=== PATIENT | female | born 1990 | race Caucasian/White ===

== ENCOUNTER 2018-09-12 18:16 | Emergency (ER) | payer OTHER, SELFPAY ==
[2018-09-12 18:17] VITALS: BP 128/77; PULSE 65; RESP 16; TEMP 36.2; O2SAT 100; BMI 30.4
[2018-09-12] MEDS: Smz/Tmp Ds Tablet 1 TABLET PO (18:37)
--- NOTE | 2018-09-12 18:40 | ED.DCSUM_ITS ---
- ER Visit Summary Date of Service: 09/12/18 Chief Complaint: Facial infection History of Present Illness: The patient is a 28 F presents to the emergency department facial infection. On Saturday, the patient was bit by dog on the face. She went to another emergency department. She had the small laceration under her left eye closed primarily. She was placed on Augmentin. She states today, the redness has increased and she did have some purulent drainage from it. She denies any fevers or chills. She has had some mild pain. She has no history of immunosuppression. Physical Examination: Afebrile, vitals unremarkable. Well-appearing female no acute distress. Patient has 3 stitches over the zygomatic area on the left face. There is some central fluctuance. She has a small area that is open without purulence near her left upper lip border. There is no significant cellu litis. There is no streaking. Test Results: [] Emergency Department Course and Treatment: I did remove the stitches. There is some scant purulence. This was cultured. My suspicion is that she likely just had retained bacteria from the bite and it was closed. The area was cleaned and a Steri-Strip was placed. I am going to add Bactrim to her regimen. She will continue the Augmentin. She was counseled on concerning symptoms. She will be discharged home. Treatment Plan: [] Disposition: Discharge Impression: 1. Facial infection status post dog bite This note was generated with Skigit dictation software. It may contain incorrect words, spelling, and punctuation that were not noted in review of the chart prior to signing ED Disposition - Plan for ED Patient: Chief Complaint: Wound Check Instructions: ED Wound Check Laceration FU Infec Prescriptions: Smz/Tmp Ds [Bactrim Ds] 1 tab PO BID #14 tab Referrals: NOT,DEFINED [Primary Care Provider] -
--- OUTSIDE RECORDS SUMMARY | 2018-11-17 08:21 | XMS RPT_ITS ---
:1990 Author Organization [facility] Care Team Providers Name Role Phone PROVIDER, UNKNOWN Attending Unavailable PROVIDER, UNKNOWN Referring Unavailable Chaparro Horn Primary Care Unavailable Derek Dave Attending Unavailable Primay Care Physicia, No Primary Care Unavailable PROBLEMS PROBLEMS DATE TYPE CONDITION / CODE ATTENDING STATUS SOURCE 09/17/2018 Unknown Cora99.9 - Derek Dave Active Lars Unspecified [facility] infectious Hospital disease / Repository B99.9(ICD-10) 09/08/2018 Admitting Open bite of left Unknown Active [employer] Diagnosis eyelid and System periocular area, Repository init encntr / S01.152A(ICD-10) 09/08/2018 Admitting Bitten by dog, Unknown Active [employer] Diagnosis initial encounter System / Repository W54.0XXA(ICD-10) PROCEDURES PROCEDURES No Procedure Records FoundRESULTS RESULTS EMERGENCY DEPARTMENT Observed: 09/12/2018 Status: F Source: [place] SUMMARY 8:22 PM [facility] [place] Medical Records Department [address] [place] [address] Emergency Department Summary 09/12/18 1838 MR#: [id number] Acct: [id number] Name: CHENTE DERAS Rep #: [id number] : 1990 28 From: Derek Dave MD PCP: Care Physician, No Primary Status: DEP ER - ER Visit Summary Date of Service: 09/12/18 Chief Complaint: Facial infection History of Present Illness: The patient is a 28 F presents to the emergency department facial infection. On Saturday, the patient was bit by dog on the face. She went to another emergency department. She had the small laceration under her left eye closed primarily. She was placed on Augmentin. She states today, the redness has increased and she did have some purulent drainage from it. She denies any fevers or chills. She has had some mild pain. She has no history of immunosuppression. Physical Examination: Afebrile, vitals unremarkable. Well- appearing female no acute distress. Patient has 3 stitches over the zygomatic area on the left face. There is some central fluctuance. She has a small area that is open without purulence near her left upper lip border. There is no significant cellulitis. There is no streaking. Test Results: [] Emergency Department Course and Treatment: I did remove the stitches. There is some scant purulence. This was cultured. My suspicion is that she likely just had retained bacteria from the bite and it was closed. The area was cleaned and a Steri- Strip was placed. I am going to add Bactrim to her regimen. She will continue the Augmentin. She was counseled on concerning symptoms. She will be discharged home. Treatment Plan: [] Disposition: Discharge Impression: 1. Facial infection status post dog bite This note was generated with [employer] dictation software. It may contain incorrect words, spelling, and punctuation that were not noted in review of the chart prior to signing ED Disposition - Plan for ED Patient: Chief Complaint: Wound Check Instructions: ED Wound Check Laceration FU Infec Prescriptions: Smz/Tmp Ds [Bactrim Ds] 1 tab PO BID #14 tab Referrals: NOT,DEFINED [Primary Care Provider] - What to do if you have Problems For any increased pain, shortness of breath, bleeding, nausea or vomiting, chest pain, or any unexpected problems, contact your Primary Care Provider. Call [facility] ([phone]) or report to the closest Emergency Room. Call 911 if necessary. 09/12/182021 <Electronically signed by Derek Dave MD> Date Derek Torresigneduardo Signature (If Indicated): Date CC: No Primary Care Physician Observed: 09/12/2018 Status: F Source: LARS CULTURE, WOUND 6:35 PM [facility] [place] Gram Stain Gram Stain 4+ Red Blood Cells 1+ White Blood Cells No organisms seen Wound Culture No growth aerobically. Performed By: #### [id number] #### [facility] [address] [place], [address] ALLERGIES ALLERGIES DATE TYPE / CODE NAME / CODE REACTION SEVERITY SOURCE 09/12/2018 Drug No Known Unknown [facility] Allergy/4160 Allergies/F00 [facility] [address]85(SNOMED [id number](RXNOR Repository CT) M) ENCOUNTERS ENCOUNTERS ADMIT/DISCHARGE ACCOUNT NUMBER ADMITTING ENCOUNTER LOCATION SOURCE CLASS 09/12/2018/09/12/19 [id number] Emergency [address] ding:ED Repository 09/08/2018 [id number] Emergency [address] [place] [address] EDRoom: System [id number]: Repository [id number] PAYERS PAYERS ENCOUNTER GUARANTOR PAYER SUBSCRIBER SOURCE 09/12/2018 CHENTE [facility] [id number] Insurance:OBWCPolicy PARATOREDOB: Community [facility] Number: [id number] [place], [place] [id number] Repository [address]Irz: (337) Date:0301-13-15IWXRUO [phone] ([facility] [id number] [place], [place] [address]KR: 09/12/2018 Secondary [facility] Effective Hospital Date:2018-09-12 Repository 09/08/2018 [facility] ParatoreDOB: Insurance:Workers ParatoreDOB: System [id number] CompensationPolicy [id number] [facility] Number: Effective Date: [place], [place] [address]Yna: ()
== END 2018-09-12 19:17 | disposition home or self-care (01) ==
LOC: ED 18:55
PROVIDERS: Emergency Provider Emergency Medicine
DX: S01.452D Open bite of left cheek and temporomandibular area, subsequent encounter (principal); L08.9 Local infection of the skin and subcutaneous tissue, unspecified; W54.0XXD Bitten by dog, subsequent encounter
CPT/HCPCS: 87070; 87205; 99283

== ENCOUNTER → 2018-12-04 09:27 | Outpatient (CLI) | payer OTHER, SELFPAY ==
[2018-12-04 09:25] VITALS: BMI 30.4
--- NOTE | 2018-12-04 09:28 | RAD_ITS ---
STUDY: X-RAY - LEFT KNEE REASON FOR EXAM: Chronic pain, prior surgery. TECHNIQUE: 4 view(s) of the knee. COMPARISON: None. FINDINGS: Normal visualized distal femur. There are postoperative changes of the proximal tibia from patellar realignment. Normal proximal tibiofibular articulation. Normal medial femorotibial compartment. Normal lateral femorotibial compartment. Normal patellofemoral articulation. The soft tissue structures are unremarkable. RAD/Knee 4 or More Views IMPRESSION: Postoperative changes from patellar realignment. Otherwise, unremarkable x-ray examination of the left knee. Electronically Signed: Wong Shi MD at 15:00 EDT Tel , Service support ,
--- NOTE | 2018-12-04 09:28 | RAD_ITS ---
STUDY: X-RAY - RIGHT KNEE REASON FOR EXAM: Chronic pain. TECHNIQUE: 4 view(s) of the knee. COMPARISON: None. FINDINGS: Normal visualized distal femur. Normal visualized proximal tibia and fibula. Normal proximal tibiofibular articulation. Normal medial femorotibial compartment. Normal lateral femorotibial compartment. Normal patellofemoral articulation. The soft tissue structures are unremarkable. RAD/Knee 4 or More Views IMPRESSION: Normal x-ray examination of the right knee. Electronically Signed: Wong Shi MD at 14:53 EDT Tel , Service support ,
== END ==
PROVIDERS: Referring Provider Orthopaedic Surgery; Visit Provider Orthopaedic Surgery
DX: R52 Pain, unspecified (principal); G89.29 Other chronic pain
CPT/HCPCS: 73564

== ENCOUNTER → 2020-09-23 10:37 | Outpatient (CLI) | payer BC, SELFPAY ==
[2018-12-04 09:25] VITALS: BMI 30.4
[2020-09-23 11:19] LABS: hCG Titer Quant., Serum 76 mIU/mL (1-3)
== END ==
PROVIDERS: Referring Provider Obstetrics & Gynecology; Visit Provider Obstetrics & Gynecology
DX: O20.0 Threatened abortion (principal); Z3A.00 Weeks of gestation of pregnancy not specified
CPT/HCPCS: 36415; 84702; 86850; 86900; 86901

== ENCOUNTER → 2020-09-25 19:15 | Outpatient (CLI) | payer BC, SELFPAY ==
[2020-09-23 15:50] VITALS: BMI 34.2
[2020-09-25 20:10] LABS: hCG Titer Quant., Serum 65 mIU/mL (1-3)
== END ==
PROVIDERS: Visit Provider Obstetrics & Gynecology
DX: O20.0 Threatened abortion (principal); Z3A.00 Weeks of gestation of pregnancy not specified
CPT/HCPCS: 36415; 84702

== ENCOUNTER → 2020-09-27 10:04 | Outpatient (CLI) | payer BC, SELFPAY ==
[2020-09-23 15:50] VITALS: BMI 34.2
[2020-09-27 10:45] LABS: hCG Titer Quant., Serum 43 mIU/mL (1-3)
== END ==
PROVIDERS: Referring Provider Obstetrics & Gynecology; Visit Provider Obstetrics & Gynecology
DX: O02.1 Missed abortion (principal); Z3A.00 Weeks of gestation of pregnancy not specified
CPT/HCPCS: 36415; 84702

== ENCOUNTER → 2020-10-04 10:27 | Outpatient (CLI) | payer BC, SELFPAY ==
[2020-09-23 15:50] VITALS: BMI 34.2
[2020-10-04 11:28] LABS: hCG Titer Quant., Serum 7 mIU/mL (1-3)
== END ==
PROVIDERS: Nurse Practitioner Women's Health; Referring Provider Obstetrics & Gynecology; Visit Provider Obstetrics & Gynecology
DX: O02.1 Missed abortion (principal); Z3A.00 Weeks of gestation of pregnancy not specified
CPT/HCPCS: 36415; 84702

== ENCOUNTER → 2021-06-20 09:35 | Outpatient (CLI) | payer OTHER, SELFPAY ==
[2021-06-20 12:19] LABS: Absolute Lymphocyte Count 1.49 X10^3/uL (0.83-4.51); Basophil# 0.03 X10^3/uL; Basophil% 0.5 % (0-1); Eosinophil# 0.12 X10^3/uL; Hematocrit 43.6 % (37-47); Hemoglobin 14.1 g/dL (12.0-15.0); Lymphocyte # 1.49 X10^3/ul (0.83-4.51); Lymphocyte % 24.3 % (19-41); Mean Corp Hgb Conc 32.3 g/dL (32-36); Mean Corpuscular Hgb 29.1 pg (27.0-32.0); Mean Corpuscular Volume 90.1 fL (81-99); Mean Platelet Vol. 9.7 fl (6.2-12.0); Monocyte# 0.47 X10^3/uL; Monocyte% 7.7 % (0-10); NRBC Flagged by Analyzer 0 % (0-5); Neutrophil % 65.2 % (47-70); Platelet Count 257 K/mm3 (150-450); RBC Distribution Width CV 12.1 % (11.6-14.6); RBC Distribution Width SD 39.8 fl (35.1-43.9); Red Blood Count 4.84 M/mm3 (4.2-5.4); White Blood Count 6.1 K/mm3 (4.4-11.0)
[2021-06-20 12:33] LABS: Vitamin B12 388 pg/mL (211-911); Vitamin D,25 Hydroxy 16.5 ng/mL
[2021-06-20 12:38] LABS: Hemoglobin A1c 5.1 % (3.8-5.6)
[2021-06-20 12:55] LABS: ALB/GLOB Ratio 1.1 RATIO (0.9-2.4); AST(SGOT) 17 U/L (15-37); Alanine Aminotransfer ALT/SGPT 28 U/L (13-56); Albumin, Serum 3.8 g/dL (3.2-5.0); Alkaline Phosphatase 58 U/L (45-117); Anion Gap 8 (5-15); BUN 9 mg/dL (7-18); Calcium,Total 8.7 mg/dL (8.5-10.1); Chloride 105 mmol/L (98-107); Cholesterol 165 mg/dL (200); Creatinine, Serum 0.69 mg/dL (0.55-1.02); EST Glomerular Filtration Rate 106 mL/min (>60); Est Glom Filt Rate - Afr Amer 128 mL/min (>60); Free T3 3.3 pg/mL (2.18-3.98); Globulin 3.6 g/dL (2.2-4.2); Glucose 89 mg/dL (74-106); High Density Lipoprotein 55 mg/dL; Iron 95 ug/dL (50-170); Iron Binding Capacity,Total 338 ug/dL (250-450); PERCENT IRON SATURATION 28.1 % (15.0-55.0); Potassium 3.8 mmol/L (3.5-5.1); Protein, Total 7.4 g/dL (6.4-8.2); Sodium Level 139 mmol/L (136-145); T4 Free Direct 0.97 ng/dL (0.76-1.46); Thyroid Stim Hormone (TSH) 2.18 uIU/mL (0.358-3.74); Triglycerides 74 mg/dL; Very Low Density Lipoprotein 15 mg/dL (5-40)
== END ==
PROVIDERS: PCP Internal Medicine; Referring Provider Internal Medicine; Visit Provider Internal Medicine
DX: R53.83 Other fatigue (principal); R63.5 Abnormal weight gain
CPT/HCPCS: 36415; 80053; 80061; 82306; 82607; 83036; 83540; 83550; 84439; 84443; 84481; 85025

== ENCOUNTER → 2022-01-17 | Outpatient (CLI) | payer OTHER, SELFPAY ==
[2022-01-17 19:34] LABS: hCG Titer Quant., Serum 375 mIU/mL (1-3)
== END | disposition home or self-care (01) ==
PROVIDERS: PCP Internal Medicine; Visit Provider Obstetrics & Gynecology
DX: N91.2 Amenorrhea, unspecified (principal)
CPT/HCPCS: 84702

== ENCOUNTER → 2022-01-27 | Outpatient (CLI) | payer OTHER, SELFPAY ==
[2022-01-27 12:37] LABS: hCG Titer Quant., Serum 5708 mIU/mL (1-3)
== END | disposition home or self-care (01) ==
LOC: LAB 10:41
PROVIDERS: PCP Internal Medicine; Visit Provider Obstetrics & Gynecology
DX: N91.2 Amenorrhea, unspecified (principal)
CPT/HCPCS: 36415; 84702

== ENCOUNTER → 2022-02-14 | Outpatient (CLI) | payer OTHER, SELFPAY ==
[2022-02-14 12:29] LABS: Amphetamine Urine VISTA NEGATIVE (<1000 ng/mL); Barbiturate Urine VISTA NEGATIVE (< 200 ng/mL); Benzodiazepine Urine VISTA NEGATIVE (< 200 ng/mL); Cocaine Urine VISTA NEGATIVE (< 300 ng/mL); Ecstacy Urine VISTA NEGATIVE (< 500 ng/mL); Methadone Urine VISTA NEGATIVE (< 300 ng/mL); PCP Urine VISTA NEGATIVE (< 25 ng/mL); THC Urine VISTA NEGATIVE (< 50 ng/mL); Vista UDS pH Range 5
[2022-02-16 08:10] LABS: Chlamydia By Nucleic Acid AMP Negative (Negative)
[2022-02-16 19:04] LABS: Gonococcus By Nucleic Acid AMP Negative (Negative)
[2022-02-16 19:33] LABS: HPV Reflexed? NOT INDICATED
== END | disposition home or self-care (01) ==
LOC: LABSPEC 10:33
PROVIDERS: PCP Internal Medicine; Visit Provider Obstetrics & Gynecology
DX: Z34.00 Encounter for supervision of normal first pregnancy, unspecified trimester (principal)
CPT/HCPCS: 80307; 87077; 87086; 87088; 87186; 87491; 87591; 88175; G0145

== ENCOUNTER → 2022-02-27 | Outpatient (CLI) | payer OTHER, SELFPAY ==
[2022-02-27 11:10] LABS: Absolute Lymphocyte Count 1.41 X10^3/uL (0.83-4.51); Absolute Neutrophil Count 6.8 X10^3/uL (2.0-7.7); Basophil# 0.03 X10^3/uL; Basophil% 0.3 % (0-1); Eosinophil# 0.09 X10^3/uL; Hematocrit 41.1 % (37-47); Hemoglobin 13.7 g/dL (12.0-15.0); Lymphocyte # 1.41 X10^3/ul (0.83-4.51); Mean Corp Hgb Conc 33.3 g/dL (32-36); Mean Corpuscular Hgb 29.3 pg (27.0-32.0); Mean Corpuscular Volume 87.8 fL (81-99); Mean Platelet Vol. 8.9 fl (6.2-12.0); Monocyte# 0.46 X10^3/uL; Monocyte% 5.2 % (0-10); NRBC Flagged by Analyzer 0 % (0-5); Neutrophil # 6.82 X10^3/uL (2.7-7.7); Neutrophil % 77.2 % (47-70); Platelet Count 226 K/mm3 (150-450); RBC Distribution Width CV 12.7 % (11.6-14.6); RBC Distribution Width SD 40.8 fl (35.1-43.9); Red Blood Count 4.68 M/mm3 (4.2-5.4); White Blood Count 8.8 K/mm3 (4.4-11.0)
[2022-02-27 11:45] LABS: Glucose Challenge Gest 1H 50g 95 mg/dL (70-140)
[2022-02-27 12:01] LABS: NATERA MAILED SPECIMEN
[2022-02-27 12:32] LABS: HIV - WCH Non-Reactive (Nonreactive); Hepatitis B Surface Antigen Non-Reactive (Nonreactive); Hepatitis C Antibody Non-Reactive (Nonreactive); Rubella IgG Reactive (Nonreactive); Syphilis Antibodies Non-reactive
== END | disposition home or self-care (01) ==
LOC: LAB 10:49
PROVIDERS: PCP Internal Medicine; Visit Provider Obstetrics & Gynecology
DX: Z34.00 Encounter for supervision of normal first pregnancy, unspecified trimester (principal)
CPT/HCPCS: 36415; 82950; 85025; 86703; 86762; 86780; 86803; 86850; 86900; 86901; 87340

== ENCOUNTER → 2022-04-11 | Outpatient (CLI) | payer OTHER, SELFPAY | END | disposition home or self-care (01) | LOC: LABSPEC 14:19 | PROVIDERS: PCP Internal Medicine; Visit Provider Nurse Practitioner Women's Health | DX: O23.40 Unspecified infection of urinary tract in pregnancy, unspecified trimester (principal) | CPT/HCPCS: 87086; 87088 ==

== ENCOUNTER → 2022-05-09 | Outpatient (CLI) | payer OTHER, SELFPAY | END | disposition home or self-care (01) | PROVIDERS: PCP Internal Medicine; Referring Provider Obstetrics & Gynecology; Visit Provider Obstetrics & Gynecology | DX: Z36.9 Encounter for antenatal screening, unspecified (principal) | CPT/HCPCS: 36415 ==

== ENCOUNTER → 2022-07-03 | Outpatient (CLI) | payer OTHER, SELFPAY ==
[2022-07-03 09:40] LABS: Absolute Lymphocyte Count 1.46 X10^3/uL (0.83-4.51); Absolute Neutrophil Count 9.4 X10^3/uL (2.0-7.7); Basophil# 0.03 X10^3/uL; Basophil% 0.3 % (0-1); Eosinophil# 0.08 X10^3/uL; Eosinophils% 0.7 % (0-5); Hematocrit 38.9 % (37-47); Hemoglobin 12.8 g/dL (12.0-15.0); Lymphocyte # 1.46 X10^3/ul (0.83-4.51); Lymphocyte % 12.6 % (19-41); Mean Corp Hgb Conc 32.9 g/dL (32-36); Mean Corpuscular Hgb 29.5 pg (27.0-32.0); Mean Corpuscular Volume 89.6 fL (81-99); Mean Platelet Vol. 9.4 fl (6.2-12.0); Monocyte# 0.52 X10^3/uL; Monocyte% 4.5 % (0-10); NRBC Flagged by Analyzer 0 % (0-5); Neutrophil # 9.42 X10^3/uL (2.7-7.7); Platelet Count 186 K/mm3 (150-450); RBC Distribution Width CV 12.4 % (11.6-14.6); RBC Distribution Width SD 40.7 fl (35.1-43.9); Red Blood Count 4.34 M/mm3 (4.2-5.4); White Blood Count 11.6 K/mm3 (4.4-11.0)
[2022-07-03 10:02] LABS: Glucose Challenge Gest 1H 50g 89 mg/dL (70-140)
[2022-07-03 10:27] LABS: Syphilis Antibodies Non-reactive
== END | disposition home or self-care (01) ==
LOC: LAB 09:13
PROVIDERS: Registered Nurse; PCP Internal Medicine; Visit Provider Obstetrics & Gynecology
DX: Z34.90 Encounter for supervision of normal pregnancy, unspecified, unspecified trimester (principal)
CPT/HCPCS: 36415; 82950; 85025; 86780

== ENCOUNTER → 2022-07-31 | Outpatient (CLI) | payer OTHER, SELFPAY ==
--- NOTE | 2022-07-31 10:02 | US_ITS ---
STUDY: SECOND AND THIRD TRIMESTER OBSTETRICAL ULTRASOUND - LIMITED REASON FOR EXAM: Female, 32 years old growth -- 32 Weeks LMP: 12/19/2021 PRIOR ULTRASOUND: None. TECHNIQUE: Transabdominal TECHNICAL QUALITY: Adequate. FINDINGS: There is a single intrauterine fetus. The fetus is in a cephalic presentation. There is demonstrated cardiac activity with a heart rate of 157 bpm. There is a normal amniotic fluid volume. The largest amniotic fluid pocket measures 5.8 cm. The amniotic fluid index (MARK) is 13.0 cm. The placenta is anterior in location and is not low lying. There are Grade 1 placental changes. The cervix measures 4.0 cm in length. BIOMETRY: BPD: 8.3 cm: 33 weeks, 1 days HC: 29.5 cm: 32 weeks, 5 days AC: 28.6 cm: 32 weeks, 5 days FL: 6.2 cm: 32 weeks, 0 days Age by LMP: 32 weeks, 0 days. ALECIA by LMP: 09/25/2022. age by prior US: weeks, days. ALECIA by prior US: . age by current US: 32 weeks, 3 days. ALECIA by current US: 09/22/2022. Estimated weight: 2021 grams, +/- 303 grams, 60 percentile. Gender: US/OB Limited With Biometrics IMPRESSION: Living intrauterine of 32 weeks 3 days as described above. Electronically Signed: Elkin Campos MD at 16:57 EST ,
== END | disposition home or self-care (01) ==
LOC: US 10:00
PROVIDERS: PCP Internal Medicine; Referring Provider Nurse Practitioner Women's Health; Visit Provider Nurse Practitioner Women's Health
DX: O99.210 Obesity complicating pregnancy, unspecified trimester (principal); Z3A.32 32 weeks gestation of pregnancy
CPT/HCPCS: 76816

== ENCOUNTER → 2022-08-30 | Outpatient (CLI) | payer OTHER, SELFPAY | END | disposition home or self-care (01) | LOC: LABSPEC 12:22 | PROVIDERS: PCP Internal Medicine; Referring Provider Obstetrics & Gynecology; Visit Provider Obstetrics & Gynecology | DX: Z34.02 Encounter for supervision of normal first pregnancy, second trimester (principal) | CPT/HCPCS: 87081 ==

== ENCOUNTER → 2022-09-03 | Outpatient (CLI) | payer OTHER, SELFPAY ==
--- NOTE | 2022-09-03 09:33 | US_ITS ---
STUDY: SECOND AND THIRD TRIMESTER OBSTETRICAL ULTRASOUND - LIMITED REASON FOR EXAM: Female, 32 years old growth -- 36 Weeks LMP: 12/19/2021. PRIOR ULTRASOUND: Comparison is made with prior study dated 07/31/2022. TECHNIQUE: Transabdominal TECHNICAL QUALITY: Adequate. FINDINGS: There is a single intrauterine fetus. The fetus is in a cephalic presentation. There is demonstrated cardiac activity with a heart rate of 143 bpm. There is a normal amniotic fluid volume. The largest amniotic fluid pocket measures 4.1 cm. The amniotic fluid index (MARK) is 11.2 cm. The placenta is anterior in location and is not low lying. There are Grade 1 placental changes. The cervix measures 3.9 cm in length. BIOMETRY: BPD: 9.03 cm: 36 weeks, 4 days HC: 32.76 on the: 37 weeks, 1 days AC: 33.37 cm: 37 weeks, 2 days FL: 6.95 cm: 35 weeks, 5 days Age by LMP: 36 weeks, 6 days. ALECIA by LMP: 09/25/2022. age by prior US: 37 weeks, 2 days. ALECIA by prior US: 09/22/2022 age by current US: 36 weeks, 4 days. ALECIA by current US: 09/27/2022. Estimated weight: 3055 grams, +/- 458 grams, 55.8 percentile. US/OB Limited With Biometrics IMPRESSION: Single live intrauterine gestation with a mean gestational age of 37 weeks and 2 days. The measurements obtained today fall within the normal expected range. Electronically Signed: Casey Reagan MD at 8:23 EST ,
== END | disposition home or self-care (01) ==
PROVIDERS: PCP Internal Medicine; Visit Provider Nurse Practitioner Women's Health
DX: O99.213 Obesity complicating pregnancy, third trimester (principal); Z3A.37 37 weeks gestation of pregnancy
CPT/HCPCS: 76816

== ENCOUNTER 2022-09-23 04:00 | Inpatient (IN) | payer OTHER, SELFPAY ==
[2022-09-23] VITALS (37 sets, daily range): BP systolic 103–161; BP diastolic 56–86; PULSE 78–146; TEMP 36.2–36.9; O2SAT 93–100; BMI 40.6
[2022-09-23 03:52] LABS: ROM Internal Control Test YES-OK TO RESULT pt. (Internal QC)
[2022-09-23 03:53] LABS: ROM Patient Test POSITIVE (Negative)
[2022-09-23 04:41] LABS: Absolute Lymphocyte Count 2.03 X10^3/uL (0.83-4.51); Absolute Neutrophil Count 10.6 X10^3/uL (2.0-7.7); Basophil# 0.03 X10^3/uL; Basophil% 0.2 % (0-1); Eosinophil# 0.09 X10^3/uL; Eosinophils% 0.7 % (0-5); Hematocrit 39.4 % (37-47); Hemoglobin 12.6 g/dL (12.0-15.0); Lymphocyte # 2.03 X10^3/ul (0.83-4.51); Mean Corpuscular Hgb 27.8 pg (27.0-32.0); Mean Platelet Vol. 10.7 fl (6.2-12.0); Monocyte# 0.78 X10^3/uL; Monocyte% 5.8 % (0-10); NRBC Flagged by Analyzer 0 % (0-5); Neutrophil # 10.55 X10^3/uL (2.7-7.7); Neutrophil % 77.7 % (47-70); Platelet Count 179 K/mm3 (150-450); RBC Distribution Width CV 12.7 % (11.6-14.6); RBC Distribution Width SD 39.8 fl (35.1-43.9); Red Blood Count 4.53 M/mm3 (4.2-5.4); White Blood Count 13.6 K/mm3 (4.4-11.0)
--- NOTE | 2022-09-23 08:32 | PCM.HP.BLA ---
History and Physical Date of Admission: 09/23/22 Chief complaint: Leakage of fluid History present illness: 32-year-old G2, P0 at 39 weeks and 5 days with ALECIA 09/25/2022 arrives with leakage of clear fluid. Denies headache, vision changes, chest pain, shortness of breath, nausea vomit, right upper quadrant pain. Patient states good movement. is complicated by Rh- Obstetric history: G1: SAB G2: Current Past medical history: None Medications: vitamin Allergies: No known drug allergies Past surgical history: Tongue clipping, arthroscopic knee surgery Family history: Denies history DVT or PE Social history: Denies smoking, alcohol, drug use Review of systems: Besides above pertinent positives a full review of systems was performed and found to be negative Physical exam: Vitals: Blood pressure 121/76 pulse 86 General: Normal-appearing no acute distress HEENT: Normocephalic/atraumatic Cardiac/respiratory: No use accessory muscles, nonlabored breathing Abdomen: Soft, nontender, gravid Extremities: No peripheral edema Psych: Normal affect normal demeanor nonpressured speech Labs: White blood cell count 13.6 hemoglobin 12.6 macro 13.9% platelets 179. Blood type B- antibody negative. ROM positive Assessment plan: 32-year-old G2, P0 at 39 weeks and 5 days with spontaneous rupture of membranes. Called by nursing with leakage of fluid and positive ROM test. Given admission orders. Instructed to recheck and if needed will augment with Pitocin. Patient seen and examined. We will continue current management. GBS negative Rh-: We will evaluate for RhoGAM
--- NOTE | 2022-09-23 10:04 | PN_ITS ---
Progress Note pt is sitting up at the side of the bed breathing. her last cervical check at 7 am she was 1-2 cm dilated and ruptured membranes at around 2 am. current tracing: FHT: Moderate variability reactive no decelerations category I tracing [place]: q3-5 min Contractions cx: 4/90/0 A/P: 39 weeks 5 days srom pt is progressing. pit and epidural prn.
[2022-09-23] MEDS: 0.9% Saline Lock 10 ML Syringe IV (13:10)
[2022-09-23] MEDS: Oxytocin 15 Units/NS 250ml 15 UNITS/250 ML IV.SOLN 2 UNITS IV (13:15)
[2022-09-23] MEDS: Lactated Ringers 1,000 ML 50 ML IV (13:15)
[2022-09-23] MEDS: LACTATED RINGERS 500 ML 999 ML IV (14:45)
[2022-09-23] MEDS: fentaNYL-bupivacaine (epidural) 100 ML BAG EPIDURAL (15:30)
--- NOTE | 2022-09-23 15:56 | PN_ITS ---
Progress Note patient is now comfortable with epidural. her last pelvic exam she was 4 cm. current tracing: FHT: Moderate variability reactive no decelerations category I tracing [place]: q2-4 min Contractions cx: anterior lip only present. +1 station. reviewed tracing abnormalities since last note: no change A/P: 39 weeks, srom with epidural jensen cath to be placed now and will recheck in 30 min to start pushing
--- NOTE | 2022-09-23 17:48 | DCINST_ITS ---
Discharge Instructions Diet Discharge Diet: No restrictions Activity Discharge Activity: Return to Normal Activity, May Not Drive (while taking narcotic pain medications.) and May Shower May resume sexual activity in: 4-6 weeks Dressing / Incision Call your doctor if your incision/area has: Continuous Slow Oozing, Sudden Increased Bleeding, Increased Pain/ Swelling, Increased Redness and Foul Smelling Discharge Follow Up Care Please Follow Up With: Munira Sandoval DO When: Call [phone] to make an appointment with your doctor in 6 weeks. If you had elevated blood pressure or 4th degree laceration, you will need to be seen in 2 weeks. Test Results: Test results from this visit will be discussed in further detail at your follow- up appointment, if applicable. Discharge Plan Admission Admit Date/Time: 09/23/22 04:00 Primary Reason for Your Visit: vaginal delivery Attending Provider: Munira Sandoval Primary Care Provider: Valeria Parker Discharge Orders/Prescriptions Prescriptions: New naproxen 500 mg tablet 500 mg PO BID PRN (Reason: pain) Qty: 30 0RF Continued prenat.vits,gomez,anm-fqja-rjpvs Tablet 1 tab PO DAILY Discontinued aspirin [Adult Low Dose Aspirin] 81 mg tablet,delayed release (DR/EC) 81 mg PO DAILY Referrals / Follow Up: Valeria Parker MD [Primary Care Provider] - Disposition Disposition (needs filled in before D/C Order can be placed): Home, Self Care
--- NOTE | 2022-09-23 17:52 | OP.PCM_ITS ---
Assessment & Plan (1) Vitamin D deficiency: (2) COVID-19 affecting in first trimester: COMMENT: asa 81mg daily, 32 & 36 week growth US (3) Abnormal genetic test during : COMMENT: Pt with 2 +genes and FOB 3 +genes none are same. [facility] records scanned. No further testing needed. AFP negative (4) : QUALIFIERS: Weeks of gestation: 39 weeks Qualified Code(s): Z3A.39 - 39 weeks gestation of COMMENT: GBS Negative, Carrier screen per RGI:scanned. NIPT low risk, 32wk nl growth EFW 2021 gms+/-303 gms 60%, 09/04 nl growth 3055g 55.8% (5) History of infertility: COMMENT: Normal HSG. Prior clomid use. This spontaneous. (6) Supervision of normal first : QUALIFIERS: Trimester: second trimester Qualified Code(s): Z34.02 - Encounter for supervision of normal first , second trimester COMMENT: PRR G2/0 ALECIA:09/25/22 Sp:Riky normal anatomy scan 05/08 (7) Obesity affecting : QUALIFIERS: Trimester: second trimester Qualified Code(s): O99.212 - Obesity complicating , second trimester (8) Rh negative state in antepartum period: COMMENT: rhogam 28 wk, pp and prn bleeding (given 07/03) (9) UTI in : COMMENT: rpt culture:negative Maternal Data Information ALECIA Calculator Estimated Delivery Date Method Current WG Current Estimate 09/25/22 LMP (Certain) 39w 5d Other Estimates 09/22/22 Ultrasound #1 40w 1d Final ALECIA: 09/25/22 Final ALECIA Source: LMP Gestational age: 39 weeks 5 days [place] Doctor Who Attended Delivery: Alycia Hanna Vaginal Delivery Maternal Presentation Maternal Presentation: Spontaneous Rupture of Membranes Type of Induction: Pitocin Operative Information Date of Procedure: 09/23/22 Pre-Operative Diagnosis: 39 weeks 5 days , SROM, maternal exhaustion Post-Operative Diagnosis: 39 weeks 5 days , SROM, maternal exhaustion Type of Anesthesia: Epidural Anesthesiologist: Dixon Sosa Drain: Whyte to straight drain Estimated Blood Loss: 150cc Findings Description of Procedure: This is a 32 year old woman who was admitted to labor and delivery for SROM at 39 weeks 5 days. The decision was made to perform a vacuum extraction due to maternal exhaustion and per the patient request after pushing for over an hour and achieving little decent past +3 station. The risk benefits and alternatives of the procedure were discussed with the patient and verbal consent was obtained. The infant was noted to be at a +3 station, the cervix was completely dilated. The infant's head was noted to be in the right occiput anterior presentation. The vacuum was placed in the correct placement in front of the posterior fontanelle. This was confirmed digitally. With the patient's next contraction, the vacuum was inflated and a gentle downward pressure was used to assist with bringing the baby's head to a +4 station. With 3 pull and 1 pop offs. The head was delivered atraumatically. No nuchal cord was noted. The ant erior shoulder followed by the posterior shoulder were delivered without difficulty. The infant was handed off to the patient's chest. The infant was found to be vigorous and crying and moving of all 4 extremities. The mouth and nares were bulb suctioned. After 120 second delay the cord was clamped and cut and the was handed off to the awaiting nurses for routine assessment. There was noted to be a small opening above the 's buttocks and the ginner was consulted for further assessment. The placenta was delivered with gentle traction and uterine massage. Inspection of the vagina cervix and perineum was performed. There were no lacerations to the vagina or to the cervix. The peritoneum was found to have a small 1st degree perineal laceration. The perineal laceration was closed using a 3-0 Vicryl in the usual sterile fashion. The patient tolerated the procedure well sponge lap and needle counts were correct x2 and she is now recovering in stable condition. baby girl Rachel Presentation: Vertex Amniotic Membrane Rupture Type: Spontaneous Amniotic Fluid Description: Clear Placental Delivery Description: Spontaneous Placenta Disposition: [facility] Cord Vessel Description: 3 Vessels Cord Entanglement: None Infant A Gender: Female (1 minute): 8 (5 minute): 9 Delayed Cord Clamping: Yes Post Vaginal Delivery Medications Given After Delivery: IV Pitocin Episiotomy Description: None Laceration: 1st degree Complication Complications: None Multi Select Codes Urinary/Genital Urinary/Genital CPT Codes: 26411 Vaginal Delivery global pkg (vacuum assisted ) and Other Procedure See Report
[2022-09-23] MEDS: Oxytocin 15 Units/NS 250ml 15 UNITS/250 ML IV.SOLN 83 UNITS IV (19:15)
[2022-09-24] VITALS (14 sets, daily range): BP systolic 113–122; BP diastolic 56–75; PULSE 80–111; RESP 14–18; TEMP 36.1–37; O2SAT 97–99
[2022-09-24] MEDS: Naproxen 500 MG Tablet PO (04:15)
--- NOTE | 2022-09-24 08:48 | PCM.PN.OB ---
Subjective Subjective Patient doing well without complaints. Tolerating PO. Ambulating and voiding without difficulty. Feeding well. Denies chest pain, shortness of breath, calf pain/swelling, fevers, chills, lightheadedness. Objective Data Objective Data Vital Signs: Vital Signs Temp Pulse Resp BP Pulse Ox O2 Del Method 97.4 F L 80 14 113/59 L 97 Room Air 09/24/22 07:54 09/24/22 08:11 09/24/22 07:54 09/24/22 08:11 09/24/22 08:10 09/24/22 07:54 Oxygen Delivery Method Room Air Weight: 251 lb 6.4 oz Body Mass Index (BMI) 40.6 Intake & Output: Intake and Output for Last 24 Hours 09/22/22 09/23/22 09/24/22 23:59 23:59 23:59 Intake Total 1075.00 / 1075.00 99.17 / 99.17 Output Total 550 / 550 900 / 900 Balance 525.00 / 525.00 -800.83 / -800.83 Lab / Micro Data Result Diagrams: 09/23/22 04:25 Physical Exam Const alert, oriented x3 and no apparent distress Eyes PERRL Chest Nipple/Areola: nipples/areola normal Resp normal respiratory effort and normal air movement Cardio regular rate and regular rhythm GI GI Narrative: fundus firm at U. no clots.lochia rubra. Assessment & Plan (1) (spontaneous vaginal delivery): COMMENT: at term IAL. Rachel. girl. JV with sacral dimple. [facility] following. emotional support provided PLAN: s/p PPD # 1 1. routine post delivery care 2. breast feeding- support given 3. rh positive 4. rubella immune 5. anticipate d/c home tomorrow evening
[2022-09-25 01:32] VITALS: BP 125/60; PULSE 80; RESP 18; TEMP 36.2; O2SAT 97
[2022-09-25 01:33] VITALS: BP 125/60; PULSE 83
[2022-09-25 09:05] VITALS: PULSE 89; O2SAT 99
[2022-09-25 09:06] VITALS: BP 120/85; PULSE 85
--- NOTE | 2022-09-25 09:08 | PCM.PN.OB ---
Subjective Subjective Patient doing well without complaints. Tolerating PO. Ambulating and voiding without difficulty. Feeding well. Denies chest pain, shortness of breath, calf pain/swelling, fevers, chills, lightheadedness. Baby with sacral dimple and neuro consult planned Objective Data Objective Data Vital Signs: Vital Signs Temp Pulse Resp BP Pulse Ox O2 Del Method 97.2 F L 85 18 120/85 H 99 Room Air 09/25/22 01:32 09/25/22 09:06 09/25/22 01:32 09/25/22 09:06 09/25/22 09:05 09/25/22 01:32 Oxygen Delivery Method Room Air Weight: 251 lb 6.4 oz Body Mass Index (BMI) 40.6 Intake & Output: Intake and Output for Last 24 Hours 09/23/22 09/24/22 09/25/22 23:59 23:59 23:59 Intake Total 1075.00 / 1075.00 99.17 / 99.17 Output Total 550 / 550 900 / 900 Balance 525.00 / 525.00 -800.83 / -800.83 Lab / Micro Data Result Diagrams: 09/23/22 04:25 Physical Exam Const alert and oriented x3 HEENT normocephalic Eyes PERRL Neck full ROM Resp normal respiratory effort GI soft to palpation GI Narrative: FF below U Assessment & Plan (1) (spontaneous vaginal delivery): COMMENT: at term IAL. Rachel. girl. JV infant with sacral dimple. [facility] following. emotional support provided (2) Rh negative state in antepartum period: COMMENT: rhogam 28 wk, pp and prn bleeding (given 07/03) PLAN: Plan s/p PPD # 2 1. routine post delivery care 2. breast feeding- support given 3. rh negative 4. rubella immune 5. home today
[2022-09-25 09:30] VITALS: BP 120/85; PULSE 90; RESP 14; TEMP 36.3; O2SAT 98
[2022-09-25] MEDS: Senna/Docusate Sodium 1 Tablet PO (11:43)
[2022-09-25] MEDS: Acetaminophen 500 MG Tablet 1000 MG PO (11:43)
== END 2022-09-25 12:40 | disposition home or self-care (01) | DRG 807 ==
LOC: WPOUT 04:06 → WP 04:06
PROVIDERS: Obstetrics & Gynecology; Admitting Provider Obstetrics & Gynecology; PCP Internal Medicine; Visit Provider Obstetrics & Gynecology
DX: O42.92 Full-term premature rupture of membranes, unspecified as to length of time between rupture and onset of labor (principal); Z37.0 Single live birth; O70.0 First degree perineal laceration during delivery; O75.81 Maternal exhaustion complicating labor and delivery; O99.214 Obesity complicating childbirth; Z3A.39 39 weeks gestation of pregnancy; O99.893 Other specified diseases and conditions complicating puerperium; Z67.90 Unspecified blood type, Rh positive; Z86.16 Personal history of COVID-19
CPT/HCPCS: 59025; 59050; 84112; 85025; 86850; 86900; 86901; 99221; J7120; A4216; G0378

== ENCOUNTER → 2022-12-15 | Outpatient (CLI) | payer OTHER, SELFPAY ==
[2022-12-15 10:55] LABS: Absolute Neutrophil Count 4.4 X10^3/uL (2.0-7.7); Basophil# 0.04 X10^3/uL; Basophil% 0.5 % (0-1); Eosinophil# 0.36 X10^3/uL; Eosinophils% 4.9 % (0-5); Hematocrit 41.8 % (37-47); Hemoglobin 13.7 g/dL (12.0-15.0); Mean Corp Hgb Conc 32.8 g/dL (32-36); Mean Corpuscular Hgb 27.8 pg (27.0-32.0); Mean Corpuscular Volume 84.8 fL (81-99); Mean Platelet Vol. 8.9 fl (6.2-12.0); Monocyte# 0.57 X10^3/uL; Monocyte% 7.7 % (0-10); NRBC Flagged by Analyzer 0 % (0-5); Neutrophil # 4.42 X10^3/uL (2.7-7.7); Neutrophil % 59.6 % (47-70); Platelet Count 236 K/mm3 (150-450); RBC Distribution Width CV 13.8 % (11.6-14.6); RBC Distribution Width SD 42.8 fl (35.1-43.9); Red Blood Count 4.93 M/mm3 (4.2-5.4); White Blood Count 7.4 K/mm3 (4.4-11.0)
[2022-12-15 11:35] LABS: ALB/GLOB Ratio 1.2 RATIO (0.9-2.4); AST(SGOT) 16 U/L (15-37); Alanine Aminotransfer ALT/SGPT 39 U/L (13-56); Albumin, Serum 3.7 g/dL (3.2-5.0); Alkaline Phosphatase 76 U/L (45-117); Anion Gap 3 (5-15); BUN 11 mg/dL (7-18); BUN/Creat Ratio 17.6 RATIO (10-20); Calcium,Total 8.6 mg/dL (8.5-10.1); Chloride 107 mmol/L (98-107); Cholesterol 162 mg/dL (200); Creatinine, Serum 0.62 mg/dL (0.55-1.02); EST Glomerular Filtration Rate 119 mL/min (>60); Est Glom Filt Rate - Afr Amer 144 mL/min (>60); Globulin 3.2 g/dL (2.2-4.2); Glucose 89 mg/dL (74-106); High Density Lipoprotein 68 mg/dL; Protein, Total 6.9 g/dL (6.4-8.2); Sodium Level 137 mmol/L (136-145); Thyroid Stim Hormone (TSH) 1.89 uIU/mL (0.358-3.74); Triglycerides 65 mg/dL; Very Low Density Lipoprotein 13 mg/dL (5-40)
[2022-12-17 08:24] LABS: Vitamin D,25 Hydroxy 30.4 ng/mL
== END | disposition home or self-care (01) ==
LOC: LAB 10:26
PROVIDERS: PCP Internal Medicine; Visit Provider Internal Medicine
DX: Z00.00 Encounter for general adult medical examination without abnormal findings (principal); E55.9 Vitamin D deficiency, unspecified
CPT/HCPCS: 36415; 80053; 80061; 82306; 84443; 85025

== ENCOUNTER → 2024-01-24 | Outpatient (CLI) | payer OTHER, SELFPAY ==
[2024-01-24 09:19] LABS: Absolute Lymphocyte Count 2.21 X10^3/uL (0.83-4.51); Absolute Neutrophil Count 3.3 X10^3/uL (2.0-7.7); Basophil# 0.02 X10^3/uL; Basophil% 0.3 % (0-1); Eosinophils% 3.3 % (0-5); Hemoglobin 14.2 g/dL (12.0-15.0); Lymphocyte # 2.21 X10^3/ul (0.83-4.51); Lymphocyte % 36.7 % (19-41); Mean Corpuscular Volume 87.9 fL (81-99); Mean Platelet Vol. 8.7 fl (6.2-12.0); NRBC Flagged by Analyzer 0 % (0-5); Neutrophil # 3.27 X10^3/uL (2.7-7.7); Neutrophil % 54.4 % (47-70); Platelet Count 204 K/mm3 (150-450); RBC Distribution Width CV 11.9 % (11.6-14.6); RBC Distribution Width SD 38.6 fl (35.1-43.9); Red Blood Count 4.89 M/mm3 (4.2-5.4)
[2024-01-24 09:55] LABS: Vitamin D,25 Hydroxy 17.2 ng/mL
[2024-01-24 10:02] LABS: ALB/GLOB Ratio 1.1 RATIO (0.9-2.4); AST(SGOT) 15 U/L (15-37); Alanine Aminotransfer ALT/SGPT 20 U/L (13-56); Albumin, Serum 3.8 g/dL (3.2-5.0); Alkaline Phosphatase 52 U/L (45-117); Anion Gap 6 (5-15); BUN 11 mg/dL (7-18); BUN/Creat Ratio 16.3 RATIO (10-20); Calcium,Total 8.9 mg/dL (8.5-10.1); Chloride 107 mmol/L (98-107); Cholesterol 166 mg/dL (200); Creatinine, Serum 0.67 mg/dL (0.55-1.02); EST Glomerular Filtration Rate 108 mL/min (>60); Est Glom Filt Rate - Afr Amer 131 mL/min (>60); Globulin 3.5 g/dL (2.2-4.2); Glucose 94 mg/dL (74-106); High Density Lipoprotein 49 mg/dL; Protein, Total 7.3 g/dL (6.4-8.2); Sodium Level 138 mmol/L (136-145); Thyroid Stim Hormone (TSH) 3.04 uIU/mL (0.358-3.74); Triglycerides 92 mg/dL; Very Low Density Lipoprotein 18 mg/dL (5-40)
== END | disposition home or self-care (01) ==
LOC: LAB 09:04
PROVIDERS: PCP Internal Medicine; Referring Provider Internal Medicine; Visit Provider Internal Medicine
DX: Z00.00 Encounter for general adult medical examination without abnormal findings (principal); Z13.220 Encounter for screening for lipoid disorders; E55.9 Vitamin D deficiency, unspecified
CPT/HCPCS: 36415; 80053; 80061; 82306; 84443; 85025

== ENCOUNTER → 2024-04-22 | Outpatient (CLI) | payer OTHER, SELFPAY ==
[2024-04-22 14:41] LABS: hCG Titer Quant., Serum 2218 mIU/mL (1-3)
== END | disposition home or self-care (01) ==
LOC: LAB 13:19
PROVIDERS: PCP Internal Medicine; Referring Provider Advanced Practice Midwife; Visit Provider Advanced Practice Midwife
DX: N91.2 Amenorrhea, unspecified (principal)
CPT/HCPCS: 36415; 84702

== ENCOUNTER → 2024-04-24 | Outpatient (CLI) | payer OTHER, SELFPAY ==
[2024-04-24 14:43] LABS: hCG Titer Quant., Serum 3731 mIU/mL (1-3)
== END | disposition home or self-care (01) ==
LOC: LAB 13:20
PROVIDERS: PCP Internal Medicine; Referring Provider Advanced Practice Midwife; Visit Provider Advanced Practice Midwife
DX: N91.2 Amenorrhea, unspecified (principal)
CPT/HCPCS: 36415; 84702

== ENCOUNTER → 2024-05-01 | Outpatient (CLI) | payer OTHER, SELFPAY ==
[2024-05-01 12:32] LABS: hCG Titer Quant., Serum 17468 mIU/mL (1-3)
== END | disposition home or self-care (01) ==
LOC: LAB 10:20
PROVIDERS: PCP Internal Medicine; Referring Provider Registered Nurse; Visit Provider Registered Nurse
DX: O26.859 Spotting complicating pregnancy, unspecified trimester (principal); O26.899 Other specified pregnancy related conditions, unspecified trimester; Z67.91 Unspecified blood type, Rh negative; Z3A.00 Weeks of gestation of pregnancy not specified
CPT/HCPCS: 36415; 84702; 86850; 86900; 86901

== ENCOUNTER → 2024-05-06 | Outpatient (CLI) | payer OTHER, SELFPAY ==
--- NOTE | 2024-05-06 13:35 | US_ITS ---
INDICATION: dating EXAMINATION: Ultrasound US OB Transvaginal TECHNIQUE: Transvaginal (for optimal evaluation of the adnexa) pelvic ultrasound was performed. Grayscale, spectral waveform, and color flow Doppler evaluation of the adnexa. COMPARISON: No relevant prior comparison study available LMP: [03/22/2024 Beta-hCG: Unknown FINDINGS: UTERUS: 9 x 7.2 x 4.4 cm. The cervix is closed. RIGHT OVARY: 3 x 2.2 x 2.4 cm. No adnexal mass. LEFT OVARY: 2.5 x 2.5 x 1.4 cm. No adnexal mass. FREE FLUID: None. INTRAUTERINE GESTATIONAL SAC(s) (size/shape): Single. 2.60 cm mean sac diameter. YOLK SAC: Identified POLE: Identified CRL 1.05 cm. ESTIMATED GESTATION AGE: 7 weeks 3 days. HEART MOTION: 142 bpm. PLACENTA: Not visualized due to age. SUBCHORIONIC HEMORRHAGE: None. AMNIOTIC FLUID: Qualitatively normal. US/Transvaginal w/Preg US IMPRESSION: Single live intrauterine . Estimated gestational age is 7 weeks 3 days. Estimated date of delivery of 12/20/2024. Electronically Signed: Ambrosio Shaver MD at 16:03 EDT ,
== END | disposition home or self-care (01) ==
PROVIDERS: PCP Internal Medicine; Referring Provider Advanced Practice Midwife; Visit Provider Advanced Practice Midwife
DX: Z34.90 Encounter for supervision of normal pregnancy, unspecified, unspecified trimester (principal)
CPT/HCPCS: 76817

== ENCOUNTER → 2024-05-22 | Outpatient (CLI) | payer OTHER, SELFPAY ==
[2024-05-25 21:07] LABS: Chlamydia By Nucleic Acid AMP Negative (Negative); Gonococcus By Nucleic Acid AMP Negative (Negative)
== END | disposition home or self-care (01) ==
LOC: LABSPEC 15:53
PROVIDERS: PCP Internal Medicine; Referring Provider Advanced Practice Midwife; Visit Provider Advanced Practice Midwife
DX: O99.210 Obesity complicating pregnancy, unspecified trimester (principal); Z3A.00 Weeks of gestation of pregnancy not specified
CPT/HCPCS: 87086; 87491; 87591

== ENCOUNTER → 2024-05-27 | Outpatient (CLI) | payer OTHER, SELFPAY ==
[2024-05-27 14:54] LABS: Absolute Lymphocyte Count 1.96 X10^3/uL (0.83-4.51); Absolute Neutrophil Count 7.6 X10^3/uL (2.0-7.7); Basophil# 0.04 X10^3/uL; Basophil% 0.4 % (0-1); Eosinophil# 0.14 X10^3/uL; Eosinophils% 1.4 % (0-5); Hematocrit 40.7 % (37-47); Lymphocyte # 1.96 X10^3/ul (0.83-4.51); Mean Corp Hgb Conc 31.9 g/dL (32-36); Mean Corpuscular Hgb 27.8 pg (27.0-32.0); Mean Platelet Vol. 9.6 fl (6.2-12.0); Monocyte# 0.54 X10^3/uL; Monocyte% 5.2 % (0-10); NRBC Flagged by Analyzer 0 % (0-5); Neutrophil # 7.57 X10^3/uL (2.7-7.7); Neutrophil % 73.6 % (47-70); Platelet Count 221 K/mm3 (150-450); RBC Distribution Width CV 12.4 % (11.6-14.6); RBC Distribution Width SD 39.1 fl (35.1-43.9); Red Blood Count 4.68 M/mm3 (4.2-5.4); White Blood Count 10.3 K/mm3 (4.4-11.0)
[2024-05-27 15:42] LABS: HIV - WCH Non-Reactive (Nonreactive); Hepatitis B Surface Antigen Non-Reactive (Nonreactive); Hepatitis C Antibody Non-Reactive (Nonreactive); Rubella IgG Reactive (Nonreactive); Syphilis Antibodies Non-reactive
[2024-05-27 16:37] LABS: Hemoglobin A1c 5.1 % (3.8-5.6)
== END | disposition home or self-care (01) ==
LOC: LAB 13:31
PROVIDERS: PCP Internal Medicine; Referring Provider Advanced Practice Midwife; Visit Provider Advanced Practice Midwife
DX: O99.210 Obesity complicating pregnancy, unspecified trimester (principal); Z3A.00 Weeks of gestation of pregnancy not specified
CPT/HCPCS: 36415; 83036; 85025; 86703; 86762; 86780; 86803; 86850; 86870; 86900; 86901; 87340

== ENCOUNTER → 2024-09-29 | Outpatient (CLI) | payer OTHER, SELFPAY ==
[2024-09-29 17:19] LABS: Absolute Lymphocyte Count 1.72 X10^3/uL (0.83-4.51); Absolute Neutrophil Count 8.2 X10^3/uL (2.0-7.7); Basophil# 0.04 X10^3/uL; Basophil% 0.4 % (0-1); Eosinophil# 0.12 X10^3/uL; Eosinophils% 1.1 % (0-5); Hemoglobin 13.1 g/dL (12.0-15.0); Lymphocyte # 1.72 X10^3/ul (0.83-4.51); Lymphocyte % 16.2 % (19-41); Mean Corpuscular Hgb 28.9 pg (27.0-32.0); Mean Corpuscular Volume 90.5 fL (81-99); Monocyte# 0.48 X10^3/uL; Monocyte% 4.5 % (0-10); NRBC Flagged by Analyzer 0 % (0-5); Neutrophil # 8.22 X10^3/uL (2.7-7.7); Neutrophil % 77.1 % (47-70); Platelet Count 199 K/mm3 (150-450); RBC Distribution Width CV 13.2 % (11.6-14.6); RBC Distribution Width SD 43.9 fl (35.1-43.9); Red Blood Count 4.53 M/mm3 (4.2-5.4); White Blood Count 10.7 K/mm3 (4.4-11.0)
[2024-09-29 18:12] LABS: Glucose Challenge Gest 1H 50g 99 mg/dL (70-140)
[2024-09-29 18:29] LABS: HIV - WCH Non-Reactive (Nonreactive); Syphilis Antibodies Non-reactive
== END | disposition home or self-care (01) ==
LOC: BWCLAB 13:02
PROVIDERS: Nurse Practitioner Women's Health; PCP Internal Medicine; Referring Provider Obstetrics & Gynecology; Visit Provider Obstetrics & Gynecology
DX: O09.90 Supervision of high risk pregnancy, unspecified, unspecified trimester (principal); Z3A.00 Weeks of gestation of pregnancy not specified
CPT/HCPCS: 36415; 82950; 85025; 86703; 86780; 86850; 86900; 86901

== ENCOUNTER → 2024-10-29 | Outpatient (CLI) | payer OTHER, SELFPAY ==
--- NOTE | 2024-10-29 15:35 | US_ITS ---
PROCEDURE: OB LIMITED WITH BIOMETRICS REASON FOR EXAM: 32 week gestation. COMPARISON: None. FINDINGS Number: 1 Position: Vertex Placental Position: Anterior. Placental Abnormalities: None. DIMENSIONS: Biparietal Diameter: 8 cm: 31 weeks and 5 days: 18 percentile/ Head Circumference: 30 cm: 32 weeks and 5 days: 17 percentile/ Abdominal Circumference: 29 cm: 32 weeks and 6 days: 57 percentile/ Femur Length: 6.2 cm: 32 weeks and 1 day: 25th percentile/ ESTIMATED WEIGHT: 1989 g plus/-298 g ESTIMATED WEIGHT PERCENTILE (24+ weeks): 38 ESTIMATED GESTATIONAL AGE: Baseline: 32 weeks and 4 days By Ultrasound: 32 weeks and 2 days ESTIMATED DATE OF DELIVERY: Baseline: December 20, 2024 By Ultrasound: December 22, 2024 BIOPHYSICAL ASSESSMENT: Amniotic Fluid Volume: Subjectively normal. Amniotic Fluid Index: 13.5 (8-24 cm normal range) Cardiac Motion: 130 beats per minute (average) Trunk and Limb Motion: Present. MATERNAL ANATOMY: Adnexa: Neither maternal ovary is successfully identified. Cervical Length (if measured): 4 cm US/OB Limited With Biometrics IMPRESSION: Single live intrauterine gestation with a mean gestational age of 32 weeks and 2 days. Reading Location: [facility]
== END | disposition home or self-care (01) ==
LOC: US 15:34
PROVIDERS: PCP Internal Medicine; Referring Provider Obstetrics & Gynecology; Visit Provider Obstetrics & Gynecology
DX: O99.212 Obesity complicating pregnancy, second trimester (principal); Z3A.00 Weeks of gestation of pregnancy not specified
CPT/HCPCS: 76816

== ENCOUNTER → 2024-11-24 | Outpatient (CLI) | payer OTHER, SELFPAY | END | disposition home or self-care (01) | LOC: LABSPEC 11:40 | PROVIDERS: PCP Internal Medicine; Referring Provider Obstetrics & Gynecology; Visit Provider Obstetrics & Gynecology | DX: O09.90 Supervision of high risk pregnancy, unspecified, unspecified trimester (principal); Z3A.00 Weeks of gestation of pregnancy not specified | CPT/HCPCS: 87081 ==

== ENCOUNTER → 2024-11-30 | Outpatient (CLI) | payer OTHER, SELFPAY ==
--- NOTE | 2024-11-30 15:31 | US_ITS ---
PROCEDURE: OB LIMITED WITH BIOMETRICS 11/30/2024 REASON FOR EXAM: GROWTH TECHNIQUE: High resolution obstetric ultrasound performed using a 2D transducer. Standard views obtained, including biometry, anatomy survey, and Doppler studies. COMPARISON: 10/29/2024 FINDINGS Number: 1 Position: Cephalic Placental Position: Posterior Placental Abnormalities: None DIMENSIONS: Biparietal Diameter: 8.5 cm/34 weeks 2 days Head Circumference: 32.2 cm/36 weeks 2 days Abdominal Circumference: 33.9 cm/37 weeks 5 days Femur Length: 6.7 cm/34 weeks 4 days ESTIMATED WEIGHT: 2938 ESTIMATED WEIGHT PERCENTILE (24+ weeks): 38 ESTIMATED GESTATIONAL AGE: Baseline: 37 weeks 1 day By Ultrasound: 35 weeks 6 days ESTIMATED DATE OF DELIVERY: Baseline: 12/20/2024 By Ultrasound: 12/29/2024 BIOPHYSICAL ASSESSMENT: Amniotic Fluid Volume: 3.9 cm Amniotic Fluid Index: 8.8 cm (8-24 cm normal range) Cardiac Motion: 147 beats per minute (average) Trunk and Limb Motion: Present. MATERNAL ANATOMY: Adnexa: Neither maternal ovary is successfully identified. Cervical Length (if measured): Not visualized US/OB Limited With Biometrics IMPRESSION: Living intrauterine of 35 weeks 6 days as described above. Reading Location: [id number]
== END | disposition home or self-care (01) ==
LOC: US 15:31
PROVIDERS: PCP Internal Medicine; Referring Provider Obstetrics & Gynecology; Visit Provider Obstetrics & Gynecology
DX: O99.212 Obesity complicating pregnancy, second trimester (principal); Z3A.00 Weeks of gestation of pregnancy not specified
CPT/HCPCS: 76816

== ENCOUNTER → 2024-12-09 | Outpatient (CLI) | payer OTHER, SELFPAY ==
--- NOTE | 2024-12-09 11:24 | US_ITS ---
EXAM: OB LIMITED (NO BIOMETRICS) (USOBL) 12/09/2024 CLINICAL HISTORY: MARK RECHECK. Reportedly 38 weeks and 3 days with ALECIA 12/20/2024 by previously established dates. COMPARISON: 11/30/2024 TECHNIQUE: A limited transabdominal obstetrical ultrasound was performed. FINDINGS: Gravid uterus with a single fetus. Amniotic Fluid Index: 9.7 (normal 5-25), deepest vertical pocket 3.5 (normal 2-8). presentation: Cephalic. heart rate: Present, 152 bpm. Placenta: Posterior. Calcifications noted. Maternal anatomy: Cervix: Unremarkable, cervical length 3.5 cm. Right ovary: Not well seen due to the gravid uterus. Left ovary: Not well seen due to the gravid uterus. US/OB Limited (No Biometrics) IMPRESSION: 1. Amniotic fluid index and deepest vertical pocket within normal limits. 2. Additional description as above. Reading Location: [facility]
== END | disposition home or self-care (01) ==
LOC: US 11:24
PROVIDERS: PCP Internal Medicine; Referring Provider Obstetrics & Gynecology; Visit Provider Obstetrics & Gynecology
DX: Z34.93 Encounter for supervision of normal pregnancy, unspecified, third trimester (principal)
CPT/HCPCS: 76815

== ENCOUNTER 2024-12-15 11:43 | Outpatient (CLI) | payer OTHER, SELFPAY ==
[2024-12-15 12:11] VITALS: BP 126/71; PULSE 91; RESP 16; TEMP 36.9; O2SAT 98
[2024-12-15 12:18] VITALS: BMI 42.9
[2024-12-15 12:25] LABS: ROM Internal Control Test YES-OK TO RESULT pt. (Internal QC); ROM Patient Test Negative (Negative); Record Kit Lot#, ROM+ K3358
--- NOTE | 2024-12-17 08:03 | OB.TRI.PN_ITS ---
Progress Notes Date of Service: 12/15/24 Progress Note: Patient presents for triage evaluation secondary to possible ROM 3 cm dilated FHT: 140 Moderate variability reactive no decelerations category I tracing [place]: no reuglar Contractions Assessment and plan: 39 weeks amniotic membrane sintact false labor 3 cm dilated Reactive NST, reassuring maternal and status patient discharged to home to follow-up as scheudled. See problem list details for additional plan information. Laboratory Studies: Laboratory Tests 12/15/24 Range/Units Unknown Vag Amniotic Fld Detect Negative (Negative) Charges/Coding Procedures Urinary/Genital 52xxx-59xxx: 15018-15 non-stress test Interp
== END 2024-12-15 12:35 | disposition home or self-care (01) ==
LOC: BWCLAB 11:43 → LABSPEC 11:44 → WPOUT 11:56 → WP 11:56
PROVIDERS: PCP Internal Medicine; Referring Provider Obstetrics & Gynecology; Visit Provider Obstetrics & Gynecology
DX: O47.1 False labor at or after 37 completed weeks of gestation (principal); Z3A.39 39 weeks gestation of pregnancy
CPT/HCPCS: 59025; 59050; 84112; 99221; G0378

== ENCOUNTER 2024-12-17 16:10 | Inpatient (IN) | payer OTHER, SELFPAY ==
[2024-12-17] VITALS (60 sets, daily range): BP systolic 102–184; BP diastolic 53–132; PULSE 75–123; RESP 16; TEMP 36–36.8; O2SAT 95–100; BMI 43.0
[2024-12-17 16:01] LABS: ROM Internal Control Test YES-OK TO RESULT pt. (Internal QC)
[2024-12-17 16:05] LABS: ROM Patient Test POSITIVE (Negative)
[2024-12-17 16:06] LABS: Record Kit Lot#, ROM+ K3358
--- NOTE | 2024-12-17 16:09 | HP.PCM.OB_ITS ---
HPI - General HPI Narrative CHENTE GREY, is a 34 F who presentswith srom irregular ctx Maternal Data Information ALECIA Calculator Estimated Delivery Date Method Current WG Current Estimate 12/20/24 Ultrasound #1 39w 4d Other Estimates 12/27/24 LMP (Certain) 38w 4d 12/21/24 Ultrasound #2 39w 3d PFSH PFSH Medical History Seasonal allergies Amenorrhea (spontaneous vaginal delivery) Family history of hearing loss at age younger than 7 years Infertility Rh negative state in antepartum period History of infertility Abnormal genetic test during Missed Home Medications ?Medication ?Instructions ?Recorded ?Last Taken ?Type PNV 153-FA 400 mcg-om3 35 mg-dha 1 tab PO DAILY Unknown History 25 mg-epa 5 mg-fish oil chew tablet Allergy/AdvReac Type Severity Reaction Status Date / Time No Known Allergies Allergy Verified 12/17/24 15:48 Family History Father Diabetes Grandmother Breast cancer, Onset Age: 60 Paternal Macular degeneration Paternal Sister Stillborn, normal Surgical History [place] teeth extracted s/p tongue clipped S/P arthroscopy of knee Social History adopted: No household members: spouse and children number of children: 1 current occupational status: employed 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 pets and animals: Yes (two) pets and animals: dog(s) history of recent travel: Yes (December) out of state: Yes out of country: No sexually active: Yes Smoking Status: Never smoker alcohol intake: current details: occasionally/not while substance use type: does not use well-balanced diet: daily or most days caffeine: Yes Type: coffee Number of servings: 1 eating out: rarely or never during the past year weight has: increased > 10 lbs what type of physical activity do you participate in: none kelly/mu-ism: None seatbelt use: always do you feel safe at home: Yes additional social history: -Riky History 3 Elective abortions Hx Para 1 Spontaneous abortions 1 Hx # Term Pregnancies Ectopic pregnancies Hx # Pregnancies Multiple births # of living children 1 Past Pregnancies Del. Date Name GA/Weeks Outcome Route Bth Weight Infant Gen Labor Lgth Anesthesia Del Locatn Provider FOB Unknown Sep 2020:SAB. no intervention. 09/23/22 Rachel 39 live - full term 7lbs 7oz Female ep idural [facility] Dr. Thao Delivery Date: 09/23/22 Last Updated by: Marjorie Ferrara Pt with 2 +genes and FOB 3 +genes none are same. [facility]GI records scanned. No further testing needed. Infertility, however, this was spontaneous . COVID. Visit Details Expected Delivery Route/Plan Labor Preferences- CB/BF classes: no labor support person: Riky labor intervention preferences: [] pain management options preferred: epidural cut cord/dad catch: yes : yes PP control planned: discussed discussed possible routes of delivery and associated risks: [] special requests: [] Plans Covid status: [] Flu vaccine: [] Tdap vaccine: given Rhogam: NA LARC form signed: yes movement and labor precautions reviewed.SM- Problem list reviewed and updated with the most current plan of care details and appropriate orders placed. Relevant counseling for the gestational age provided. Continue routine care and follow up unless otherwise noted in visit notes/problem list details OB Flowsheet Initial Weight: 226 lb Date -?-?-?-?-?-?-?-?-?-?-?-?- EGA Weight BP Urine Prot -?-?-?-?-?-?-?-?-?-?-?-?- Glucose FHR FuHt Pres Dilation -?-?-?-?-?-?-?-?-?-?-?-?- Effaced St Visit Note 05/22/24 -?-?-?-?-?-?-?-?-?-?-?-?- 9w 5d 226 lb (+0 oz) 123/77 -?-?-?-?-?-?-?-?-?-?-?-?- 195 -?-?-?-?-?-?-?-?-?-?-?-?- KW- CRL cons wit h dates. accepts NIPT 06/18/24 -?-?-?-?-?-?-?-?-?-?-?-?- 13w 4d 229 lb 4 oz (+3 lb 4 oz) 128/81 Negative -?-?-?-?-?-?-?-?-?-?-?-?- Negative 157 -?-?-?-?-?-?-?-?-?-?-?-?- -NO VB. Nause a improving. Reviewed PN labs, LF NIPT Girl 07/14/24 -?-?-?-?-?-?-?-?-?-?-?-?- 17w 2d 236 lb 6 oz (+10 lb 6 oz) 123/66 Negative -?-?-?-?-?-?-?-?-?-?-?-?- Negative 155 -?-?-?-?-?-?-?-?-?-?-?-?- JV_ no complaint s today other than round ligament pain. anatomy scan ordered. 08/12/24 -?-?-?-?-?-?-?-?-?-?-?-?- 21w 3d 242 lb (+16 lb) 137/81 Trace -?-?-?-?-?-?-?-?-?-?-?-?- Negative 150 -?-?-?-?-?-?-?-?-?-?-?-?- - NO VB LOF GO OD FM NRO EGULAR CTX 09/08/24 -?-?-?-?-?-?-?-?-?-?-?-?- 25w 2d 247 lb 6 oz (+21 lb 6 oz) 114/70 Negative -?-?-?-?-?-?-?-?-?-?-?-?- Negative 154 -?-?-?-?-?-?-?-?-?-?-?-?- -No VB, LOF. g ood FM. >1 wk ago daughter jumped on her stomach. No VB, No CTX. Reassured. 09/29/24 -?-?-?-?-?-?-?-?-?-?-?-?- 28w 2d 247 lb 4 oz (+21 lb 4 oz) 122/82 Negative -?-?-?-?-?-?-?-?-?-?-?-?- Negative 140 28 -?-?-?-?-?-?-?-?-?-?-?-?- MH-No VB, LOF. G ood FM. Tdap, 28 wk labs. MFM US today to check placenta 10/15/24 -?-?-?-?-?-?-?-?-?-?-?-?- 30w 4d 253 lb 8 oz (+27 lb 8 oz) 117/77 -?-?-?--?-?-?-?-?-?-?-?-?- 140 31 -?-?-?-?-?-?-?-?-?-?-?-?- SM- no vb lof go od fm nor euglar ctx 10/27/24 -?-?-?-?-?-?-?-?-?-?-?-?- 32w 2d 256 lb 4 oz (+30 lb 4 oz) 122/77 Trace -?-?-?-?-?-?-?-?-?-?-?-?- Negative 163 32 -?-?-?-?-?-?-?-?-?-?-?-?- JV- no lof, vagi nal bleeding, or dec fm. suspect dehydration based on heart rate and trace protein. pt plans to drink more water today. 11/09/24 -?-?-?-?-?-?-?-?-?-?-?-?- 34w 1d 255 lb 6 oz (+29 lb 6 oz) 122/76 Negative -?-?-?-?-?-?-?-?-?-?-?-?- Negative 140 35 -?-?-?-?-?-?-?-?-?-?-?-?- KW- no vb/lof/ct x. good fm. no concerns today. Has growth US scheduled and planing NSTS next visit. 11/24/24 -?-?-?-?-?-?-?-?-?-?-?-?- 36w 2d 261 lb 6 oz (+35 lb 6 oz) 114/76 Negative -?-?-?-?-?-?-?-?-?-?-?-?- Negative 130 36 Cephalic 0 -?-?-?-?-?-?-?-?-?-?-?-?- -4 JV- NST reactive. no complaints. GBS collected. 12/01/24 -?-?-?-?-?-?-?-?-?-?-?-?- 37w 2d 261 lb 8 oz (+35 lb 8 oz) 120/87 Negative -?-?-?-?-?-?-?-?-?-?-?-?- Negative 135 37 Cephalic -?-?-?-?-?-?-?-?-?-?-?-?- Sm- no vb lof go od fm no reuglar ctx Sm- no vb lof good fm no reu glar ctx repeat randi at [facility] next week 12/09/24 -?-?-?-?-?-?-?-?-?-?-?-?- 38w 3d 264 lb 2 oz (+38 lb 2 oz) 108/71 Negative -?-?-?-?-?-?-?-?-?-?-?-?- Negative 135 38 Cephalic -?-?-?-?-?-?-?-?-?-?-?-?- SM- no vb lof go od fm no reugla ctx 12/15/24 -?-?-?-?-?-?-?-?-?-?-?-?- 39w 2d 266 lb 8 oz (+40 lb 8 oz) 137/91 Negative -?-?-?-?-?-?-?--?-?-?-?-?- Negative -?-?-?-?-?-?-?-?-?-?-?-?- SM- to l and d f or possible ROM NST FHR Rate Baby A Baseline: 140 Variability:: Moderate Accelerations:: 15 x 15 Decelerations:: None NST Reactive:: Yes FHR Category:: Category I Uterine Activity:: q3-5 ROS Constitutional Constitutional: Reports systems reviewed and no addt'l complaints, except as documented ENT HEENT: Reports systems reviewed and no addt'l complaints, except as documented Cardiovascular Cardiovascular: Reports systems reviewed and no addt'l complaints, except as documented Respiratory/Chest Respiratory/Chest: Reports systems reviewed and no addt'l complaints, except as documented Gastrointestinal Gastrointestinal: Reports systems reviewed and no addt'l complaints, except as documented and nausea; Denies abdominal pain Genitourinary Genitourinary: Reports systems reviewed and no addt'l complaints, except as documented, contractions Details: present and frequency (regular ) and movement Details: present Musculoskeletal Musculoskeletal: Reports systems reviewed and no addt'l complaints, except as documented Integumentary Integumentary: Reports as per HPI Neurologic Neurologic: Reports systems reviewed and no addt'l complaints, except as documented Endocrine Endocrinology: Reports systems reviewed and no addt'l complaints, except as documented Vital Signs Vital Signs Vital Signs: 12/17/24 15:24 12/17/24 15:24 12/17/24 15:24 Temperature Temperature Source Pulse Rate 92 Respiratory Rate Blood Pressure 134/90 H BP Systolic 134 BP Diastolic 90 Pulse Ox 95 12/17/24 15:25 12/17/24 15:25 12/17/24 15:25 Temperature 97.0 F L Temperature Source Temporal Pulse Rate Respiratory Rate 16 Blood Pressure BP Systolic BP Diastolic Pulse Ox Weight Weight: 266 lb 9.6 oz Body Mass Index (BMI) 43.0 Physical Exam Const alert, oriented x3 and healthy appearing Constitutional Narrative: uncomfortable with contractions HEENT normocephalic and moist oral mucous membranes Head and Scalp: atraumatic Neck full ROM, no lymphadenopathy, supple and thyroid normal General: trachea midline Thyroid: thyroid normal Lymph Lymphatic: no lymphadenopathy noted Chest inspection of chest normal Resp normal respiratory effort Cardio regular rate GI soft to palpation and non-tender GI Narrative: gravid Inspection: gravid external exam normal Bimanual Exam - Vag & Uterus: uterus non-tender Manual OB Exam: estimated gestational size appropriate, presentation cephalic, dilated, effaced and station Extremity normal to inspection General Extremity: Negative for edema Skin no rashes or lesions noted Neuro deep tendon reflexes 2+ bilaterally Motor Exam: strength 5/5 throughout and clonus absent Psych mental status grossly normal Labs Labs Labs: Blood Type B NEGATIVE Antibody Screen NEGATIVE Hct 41.0 % (37-47) Hgb 13.1 g/dL (12.0-15.0) Obstetrics Ultrasound Syphilis Total Ab Non-reactive Rubella IgG Antibody Reactive (Nonreactive) Hep Bs Antigen Non-Reactive (Nonreactive) Hepatitis C Antibody Non-Reactive (Nonreactive) Chlamydia DNA (WILLIAM) Negative (Negative) N.gonorrhoeae DNA (WILLIAM) Negative (Negative) HIV 1&2 Antibody Non-Reactive (Nonreactive) Glucose 1 Hr 50 gm 99 mg/dL (70-140) Rhogam given: No Miscellaneous Test Assessment & Plan (1) SROM (spontaneous rupture of membranes): (2) Obesity affecting : QUALIFIERS: Trimester: second trimester Obesity type affecting : unspecified obesity Qualified Code(s): O99.212 - Obesity complicating , second trimester COMMENT: [id number], growth US at 32 and 36, weekly nst 36 on (3) Anxiety: COMMENT: mild; stable (4) Supervision of high risk , antepartum: COMMENT: PRR, , ALECIA 12/20/24, girl Darline Ramos, Riky (5) : QUALIFIERS: Weeks of gestation: 39 weeks Qualified Code(s): Z3A.39 - 39 weeks gestation of COMMENT: GBS neg, NIPT low risk, carrier and ntd screening declined. nl anatomy. (6) Rh negative state in antepartum period: COMMENT: Rhogam @ 28 wks and PRN bleeding; Baby is Rh negative-No rhogam PLAN: Plan admit ial
[2024-12-17] MEDS: Lactated Ringers 1,000 ML 999 ML IV (16:45)
[2024-12-17 17:08] LABS: Absolute Lymphocyte Count 1.57 X10^3/uL (0.83-4.51); Absolute Neutrophil Count 10.5 X10^3/uL (2.0-7.7); Basophil# 0.03 X10^3/uL; Basophil% 0.2 % (0-1); Eosinophil# 0.08 X10^3/uL; Eosinophils% 0.6 % (0-5); Hematocrit 39.8 % (37-47); Hemoglobin 13.4 g/dL (12.0-15.0); Lymphocyte # 1.57 X10^3/ul (0.83-4.51); Lymphocyte % 12.2 % (19-41); Mean Corp Hgb Conc 33.7 g/dL (32-36); Mean Corpuscular Hgb 30.2 pg (27.0-32.0); Mean Corpuscular Volume 89.8 fL (81-99); Mean Platelet Vol. 9.7 fl (6.2-12.0); Monocyte# 0.59 X10^3/uL; Monocyte% 4.6 % (0-10); NRBC Flagged by Analyzer 0 % (0-5); Neutrophil # 10.52 X10^3/uL (2.7-7.7); Neutrophil % 81.8 % (47-70); Platelet Count 135 K/mm3 (150-450); RBC Distribution Width CV 12.9 % (11.6-14.6); RBC Distribution Width SD 42.3 fl (35.1-43.9); Red Blood Count 4.43 M/mm3 (4.2-5.4); White Blood Count 12.9 K/mm3 (4.4-11.0)
[2024-12-17] MEDS: Lactated Ringers 1,000 ML 50 ML IV (17:46)
[2024-12-17 17:54] LABS: Syphilis Antibodies Nonreactive (Nonreactive)
[2024-12-17] MEDS: fentaNYL-bupivacaine (epidural) 100 ML BAG EPIDURAL (17:54)
[2024-12-17] MEDS: Oxytocin 15 Units/NS 250ml 15 UNITS/250 ML IV.SOLN 83 UNITS IV (20:25)
[2024-12-17] MEDS: Oxytocin 10 UNITS/ML Vial IM (20:26)
[2024-12-17] MEDS: Methylergonovine 0.2 MG/ML Ampul IM (20:32)
--- NOTE | 2024-12-17 20:42 | EX.PCM.OBVAG ---
Assessment & Plan (1) Rh negative state in antepartum period: COMMENT: Rhogam @ 28 wks and PRN bleeding; Baby is Rh negative-No rhogam (2) : QUALIFIERS: Weeks of gestation: 39 weeks Qualified Code(s): Z3A.39 - 39 weeks gestation of COMMENT: GBS neg, NIPT low risk, carrier and ntd screening declined. nl anatomy. (3) Supervision of high risk , antepartum: COMMENT: PRR, , ALECIA 12/20/24, girl Darline Ramos, Riky (4) Anxiety: COMMENT: mild; stable (5) Obesity affecting : QUALIFIERS: Trimester: second trimester Obesity type affecting : unspecified obesity Qualified Code(s): O99.212 - Obesity complicating , second trimester COMMENT: [id number], growth US at 32 and 36, weekly nst 36 on (6) MARK (amniotic fluid index) borderline low: COMMENT: repeat mark in 1 week- WNL (7) SROM (spontaneous rupture of membranes): (8) Vaginal delivery: COMMENT: SM IAL SROM 39 girl Darline Maternal Data Information ALECIA Calculator Estimated Delivery Date Method Current WG Current Estimate 12/20/24 Ultrasound #1 39w 4d Other Estimates 12/27/24 LMP (Certain) 38w 4d 12/21/24 Ultrasound #2 39w 3d Vaginal Delivery Maternal Presentation Maternal Presentation: see assessment and plan Vaginal Delivery Information Procedure Performed: Spontaneous Vaginal Delivery Surgeon/Practitioner: Tamie Mojica Pre-Procedure Diagnosis: see assessment and plan Post-Procedure Diagnosis: same Type of anesthesia: Epidural Estimated Blood Loss: 100 Findings Description of procedure: Patient began pushing and delivered the head in the MAUREEN presentation. The head was delivered atraumatically . The anterior and posterior shoulders delivered without complication followed by the rest of the and the infant was placed on the maternal abdomen. Delayed cord clamping was employed for approximately 60 seconds. Cord was clamped and cut and gentle traction was applied to the cord and the placenta delivered spontaneously immediately following it was noted to be intact with three-vessel cord. The perineum and vagina were inspected and noted to have no laceration. EBL was 100 cc. Patient and tolerated delivery well. 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
--- NOTE | 2024-12-17 20:45 | DCINST_ITS ---
Discharge Instructions Diet Discharge Diet: No restrictions DC O2, CPAP, BIPAP needs Home O2 Discharge instructions: No Dressing / Incision Discharge Activity: Return to Normal Activity, May Not Drive (while taking narcotic pain medications.) and May Shower May resume sexual activity in: 4-6 weeks Dressing / Incision Call your doctor if your incision/area has: Continuous Slow Oozing, Sudden Increased Bleeding, Increased Pain/ Swelling, Increased Redness and Foul Smelling Discharge Follow Up Care Please Follow Up With: Tamie Mojica MD When: Call [phone] to make an appointment with your doctor in 6 weeks. If you had elevated blood pressure or 4th degree laceration, you will need to be seen in 2 weeks. Test Results: Test results from this visit will be discussed in further detail at your follow- up appointment, if applicable. Discharge Plan Admission Admit Date/Time: 12/17/24 16:10 Attending Provider: Tamie Mojica Primary Care Provider: Valeria Parker Discharge Orders/Prescriptions Prescriptions: No Action PNV no.[id number] 400 mcg-35 mg- 25 mg-5 mg tablet,chewable 1 tab PO DAILY Referrals / Follow Up: Valeria Parker MD [Primary Care Provider] - Disposition Disposition (needs filled in before D/C Order can be placed): Home, Self Care
[2024-12-18 00:30] VITALS: BP 124/65; PULSE 103; RESP 16; TEMP 36.7; O2SAT 96
[2024-12-18 03:14] VITALS: BP 117/69; PULSE 101; RESP 19; TEMP 36.6; O2SAT 100
[2024-12-18] MEDS: Naproxen 500 MG Tablet PO (06:10)
--- NOTE | 2024-12-18 08:11 | PN.OBGYN_ITS ---
Subjective Subjective Patient doing well without complaints. Tolerating PO. Ambulating and voiding without difficulty. Feeding well. Denies chest pain, shortness of breath, calf pain/swelling, fevers, chills, lightheadedness. Objective Data Objective Data Vital Signs: Vital Signs Temp Pulse Resp BP Pulse Ox O2 Del Method 98 F 101 H 19 H 117/69 100 Room Air 12/18/24 03:14 12/18/24 03:14 12/18/24 03:14 12/18/24 03:14 12/18/24 03:14 12/18/24 03:14 Oxygen Delivery Method Room Air Weight: 266 lb 9.6 oz Body Mass Index (BMI) 43.0 Intake & Output: Intake and Output for Last 24 Hours 12/16/24 12/17/24 12/18/24 23:59 23:59 23:59 Intake Total 1770.00 / 1770.00 Output Total 100 / 100 Balance 1670.00 / 1670.00 Lab / Micro Data 12/17/24 16:45 Labs: Laboratory Results - last 24 hr 12/17/24 15:35: Vag Amniotic Fld Detect POSITIVE H 12/17/24 16:45: WBC 12.9 H, RBC 4.43, Hgb 13.4, Hct 39.8, MCV 89.8, MCH 30.2, MCHC 33.7, RDW Std Deviation 42.3, RDW Coeff of Jayson 12.9, Plt Count 135 L, MPV 9.7, Immature Gran % (Auto) 0.600, Neut % (Auto) 81.8 H, Lymph % (Auto) 12.2 L, [place] % (Auto) 4.6, Eos % (Auto) 0.6, Baso % (Auto) 0.2, Absolute Neuts (auto) 10.5 H, Absolute Lymphs (auto) 1.57, Nucleated RBC % 0, Syphilis Total Ab Nonreactive, Blood Type B NEGATIVE, Antibody Screen NEGATIVE Physical Exam Chest inspection of chest normal and inspection of breasts normal GI normal to inspection, nondistended, normoactive bowel sounds Uterus Palpation: uterus fundus firm (below u) Back/Spine no CVA tenderness Extremity normal to inspection, full ROM and no calf tenderness Skin no rashes or lesions noted Psych mental status grossly normal Assessment & Plan (1) Vaginal delivery: COMMENT: SM IAL SROM 39 girl Darline PLAN: s/p PPD # 1 1. routine post delivery care 2. breast feeding- support given 3. rh positive 4. rubella immune 5. plan d/c tomorrow
[2024-12-18 08:30] VITALS: BP 108/66; PULSE 83; RESP 16; TEMP 36.7; O2SAT 99
[2024-12-18 12:40] VITALS: BP 116/70; PULSE 87; RESP 16; TEMP 36.7; O2SAT 96
[2024-12-18 15:51] VITALS: BP 127/72; PULSE 84; RESP 16; TEMP 36.1; O2SAT 97
[2024-12-18 19:23] VITALS: BP 126/75; PULSE 88; RESP 16; TEMP 36.8; O2SAT 98
[2024-12-19] MEDS: Naproxen 500 MG Tablet PO (02:16)
[2024-12-19 02:18] VITALS: BP 123/79; PULSE 78; RESP 16; TEMP 36.7; O2SAT 98
[2024-12-19 08:20] VITALS: BP 118/79; PULSE 86; RESP 18; TEMP 36.3; O2SAT 96
--- NOTE | 2024-12-19 09:39 | PCM.PN.CNM ---
Subjective Subjective Patient doing well without complaints. Tolerating PO. Ambulating and voiding without difficulty. Feeding well. Denies chest pain, shortness of breath, calf pain/swelling, fevers, chills, lightheadedness. Objective Data Objective Data Vital Signs: Vital Signs Temp Pulse Resp BP Pulse Ox O2 Del Method 97.3 F L 86 18 118/79 96 Room Air 12/19/24 08:20 12/19/24 08:20 12/19/24 08:20 12/19/24 08:20 12/19/24 08:20 12/19/24 08:20 Oxygen Delivery Method Room Air Weight: 266 lb 9.6 oz Body Mass Index (BMI) 43.0 Intake & Output: Intake and Output for Last 24 Hours 12/17/24 12/18/24 12/19/24 23:59 23:59 23:59 Intake Total 1770.00 / 1770.00 Output Total 100 / 100 800 / 800 Balance 1670.00 / 1670.00 -800 / -800 Lab / Micro Data 12/17/24 16:45 Physical Exam Chest inspection of chest normal and inspection of breasts normal GI normal to inspection, nondistended, normoactive bowel sounds Uterus Palpation: uterus fundus firm (below u) Back/Spine no CVA tenderness Extremity normal to inspection, full ROM and no calf tenderness Skin no rashes or lesions noted Psych mental status grossly normal Assessment & Plan (1) Vaginal delivery: COMMENT: QUINCY MALONE IAL SROM 39 girl Darline PLAN: s/p PPD # 2 1. routine post delivery care 2. breast feeding- support given 3. rh positive 4. rubella immune 5. d/c home today
--- NOTE | 2024-12-19 09:40 | PCM.DC.SUM ---
Providers Date of Admission: 12/17/24 Primary Care Physician: Dr. Vaelria Parker MD Reason For Visit: VAGINAL DELIVERY PER JOSE IN Diagnosis Discharge Diagnosis (1) Vaginal delivery: Status: Acute Code(s): O80 - Encounter for full-term uncomplicated delivery Plan: s/p PPD # 2 1. routine post delivery care 2. breast feeding- support given 3. rh positive 4. rubella immune 5. d/c home today Medications at Discharge Home Medications PNV 153-FA 400 mcg-om3 35 mg-dha 25 mg-epa 5 mg-fish oil chew tablet 1 tab PO DAILY 05/12/24 Hospital Course Operations None Procedures None Summary of Care Provided Minutes Spent on Discharge: 15 Hospital Course: presented with SROM that resulted in at term. uncomplicated pp course. Physical Exam Chest inspection of chest normal and inspection of breasts normal GI normal to inspection, nondistended, normoactive bowel sounds Uterus Palpation: uterus fundus firm (below u) Back/Spine no CVA tenderness Extremity normal to inspection, full ROM and no calf tenderness Skin no rashes or lesions noted Psych mental status grossly normal Weight / BMI Weight Weight: 266 lb 9.6 oz Body Mass Index (BMI) 43.0 ABG / Lab / Microbiology Data 12/17/24 16:45 D/C Instructions Discharge Diet: No restrictions May resume sexual activity in: 4-6 weeks Call your doctor if your incision/area has: Continuous Slow Oozing, Sudden Increased Bleeding, Increased Pain/ Swelling, Increased Redness and Foul Smelling Discharge DC O2, CPAP, BIPAP Needs Home O2 Discharge instructions: No Please Follow Up With: Tamie Mojica MD When: Call [phone] to make an appointment with your doctor in 6 weeks. If you had elevated blood pressure or 4th degree laceration, you will need to be seen in 2 weeks. Meaningful Use Info Meaningful Use Meaningful Use Diagnoses (Choose all that apply): None applicable Ischemic Stroke Statin Dosing Therapy Reference: STATIN DOSE THERAPY REFERENCE: * Patients > 75 years receive moderate or high dose statin therapy. * Patients 75 years or YOUNGER should receive HIGH intensity statin dose unless contraindicated. You will be required to document reason for non-treatment if statin daily dose does not meet guidelines. HIGH DOSE STATIN THERAPY DAILY Atorvastatin > than or = to 40 mg Rosuvastatin > than or = to 20 mg Amlodipine + Atorvastatin > than or = to 2.5/40 mg Ezetimibe + Simvastatin 10/80 mg Simvastatin 80mg Discharge Plan Admission Admit Date/Time: 12/17/24 16:10 Attending Provider: Tamie Mojica Primary Care Provider: Valeria Parker Discharge Orders/Prescriptions Prescriptions: No Action PNV no.[id number] 400 mcg-35 mg- 25 mg-5 mg tablet,chewable 1 tab PO DAILY Referrals / Follow Up: Valeria Parker MD [Primary Care Provider] - Disposition Disposition (needs filled in before D/C Order can be placed): Home, Self Care
== END 2024-12-19 11:24 | disposition home or self-care (01) | DRG 807 ==
LOC: WPOUT 16:11 → WP 16:14
PROVIDERS: Admitting Provider Obstetrics & Gynecology; PCP Internal Medicine; Referring Provider Obstetrics & Gynecology; Visit Provider Obstetrics & Gynecology
DX: O99.214 Obesity complicating childbirth (principal); Z37.0 Single live birth; O99.344 Other mental disorders complicating childbirth; F41.9 Anxiety disorder, unspecified; Z3A.39 39 weeks gestation of pregnancy; Z67.91 Unspecified blood type, Rh negative; N96 Recurrent pregnancy loss; O99.893 Other specified diseases and conditions complicating puerperium
CPT/HCPCS: 59025; 59050; 84112; 85025; 86780; 86850; 86900; 86901; 99221; G0378

== ENCOUNTER → 2025-01-26 | Outpatient (CLI) | payer OTHER, SELFPAY ==
[2025-01-26 10:10] LABS: Absolute Neutrophil Count 3.8 X10^3/uL (2.0-7.7); Basophil# 0.03 X10^3/uL; Basophil% 0.4 % (0-1); Eosinophil# 0.15 X10^3/uL; Eosinophils% 2.2 % (0-5); Hematocrit 44.1 % (37-47); Hemoglobin 14.5 g/dL (12.0-15.0); Mean Corp Hgb Conc 32.9 g/dL (32-36); Mean Corpuscular Hgb 29.5 pg (27.0-32.0); Mean Corpuscular Volume 89.8 fL (81-99); Mean Platelet Vol. 9.4 fl (6.2-12.0); Monocyte# 0.47 X10^3/uL; Monocyte% 6.9 % (0-10); NRBC Flagged by Analyzer 0 % (0-5); Neutrophil # 3.79 X10^3/uL (2.7-7.7); Neutrophil % 55.4 % (47-70); Platelet Count 197 K/mm3 (150-450); RBC Distribution Width CV 11.7 % (11.6-14.6); RBC Distribution Width SD 38.1 fl (35.1-43.9); Red Blood Count 4.91 M/mm3 (4.2-5.4); White Blood Count 6.9 K/mm3 (4.4-11.0)
--- OUTSIDE RECORDS SUMMARY | 2025-01-26 10:43 | XMS RPT_ITS | CCD ---
Author Organization [facility] Care Team Providers Care Line Up Worker Name Role Phone PROVIDER, UNKNOWN Attending Unavailable PROVIDER, UNKNOWN Referring Unavailable Valentin Horn Primary Care Unavailable Dr. Ramesh Parker Primary Care Provider Dr. Ramesh Parker Attending Provider [phone] Dr. Ramesh Parker Referring Provider [phone]) Petey BUSINESS PROCESS EXPERT, BUSINESS PROCESS EXPERT-C Uli Attending Provider [phone] Dr. Munira Sandoval Attending Provider 1( 30) Dr. Ramesh Parker Primary Care Provider Dr. Ramesh Parker Attending Provider 1(330) Dr. Ramesh Parker Referring Provider 1(330) Dr. Ramesh Parker Primary Care Provider Dr. Ramesh Parker Referring Provider 1(330) Dr. Ramesh Parker Primary Care Provider Dr. Ramesh Parker Referring Provider 1(330) Dr. Munira Sandoval Attending Provider 1(3 [phone]) Petey BUSINESS PROCESS EXPERT, SEFERINO-C Uli Attending Provider [phone] ) YELENA Shaw Attending Provider [phone] Dr. Ramesh Parker Primary Care Provider Dr. Ramesh Parker Referring Provider 1(330) Dr. Munira Sandoval Attending Provider 1(3 [phone]) Dr. Ramesh Parker Primary Care Provider Dr. Ramesh Parker Referring Provider 1([phone]) Petey BUSINESS PROCESS EXPERT, BUSINESS PROCESS EXPERT-C Uli Attending Provider [phone] Dr. Munira Sandoval Attending Provider [phone] Dr. Tamie Mojica Attending Provider [phone] Dr. Ramesh Parker Primary Care Provider Dr. Ramesh Parker Referring Provider [phone] YELENA Shaw Attending Provider Dr. Munira Sandoval Admit Provider Dr. Munira Sandoval Other Provider Dr. Ramesh Parker Primary Care Provider Dr. Ramesh Parker Referring Provider [phone] Dr. Tamie Mojica Attending Provider [phone] Dr. Munira Sandoval Attending Provider [phone] YLEENA Shaw Attending Provider Petey BUSINESS PROCESS EXPERT, BUSINESS PROCESS EXPERT-C Uli Attending Provider [phone] Dr. Munira Sandoval Admit Provider Dr. Munira Sandoval Other Provider [place] BUSINESS PROCESS EXPERT, BUSINESS PROCESS EXPERT-C Yamileth Attending Provider [phone] Dr. Ramesh Parker Attending Provider [phone] Unavailable Primary Care Provider UnavailRamesh Ann MD Primary Care Provider [phone] RAMESH PARKER Primary Care Unavailable VIKRAM HANSON Referring Unavailable RAMESH PARKER Primary Care Unavailable LEONARDO CHÁVEZ Attending Unavailable ULI ANGELO Referring Unavailable RAMESH PARKER Primary Care Unavailable ULI ANGELO Attending Unavailable ULI ANGELO Referring Unavailable Dr. Ramesh Parker MD Primary Care Provider Dr. Ramesh Parker MD Referring Provider Dr. Munira Sandoval DO Attending Provider Galina LEWIS, Dr. Willett Attending Provider [phone] Petey BUSINESS PROCESS EXPERT-CUli Attending Provider [phone] Bety Vazquez DO, Dr. Lombardo Referring Provider Galina LEWIS, Dr. Willett Referring Provider [phone] Eliza Negro CNM Attending Provider [phone] Keith LEWIS, Dr. Shaw Primary Care Provider Keith LEWIS, Dr. Shaw Referring Provider Bety Vazquez DO, Dr. Lombardo Attending Provider Keith LEWIS, Dr. Shaw Primary Care Provider Keith LEWIS, Dr. Shaw Referring Provider Galina LEWIS, Dr. Willett Attending Provider Keith LEWIS, Dr. Shaw Primary Care Provider Keith LEWIS, Dr. Shaw Referring Provider Petey GENTILE-CUli Attending Provider [phone] Galina LEWIS, Dr. Willett Other Provider [phone] Galina LEWIS, Dr. Willett Admit Provider [phone] Radha Shaw CNM Attending Provider [phone] Keith LEWIS, Dr. Shaw Attending Provider Radha Shaw Referring Unavailable Radha Shaw Attending Unavailable Keith, Ramesh Primary Care Unavailable Eliza Negro Attending Unavailable Marky Eliza Referring Unavailable Keith, Ramesh Primary Care Unavailable Eliza Negro Referring Unavailable Eliza Negro Attending Unavailable Keith, Ramesh Primary Care Unavailable Keith, Ramesh Referring Unavailable Keith, Ramesh Primary Care Unavailable Tamie Mojica Attending Unavailable Eliza Negro Attending Unavailable Marky, Eliza Referring Unavailable Keith, Ramehs Primary Care Unavailable Keith, Ramesh Primary Care Unavailable Tamie Mojica Attending Unavailable Tamie Mojica Referring Unavailable Eliza Negro Attending Unavailable Eliza Negro Referring Unavailable Keith, Ramesh Primary Care Unavailable Keith, Ramesh Primary Care Unavailable YounganthonyTamie Referring Unavailable MarcanthonyTamie Attending Unavailable YounganthonyTamie Admitting Unavailable Eliza Negro Attending Unavailable Eliza Negro Referring Unavailable Keith, Ramesh Primary Care Unavailable Keith, Ramesh Attending Unavailable Keith, Ramesh Primary Care Unavailable Vande Munira Vazquez Attending Unavailabl e Keith, Ramesh Referring Unavailable Keith, Ramesh Primary Care Unavailable Keith, Ramesh Referring Unavailable Petey BUSINESS PROCESS EXPERT, Uli Attending Unavailable Keith, Ramesh Primary Care Unavailable Vande Taylor, Munira Attending Unavailabl e Keith, Ramesh Primary Care Unavailable Keith, Ramesh Referring Unavailable Keith, Ramesh Referring Unavailable Petey BUSINESS PROCESS EXPERT, Uli Attending Unavailable Keith, Ramesh Primary Care Unavailable Keith, Ramesh Referring Unavailable Marcanthony, Tamie Attending Unavailable Keith, Ramesh Primary Care Unavailable Munira Sandoval Attending Unavailabl e Vande Velde, Munira Referring Unavailabl e Keith, Ramesh Primary Care Unavailable Tamie Mojica Attending Unavailable Marcanthony, Tamie Referring Unavailable Keith, Ramesh Primary Care Unavailable Rydere VelSarah coronadofer Referring Unavailabl e Vande Velde, Munira Attending Unavailabl e Keith, Ramesh Primary Care Unavailable Eliza Negro Attending Unavailable Keith, Ramesh Referring Unavailable Keith, Ramesh Primary Care Unavailable Keith, Ramesh Referring Unavailable MarcanthonyTamie Attending Unavailable Keith, Ramesh Primary Care Unavailable Keith, Ramesh Referring Unavailable Keith, Ramesh Primary Care Unavailable MarcanthonyTamie Attending Unavailable Keith, Ramesh Primary Care Unavailable Marcanthony, Tamie Referring Unavailable Marcanthony, Tamie Attending Unavailable Vande VelMunira coronado Attending Unavailabl e Keith, Ramesh Referring Unavailable Keith, Ramesh Primary Care Unavailable Kieth, Ramesh Primary Care Unavailable Marcanthony, Tamie Referring Unavailable Marcanthony, Tamie Attending Unavailable Keith, Ramesh Referring Unavailable Garland BUSINESS PROCESS EXPERT, Uli Attending Unavailable Keith, Ramesh Primary Care Unavailable Keith, Ramesh Referring Unavailable Eliza Negro Attending Unavailable Keith, Ramesh Primary Care Unavailable Radha Shaw Attending Unavailable Ramesh Parker Primary Care Unavailable KeithRamesh Referring Unavailable KeithRamesh Referring Unavailable Keith, Ramesh Primary Care Unavailable Tamie Mojica Attending Unavailable Radha Shaw Attending Unavailable Keith, Ramesh Primary Care Unavailable Balaony, Tamie Referring Unavailable Marcanthony, Tamie Consulting Unavailable Marckamarony Tamie Admitting Unavailable Keith, Ramesh Primary Care Unavailable BalaonyTamie Referring Unavailable BalaonyTamie Attending Unavailable Balaony, Tamie Consulting Unavailable Munira Sandoval Attending Unavailjoey e Keith, Ramesh Referring Unavailable Keith, Ramesh Primary Care Unavailable Uli Angelo NP Attending Unavailable Keith, Ramesh Primary Care Unavailable Ramesh Parker Referring Unavailable Medications Current Medications Medication Drug Class(es) Dates Sig (Normalized) Sig (Original) [id number] 200 actuat albuterol 0.09 mg/actuat metered dose inhaler (2 sources) beta2-Adrenergic Agonist Start: 08-17-2024 take 2 puff(s) by inhalation every six hours as needed for wheezing albuterol HFA (PROVENTIL HFA, VENTOLIN HFA) 90 mcg/actuation inhaler Inhale 2 Puffs as instructed every 6 hours as needed for wheezing/shortnes s of breath. 1 Each 08/17/2024 Active amoxicillin 875 mg oral tablet (16 sources) Penicillin-class Antibacterial Start: 08-17-2024 End: 08-24-2024 take 1 tablet by mouth twice daily amoxicillin (AMOXIL) 875 mg tablet Indications: Acute otitis media, left Take 1 tablet by mouth two times a day for 7 days. 14 tablet 08/17/2024 08/24/2024 Active Start: 02-16-2022 End: 03-14-2022 take 1 tablet by mouth twice daily Amoxicillin 875 mg tablet Discontinued 875 mg PO TWICE A DAY February 16, 2022 12:00am March 14, 2022 10:51am Inhalational Spacing Device (1 source) Start: 08-17-2024 End: 08-17-2024 Inhalational Spacing Device 1 Device one time only for 1 dose. 1 Each 08/17/2024 08/17/2024 Active Pnv No.473-Eb-[id number]-Dha-Epa-Fi sh 400 mcg-35 mg- 25 mg-5 mg tablet,chewable (6 sources) Start: 05-12-2024 Pnv No.689-Dk-On0-Dha-Epa-F rudolph 400 mcg-35 mg- 25 mg-5 mg tablet,chewable Active 1 {tbl} PO DAILY May 12, 2024 12:00am Prenat.Vits,Gomez,Min-Iron -Folic (9 sources) Start: 02-12-2022 take 1 tablet by mouth once daily Prenat.Vits,Gomez,Min-Iro n-Folic Active 1 TABLET PO DAILY February 11, 2022 11:00pm Start: 02-12-2022 take 1 tablet by cami th once daily Prenat.Vits,Gomez,Owa-Qfto-Ufdsy Active 1 TABLET PO DAILY February 12, 2022 12:00am vit no.124/iron/fol ic ( VITAMIN ORAL) (3 sources) vit no. 124/iron/folic ( VITAMIN ORAL) Take by mouth. Active Completed/Discontinued Medications Medication Drug Class(es) Dates Sig (Normalized) Sig (Original) aspirin 81 mg delayed release oral tablet (15 sources) Platelet Aggregation Inhibitor, Nonsteroidal Anti-inflammatory Drug Start: 02-12-2022 End: 09-23-2022 Aspirin (Adult Low Dose Aspirin) 81 mg tablet,delayed release (DR/EC) Discontinued 81 mg PO DAILY February 12, 2022 12:00am September 23, 2022 6:49pm naproxen 500 mg oral tablet (8 sources) Nonsteroidal Anti-inflammatory Drug Start: 09-23-2022 End: 11-06-2022 take 1 tablet by mouth twice daily as needed for pain Naproxen 500 mg tablet Discontinued 500 mg PO TWICE A DAY as needed for pain September 23, 2022 1:00am November 06, 2022 1:02pm norethindrone acetate 5 mg oral tablet (6 sources) Start: 09-05-2023 End: 01-23-2024 Norethindrone Acetate 5 mg tablet Discontinued 5 mg PO .COMPLEX September 05, 2023 1:00am January 23, 2024 10:27am 5 mg PO tid until bleeding stops X 24 hr then bid to finish Rx Prenat.Vits,Gomez,Min-Ir on-Folic tablet (6 sources) Start: 02-12-2022 End: 01-23-2024 Prenat.Vits,Gomez,Mi p-Malh-Gwqip tablet Discontinued 1 {tbl} PO DAILY February 12, 2022 12:00am January 23, 2024 10:32am sulfamethoxazole 800 mg / trimethoprim 160 mg oral tablet (15 sources) Dihydrofolate Reductase Inhibitor Antibacterial, Sulfonamide Antimicrobial Start: 09-12-2018 End: 10-20-2020 Sulfamethoxazole-T rimethoprim 1 TABLET tablet Discontinued 1 {tbl} PO TWICE A DAY September 12, 2018 1:00am October 20, 2020 11:11am Start: 09-12-2018 End: 10-20-2020 take 1 tablet by mouth twice daily Sulfamethoxazole-Trimethoprim Discontinu ed 1 TABLET PO TWICE A DAY September 12, 2018 1:00am October 20, 2020 11:11am Problems Active Problems Problem Classification Problem Date Documented Date Episodic/Chronic Anxiety disorders (20 sources) Anxiety; Translations: [Anxiety disorder, unspecified] Onset: 12-09-2024 09-08-2024 Chronic Comment on above: mild; stable Early or threatened labor (1 source) False labor at or after 37 completed weeks of gestation; Translations: [False labor at or after 37 completed weeks of gestation] Onset: 01-05-2025 Episodic External cause codes: Natural/environment (2 sources) Bitten by dog, initial encounter; Translations: [Bitten by dog, initial encounter] Onset: 09-08-2018 Malaise and fatigue (2 sources) Fatigue; Translations: [Other fatigue] Episodic Menstrual disorders (9 sources) Amenorrhea; Translations: [Amenorrhea, unspecified] Onset: 05-04-2024 05-12-2024 Chronic Nutritional deficiencies (20 sources) Vitamin D deficiency; Translations: [Vitamin D deficiency, unspecified] Onset: 08-12-2024 Chronic Open wounds of head; neck; and trunk (2 sources) Open bite of left eyelid and periocular area, initial encounter; Translations: [Open bite of left eyelid and periocular area, init encntr] Onset: 09-08-2018 Episodic Other complications of ; puerperium affecting management of mother (2 sources) Other disorders of breast associated with and the puerperium; Translations: [Other and unspecified disorder of breast associated with childbirth, condition or complication] 11-04-2022 Episodic Other complications of ; puerperium affecting management of mother (1 source) Other disorders of ; Translations: [Other disorders of , unspecified as to episode of care or not applicable] 12-11-2022 Episodic Other complications of (20 sources) Maternal obesity complicating , childbirth and the puerperium, antepartum; Translations: [Obesity complicating , unspecified trimester] 05-23-2022 Chronic Comment on above: [id number], growt h US at 32 and 36, weekly nst 36 on Other complications of (20 sources) Obesity complicating , unspecified trimester; Translations: [Obesity complicating , childbirth, or the puerperium, unspecified as to episode of care or not applicable] Onset: 06-17-2024 Chronic Other complications of (2 sources) Obesity complicating , second trimester; Translations: [Obesity complicating , second trimester] Onset: 12-15-2024 Chronic Other complications of (17 sources) Missed miscarriage; Translations: [Missed ] 02-12-2022 Episodic Comment on above: 09/2020 no interventi on Other complications of (8 sources) Disease caused by 2019-nCoV; Translations: [Other viral diseases complicating , first trimester] 01-29-2022 Episodic Other complications of (15 sources) Abnormal findings on screening of mother; Translations: [Abnormal chromosomal and genetic finding on screening of mother] 05-23-2022 Episodic Comment on above: Pt with 2 +genes and FOB 3 +genes none are same. [facility] records scanned. No further testing needed. AFP negative Other complications of (20 sources) Abnormal chromosomal and genetic finding on screening of mother; Translations: [Abnormal finding on screening] Episodic Other complications of (20 sources) Other viral diseases complicating , first trimester; Translations: [Other viral diseases in the mother, antepartum condition or complication] Episodic Other complications of (20 sources) RhD negative; Translations: [Other specified related conditions, unspecified trimester] 07-03-2022 Episodic Comment on above: Rhogam @ 28 wks and PRN bleeding; Baby is Rh negative-No rhogam rhogam 28 wk, pp and prn bleeding (given 07/03) Other complications of (13 sources) Urinary tract infection in ; Translations: [Unspecified infection of urinary tract in , unspecified trimester] 05-23-2022 Episodic Comment on above: rpt culture:negative Other complications of (20 sources) Other specified related conditions, unspecified trimester; Translations: [Other specified complications of , antepartum condition or complication] Onset: 12-09-2024 Episodic Other complications of (20 sources) Unspecified infection of urinary tract in , unspecified trimester; Translations: [Infections of genitourinary tract in , unspecified as to episode of care or not applicable] Episodic Other complications of (2 sources) Decreased movements, unspecified trimester, not applicable or unspecified; Translations: [Decreased movements, affecting management of mother, unspecified as to episode of care] 09-20-2022 Episodic Other complications of (20 sources) H/O: miscarriage; Translations: [Supervision of with other poor reproductive or obstetric history, unspecified trimester] 10-15-2024 Episodic Comment on above: 1st Other complications of (20 sources) High risk ; Translations: [Supervision of high risk , unspecified, unspecified trimester] 10-15-2024 Episodic Comment on above: PRR, , ALECIA , girl Darline Ramos, Riky Other complications of (10 sources) Spotting per vagina in ; Translations: [Spotting complicating , unspecified trimester] 10-15-2024 Episodic Comment on above: HCGx2, Type & Screen , Rhogam Other complications of (14 sources) Abnormal amniotic fluid; Translations: [Other abnormal findings on screening of mother] 12-03-2024 Episodic Comment on above: repeat randi in 1 week repeat randi in 1 week - WNL Other complications of (1 source) Supervision of with history of infertility, third trimester; Translations: [Supervision of with history of infertility, third trimester] Onset: 01-05-2025 Episodic Other complications of (2 sources) Supervision of high risk , unspecified, unspecified trimester; Translations: [Supervision of high risk , unspecified, unspecified trimester] Onset: 12-09-2024 Episodic Other complications of (2 sources) Other abnormal findings on screening of mother; Translations: [Other abnormal findings on screening of mother] Onset: 12-09-2024 Episodic Other complications of (1 source) Other specified related conditions, third trimester; Translations: [Other specified related conditions, third trimester] Onset: 01-05-2025 Episodic Other ear and sense organ disorders (1 source) Otalgia, left ear; Translations: [Otalgia, unspecified] 08-28-2024 Episodic Other female genital disorders (15 sources) H/O: Disorder; Translations: [Personal history of other diseases of the female genital tract] 02-12-2022 Episodic Comment on above: Normal HSG. Prior cl mayo use. This spontaneous. Other female genital disorders (20 sources) Personal history of other diseases of the female genital tract; Translations: [Personal history of other genital system and obstetric disorders] Episodic Other female genital disorders (1 source) Other specified noninflammatory disorders of vagina; Translations: [Other specified noninflammatory disorders of vagina] Onset: 01-05-2025 Episodic Other lower respiratory disease (2 sources) Cough; Translations: [Acute cough] 08-17-2024 Episodic Other nutritional; endocrine; and metabolic disorders (2 sources) Weight gain; Translations: [Abnormal weight gain] Episodic Other and delivery including normal (20 sources) Normal ; Translations: [Encounter for supervision of normal first , unspecified trimester] Onset: 05-26-2024 Episodic Comment on above: PRR G2/0 ALECIA:09/25/22 Sp:Kylenormal anatomy scan 05/08 at term IAL. Yvonne y. girl. JVinfant with sacral dimple. [facility]. emotional support provided NIPT low risk, ozzy er and ntd screening declined. nl anatomy. GBS neg, NIPT low ri sk, carrier and ntd screening declined. nl anatomy. SM IAL SROM 39 g irl Darline Otitis media and related conditions (1 source) Acute left otitis media; Translations: [Otitis media, unspecified, left ear] 08-17-2024 Episodic Polyhydramnios and other problems of amniotic cavity (2 sources) Spontaneous rupture of membranes 12-17-2024 Episodic Prolapse of female genital organs (1 source) Rectocele; Translations: [Rectocele] 11-27-2022 Chronic Residual codes; unclassified (15 sources) Family history of breast cancer; Translations: [Family history of malignant neoplasm of breast] 10-15-2024 Episodic Comment on above: paternal grandmother & great grandmother Residual codes; unclassified (1 source) 39 weeks gestation of ; Translations: [39 weeks gestation of ] Onset: 01-05-2025 Episodic Residual codes; unclassified (2 sources) Unspecified blood type, Rh negative; Translations: [Unspecified blood type, Rh negative] Onset: 12-09-2024 Episodic Residual codes; unclassified (1 source) 38 weeks gestation of ; Translations: [38 weeks gestation of ] Onset: 12-09-2024 Episodic Residual codes; unclassified (1 source) 34 weeks gestation of ; Translations: [34 weeks gestation of ] Onset: 11-09-2024 Episodic Residual codes; unclassified (1 source) 32 weeks gestation of ; Translations: [32 weeks gestation of ] Onset: 10-27-2024 Episodic Unclassified (1 source) Acute cough; Translations: [Acute cough] Onset: 08-17-2024 Past or Other Problems Problem Classification Problem Date Documented Da te Episodic/Chronic Hemorrhage during ; abruptio placenta; placenta previa (20 sources) Low lying placenta; Translations: [Low lying placenta NOS or without hemorrhage, unspecified trimester] Onset: 09-29-2024 09-30-2024 Episodic Comment on above: Rpt US 28 wk. Pelvic rest. MF US 09/29/24 Immunizations and screening for infectious disease (1 source) Encounter for immunization; Translations: [Encounter for immunization] Onset: 09-29-2024 Episodic Other complications of (1 source) Supervision of with other poor reproductive or obstetric history, unspecified trimester; Translations: [Supervision of with other poor reproductive or obstetric history, unspecified trimester] Onset: 09-29-2024 Episodic Other complications of (1 source) Spotting complicating , unspecified trimester; Translations: [Spotting complicating , unspecified trimester] Onset: 12-18-2024 Episodic Residual codes; unclassified (1 source) 30 weeks gestation of ; Translations: [30 weeks gestation of ] Onset: 10-15-2024 Episodic Residual codes; unclassified (1 source) 25 weeks gestation of ; Translations: [25 weeks gestation of ] Onset: 09-29-2024 Episodic Residual codes; unclassified (1 source) Family history of malignant neoplasm of breast; Translations: [Family history of malignant neoplasm of breast] Onset: 09-08-2024 Episodic Residual codes; unclassified (1 source) 21 weeks gestation of ; Translations: [21 weeks gestation of ] Onset: 08-12-2024 Episodic Residual codes; unclassified (1 source) 17 weeks gestation of ; Translations: [17 weeks gestation of ] Onset: 07-14-2024 Episodic Results Test Name Value Interpretation Reference Range Facility /Christoph 01-25-2025 MR/[facility] [address] [place] [address] OFFICE VISIT Date of Service: 01/25/25 MR#: [id number] Acct: [id number] Name: MARIANELA GREY Rep #: [id number] : 1990 Provider: Dr. 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 Ramesh Parker MD) Low vitamin D level Encounter for wellness examination in adult Seasonal allergies Amenorrhea (spontaneous vaginal delivery) Family history of hearing loss at age younger than 7 years Infertility Rh negative state in antepartum period History of infertility Abnormal genetic test during Missed Surgical History [place] teeth extracted s/p tongue clipped S/P arthroscopy of knee Family History Father Diabetes Grandmother Breast cancer, Onset Age: 60 Paternal Macular degeneration Paternal Sister Stillborn, normal Social History adopted: No household members: spouse and children number of children: 1 current occupational status: employed 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 pets and animals: Yes (two) pets and animals: dog(s) history of recent travel: Yes (December) out of state: Yes out of country: No sexually active: Yes Smoking Status: Never smoker alcohol intake: current details: occasionally/not while substance use type: does not use well-balanced diet: daily or most days caffeine: Yes Type: coffee Number of servings: 1 eating out: rarely or never during the past year weight has: increased > 10 lbs what type of physical activity do you participate in: none kelly/anabaptism: None seatbelt use: always do you feel safe at home: Yes additional social history: -Riky Female Reproductive History Menstrual Ab spontaneous: 1 HPI HPI Chief Complaint: Annual/Physical Details: MARIANELA GREY, is a 34 F who presents to the office today for annual wellness exam/visit. Pleasant 34-year-old female who has no longstanding medical problems and takes no routine long-term medications. Since she was last seen she has had her second child. Darline was born in November of this year, approximately a month old now. Overall is doing well she states. Overall everyone at home seems to be getting along well, getting adequate rest. Her continues to work at the local [employer]. He is hoping to become a detective youth bureau in the future. He has been with the department around 10 years perhaps. She does not have any new specific complaints at all. She feels well, good energy level. She did gain a fair amount of weight she states with her second . Overall the went very well however. She did not have any indication of abnormal glucose levels despite weight gain. Generally speaking tries to eat a good quality diet, and is looking forward to summertime when she enjoys eating a lot more vegetables and fruits. Review of systems per chart. She denies chest pain, shortness of breath, wheeze, cough, congestion, fever, chills, nausea or vomiting. Appetite has been good. Bowel movements have been regular, no changes. No urinary concerns. Mood has been stable she feels. Physical exam. Vital signs on chart. PERRLA. Sclera are clear. TMs are unremarkable with normal light reflexes. Canals are unremarkable. Posterior pharynx is unremarkable. Good dentition. No cervical or supraclavicular lymph nodes enlarged or tender. No clear thyromegaly. No thyroid nodules readily palpable. Lungs are without wheeze, rhonchi, rales. No E/A changes are heard. Heart is regular. Not tachycardic. No clear murmur, rub, or gallop is identified. The abdomen is soft. Bowel sounds are present. No significant leg edema. Cranial nerve examination 2 through 12 are grossly unremarkable nonlateralizing. No obvious rashes. No obvious significant skin lesions are identified (more content not included)... Normal [facility] (ROM) Rupture Of Membraneson 12-17-2024 ROM Positive Abnormal Negative [facility] Comment on above: Result Comment: Amni otic fluid present indicates rupture of Membranes. RESULTS CALLED TO BETTIE KUO 12/17/24 1601 Alison Simmons. REPORT READ BACK BY SAME. Performed By: #### L 205.1000 #### [facility] [address] [place], [address] Absolute lymphocyte countOrd ered By: Tamie Mojica on 12-17-2024 Lymphocytes Auto (Unsp spec) [#/Vol] 1.57 10*3/uL 0.83-4.51 [facility] Absolute neutrophil countOrd ered By: Tamie Mojica on 12-17-2024 Neutrophils (Bld) [#/Vol] 10.5 10*3/uL High 2.0-7.7 [facility] Automated lymphocyte count a s percentage of total leukocytesOrdered By: Tamie Mojica on 12-17-2024 Lymphocytes/100 WBC Auto (Unsp spec) 12.2 % Low 19-41 [facility] Basophil percentageOrdered B y: Tamie Mojica on 12-17-2024 Basophils/100 WBC (Bld) 0.2 % 0-[address] [facility] CBC W/Diff, Automatedon 11-25 Absolute Lymph 1.57 X10 3/uL Normal 0.83-4.51 [facility] Comment on above: Performed By: #### Cora JACOB, L100.0100 #### [facility] [address] [place], [address] Absolute Neut 10.5 X10 3/uL High 2.0-7.7 [facility] Comment on above: Performed By: #### Cora JACOB, L100.0100 #### [facility] [address] [place], [address] Basophils/100 WBC (Bld) 0.2 % Normal 0-[address] [facility] Comment on above: Performed By: #### Cora JACOB, L100.0100 #### [facility] [address] [place], [address] Eosinophils/100 WBC (Bld) 0.6 % Normal 0-5 [facility] Comment on above: Performed By: #### Cora JACOB, L100.0100 #### [facility] [address] [place], [address] Erythrocyte distribution width (RBC) [Ratio] 12.9 % Normal 11.6-14.6 [facility] Comment on above: Performed By: #### Cora JACOB, L100.0100 #### [facility] [address] [place], [address] Hematocrit (Bld) [Volume fraction] 39.8 % Normal 37-47 [facility] Comment on above: Performed By: #### Cora JACOB, L100.0100 #### [facility] [address] [place], [address] Hemoglobin (Bld) [Mass/Vol] 13.4 g/dL Normal 12.0-15.0 [facility] Comment on above: Performed By: #### Cora JACOB, L100.0100 #### [facility] [address] [place], [address] IG% 0.600 Normal 0.0-0.9 [facility] Comment on above: Result Comment: IG% - Immature Granulocytes (promyelocytes, myelocytes and metamyelocytes) > 1% indicates that a LEFT SHIFT is Present. Performed By: #### Cora JACOB, L100.0100 #### [facility] [address] [place], [address] Lymphocytes/100 WBC (Bld) 12.2 % Low 19-41 [facility] Comment on above: Performed By: #### Cora JACOB, L100.0100 #### [facility] [address] [place], [address] MCH (RBC) [Entitic mass] 30.2 pg Normal 27.0-32.0 [facility] Comment on above: Performed By: #### Cora JACOB, L100.0100 #### [facility] [address] [place], [address] MCHC (RBC) [Mass/Vol] 33.7 g/dL Normal 32-36 [facility] Comment on above: Performed By: #### Cora JACOB, L100.0100 #### [facility] [address] [place], [address] MCV (RBC) [Entitic vol] 89.8 fL Normal 81-[address] [facility] Comment on above: Performed By: #### Cora JACOB, L100.0100 #### [facility] [address] [place], [address] Monocytes/100 WBC (Bld) 4.6 % Normal 0-[address] [facility] Comment on above: Performed By: #### Cora JACOB, L100.0100 #### [facility] [address] [place], [address] Neutrophils/100 WBC (Bld) 81.8 % High 47-70 [facility] Comment on above: Performed By: #### Cora JACOB, L100.0100 #### [facility] [address] [place], [address] Nucleated RBC (Bld) [#/Vol] 0 10*3/uL Normal 0-5 [facility] Comment on above: Performed By: #### Cora JACOB, L100.0100 #### [facility] [address] [place], [address] Platelet mean volume (Bld) [Entitic vol] 9.7 fL Normal 6.2-12.0 [facility] Comment on above: Performed By: #### Cora JACOB, L100.0100 #### [facility] [address] [place], [address] Platelets (Bld) [#/Vol] 135 10*3/uL Low 150-450 [facility] Comment on above: Performed By: #### Cora JACOB, L100.0100 #### [facility] [address] [place], [address] RBC (Bld) [#/Vol] 4.43 10*6/uL Normal 4.2-5.4 [facility] Comment on above: Performed By: #### Cora JACOB, L100.0100 #### [facility] [address] [place], [address] RDW SD 42.3 fl Normal 35.1-43.9 [facility] Comment on above: Performed By: #### Cora JACOB, L100.0100 #### [facility] [address] [place], [address] WBC (Bld) [#/Vol] 12.9 10*3/uL High 4.4-11.0 [facility] Comment on above: Performed By: #### B TS, L100.0100 #### [facility] [address] [place], [address] Discharge Instructionon 11-25 Discharge Instruction [facility] Medical Records Department [address] [place] [address] Instructions for Home/Discharge Instructions 12/17/242044 MR#: [id number] Acct: [id number] Name: MARIANELA GREY Rep #: [id number] : 1990 34 From: Tamie Mojica MD PCP: Dr. Ramesh Parker MD Status:ADM IN Discharge Instructions Diet Discharge Diet: No restrictions DC O2, CPAP, BIPAP needs Home O2 Discharge instructions: No Dressing / Incision Discharge Activity: Return to Normal Activity, May Not Drive (while taking narcotic pain medications.) and May Shower May resume sexual activity in: 4-6 weeks Dressing / Incision Call your doctor if your incision/area has: Continuous Slow Oozing, Sudden Increased Bleeding, Increased Pain/ Swelling, Increased Redness and Foul Smelling Discharge Follow Up Care Please Follow Up With: Tamie Mojica MD When: Call [phone] to make an appointment with your doctor in 6 weeks. If you had elevated blood pressure or 4th degree laceration, you will need to be seen in 2 weeks. Test Results: Test results from this visit will be discussed in further detail at your follow-up appointment, if applicable. Discharge Plan Admission Admit Date/Time: 12/17/24 16:10 Attending Provider: Tamie Mojica Primary Care Provider: Ramesh Parker Discharge Orders/Prescriptions Prescriptions: No Action PNV no.339-YV-mg1-dha-epa-f rudolph 400 mcg-35 mg- 25 mg-5 mg tablet,chewable 1 tab PO DAILY Referrals / Follow Up: Ramesh Parker MD [Primary Care Provider] - Disposition Disposition (needs filled in before D/C Order can be placed): Home, Self Care 12/17/242045 Tamie Mojica MD CC: Dr. Ramesh Parker MD Signed Normal [facility] Eosinophil percentageOrdered By: Tamie Mojica on 12-17-2024 Eosinophils/100 WBC (Bld) 0.6 % 0-5 [facility] Erythrocyte distribution wid th ratioOrdered By: Tamie Mojica on 12-17-2024 Erythrocyte distribution width (RBC) [Ratio] 12.9 % 11.6-14.6 [facility] Erythrocyte distribution wid th standard deviationOrdered By: Tamie Mojica on 12-17-2024 Erythrocyte distribution width (RBC) [Ratio] 42.3 fl 35.1-43.9 [facility] H AND P Exam - OB/GYNon 11-25 H&P Exam - IT ADMINISTRATOR [facility] Medical Records Department [address] [place] [address] H P Exam - IT ADMINISTRATOR 12/17/24 1609 MR#: [id number] Acct: [id number] Name: MARIANELA GREY Rep #: [id number] : 1990 34 From: Tamie Mojica MD PCP: Dr. Ramesh Parker MD Status:REG CLI Location: [place] [address] HPI - General HPI Narrative MARIANELA GREY, is a 34 F who presentswith srom irregular ctx Maternal Data Information ALECIA Calculator Estimated Delivery Date Method Current WG Current Estimate 12/20/24 Ultrasound #1 39w 4d Other Estimates 12/27/24 LMP (Certain) 38w 4d 12/21/24 Ultrasound #2 39w 3d PFSH PFSH Medical History Seasonal allergies Amenorrhea (spontaneous vaginal delivery) Family history of hearing loss at age younger than 7 years Infertility Rh negative state in antepartum period History of infertility Abnormal genetic test during Missed Home Medications ???Medication ???Instructions ???Recorded ???Last Taken ???Type PNV 153-FA 400 mcg-om3 35 mg-dha 1 tab PO DAILY 05/12/24 Unknown Hi story 25 mg-epa 5 mg-fish oil chew tablet Allergy/AdvReac Type Severity Reaction Status Date / Time No Known Allergies Allergy Verified 12/17/24 15:48 Family History Father Diabetes Grandmother Breast cancer, Onset Age: 60 Paternal Macular degeneration Paternal Sister Stillborn, normal Surgical History [place] teeth extracted s/p tongue clipped S/P arthroscopy of knee Social History adopted: No household members: spouse and children number of children: 1 current occupational status: employed 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 pets and animals: Yes (two) pets and animals: dog(s) history of recent travel: Yes (December) out of state: Yes out of country: No sexually active: Yes Smoking Status: Never smoker alcohol intake: current details: occasionally/not while substance use type: does not use well-balanced diet: daily or most days caffeine: Yes Type: coffee Number of servings: 1 eating out: rarely or never during the past year weight has: increased > 10 lbs what type of physical activity do you participate in: none kelly/anabaptism: None seatbelt use: always do you feel safe at home: Yes additional social history: -Riky History 3 Elective abortions Hx Para 1 Spontaneous abortions 1 Hx # Term Pregnancies Ectopic pregnancies Hx # Pregnancies Multiple births # of living children 1 Past Pregnancies Del. Date Name GA/Weeks Outcome Route Bth Weight Infant Gen Labor Lgth Anesthesia Del Locatn Provider FOB Unknown Sep 2020:SAB. no intervention. 09/23/22 Rachel 39 live - full term 7lbs 7oz Female epidural [facility] Echo [place] Riky Delivery Date: 09/23/22 Last Updated by: Marjorie Ferrara Pt with 2 +genes and FOB 3 +genes none are same. [facility] records scanned. No further testing needed. Infertility, however, this was spontaneous . COVID. Visit Details Expected Delivery Route/Plan Labor Preferences- CB/BF classes: no labor support person: Riky labor intervention preferences: [] pain management options preferred: epidural cut cord/dad catch: yes : yes PP control planned: discussed discussed possible routes of delivery and associated risks: [] special requests: [] Plans Covid status: [] Flu vaccine: [] Tdap vaccine: given Rhogam: NA LARC form signed: yes movement and labor precautions reviewed.SM- Problem list reviewed and updated with the most current plan of care details and appropriate orders placed. Relevant counseling for the gestational age provided. Continue routine care and follow up unless otherwise noted in visit notes/problem list details OB Flowsheet Initial Weight: 226 lb Date -???-???-???-???-???-?? ?-???-???-???-???-???-? ??- EGA Weight BP Urine Prot -???-???-???-???-???-?? ?-???-???-???-???-???-? ??- Glucose FHR FuHt Pres Dilation -???-???-???-???-???-?? ?-???-???-???-???-???-? ??- Effaced St Visit Note 05/22/24 -???-???-???-???-???-?? ?-???-???-???-???-???-? ??- 9w 5d 226 lb (+0 oz) 123/77 -???-???-???-???-???-?? ?-???-???-???-???-???-? ??- 195 -???-???-???-???-???-?? ?-???-???-???-???-???-? ??- KW- CRL cons with dates. accepts NIPT 06/18/24 -???-???-???-???-???-?? ?-???-???-???-???-???-? ??- 13w 4d 229 lb 4 oz (+3 lb 4 oz) 128/81 Negative -???-???-???-???-???-?? ?-???-???-???-???-???-? ??- Negative 157 -???-???-???-???-???-?? ?-???-???-???-???-???-? ??- MH-NO VB. N ausea improving. (more content not included)... Normal [facility] Hematocrit Auto (Bld) [Volum e fraction]Ordered By: Tamie Mojica on 12-17-2024 Hematocrit (Bld) [Volume fraction] 39.8 % 37-47 [facility] Hemoglobin measurementOrdere d By: Tamie Mojica on 12-17-2024 Hemoglobin (Bld) [Mass/Vol] 13.4 g/dL 12.0-15.0 [facility] Immature granulocytes/100 WB C Auto (Bld)Ordered By: Tamie Mojica on 12-17-2024 Immature granulocytes/100 WBC (Bld) 0.600 % 0.0-0.9 [facility] Comment on above: IG% - Immature Granu locytes (promyelocytes, myelocytes and metamyelocytes) > 1% indicates that a LEFT SHIFT is Present. MCV (mean corpuscular volume ) determinationOrdered By: Tamie Mojica on 12-17-2024 MCV (RBC) [Entitic vol] 89.8 fL 81-[address] [facility] MR/OB.VAGDELIon 12-17-2024 MR/OB.[facility] Medical Records Department [address] [place] [address] OB Vaginal Delivery 12/17/242041 MR#: [id number] Acct: [id number] Name: MARIANELA GREY Rep #: [id number] : 1990 34 From: Tamie Mojica MD PCP: Dr. Ramesh Parker MD Status:ADM IN Location: [id number] Assessment Plan (1) Rh negative state in antepartum period: COMMENT: Rhogam @ 28 wks and PRN bleeding; Baby is Rh negative-No rhogam (2) : QUALIFIERS: Weeks of gestation: 39 weeks Qualified Code(s): Z3A.39 - 39 weeks gestation of COMMENT: GBS neg, NIPT low risk, carrier and ntd screening declined. nl anatomy. (3) Supervision of high risk , antepartum: COMMENT: PRR, , ALECIA 12/20/24, girl Darline Ramos, Riky (4) Anxiety: COMMENT: mild; stable (5) Obesity affecting : QUALIFIERS: Trimester: second trimester Obesity type affecting : unspecified obesity Qualified Code(s): O99.212 - Obesity complicating , second trimester COMMENT: [id number], growth US at 32 and 36, weekly nst 36 on (6) RANDI (amniotic fluid index) borderline low: COMMENT: repeat randi in 1 week- WNL (7) SROM (spontaneous rupture of membranes): (8) Vaginal delivery: COMMENT: SM IAL SROM 39 girl Darline Maternal Data Information ALECIA Calculator Estimated Delivery Date Method Current WG Current Estimate 12/20/24 Ultrasound #1 39w 4d Other Estimates 12/27/24 LMP (Certain) 38w 4d 12/21/24 Ultrasound #2 39w 3d Vaginal Delivery Maternal Presentation Maternal Presentation: see assessment and plan Vaginal Delivery Information Procedure Performed: Spontaneous Vaginal Delivery Surgeon/Practitioner: Tamie Mojica Pre-Procedure Diagnosis: see assessment and plan Post-Procedure Diagnosis: same Type of anesthesia: Epidural Estimated Blood Loss: 100 Findings Description of procedure: Patient began pushing and delivered the head in the MAUREEN presentation. The head was delivered atraumatically . The anterior and posterior shoulders delivered without complication followed by the rest of the infant and the was placed on the maternal abdomen. Delayed cord clamping was employed for approximately 60 seconds. Cord was clamped and cut and gentle traction was applied to the cord and the placenta delivered spontaneously immediately following it was noted to be intact with three-vessel cord. The perineum and vagina were inspected and noted to have no laceration. EBL was 100 cc. Patient and infant tolerated delivery well. Presentation: Vertex Placental Delivery Description: Spontaneous Specimen collected: Yes Description of specimen(s) removed: placenta Blending Operator it senior analyst: No Post Vaginal Deli Medications given after delivery: Other (pitocin) Complication Complications: No Multi Select Codes Urinary/Genital Urinary/Genital CPT Codes: 15781 Vaginal Delivery [facility] 12/17/242043 Cosigner Signature (if applicable): CC: Dr. Ramesh Parker MD; Dr. Tamie Mojica MD Signed Normal [facility] Mean corpuscular hemoglobin (MCH) determinationOrdered By: Tamie Mojica on 12-17-2024 MCH (RBC) [Entitic mass] 30.2 pg 27.0-32.0 [facility] Mean corpuscular hemoglobin concentration (MCHC) determinationOrdered By: Tamie Mojica on 12-17-2024 MCHC (RBC) [Mass/Vol] 33.7 g/dL 32-36 [facility] Mean platelet volume determi nationOrdered By: Tamie Mojica on 12-17-2024 Platelet mean volume (Bld) [Entitic vol] 9.7 fL 6.2-12.0 [facility] Monocyte percentageOrdered B y: Tamie Mojica on 12-17-2024 Monocytes/100 WBC (Bld) 4.6 % 0-[address] [facility] Neutrophil percentageOrdered By: Tamie Mojica on 12-17-2024 Neutrophils/100 WBC (Bld) 81.8 % High 47-70 [facility] Nucleated red blood cell per centageOrdered By: Tamie Mojica on 12-17-2024 Nucleated RBC/100 WBC (Bld) [Ratio] 0 % 0-5 [facility] OB Triage Progress Noteon OB Triage Progress Note [facility] Medical Records Department [address] [place] [address] OB Triage Progress Note 12/17/24802 MR#: [id number] Acct: [id number] Name: MARIANELA GREY Rep #: [id number] : 1990 34 From: Tamie Mojica MD PCP: Dr. Ramesh Parker MD Status:DEP CLI Y DOS: Location: WPOUT Progress Notes Date of Service: 12/15/24 Progress Note: Patient presents for triage evaluation secondary to possible ROM 3 cm dilated FHT: 140 Moderate variability reactive no decelerations category I tracing Port Protection: no reuglar Contractions Assessment and plan: 39 weeks amniotic membrane sintact false labor 3 cm dilated Reactive NST, reassuring maternal and status patient discharged to home to follow-up as scheudled. See problem list details for additional plan information. Laboratory Studies: Laboratory Tests 12/15/24 Range/Units Unknown Vag Amniotic Fld Detect Negative (Negative) Charges/Coding Procedures Urinary/Genital 52xxx-59xxx: 01142-74 non-stress test Interp 12/17/24 0804 Date Tamie Mojiac MD Cosigner Signature (if applicable): Date CC: Dr. Ramesh Parker MD; Dr. Tamie Mojica MD Signed Normal [facility] Platelet countOrdered By: Renzo Mojica on 12-17-2024 Platelets (Bld) [#/Vol] 135 10*3/uL Low 150-450 [facility] RBC Auto (Bld) [#/Vol]Ordere d By: Tamie Mojica on 12-17-2024 RBC (Bld) [#/Vol] 4.43 10*6/uL 4.2-5.4 [facility] Syphilis Antibodieson 2024 Syphilis Abs Non-Reactive Normal Nonreactive [facility] Comment on above: Performed By: #### M 652.7253 #### [facility] [address] [place], [address] Type AND Screenon 12-17-2024 ABO and Rh group Nom (Bld) Blood group B Rh(D) negative Normal [facility] Comment on above: Order Comment: Labor Performed By: #### B TS, L100.0100 #### [facility] [address] [place], [place], [address] White blood cell (WBC) count Ordered By: Tamie Mojica on 12-17-2024 WBC (Bld) [#/Vol] 12.9 10*3/uL High 4.4-11.0 [facility] (ROM) Rupture Of Membraneson 12-15-2024 ROM Negative Normal Negative [facility] Comment on above: Result Comment: Amni otic fluid not present indicates No Rupture of Membranes at time of specimen collection. Performed By: #### L 205.1000 #### [facility] [address] 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 Tamie montero MD Age/Sex: 34/F Location: [facility] Status: Signed Intake Vital Signs 08/12/24 10:26 12/01/24 09:50 12/09/24 12:52 12/15/24 11:22 12/15/24 11:25 Height 5 ft 6 in 5 ft 6 in 5 ft 6 in 5 ft 6 in 5 ft 6 in Weight: 266 lb 8 oz BMI 43.0 BP 137/91 H Intake Visit Reasons: 39 wk ob/NST Nail Machine Operator Required: No Is patient in pain?: No Feel stressed/tense/nervous/ anxious/difficulty sleeping: not at all Allergies No Known Allergies Allergy (Verified 12/15/24 12:18) Medications ???Medication ???Instructions ???Recorded ???Confirmed ???Type PNV 153-FA 400 mcg-om3 35 mg-dha 1 tab PO DAILY 05/12/24 12/15/24 H istory 25 mg-epa 5 mg-fish oil chew tablet Last Menstrual Period: 03/22/24 Zika: Zika virus screening: Negative : No PFSH PFSH Medical History Seasonal allergies Amenorrhea (spontaneous vaginal delivery) Family history of hearing loss at age younger than 7 years Infertility Rh negative state in antepartum period History of infertility Abnormal genetic test during Missed Surgical History [place] teeth extracted s/p tongue clipped S/P arthroscopy of knee Family History Father Diabetes Grandmother Breast cancer, Onset Age: 60 Paternal Macular degeneration Paternal Sister Stillborn, normal Social History adopted: No household members: spouse and children number of children: 1 current occupational status: employed 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 pets and animals: Yes (two) pets and animals: dog(s) history of recent travel: Yes (December) out of state: Yes out of country: No sexually active: Yes Smoking Status: Never smoker alcohol intake: current details: occasionally/not while substance use type: does not use well-balanced diet: daily or most days caffeine: Yes Type: coffee Number of servings: 1 eating out: rarely or never during the past year weight has: increased > 10 lbs what type of physical activity do you participate in: none kelly/anabaptism: None seatbelt use: always do you feel safe at home: Yes additional social history: -Riky History 3 Elective abortions Hx Para 1 Spontaneous abortions 1 Hx # Term Pregnancies Ectopic pregnancies Hx # Pregnancies Multiple births # of living children 1 Past Pregnancies Del. Date Name GA/Weeks Outcome Route Bth Weight Infant Gen Labor Lgth Anesthesia Del Locatn Provider FOB Unknown Sep 2020:SAB. no intervention. 09/23/22 Rachel 39 live - full term 7lbs 7oz Female epidural [facility] Echo patel Bety Lan Delivery Date: 09/23/22 Last Updated by: Marjorie Ferrara Pt with 2 +genes and FOB 3 +genes none are same. [facility] records scanned. No further testing needed. Infertility, however, this was spontaneous . COVID. HPI 39 wk ob/NST Details: MARIANELA GREY is a 34 year old who presents for routine OB visit. OB Visit ALECIA Calculator Estimated Delivery Date Method Current WG Current Estimate 12/20/24 Ultrasound #1 39w 3d Other Estimates 12/27/24 LMP (Certain) 38w 3d 12/21/24 Ultrasound #2 39w 2d Expected Delivery Route/Plan Labor Preferences- CB/BF classes: no labor support person: Riky labor intervention preferences: [] pain management options preferred: epidural cut cord/dad catch: yes : yes PP control planned: discussed discussed possible routes of delivery and associated risks: [] special requests: [] Specific Issue/Plans Covid status: [] Flu vaccine: [] Tdap vaccine: given Rhogam: NA LARC form signed: yes movement and labor precautions reviewed.SM- Problem list reviewed and updated with the most current plan of care details and appropriate orders placed. Relevant counseling for the gestational age provided. Continue routine care and follow up unless otherwise noted in visit notes/problem list details Initial Weight: 226 lb Date -???-???-???-???-???-?? ?-???-???-???-???-???-? ??- EGA Weight BP Urine Prot -???-???-???-???-???-?? ?-???-???-???-???-???-? ??- Glucose FHR FuHt Pres Dilation -???-???-???-???-???-?? ?-???-???-???-???-???-? ??- Effaced St Visit Note 05/22/24 -???-???-???-???-???-?? ?-???-???-???-???-???-? ??- 9w 5d 226 lb (+0 oz) 123/77 -? (more content not included)... [facility] Testing for ruptured membran esOrdered By: Tamie Mojica on 12-15-2024 Vaginal Amniotic Fluid Detection Negative Negative [facility] Comment on above: Amniotic fluid not p resent indicates No Rupture of FetalMembranes at time of specimen collection. Laboratory - Chemistry and C hemistry - challengeOrdered By: Tamie Mojica on 12-09-2024 Glucose Ql (U) Negative [facility] - UrinalysisOrder ed By: Tamie Mojica on 12-09-2024 Protein Ql (U) Negative [facility] OB Limited (No Biometrics)on 12-09-2024 OB Limited (No Biometrics) [facility] Services [address] [place], [place] [id number] OB Limited (No Biometrics) MR#: [id number] Acct: [id number] Name: MARIANELA GREY Rep #: [id number] : 1990 F 34 From: Ulises Gotti MD PCP: Dr. Ramesh Parker MD Status: REG CLI Study: OB Limited (No Biometrics) Date of Exam: 12/09 Exam# [id number] Ordering Dr: Tamie Mojica EXAM: OB LIMITED (NO BIOMETRICS) (USOBL) 12/09/2024 CLINICAL HISTORY: RANDI RECHECK. Reportedly 38 weeks and 3 days with ALECIA 12/20/2024 by previously established dates. COMPARISON: 11/30/2024 TECHNIQUE: A limited transabdominal obstetrical ultrasound was performed. FINDINGS: Gravid uterus with a single fetus. Amniotic Fluid Index: 9.7 (normal 5-25), deepest vertical pocket 3.5 (normal 2-8). presentation: Cephalic. heart rate: Present, 152 bpm. Placenta: Posterior. Calcifications noted. Maternal anatomy: Cervix: Unremarkable, cervical length 3.5 cm. Right ovary: Not well seen due to the gravid uterus. Left ovary: Not well seen due to the gravid uterus. US/OB Limited (No Biometrics) IMPRESSION: 1. Amniotic fluid index and deepest vertical pocket within normal limits. 2. Additional description as above. Reading Location: [id number] CC: Dr. Ramesh Parker MD; Dr. Tamie oMjica MD Right Of Way Worker: Signed 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 Office Visit Reporton 12-09-2024 Fruit Har[employer] Machine Operator Office Visit Report [facility]'s [address], [address] [place] [address] OFFICE VISIT Date of Service: 12/09/24 MR#: [id number] Acct: [id number] Name: MARIANELA GREY Rep #: [id number] : 1990 Provider: Dr. Tamie montero MD Age/Sex: 34/F Location: [facility] Status: Signed Intake Vital Signs 08/12/24 10:26 12/01/24 09:50 12/09/24 12:52 Height 5 ft 6 in 5 ft 6 in 5 ft 6 in Weight: 264 lb 2 oz BMI 42.6 BP 108/71 Intake Visit Reasons: 38 wk ob/NST Nail Machine Operator Required: No Is patient in pain?: No Allergies No Known Allergies Allergy (Verified 12/09/24 12:51) Medications ???Medication ???Instructions ???Recorded ???Confirmed ???Type PNV 153-FA 400 mcg-om3 35 mg-dha 1 tab PO DAILY 05/12/24 12/09/24 H istory 25 mg-epa 5 mg-fish oil chew tablet Last Menstrual Period: 03/22/24 Zika: Zika virus screening: Negative : No PFSH PFSH Medical History Seasonal allergies Amenorrhea (spontaneous vaginal delivery) Family history of hearing loss at age younger than 7 years Infertility Rh negative state in antepartum period History of infertility Abnormal genetic test during Missed Surgical History [place] teeth extracted s/p tongue clipped S/P arthroscopy of knee Family History Father Diabetes Grandmother Breast cancer, Onset Age: 60 Paternal Macular degeneration Paternal Sister Stillborn, normal Social History adopted: No household members: spouse and children number of children: 1 current occupational status: employed 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 pets and animals: Yes (two) pets and animals: dog(s) history of recent travel: Yes (December) out of state: Yes out of country: No sexually active: Yes Smoking Status: Never smoker alcohol intake: current details: occasionally/not while substance use type: does not use well-balanced diet: daily or most days caffeine: Yes Type: coffee Number of servings: 1 eating out: rarely or never during the past year weight has: increased > 10 lbs what type of physical activity do you participate in: none kelly/anabaptism: None seatbelt use: always do you feel safe at home: Yes additional social history: -Riky History 3 Elective abortions Hx Para 1 Spontaneous abortions 1 Hx # Term Pregnancies Ectopic pregnancies Hx # Pregnancies Multiple births # of living children 1 Past Pregnancies Del. Date Name GA/Weeks Outcome Route Bth Weight Gen Labor Lgth Anesthesia Del Locatn Provider FOB Unknown Sep 2020:SAB. no intervention. 09/23/22 Rachel 39 live - full term 7lbs 7oz Female epidural [facility] Echo Albert Taylor Lan Delivery Date: 09/23/22 Last Updated by: Marjorie Ferrara Pt with 2 +genes and FOB 3 +genes none are same. [facility] records scanned. No further testing needed. Infertility, however, this was spontaneous . COVID. HPI 38 wk ob/NST Details: MARIANELA GREY is a 34 year old who presents for routine OB visit. OB Visit ALECIA Calculator Estimated Delivery Date Method Current WG Current Estimate 12/20/24 Ultrasound #1 38w 3d Other Estimates 12/27/24 LMP (Certain) 37w 3d 12/21/24 Ultrasound #2 38w 2d Expected Delivery Route/Plan Labor Preferences- CB/BF classes: no labor support person: Riky labor intervention preferences: [] pain management options preferred: epidural cut cord/dad catch: yes : yes PP control planned: discussed discussed possible routes of delivery and associated risks: [] special requests: [] Specific Issue/Plans Covid status: [] Flu vaccine: [] Tdap vaccine: given Rhogam: NA LARC form signed: yes movement and labor precautions reviewed.SM- Problem list reviewed and updated with the most current plan of care details and appropriate orders placed. Relevant counseling for the gestational age provided. Continue routine care and follow up unless otherwise noted in visit notes/problem list details Initial Weight: 226 lb Date -???-???-???-???-???-?? ?-???-???-???-???-???-? ??- EGA Weight BP Urine Prot -???-???-???-???-???-?? ?-???-???-???-???-???-? ??- Glucose FHR FuHt Pres Dilation -???-???-???-???-???-?? ?-???-???-???-???-???-? ??- Effaced St Visit Note 05/22/24 -???-???-???-???-???-?? ?-???-???-???-???-???-? ??- 9w 5d 226 lb (+0 oz) 123/77 -???-???-???-???-???-?? ?-???-???-???-???-???-? ??- 195 -???-???-???-???-???-?? ?-???-???-???-???-???-? ??- KW- CRL cons wit (more content not included)... 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 Tamie montero MD Age/Sex: 34/F Location: [facility] Status: Signed Intake Vital Signs 08/12/24 10:52 11/24/24 10:06 12/01/24 09:47 12/01/24 09:50 Height 5 ft 6 in 5 ft 6 in 5 ft 6 in 5 ft 6 in Weight: 261 lb 8 oz BMI 42.2 BP 120/87 H Intake Visit Reasons: 37 wk ob Nail Machine Operator Required: No Is patient in pain?: No Allergies No Known Allergies Allergy (Verified 12/01/24 09:47) Medications ???Medication ???Instructions ???Recorded ???Confirmed ???Type PNV 153-FA 400 mcg-om3 35 mg-dha 1 tab PO DAILY 05/12/24 12/01/24 H istory 25 mg-epa 5 mg-fish oil chew tablet Last Menstrual Period: 03/22/24 Zika: Zika virus screening: Negative : No PFSH PFSH Medical History Seasonal allergies Amenorrhea (spontaneous vaginal delivery) Family history of hearing loss at age younger than 7 years Infertility Rh negative state in antepartum period History of infertility Abnormal genetic test during Missed Surgical History [place] teeth extracted s/p tongue clipped S/P arthroscopy of knee Family History Father Diabetes Grandmother Breast cancer, Onset Age: 60 Paternal Macular degeneration Paternal Sister Stillborn, normal Social History adopted: No household members: spouse and children number of children: 1 current occupational status: employed 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 pets and animals: Yes (two) pets and animals: dog(s) history of recent travel: Yes (December) out of state: Yes out of country: No sexually active: Yes Smoking Status: Never smoker alcohol intake: current details: occasionally/not while substance use type: does not use well-balanced diet: daily or most days caffeine: Yes Type: coffee Number of servings: 1 eating out: rarely or never during the past year weight has: increased > 10 lbs what type of physical activity do you participate in: none kelly/anabaptism: None seatbelt use: always do you feel safe at home: Yes additional social history: -Riky History 3 Elective abortions Hx Para 1 Spontaneous abortions 1 Hx # Term Pregnancies Ectopic pregnancies Hx # Pregnancies Multiple births # of living children 1 Past Pregnancies Del. Date Name GA/Weeks Outcome Route Bth Weight Gen Labor Lgth Anesthesia Del Locatn Provider FOB Unknown Sep 2020:SAB. no intervention. 09/23/22 Rachel 39 live - full term 7lbs 7oz Female epidural [facility] Echo Sandoval Riky Delivery Date: 09/23/22 Last Updated by: Marjorie Ferrara Pt with 2 +genes and FOB 3 +genes none are same. [facility] records scanned. No further testing needed. Infertility, however, this was spontaneous . COVID. HPI 37 wk ob Details: MARIANELA GREY is a 34 year old who presents for routine OB visit. OB Visit ALECIA Calculator Estimated Delivery Date Method Current WG Current Estimate 12/20/24 Ultrasound #1 37w 4d Other Estimates 12/27/24 LMP (Certain) 36w 4d 12/21/24 Ultrasound #2 37w 3d Expected Delivery Route/Plan Labor Preferences- CB/BF classes: no labor support person: Riky labor intervention preferences: [] pain management options preferred: epidural cut cord/dad catch: yes : yes PP control planned: discussed discussed possible routes of delivery and associated risks: [] special requests: [] Specific Issue/Plans Covid status: [] Flu vaccine: [] Tdap vaccine: given Rhogam: NA LARC form signed: yes movement and labor precautions reviewed.SM- Problem list reviewed and updated with the most current plan of care details and appropriate orders placed. Relevant counseling for the gestational age provided. Continue routine care and follow up unless otherwise noted in visit notes/problem list details Initial Weight: 226 lb Date -???-???-???-???-???-?? ?-???-???-???-???-???-? ??- EGA Weight BP Urine Prot -???-???-???-???-???-?? ?-???-???-???-???-???-? ??- Glucose FHR FuHt Pres Dilation -???-???-???-???-???-?? ?-???-???-???-???-???-? ??- Effaced St Visit Note 05/22/24 -???-???-???-???-???-?? ?-???-???-???-???-???-? ??- 9w 5d 226 lb (+0 oz) 123/77 -???-???-???-???-???-?? ?-???-???-???-???-???-? ??- 195 -???-???-???-???-???-?? ?-???-???-???-???-???-? ??- (more content not included)... [facility] OB Limited With Biometricson 11-30-2024 OB Limited With Biometrics [facility] Imaging Services [address] [place] [id number] OB Limited With Biometrics MR#: [id number] Acct: [id number] Name: MARIANELA GREY Rep #: [id number] : 1990 F 34 From: Elkin Campos MD PCP: Dr. Ramesh Parker MD Status: REG CLI Study: OB Limited With Biometrics Date of Exam: 11/30 Exam# [id number] Ordering Dr: Tamie Mojica PROCEDURE: OB LIMITED WITH BIOMETRICS 11/30/2024 REASON FOR EXAM: GROWTH TECHNIQUE: High resolution obstetric ultrasound performed using a 2D transducer. Standard views obtained, including biometry, anatomy survey, and Doppler studies. COMPARISON: 10/29/2024 FINDINGS Number: 1 Position: Cephalic Placental Position: Posterior Placental Abnormalities: None DIMENSIONS: Biparietal Diameter: 8.5 cm/34 weeks 2 days Head Circumference: 32.2 cm/36 weeks 2 days Abdominal Circumference: 33.9 cm/37 weeks 5 days Femur Length: 6.7 cm/34 weeks 4 days ESTIMATED WEIGHT: 2938 ESTIMATED WEIGHT PERCENTILE (24+ weeks): 38 ESTIMATED GESTATIONAL AGE: Baseline: 37 weeks 1 day By Ultrasound: 35 weeks 6 days ESTIMATED DATE OF DELIVERY: Baseline: 12/20/2024 By Ultrasound: 12/29/2024 BIOPHYSICAL ASSESSMENT: Amniotic Fluid Volume: 3.9 cm Amniotic Fluid Index: 8.8 cm (8-24 cm normal range) Cardiac Motion: 147 beats per minute (average) Trunk and Limb Motion: Present. MATERNAL ANATOMY: Adnexa: Neither maternal ovary is successfully identified. Cervical Length (if measured): Not visualized US/OB Limited With Biometrics IMPRESSION: Living intrauterine of 35 weeks 6 days as described above. Reading Location: [id number] CC: Dr. Ramesh Parker MD; Dr. Tamie Mojica MD Right Of Way Worker: Signed [facility] Rule out Beta Strep (Grp. B) on 11-26-2024 JAIMEE Group B Beta Streptococcus is not isolated. [facility] Comment on above: Performed By: #### M [id number] #### [facility] 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 Munira Carlos DO Age/Sex: 34/F Location: [facility] Status: Signed Intake Vital Signs 08/12/24 10:26 11/09/24 09:45 11/24/24 10:05 11/24/24 10:06 Height 5 ft 6 in 5 ft 6 in 5 ft 6 in 5 ft 6 in Weight: 261 lb 6 oz BMI 42.2 BP 114/76 Intake Visit Reasons: 36 wk ob/nst Nail Machine Operator Required: No Is patient in pain?: No Allergies No Known Allergies Allergy (Verified 11/24/24 10:05) Medications ???Medication ???Instructions ???Recorded ???Confirmed ???Type PNV 153-FA 400 mcg-om3 35 mg-dha 1 tab PO DAILY 05/12/24 11/24/24 H istory 25 mg-epa 5 mg-fish oil chew tablet Last Menstrual Period: 03/22/24 Zika: Zika virus screening: Negative : No PFSH PFSH Medical History Seasonal allergies Amenorrhea (spontaneous vaginal delivery) Family history of hearing loss at age younger than 7 years Infertility Rh negative state in antepartum period History of infertility Abnormal genetic test during Missed Surgical History [place] teeth extracted s/p tongue clipped S/P arthroscopy of knee Family History Father Diabetes Grandmother Breast cancer, Onset Age: 60 Paternal Macular degeneration Paternal Sister Stillborn, normal Social History adopted: No household members: spouse and children number of children: 1 current occupational status: employed 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 pets and animals: Yes (two) pets and animals: dog(s) history of recent travel: Yes (December) out of state: Yes out of country: No sexually active: Yes Smoking Status: Never smoker alcohol intake: current details: occasionally/not while substance use type: does not use well-balanced diet: daily or most days caffeine: Yes Type: coffee Number of servings: 1 eating out: rarely or never during the past year weight has: increased > 10 lbs what type of physical activity do you participate in: none kelly/anabaptism: None seatbelt use: always do you feel safe at home: Yes additional social history: -Riky History 3 Elective abortions Hx Para 1 Spontaneous abortions 1 Hx # Term Pregnancies Ectopic pregnancies Hx # Pregnancies Multiple births # of living children 1 Past Pregnancies Del. Date Name GA/Weeks Outcome Route Bth Weight Infant Gen Labor Lgth Anesthesia Del Locatn Provider FOB Unknown Sep 2020:SAB. no intervention. 09/23/22 Rachel 39 live - full term 7lbs 7oz Female epidural [facility] Echo Sandoval Riky Delivery Date: 09/23/22 Last Updated by: Marjorie Ferrara Pt with 2 +genes and FOB 3 +genes none are same. [facility] records scanned. No further testing needed. Infertility, however, this was spontaneous . COVID. HPI 36 wk ob/nst Details: MARIANELA GREY is a 34 year old who presents for routine OB visit. OB Visit ALECIA Calculator Estimated Delivery Date Method Current WG Current Estimate 12/20/24 Ultrasound #1 36w 2d Other Estimates 12/27/24 LMP (Certain) 35w 2d 12/21/24 Ultrasound #2 36w 1d Expected Delivery Route/Plan Labor Preferences- CB/BF classes: no labor support person: Riky labor intervention preferences: [] pain management options preferred: epidural cut cord/dad catch: yes : yes PP control planned: discussed discussed possible routes of delivery and associated risks: [] special requests: [] Specific Issue/Plans Covid status: [] Flu vaccine: [] Tdap vaccine: given Rhogam: NA LARC form signed: yes Problem list reviewed and updated with the most current plan of care details and appropriate orders placed. Relevant counseling for the gestational age provided. Continue routine care and follow up unless otherwise noted in visit notes/problem list details Initial Weight: 226 lb Date -???-???-???-???-???-?? ?-???-???-???-???-???-? ??- EGA Weight BP Urine Prot -???-???-???-???-???-?? ?-???-???-???-???-???-? ??- Glucose FHR FuHt Pres Dilation -???-???-???-???-???-?? ?-???-???-???-???-???-? ??- Effaced St Visit Note 05/22/24 -???-???-???-???-???-?? ?-???-???-???-???-???-? ??- 9w 5d 226 lb (+0 oz) 123/77 -???-???-???-???-???-?? ?-???-???-???-???-???-? ??- 195 -???-???-???-???-???-?? ?-???-???-???-???-???-? ??- KW- CRL cons with dates. accepts NIPT (more content not included)... [facility] Screening beta-hemolytic Str eptococcus cultureOrdered By: Munira Vazquez on 11-24-2024 Beta-hemolytic Streptococcus culture Group B Beta Streptococcus is not isolated. [facility] Group B Streptococcus Culture Group B Beta Streptococcus is not isolated. 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 Office Visit Report [facility]'s [address], [address] [place] [address] OFFICE VISIT Date of Service: 11/09/24 MR#: [id number] Acct: [id number] Name: MARIANELA GREY Rep #: [id number] : 1990 Provider: YELENA Fuentes ams Age/Sex: 34/F Location: [facility] Status: Signed Intake Vital Signs 08/12/24 10:26 10/27/24 10:06 11/09/24 09:45 Height 5 ft 6 in 5 ft 6 in 5 ft 6 in Weight: 255 lb 6 oz BMI 41.2 BP 122/76 H Intake Visit Reasons: 34 wk ob Chief Complaint: 34wk OB Is patient in pain?: No Allergies No Known Allergies Allergy (Verified 11/09/24 09:43) Medications ???Medication ???Instructions ???Recorded ???Confirmed ???Type PNV 153-FA 400 mcg-om3 35 mg-dha 1 tab PO DAILY 05/12/24 11/09/24 H istory 25 mg-epa 5 mg-fish oil chew tablet Last Menstrual Period: 03/22/24 : No PFSH PFSH Medical History Seasonal allergies Amenorrhea (spontaneous vaginal delivery) Family history of hearing loss at age younger than 7 years Infertility Rh negative state in antepartum period History of infertility Abnormal genetic test during Missed Surgical History [place] teeth extracted s/p tongue clipped S/P arthroscopy of knee Family History Father Diabetes Grandmother Breast cancer, Onset Age: 60 Paternal Macular degeneration Paternal Sister Stillborn, normal Social History adopted: No household members: spouse and children number of children: 1 current occupational status: employed 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 pets and animals: Yes (two) pets and animals: dog(s) history of recent travel: Yes (December) out of state: Yes out of country: No sexually active: Yes Smoking Status: Never smoker alcohol intake: current details: occasionally/not while substance use type: does not use well-balanced diet: daily or most days caffeine: Yes Type: coffee Number of servings: 1 eating out: rarely or never during the past year weight has: increased > 10 lbs what type of physical activity do you participate in: none kelly/anabaptism: None seatbelt use: always do you feel safe at home: Yes additional social history: -Riky History 3 Elective abortions Hx Para 1 Spontaneous abortions 1 Hx # Term Pregnancies Ectopic pregnancies Hx # Pregnancies Multiple births # of living children 1 Past Pregnancies Del. Date Name GA/Weeks Outcome Route Bth Weight Gen Labor Lgth Anesthesia Del Locatn Provider FOB Unknown Sep 2020:SAB. no intervention. 09/23/22 Rachel 39 live - full term 7lbs 7oz Female epidural [facility] Echo Sandoval Riky Delivery Date: 09/23/22 Last Updated by: Marjorie Ferrara Pt with 2 +genes and FOB 3 +genes none are same. [facility] records scanned. No further testing needed. Infertility, however, this was spontaneous . COVID. HPI 34 wk ob Details: MARIANELA GREY is a 34 year old who presents for routine OB visit. OB Visit ALECIA Calculator Estimated Delivery Date Method Current WG Current Estimate 12/20/24 Ultrasound #1 34w 1d Other Estimates 12/27/24 LMP (Certain) 33w 1d 12/21/24 Ultrasound #2 34w 0d Expected Delivery Route/Plan Labor Preferences- CB/BF classes: no labor support person: Riky labor intervention preferences: [] pain management options preferred: epidural cut cord/dad catch: yes : yes PP control planned: discussed discussed possible routes of delivery and associated risks: [] special requests: [] Specific Issue/Plans Covid status: [] Flu vaccine: [] Tdap vaccine: given Rhogam: NA LARC form signed: yes Problem list reviewed and updated with the most current plan of care details and appropriate orders placed. Relevant counseling for the gestational age provided. Continue routine care and follow up unless otherwise noted in visit notes/problem list details Initial Weight: 226 lb Date -???-???-???-???-???-?? ?-???-???-???-???-???-? ??- EGA Weight BP Urine Prot -???-???-???-???-???-?? ?-???-???-???-???-???-? ??- Glucose FHR FuHt Pres Dilation -???-???-???-???-???-?? ?-???-???-???-???-???-? ??- Effaced St Visit Note 05/22/24 -???-???-???-???-???-?? ?-???-???-???-???-???-? ??- 9w 5d 226 lb (+0 oz) 123/77 -???-???-???-???-???-?? ?-???-???-???-???-???-? ??- 195 -???-???-???-???-???-?? ?-???-???-???-???-???-? ??- KW- CRL cons with dates. accepts NIPT 06/18/24 -???-???-???-???-???-?? ?-???-???-???-???-???-? ??- 13w 4d 229 lb 4 oz (+3 lb 4 oz) (more content not included)... [facility] OB Limited With Biometricson 10-29-2024 OB Limited With Biometrics [facility] Services [address] [place] [place], [place] [address] OB Limited With Biometrics MR#: [id number] Acct: [id number] Name: MARIANELA GREY Rep #: [id number] : 1990 F 34 From: Casey wahl MD PCP: Dr. Ramesh Parker MD Status: REG CLI Study: OB Limited With Biometrics Date of Exam: 10/29 Exam# [id number] Ordering Dr: Tamie Mojica PROCEDURE: OB LIMITED WITH BIOMETRICS REASON FOR EXAM: 32 week gestation. COMPARISON: None. FINDINGS Number: 1 Position: Vertex Placental Position: Anterior. Placental Abnormalities: None. DIMENSIONS: Biparietal Diameter: 8 cm: 31 weeks and 5 days: 18 percentile/ Head Circumference: 30 cm: 32 weeks and 5 days: 17 percentile/ Abdominal Circumference: 29 cm: 32 weeks and 6 days: 57 percentile/ Femur Length: 6.2 cm: 32 weeks and 1 day: 25th percentile/ ESTIMATED WEIGHT: 1989 g plus/-298 g ESTIMATED WEIGHT PERCENTILE (24+ weeks): 38 ESTIMATED GESTATIONAL AGE: Baseline: 32 weeks and 4 days By Ultrasound: 32 weeks and 2 days ESTIMATED DATE OF DELIVERY: Baseline: December 20, 2024 By Ultrasound: December 22, 2024 BIOPHYSICAL ASSESSMENT: Amniotic Fluid Volume: Subjectively normal. Amniotic Fluid Index: 13.5 (8-24 cm normal range) Cardiac Motion: 130 beats per minute (average) Trunk and Limb Motion: Present. MATERNAL ANATOMY: Adnexa: Neither maternal ovary is successfully identified. Cervical Length (if measured): 4 cm US/OB Limited With Biometrics IMPRESSION: Single live intrauterine gestation with a mean gestational age of 32 weeks and 2 days. Reading Location: [id number] CC: Dr. Ramesh Parker MD; Dr. Tamie Mojica MD Right Of Way Worker: Signed Normal [facility] - Chemistry and C hemistry - challengeOrdered By: Munira Vazquez on 10-27-2024 Glucose Ql (U) Negative [facility] - UrinalysisOrder ed By: Munira Vazquez on 10-27-2024 Protein Ql (U) Trace [facility] [employer] Machine Operator Office Visit Reporton 10-27-2024 [employer] Harvester Machine Operator Office Visit Report [facility]'s [address], [address] [place] [address] OFFICE VISIT Date of Service: 10/27/24 MR#: [id number] Acct: [id number] Name: MARIANELA GREY Rep #: [id number] : 1990 Provider: Dr. Munira Carlos DO Age/Sex: 34/F Location: [facility] Status: Signed Intake Vital Signs 08/12/24 10:26 10/15/24 14:55 10/27/24 10:06 10/27/24 10:06 Height 5 ft 6 in 5 ft 6 in 5 ft 6 in 5 ft 6 in Weight: 256 lb 4 oz BMI 41.3 BP 122/77 H Intake Visit Reasons: 32 wk ob Nail Machine Operator Required: No Is patient in pain?: No Allergies No Known Allergies Allergy (Verified 10/27/24 10:06) Medications ???Medication ???Instructions ???Recorded ???Confirmed ???Type PNV 153-FA 400 mcg-om3 35 mg-dha 1 tab PO DAILY 05/12/24 10/27/24 H istory 25 mg-epa 5 mg-fish oil chew tablet Last Menstrual Period: 03/22/24 Zika: Zika virus screening: Negative : No PFSH PFSH Medical History Seasonal allergies Amenorrhea (spontaneous vaginal delivery) Family history of hearing loss at age younger than 7 years Infertility Rh negative state in antepartum period History of infertility Abnormal genetic test during Missed Surgical History [place] teeth extracted s/p tongue clipped S/P arthroscopy of knee Family History Father Diabetes Grandmother Breast cancer, Onset Age: 60 Paternal Macular degeneration Paternal Sister Stillborn, normal Social History adopted: No household members: spouse and children number of children: 1 current occupational status: employed 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 pets and animals: Yes (two) pets and animals: dog(s) history of recent travel: Yes (December) out of state: Yes out of country: No sexually active: Yes Smoking Status: Never smoker alcohol intake: current details: occasionally/not while substance use type: does not use well-balanced diet: daily or most days caffeine: Yes Type: coffee Number of servings: 1 eating out: rarely or never during the past year weight has: increased > 10 lbs what type of physical activity do you participate in: none kelly/anabaptism: None seatbelt use: always do you feel safe at home: Yes additional social history: -Riky History 3 Elective abortions Hx Para 1 Spontaneous abortions 1 Hx # Term Pregnancies Ectopic pregnancies Hx # Pregnancies Multiple births # of living children 1 Past Pregnancies Del. Date Name GA/Weeks Outcome Route Bth Weight Infant Gen Labor Lgth Anesthesia Del Locatn Provider FOB Unknown Sep 2020:SAB. no intervention. 09/23/22 Rachel 39 live - full term 7lbs 7oz Female epidural [facility] Echo [place] Riky Delivery Date: 09/23/22 Last Updated by: Marjorie Ferrara Pt with 2 +genes and FOB 3 +genes none are same. [facility] records scanned. No further testing needed. Infertility, however, this was spontaneous . COVID. HPI 32 wk ob Details: MARIANELA GREY is a 34 year old who presents for routine OB visit. OB Visit ALECIA Calculator Estimated Delivery Date Method Current WG Current Estimate 12/20/24 Ultrasound #1 32w 2d Other Estimates 12/27/24 LMP (Certain) 31w 2d 12/21/24 Ultrasound #2 32w 1d Expected Delivery Route/Plan Labor Preferences- CB/BF classes: no labor support person: Riky labor intervention preferences: [] pain management options preferred: epidural cut cord/dad catch: yes : yes PP control planned: discussed discussed possible routes of delivery and associated risks: [] special requests: [] Specific Issue/Plans Covid status: [] Flu vaccine: [] Tdap vaccine: given Rhogam: NA LARC form signed: yes Problem list reviewed and updated with the most current plan of care details and appropriate orders placed. Relevant counseling for the gestational age provided. Continue routine care and follow up unless otherwise noted in visit notes/problem list details Initial Weight: 226 lb Date -???-???-???-???-???-?? ?-???-???-???-???-???-? ??- EGA Weight BP Urine Prot -???-???-???-???-???-?? ?-???-???-???-???-???-? ??- Glucose FHR FuHt Pres Dilation -???-???-???-???-???-?? ?-???-???-???-???-???-? ??- Effaced St Visit Note 05/22/24 -???-???-???-???-???-?? ?-???-???-???-???-???-? ??- 9w 5d 226 lb (+0 oz) 123/77 -???-???-???-???-???-?? ?-???-???-???-???-???-? ??- 195 -???-???-???-???-???-?? ?-???-???-???-???-???-? ??- KW- CRL cons with dates. accepts NIPT 1 (more content not included)... 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 Tamie montero MD Age/Sex: 34/F Location: [facility] Status: Signed Intake Vital Signs 08/12/24 10:26 09/29/24 13:15 10/15/24 14:55 Height 5 ft 6 in 5 ft 6 in 5 ft 6 in Weight: 253 lb 8 oz BMI 40.8 BP 117/77 Intake Visit Reasons: 30 wk ob Nail Machine Operator Required: No Is patient in pain?: No Feel stressed/tense/nervous/ anxious/difficulty sleeping: not at all Allergies No Known Allergies Allergy (Verified 10/15/24 14:56) Medications ???Medication ???Instructions ???Recorded ???Confirmed ???Type PNV 153-FA 400 mcg-om3 35 mg-dha 1 tab PO DAILY 05/12/24 10/15/24 H istory 25 mg-epa 5 mg-fish oil chew tablet Last Menstrual Period: 03/22/24 Zika: Zika virus screening: Negative : No Have you fallen in the past year?: No PFSH PFSH Medical History Seasonal allergies Amenorrhea (spontaneous vaginal delivery) Family history of hearing loss at age younger than 7 years Infertility Rh negative state in antepartum period History of infertility Abnormal genetic test during Missed Surgical History [place] teeth extracted s/p tongue clipped S/P arthroscopy of knee Family History Father Diabetes Grandmother Breast cancer, Onset Age: 60 Paternal Macular degeneration Paternal Sister Stillborn, normal Social History adopted: No household members: spouse and children number of children: 1 current occupational status: employed 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 pets and animals: Yes (two) pets and animals: dog(s) history of recent travel: Yes (December) out of state: Yes out of country: No sexually active: Yes Smoking Status: Never smoker alcohol intake: current details: occasionally/not while substance use type: does not use well-balanced diet: daily or most days caffeine: Yes Type: coffee Number of servings: 1 eating out: rarely or never during the past year weight has: increased > 10 lbs what type of physical activity do you participate in: none kelly/anabaptism: None seatbelt use: always do you feel safe at home: Yes additional social history: -Riky History 3 Elective abortions Hx Para 1 Spontaneous abortions 1 Hx # Term Pregnancies Ectopic pregnancies Hx # Pregnancies Multiple births # of living children 1 Past Pregnancies Del. Date Name GA/Weeks Outcome Route Bth Weight Infant Gen Labor Lgth Anesthesia Del Locatn Provider FOB Unknown Sep 2020:SAB. no intervention. 09/23/22 Rachel 39 live - full term 7lbs 7oz Female epidural [facility] Echo patel Rydermichael [place] Riky Delivery Date: 09/23/22 Last Updated by: Marjorie Ferrara Pt with 2 +genes and FOB 3 +genes none are same. [facility] records scanned. No further testing needed. Infertility, however, this was spontaneous . COVID. HPI 30 wk ob Details: MARIANELA GREY is a 34 year old who presents for routine OB visit. OB Visit ALECIA Calculator Estimated Delivery Date Method Current WG Current Estimate 12/20/24 Ultrasound #1 30w 4d Other Estimates 12/27/24 LMP (Certain) 29w 4d 12/21/24 Ultrasound #2 30w 3d Expected Delivery Route/Plan Labor Preferences- CB/BF classes: no labor support person: Riky labor intervention preferences: [] pain management options preferred: epidural cut cord/dad catch: yes : yes PP control planned: discussed discussed possible routes of delivery and associated risks: [] special requests: [] Specific Issue/Plans Covid status: [] Flu vaccine: [] Tdap vaccine: given Rhogam: NA LARC form signed: yes Problem list reviewed and updated with the most current plan of care details and appropriate orders placed. Relevant counseling for the gestational age provided. Continue routine care and follow up unless otherwise noted in visit notes/problem list details Initial Weight: 226 lb Date -???-???-???-???-???-?? ?-???-???-???-???-???-? ??- EGA Weight BP Urine Prot -???-???-???-???-???-?? ?-???-???-???-???-???-? ??- Glucose FHR FuHt Pres Dilation -???-???-???-???-???-?? ?-???-???-???-???-???-? ??- Effaced St Visit Note 05/22/24 -???-???-???-???-???-?? ?-???-???-???-???-???-? ??- 9w 5d 226 lb (+0 oz) 123/77 -???-???-???-???-???-?? ?-???-???-???-???-???-? ??- 195 -???-???-???-???-???-?? ?-? (more content not included)... Normal [facility] Absolute lymphocyte countOrd ered By: Uli Angelo on 09-29-2024 Lymphocytes Auto (Unsp spec) [#/Vol] 1.72 10*3/uL 0.83-4.51 [facility] Absolute neutrophil countOrd ered By: Uli Angelo on 09-29-2024 Neutrophils (Bld) [#/Vol] 8.2 10*3/uL High 2.0-7.7 [facility] Automated lymphocyte count a s percentage of total leukocytesOrdered By: Uli Angelo on 09-29-2024 Lymphocytes/100 WBC Auto (Unsp spec) 16.2 % Low 19-41 [facility] Basophil percentageOrdered B y: Uli Angelo on 09-29-2024 Basophils/100 WBC (Bld) 0.4 % 0-[address] [facility] CBC W/Diff, Automatedon Absolute Lymph 1.72 X10 3/uL Normal 0.83-4.51 [facility] Comment on above: Performed By: #### M 100.3400 #### [facility] [address] [place], [address] Absolute Neut 8.2 X10 3/uL High 2.0-7.7 [facility] Comment on above: Performed By: #### M 100.3400 #### [facility] [address] [place], [address] Basophils/100 WBC (Bld) 0.4 % Normal 0-[address] [facility] Comment on above: Performed By: #### M 100.3400 #### [facility] [address] [place], [address] Eosinophils/100 WBC (Bld) 1.1 % Normal 0-5 [facility] Comment on above: Performed By: #### M 100.3400 #### [facility] [address] [place], [address] Erythrocyte distribution width (RBC) [Ratio] 13.2 % Normal 11.6-14.6 [facility] Comment on above: Performed By: #### M 100.3400 #### [facility] [address] [place], [address] Hematocrit (Bld) [Volume fraction] 41.0 % Normal 37-47 [facility] Comment on above: Performed By: #### M 100.3400 #### [facility] [address] [place], [address] Hemoglobin (Bld) [Mass/Vol] 13.1 g/dL Normal 12.0-15.0 [facility] Comment on above: Performed By: #### M 100.3400 #### [facility] [address] [place], [address] IG% 0.700 Normal 0.0-0.9 [facility] Comment on above: Result Comment: IG% - Immature Granulocytes (promyelocytes, myelocytes and metamyelocytes) > 1% indicates that a LEFT SHIFT is Present. Performed By: #### M 100.3400 #### [facility] [address] [place], [address] Lymphocytes/100 WBC (Bld) 16.2 % Low 19-41 [facility] Comment on above: Performed By: #### M 100.3400 #### [facility] [address] [place], [address] MCH (RBC) [Entitic mass] 28.9 pg Normal 27.0-32.0 [facility] Comment on above: Performed By: #### M 100.3400 #### [facility] [address] [place], [address] MCHC (RBC) [Mass/Vol] 32.0 g/dL Normal 32-36 [facility] Comment on above: Performed By: #### M 100.3400 #### [facility] [address] [place], [address] MCV (RBC) [Entitic vol] 90.5 fL Normal 81-99 [facility] Comment on above: Performed By: #### M 100.3400 #### [facility] [address] [place], [address] Monocytes/100 WBC (Bld) 4.5 % Normal 0-10 [facility] Comment on above: Performed By: #### M 100.3400 #### [facility] [address] [place], [address] Neutrophils/100 WBC (Bld) 77.1 % High 47-70 [facility] Comment on above: Performed By: #### M 100.3400 #### [facility] [address] [place], [address] Nucleated RBC (Bld) [#/Vol] 0 10*3/uL Normal 0-5 [facility] Comment on above: Performed By: #### M 100.3400 #### [facility] [address] [place], [address] Platelet mean volume (Bld) [Entitic vol] 10.0 fL Normal 6.2-12.0 [facility] Comment on above: Performed By: #### M 100.3400 #### [facility] [address] [place], [address] Platelets (Bld) [#/Vol] 199 10*3/uL Normal 150-450 [facility] Comment on above: Performed By: #### M 100.3400 #### [facility] [address] [place], [address] RBC (Bld) [#/Vol] 4.53 10*6/uL Normal 4.2-5.4 [facility] Comment on above: Performed By: #### M 100.3400 #### [facility] [address] [place], [address] RDW SD 43.9 fl Normal 35.1-43.9 [facility] Comment on above: Performed By: #### M 100.3400 #### [facility] [address] [place], [address] WBC (Bld) [#/Vol] 10.7 10*3/uL Normal 4.4-11.0 [facility] Comment on above: Performed By: #### M 100.3400 #### [facility] [address] [place], [address] Eosinophil percentageOrdered By: Uli Angelo on 09-29-2024 Eosinophils/100 WBC (Bld) 1.1 % 0-5 [facility] Erythrocyte distribution wid th ratioOrdered By: Uli Angelo on 09-29-2024 Erythrocyte distribution width (RBC) [Ratio] 13.2 % 11.6-14.6 [facility] Erythrocyte distribution wid th standard deviationOrdered By: Uli Angelo on 09-29-2024 Erythrocyte distribution width (RBC) [Entitic vol] 43.9 fL 35.1-43.9 [facility] Erythrocyte distribution width (RBC) [Ratio] 43.9 fl 35.1-43.9 [facility] Gestational diabetes screen 1-hour screen with 50g oral glucose loadOrdered By: Uli Angelo on 09-29-2024 Glucose 1 Hr post 50 g glucose PO [Mass/Vol] 99 mg/dL 70-140 [facility] Glucose 1 Hr post 50 g gluco se PO [Mass/Vol]Ordered By: Uli Angelo on 09-29-2024 Glucose [Mass/Vol] 99 mg/dL 70-140 [facility] Glucose Challenge Gest 1H 50 griselda 09-29-2024 GLU GEST 50g 1H 99 mg/dL Normal 70-140 [facility] Comment on above: Performed By: #### L 205.1000 #### [facility] [address] [place], [place], [id number] HIV - WCHon 09-29-2024 HIV Non-Reactive Normal Nonreactive [facility] Comment on above: Performed By: #### L 205.1000 #### [facility] [address] [place], [place], [id number] HIV 1 and HIV-2 antibody ass ay with HIV-1 p24 antigen detectionOrdered By: Uli Angelo on 09-29-2024 HIV 1+2 Ab+HIV1 p24 Ag IA Ql Non-Reactive Nonreactive [facility] HIV 1+2 Ab+HIV1 p24 Ag IA Ql Ordered By: Uli Angelo on 09-29-2024 HIV (1&2) Antibody Non-Reactive Nonreactive [facility] Hematocrit Auto (Bld) [Volum e fraction]Ordered By: Uli Angelo on 09-29-2024 Hematocrit (Bld) [Volume fraction] 41.0 % 37-47 [facility] Hemoglobin measurementOrdere d By: Uli Angelo on 09-29-2024 Hemoglobin (Bld) [Mass/Vol] 13.1 g/dL 12.0-15.0 [facility] Immature granulocytes/100 WB C Auto (Bld)Ordered By: Uli Angelo on 09-29-2024 Immature granulocytes/100 WBC (Bld) 0.700 % 0.0-0.9 [facility] Comment on above: IG% - Immature Granu locytes (promyelocytes, myelocytes and metamyelocytes) > 1% indicates that a LEFT SHIFT is Present. L509.8000on 09-29-2024 Syphilis Abs Non-Reactive Normal [facility] Comment on above: Performed By: #### L 205.1000 #### [facility] [address] [place], [address] Laboratory - Chemistry and C hemistry - challengeOrdered By: Uli Angelo on 09-29-2024 Glucose Ql (U) Negative [facility] - UrinalysisOrder ed By: Uli Angelo on 09-29-2024 Protein Ql (U) Negative [facility] Lymphocytes Auto (Unsp spec) [#/Vol]Ordered By: Uli Angelo on 09-29-2024 Lymphocytes (Bld) [#/Vol] 1.72 10*3/uL 0.83-4.51 [facility] Lymphocytes/100 WBC Auto (Un sp spec)Ordered By: Uli Angelo on 09-29-2024 Lymphocytes/100 WBC (Bld) 16.2 % Low 19-41 [facility] MCV (mean corpuscular volume ) determinationOrdered By: Uli Angelo on 09-29-2024 MCV (RBC) [Entitic vol] 90.5 fL 81-[address] [facility] Mean corpuscular hemoglobin (MCH) determinationOrdered By: Uli Angelo on 09-29-2024 MCH (RBC) [Entitic mass] 28.9 pg 27.0-32.0 [facility] Mean corpuscular hemoglobin concentration (MCHC) determinationOrdered By: Uli Angelo on 09-29-2024 MCHC (RBC) [Mass/Vol] 32.0 g/dL 32-36 [facility] Mean platelet volume determi nationOrdered By: Uli Angelo on 09-29-2024 Platelet mean volume (Bld) [Entitic vol] 10.0 fL 6.2-12.0 [facility] Monocyte percentageOrdered B y: Uli Angelo on 09-29-2024 Monocytes/100 WBC (Bld) 4.5 % 0-[address] 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 Office Visit Report [address], [facility] [address] [place] [address] OFFICE VISIT Date of Service: 09/29/24 MR#: [id number] Acct: [id number] Name: MARIANELA GREY Rep #: [id number] : 1990 Provider: NICOLAS osuna Age/Sex: 34/F Location: [facility] Status: Signed with Addenda ADDENDUM by Helga Castro on 09/29/24 at 1347 Office Procedure Documentation entered by Helga Castro 09/29/24 13:47: Immunizations Adacel(Tdap Adolesn/Adult)(PF) 2 Lf-(2.5-5-3-5)-5 Lf/0.5 mL IM syringe Performing Provider: NICOLAS Magaña NP Performing Location: [facility] Administered by: Helga Castro on 09/29/24 13:46 Dose Route Admin Location Dispensed Lot Number Expiration Date NDC Man ufacturer 0.5 mL IM Left Deltoid 0.5 mL [id number] 08/25/26 48244-129-95 [employer] VIS Given Date VIS Provided VIS Publication Date 09/29/24 Single Vaccine 21 Eligibility Eligibility Date Funding Source Not Applicable Date cc: * Signed Intake Vital Signs 08/12/24 10:26 09/08/24 13:37 09/29/24 13:15 Height 5 ft 6 in 5 ft 6 in 5 ft 6 in Weight: 247 lb 4 oz BMI 39.9 BP 122/82 H Intake Visit Reasons: 28 wk ob/glucose Chief Complaint: 28 Week OB/Glucose Nail Machine Operator Required: No Is patient in pain?: No Allergies No Known Allergies Allergy (Verified 09/29/24 13:16) Medications ???Medication ???Instructions ???Recorded ???Confirmed ???Type PNV 153-FA 400 mcg-om3 35 mg-dha 1 tab PO DAILY 05/12/24 09/29/24 H istory 25 mg-epa 5 mg-fish oil chew tablet Last Menstrual Period: 03/22/24 Zika: Zika virus screening: Negative : Yes PFSH PFSH Medical History Seasonal allergies Amenorrhea (spontaneous vaginal delivery) Family history of hearing loss at age younger than 7 years Infertility Rh negative state in antepartum period History of infertility Abnormal genetic test during Missed Surgical History [place] teeth extracted s/p tongue clipped S/P arthroscopy of knee Family History Father Diabetes Grandmother Breast cancer, Onset Age: 60 Paternal Macular degeneration Paternal Sister Stillborn, normal Social History adopted: No household members: spouse and children number of children: 1 current occupational status: employed 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 pets and animals: Yes (two) pets and animals: dog(s) history of recent travel: Yes (December) out of state: Yes out of country: No sexually active: Yes Smoking Status: Never smoker alcohol intake: current details: occasionally/not while substance use type: does not use well-balanced diet: daily or most days caffeine: Yes Type: coffee Number of servings: 1 eating out: rarely or never during the past year weight has: increased > 10 lbs what type of physical activity do you participate in: none kelly/anabaptism: None seatbelt use: always do you feel safe at home: Yes additional social history: -Riky History 3 Elective abortions Hx Para 1 Spontaneous abortions 1 Hx # Term Pregnancies Ectopic pregnancies Hx # Pregnancies Multiple births # of living children 1 Past Pregnancies Del. Date Name GA/Weeks Outcome Route Bth Weight Gen Labor Lgth Anesthesia Del Locatn Provider FOB Unknown Sep 2020:SAB. no intervention. 09/23/22 Rachel 39 live - full term 7lbs 7oz Female epidural [facility] Echo patel [place] Delivery Date: 09/23/22 Last Updated by: Marjorie Ferrara Pt with 2 +genes and FOB 3 +genes none are same. [facility] records scanned. No further testing needed. Infertility, however, this was spontaneous . COVID. HPI 28 wk ob/glucose Details: MARIANELA GREY is a 34 year old who presents for routine OB visit. OB Visit ALECIA Calculator Estimated Delivery Date Method Current WG Current Estimate 12/20/24 Ultrasound #1 28w 2d Other Estimates 12/27/24 LMP (Certain) 27w 2d 12/21/24 Ultrasound #2 28w 1d Expected Delivery Route/Plan Labor Preferences- CB/BF classes: no labor support person: Riky labor intervention preferences: [] pain management options preferred: epidural cut cord/dad catch: yes : yes PP control planned: discussed discussed possible routes of delivery and associated risks: [] special requests: [] Specific Issue/Plans Covid status: [] Flu vaccine: [] Tdap vaccine: given Rhogam: NA LARC fo (more content not included)... [facility] Platelet countOrdered By: Kris Angelo on 09-29-2024 Platelets (Bld) [#/Vol] 199 10*3/uL 150-450 [facility] RBC Auto (Bld) [#/Vol]Ordere d By: Uli Angelo on 09-29-2024 RBC (Bld) [#/Vol] 4.53 10*6/uL 4.2-5.4 [facility] Serum Treponema species anti body detectionOrdered By: Uli Angelo on 09-29-2024 Treponema sp Ab Ql (S) Non-Reactive [facility] Treponema sp Ab Ql (S)Ordere d By: Uli Angelo on 09-29-2024 Syphilis Total Antibody Non-Reactive [facility] Type AND Screenon 09-29-2024 Ab SCREEN GEL Negative Normal [facility] Comment on above: Order Comment: PN Performed By: #### M 100.3400 #### [facility] [address] [place], [place], [id number] ABO and Rh group Nom (Bld) Blood group B Rh(D) negative Normal [facility] Comment on above: Order Comment: PN Performed By: #### M 100.3400 #### [facility] [address] [place], [place], [id number] White blood cell (WBC) count Ordered By: Uli Angelo on 09-29-2024 WBC (Bld) [#/Vol] 10.7 10*3/uL 4.4-11.0 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 Office Visit Report [facility]'[address], [address] [place] [address] OFFICE VISIT Date of Service: 09/08/24 MR#: [id number] Acct: [id number] Name: QUEMARIANELA LIGHT Rep #: [id number] : 1990 Provider: NICOLAS osuna Age/Sex: 34/F Location: [facility] Status: Signed Intake Vital Signs 08/12/24 10:26 08/12/24 10:52 09/08/24 13:37 Height 5 ft 6 in 5 ft 6 in 5 ft 6 in Weight: 247 lb 6 oz BMI 39.9 BP 114/70 Intake Visit Reasons: 25 wk ob Chief Complaint: 25 Week OB Nail Machine Operator Required: No Is patient in pain?: No Allergies No Known Allergies Allergy (Verified 09/08/24 13:43) Medications ???Medication ???Instructions ???Recorded ???Confirmed ???Type PNV 153-FA 400 mcg-om3 35 mg-dha 1 tab PO DAILY 05/12/24 09/08/24 History 25 mg-epa 5 mg-fish oil chew tablet Last Menstrual Period: 03/22/24 Zika: Zika virus screening: Negative : Yes PFSH PFSH Medical History Seasonal allergies Amenorrhea (spontaneous vaginal delivery) Family history of hearing loss at age younger than 7 years Infertility Rh negative state in antepartum period History of infertility Abnormal genetic test during Missed Surgical History [place] teeth extracted s/p tongue clipped S/P arthroscopy of knee Family History Father Diabetes Grandmother Breast cancer, Onset Age: 60 Paternal Macular degeneration Paternal Sister Stillborn, normal Social History adopted: No household members: spouse and children number of children: 1 current occupational status: employed 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 pets and animals: Yes (two) pets and animals: dog(s) history of recent travel: Yes (December) out of state: Yes out of country: No sexually active: Yes Smoking Status: Never smoker alcohol intake: current details: occasionally/not while substance use type: does not use well-balanced diet: daily or most days caffeine: Yes Type: coffee Number of servings: 1 eating out: rarely or never during the past year weight has: increased > 10 lbs what type of physical activity do you participate in: none kelly/anabaptism: None seatbelt use: always do you feel safe at home: Yes additional social history: -Riky History 3 Elective abortions Hx Para 1 Spontaneous abortions 1 Hx # Term Pregnancies Ectopic pregnancies Hx # Pregnancies Multiple births # of living children 1 Past Pregnancies Del. Date Name GA/Weeks Outcome Route Bth Weight Gen Labor Lgth Anesthesia Del Locatn Provider FOB Unknown Sep 2020:SAB. no intervention. 09/23/22 Rachel 39 live - full term 7lbs 7oz Female epidural [facility] Echo vipinCatherine Bety Lan Delivery Date: 09/23/22 Last Updated by: Marjorie Ferrara Pt with 2 +genes and FOB 3 +genes none are same. [facility]GI records scanned. No further testing needed. Infertility, however, this was spontaneous . COVID. HPI 25 wk ob Details: MARIANELA GREY is a 34 year old who presents for routine OB visit. OB Visit ALECIA Calculator Estimated Delivery Date Method Current WG Current Estimate 12/20/24 Ultrasound #1 25w 2d Other Estimates 12/27/24 LMP (Certain) 24w 2d 12/21/24 Ultrasound #2 25w 1d Expected Delivery Route/Plan Labor Preferences- CB/BF classes: no labor support person: Riky labor intervention preferences: [] pain management options preferred: epidural cut cord/dad catch: yes : yes PP control planned: discussed discussed possible routes of delivery and associated risks: [] special requests: [] Specific Issue/Plans Covid status: [] Flu vaccine: [] Tdap vaccine: [] Rhogam: LARC form signed: yes Problem list reviewed and updated with the most current plan of care details and appropriate orders placed. Relevant counseling for the gestational age provided. Continue routine care and follow up unless otherwise noted in visit notes/problem list details Initial Weight: 226 lb Date -???-???-???-???-???-?? ?-???-???-???-???-???-? ??- EGA Weight BP Urine Prot -???-???-???-???-???-?? ?-???-???-???-???-???-? ??- Glucose FHR FuHt Pres Dilation -???-???-???-???-???-?? ?-???-???-???-???-???-? ??- Effaced St Visit Note 05/22/24 -???-???-???-???-???-?? ?-???-???-???-???-???-? ??- 9w 5d 226 lb (+0 oz) 123/77 -???-???-???-???-???-?? ?-???-???-???-???-???-? ??- 195 -???-???-???-???-???-?? ?-???-???-???-???-???-? ??- KW- CRL cons with dates. accepts NIPT 06/18/24 -? (more content not included)... Normal [facility] CNOVon 08-28-2024 CNOV Office Visit (UCWSTR ) MARIANELA GREY ([id number]) 1990 F Date Time Provider Department 08/28/24 10:30 AM [address]ACOBO PHAN [facility] During your visit today, we recorded the following information about you: Temperature Pulse Respiration Blood pressure 98.1 degrees 103/minute 16/minute 109/71 Weight 110.7 kg Jacobo Phan MD 08/28/2024 10:45 AM Signed Patient presents with: Ear Pain: LEFT ear x1 week HPI: Feeling left ear pain for 1 1/2 weeks. Treated for left otitis media with amoxicillin here 08/17/24. The pain has decreased but she continues to feel pressure in the ear. Positive symptoms: Earache, decreased hearing, improving Cough, Nasal Congestion, Negative symptoms: Fever, otorrhea, OTC: Robitussin. Currently 22 weeks . MEDICATIONS: Current Outpatient Medications Medication Sig vit no.124/iron/folic ( VITAMIN ORAL) Take by mouth. albuterol HFA (PROVENTIL HFA, VENTOLIN HFA) 90 mcg/actuation inhaler Inhale 2 Puffs as instructed every 6 hours as needed for wheezing/shortness of breath. No current facility-administered medications for this visit. ALLERGIES: ALLERGIES No Known Allergies VITALS: BP 109/71 Pulse 103 Temp 36.7 ?C (98.1 ?F) (Right Tympanic) Resp 16 Wt 110.7 kg (244 lb 0.8 oz) LMP 03/11/2017 SpO2 98% PHYSICAL EXAM: GEN: Pleasant, in no acute distress. HEENT: PERRL, EOMI, conjunctiva clear Ears: canals clear. TMs without erythema, bulge, or effusion. TMJs non-tender. Sinuses: non-tender frontal sinus, non-tender maxillary sinuses Throat: moist mucous membranes, no erythema, no exudate Neck: supple, no thyromegaly, no lymphadenopathy HEART: regular rate, regular rhythm, no murmurs LUNGS: clear to auscultation, no wheezes or crackles, no increased WOB ASSESSMENT/PLAN: 1. Otalgia, left - ICD9: 388.70, ICD10: H92.02 Reassured by normal ear exam. Suspect eustachian tube dysfunction associated with recent illness. Continue supportive care with safe medications. She may add nasal steroid spray. Jacobo Phan MD Allergies As of Date: 08/28/2024 (No Known Allergies) Date Reviewed: 08/28/2024 Reviewed by: Helga Rivera MA - Fully Assessed Reason for Visit: Ear Pain [817] Cmt: LEFT ear x1 week Primary Visit Diagnosis:Otalgia, left [H92.02] Prescriptions as of 08/28/2024 - vit no.124/iron/folic ( VITAMIN ORAL) Take by mouth. - albuterol HFA (PROVENTIL HFA, VENTOLIN HFA) 90 mcg/actuation inhaler Inhale 2 Puffs as instructed every 6 hours as needed for wheezing/shortness of breath. Problem List As Of Date: 08/28/2024 (None) Level of Service: OFFICE/OUTPATIENT ESTABLISHED LOW MDM 20 MIN [49283] Encounter Status:Closed by JACOBO PHAN on 08/28/24 [facility] CNOVon 08-17-2024 CNOV Office Visit (UCWSTR ) MARIANELA GREY ([id number]) 1990 F Date Time Provider Department 08/17/24 10:15 AM VIKRAM HANSON [facility] During your visit today, we recorded the following information about you: Temperature Pulse Respiration Blood pressure 97.2 degrees 111/minute 18/minute 110/78 Weight 109.5 kg Vikram Hanson, [facility] 08/17/2024 10:32 AM Signed CC: Patient presents with: Cough: Cough x 5 days and left ear pain x 1 day HPI: Marianela Grey is a 34 year old female who presents to the office with complaint of head congestion and cough, nonproductive for 5 days. Symptoms are staying the same. Associated symptoms includes shortness of breath ear pain. Denies nausea, vomiting , and diarrhea. Treatments tried include nothing so far. with no relief of symptoms. Sick contacts: unknown. History of asthma, frequent episodes of bronchitis, chronic bronchitis, bronchiectasis or COPD: No Smoker: No Seasonal/environmental allergies: No The ROS is otherwise negative. The patient's pmh, medications, allergies, and past visits are reviewed. PHYSICAL EXAM: BP 110/78 Pulse 111 Temp 36.2 ?C (97.2 ?F) (Tympanic) Resp 18 Wt 109.5 kg (241 lb 6.5 oz) LMP 03/11/2017 SpO2 96% General appearance: alert, cooperative, pleasant, in no acute distress Head: Normocephalic Eyes: EOM's intact, conjunctiva pink and moist, no icterus, sclera white, non-injected Ears: Right ear: External ear/canal- Normal, TM - clear with good landmarks. Left ear: External ear/canal- Normal, TM - erythematous, bulging Oropharynx:moist without lesions, No erythema, exudates or tonsillar hypertrophy. Heart: Negative. RRR without obvious murmur, gallop, or rubs. No ectopy. Lungs: clear to auscultation, without rales or wheeze, good air exchange History reviewed. No pertinent past medical history. No past surgical history on file. ALLERGIES Patient has no known allergies. MEDICATIONS vit no.124/iron/folic ( VITAMIN ORAL) Take by mouth. No family history on file. Social History Tobacco Use Smoking status: Never ASSESSMENT/PLAN: 1. Acute cough - ICD9: 786.2, ICD10: R05.1 (primary diagnosis) - XR CHEST 2V FRONTAL/LAT * * * * Physician Interpretation * * * * EXAMINATION: CHEST RADIOGRAPH (2 VIEW FRONTAL AND LATERAL) CLINICAL HISTORY: Acute cough MQ: XC2_6 EXAM DATE/TIME: 08/17/2024 9:59 AM COMPARISON: No relevant prior studies available. RESULT: Lines, tubes, and devices: None. Lungs and pleura: No consolidation. No lung mass. No pleural effusion. No pneumothorax. Cardiomediastinal silhouette: Normal cardiomediastinal silhouette. Bones and soft tissues: Unremarkable. IMPRESSION IMPRESSION: No acute radiographic abnormality. Right Of Way Worker: GEOVANNY Transcribe Date/Time: Aug 17 2024 10:26A Dictated by : VALENTIN CARRERO MD 2. Acute otitis media, left - ICD9: 382.9, ICD10: H66.92 - AMOXICILLIN 875 MG TABLET Albuterol prn Prescription instructions reviewed with patient as applicable. Potential red flag symptoms discussed with the patient. Reviewed appropriate action plan to take if red flag symptoms occur. Patient agreeable to treatment plan. Vikram Hanson APRN.[employer] METER INSTALLER Allergies As of Date: 08/17/2024 (No Known Allergies) Date Reviewed: 08/17/2024 Reviewed by: Raisa Godwin LPN - Fully Assessed Reason for Visit: Cough [28] Cmt: Cough x 5 days and left ear pain x 1 day Primary Visit Diagnosis:Acute cough [R05.1] Other Visit Diagnosis:Acute otitis media, left [H66.92] Order(s):XR CHEST 2V FRONTAL/LAT [[id number]] Order #: [id number] FUTURE amoxicillin (AMOXIL) 875 mg tabletTake 1 tablet by mouth two times a day for 7 days.Disp: 14 tabletRfl: 0 albuterol HFA (PROVENTIL HFA, VENTOLIN HFA) 90 mcg/actuation inhalerInhale 2 Puffs as instructed every 6 hours as needed for wheezing/shortness of breath.Disp: 1 EachRfl: 0 Inhalational Spacing Device1 Device one time only for 1 dose.Disp: 1 EachRfl: 0 Prescriptions as of 08/17/2024 - vit no.124/iron/folic ( VITAMIN ORAL) Take by mouth. - amoxicillin (AMOXIL) 875 mg tablet Take 1 tablet by mouth two times a day for 7 days. - albuterol HFA (PROVENTIL HFA, VENTOLIN HFA) 90 mcg/actuation inhaler Inhale 2 Puffs as instructed every 6 hours as needed for wheezing/shortness of breath. - Inhalational Spacing Device 1 Device one time only for 1 dose. Problem List As Of Date: 08/17/2024 (None) Prescriptions ordered this encounter Disp Refills Start End AMOXICILLIN 875 MG TABLET 14 t* 0 08/17/2024 08/24/2024 Route: ORAL Sig: Take 1 tablet by mouth two times a day for 7 days. ALBUTEROL SULFATE HFA 90 MCG/ACTUATI* 1 Ea* 0 08/17/2024 Cmt: Generic or brand: dispense inhaler preferred by patient/insurance unless RAYMUNDO flag is selected. Route: INHALATION Sig: Inhale 2 Puffs as instruct (more content not included)... Normal [facility] XR CHEST 2V FRONTAL/LATon XR CHEST 2V FRONTAL/LAT * * *Final Repor t* * * DATE OF EXAM: Aug 17 2024 9:59AM WOX [id number] - XR CHEST 2V FRONTAL/LAT / PROCEDURE REASON: Acute cough * * * * Physician Interpretation * * * * EXAMINATION: CHEST RADIOGRAPH (2 VIEW FRONTAL and LATERAL) CLINICAL HISTORY: Acute cough MQ: XC2_6 EXAM DATE/TIME: 08/17/2024 9:59 AM COMPARISON: No relevant prior studies available. RESULT: Lines, tubes, and devices: None. Lungs and pleura: No consolidation. No lung mass. No pleural effusion. No pneumothorax. Cardiomediastinal silhouette: Normal cardiomediastinal silhouette. Bones and soft tissues: Unremarkable. IMPRESSION: No acute radiographic abnormality. Right Of Way Worker: GEOVANNY Transcribe Date/Time: Aug 17 2024 10:26A Dictated by : VALENTIN CARRERO MD This examination was interpreted and the report reviewed and electronically signed by: VALENTIN CARRERO MD on Aug 17 2024 10:26AM EST [id number] Normal [facility] XR Chest PA and Lateralon IMPRESSION: No acute radiographic abnormality. Right Of Way Worker: GEOVANNY Transcribe Date/Time: Aug 17 2024 10:26A Dictated by : VALENTIN CARRERO MD This examination was interpreted and the report reviewed and electronically signed by: VALENTIN CARRERO MD on Aug 17 2024 10:26AM EST DIVISION OF RADIOLOGY * * *Final Report* * * DATE OF EXAM: Aug 17 2024 9:59AM WOX [id number] - XR CHEST 2V FRONTAL/LAT / PROCEDURE REASON: Acute cough * * * * Physician Interpretation * * * * EXAMINATION: CHEST RADIOGRAPH (2 VIEW FRONTAL & LATERAL) CLINICAL HISTORY: Acute cough MQ: XC2_6 EXAM DATE/TIME: 08/17/2024 9:59 AM COMPARISON: No relevant prior studies available. RESULT: Lines, tubes, and devices: None. Lungs and pleura: No consolidation. No lung mass. No pleural effusion. No pneumothorax. Cardiomediastinal silhouette: Normal cardiomediastinal silhouette. Bones and soft tissues: Unremarkable. DIVISION OF RADIOLOGY Provider, [facility] - 08/17/2024 * * *Final Report* * * DATE OF EXAM: Aug 17 2024 9:59AM WOX [id number] - XR CHEST 2V FRONTAL/LAT / PROCEDURE REASON: Acute cough * * * * Physician Interpretation * * * * EXAMINATION: CHEST RADIOGRAPH (2 VIEW FRONTAL & LATERAL) CLINICAL HISTORY: Acute cough MQ: XC2_6 EXAM DATE/TIME: 08/17/2024 9:59 AM COMPARISON: No relevant prior studies available. RESULT: Lines, tubes, and devices: None. Lungs and pleura: No consolidation. No lung mass. No pleural effusion. No pneumothorax. Cardiomediastinal silhouette: Normal cardiomediastinal silhouette. Bones and soft tissues: Unremarkable. IMPRESSION IMPRESSION: No acute radiographic abnormality. Right Of Way Worker: GEOVANNY Transcribe Date/Time: Aug 17 2024 10:26A Dictated by : VALENTIN CARRERO MD This examination was interpreted and the report reviewed and electronically signed by: VALENTIN CARRERO MD on Aug 17 2024 10:26AM EST [facility] Radiology Study observation (narrative) Meena isidro [facility] XR Chest PA and LateralOrder ed By: [facility] Provider on 08-17-2024 [facility] - Chemistry and C hemistry - challengeon 08-12-2024 Glucose Ql (U) Negative [facility] - Urinalysison Protein Ql (U) Trace [facility] Fruit Harvester Machine Operator 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 Taime montero MD Age/Sex: 34/F Location: [facility] Status: Signed Intake Vital Signs 06/18/24 14:19 07/14/24 14:45 08/12/24 10:26 Height 5 ft 6 in 5 ft 6 in 5 ft 6 in Weight: 242 lb BMI 39.0 BP 137/81 H Blood Pressure Location Lt brachial Position Sitting Intake Visit Reasons: 21 WK OB Chief Complaint: 21 wk ob Allergies No Known Allergies Allergy (Verified 08/12/24 10:32) Medications ???Medication ???Instructions ???Recorded ???Confirmed ???Type PNV 153-FA 400 mcg-om3 35 mg-dha 1 tab PO DAILY 05/12/24 08/12/24 History 25 mg-epa 5 mg-fish oil chew tablet Last Menstrual Period: 03/22/24 : No Nurse's Note: 21 wk ob PFSH PFSH Medical History Seasonal allergies Amenorrhea (spontaneous vaginal delivery) Family history of hearing loss at age younger than 7 years Infertility Rh negative state in antepartum period History of infertility Abnormal genetic test during Missed Surgical History [place] teeth extracted s/p tongue clipped S/P arthroscopy of knee Family History Father Diabetes Grandmother Breast cancer, Onset Age: 60 Paternal Macular degeneration Paternal Sister Stillborn, normal Social History adopted: No household members: spouse and children number of children: 1 current occupational status: employed 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 pets and animals: Yes (two) pets and animals: dog(s) history of recent travel: Yes (December) out of state: Yes out of country: No sexually active: Yes Smoking Status: Never smoker alcohol intake: current details: occasionally/not while substance use type: does not use well-balanced diet: daily or most days caffeine: Yes Type: coffee Number of servings: 1 eating out: rarely or never during the past year weight has: increased > 10 lbs what type of physical activity do you participate in: none kelly/anabaptism: None seatbelt use: always do you feel safe at home: Yes additional social history: -Riky History 3 Elective abortions Hx Para 1 Spontaneous abortions 1 Hx # Term Pregnancies Ectopic pregnancies Hx # Pregnancies Multiple births # of living children 1 Past Pregnancies Del. Date Name GA/Weeks Outcome Route Bth Weight Gen Labor Lgth Anesthesia Del Locatn Provider FOB Unknown Sep 2020:SAB. no intervention. 09/23/22 Rachel 39 live - full term 7lbs 7oz Female epidural [facility] Echo patel Bety Lan Delivery Date: 09/23/22 Last Updated by: Marjorie Ferrara Pt with 2 +genes and FOB 3 +genes none are same. [facility] records scanned. No further testing needed. Infertility, however, this was spontaneous . COVID. HPI 21 WK OB Details: MARIANELA GREY is a 34 year old who presents for routine OB visit. OB Visit ALECIA Calculator Estimated Delivery Date Method Current WG Current Estimate 12/20/24 Ultrasound #1 21w 3d Other Estimates 12/27/24 LMP (Certain) 20w 3d 12/21/24 Ultrasound #2 21w 2d Expected Delivery Route/Plan Labor Preferences- CB/BF classes: [] labor support person: [] labor intervention preferences: [] pain management options preferred: [] cut cord/dad catch: [] : [] PP control planned: [] discussed possible routes of delivery and associated risks: [] special requests: [] Specific Issue/Plans Covid status: [] Flu vaccine: [] Tdap vaccine: [] Rhogam: [] LARC form signed: [] Problem list reviewed and updated with the most current plan of care details and appropriate orders placed. Relevant counseling for the gestational age provided. Continue routine care and follow up unless otherwise noted in visit notes/problem list details Initial Weight: 226 lb Date -???-???-???-???-???-?? ?-???-???-???-???-???-? ??- EGA Weight BP Urine Prot -???-???-???-???-???-?? ?-???-???-???-???-???-? ??- Glucose FHR FuHt Pres Dilation -???-???-???-???-???-?? ?-???-???-???-???-???-? ??- Effaced St Visit Note 05/22/24 -???-???-???-???-???-?? ?-???-???-???-???-???-? ??- 9w 5d 226 lb (+0 oz) 123/77 -???-???-???-???-???-?? ?-???-???-???-???-???-? ??- 195 -???-???-???-???-???-?? ?-???-???-???-???-???-? ??- KW- CRL cons with dates. accepts NIPT 06/18/24 -???-???-???-???-???-?? ?-???-???-???-??? (more content not included)... 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 Munira Carlos DO Age/Sex: 34/F Location: [facility] Status: Signed Intake Vital Signs 06/18/24 14:19 07/14/24 14:44 07/14/24 14:45 Height 5 ft 6 in 5 ft 6 in 5 ft 6 in Weight: 236 lb 6 oz BMI 38.1 BP 123/66 H Intake Visit Reasons: 17 WK OB Nail Machine Operator Required: No Is patient in pain?: No Allergies No Known Allergies Allergy (Verified 07/14/24 14:44) Medications ???Medication ???Instructions ???Recorded ???Confirmed ???Type PNV 153-FA 400 mcg-om3 35 mg-dha 1 tab PO DAILY 05/12/24 07/14/24 History 25 mg-epa 5 mg-fish oil chew tablet Last Menstrual Period: 03/22/24 Zika: Zika virus screening: Negative : No PFSH PFSH Medical History Seasonal allergies Amenorrhea (spontaneous vaginal delivery) Family history of hearing loss at age younger than 7 years Infertility Rh negative state in antepartum period History of infertility Abnormal genetic test during Missed Surgical History [place] teeth extracted s/p tongue clipped S/P arthroscopy of knee Family History Father Diabetes Grandmother Breast cancer, Onset Age: 60 Paternal Macular degeneration Paternal Sister Stillborn, normal Social History adopted: No household members: spouse and children number of children: 1 current occupational status: employed 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 pets and animals: Yes (two) pets and animals: dog(s) history of recent travel: Yes (December) out of state: Yes out of country: No sexually active: Yes Smoking Status: Never smoker alcohol intake: current details: occasionally/not while substance use type: does not use well-balanced diet: daily or most days caffeine: Yes Type: coffee Number of servings: 1 eating out: rarely or never during the past year weight has: increased > 10 lbs what type of physical activity do you participate in: none kelly/anabaptism: None seatbelt use: always do you feel safe at home: Yes additional social history: -Riky History 3 Elective abortions Hx Para 1 Spontaneous abortions 1 Hx # Term Pregnancies Ectopic pregnancies Hx # Pregnancies Multiple births # of living children 1 Past Pregnancies Del. Date Name GA/Weeks Outcome Route Bth Weight Gen Labor Lgth Anesthesia Del Locatn Provider FOB Unknown Sep 2020:SAB. no intervention. 09/23/22 [facility] 39 live - full term 7lbs 7oz Female epidural [facility] Echo patel Bety Lan Delivery Date: 09/23/22 Last Updated by: Marjorie Ferrara Pt with 2 +genes and FOB 3 +genes none are same. [facility] records scanned. No further testing needed. Infertility, however, this was spontaneous . COVID. HPI 17 WK OB Details: MARIANELA GREY is a 34 year old who presents for routine OB visit. OB Visit ALECIA Calculator Estimated Delivery Date Method Current WG Current Estimate 12/20/24 Ultrasound #1 17w 2d Other Estimates 12/27/24 LMP (Certain) 16w 2d 12/21/24 Ultrasound #2 17w 1d Expected Delivery Route/Plan Labor Preferences- CB/BF classes: [] labor support person: [] labor intervention preferences: [] pain management options preferred: [] cut cord/dad catch: [] : [] PP control planned: [] discussed possible routes of delivery and associated risks: [] special requests: [] Specific Issue/Plans Covid status: [] Flu vaccine: [] Tdap vaccine: [] Rhogam: [] LARC form signed: [] Problem list reviewed and updated with the most current plan of care details and appropriate orders placed. Relevant counseling for the gestational age provided. Continue routine care and follow up unless otherwise noted in visit notes/problem list details Initial Weight: Not Recorded Date -???-???-???-???-???-?? ?-???-???-???-???-???-? ??- EGA Weight BP Urine Prot -???-???-???-???-???-?? ?-???-???-???-???-???-? ??- Glucose FHR FuHt Pres Dilation -???-???-???-???-???-?? ?-???-???-???-???-???-? ??- Effaced St Visit Note 05/22/24 -???-???-???-???-???-?? ?-???-???-???-???-???-? ??- 9w 5d 226 lb 123/77 -???-???-???-???-???-?? ?-???-???-???-???-???-? ??- 195 -???-???-???-???-???-?? ?-???-???-???-???-???-? ??- KW- CRL cons with dates. accepts NIPT 06/18/24 -???-???-???-???-???-?? ?-???-???-???-???-???- (more content not included)... 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 Office Visit Report [facility] [address] [place] [address], [address] [place] [address] OFFICE VISIT Date of Service: 06/18/24 MR#: [id number] Acct: [id number] Name: MARIANELA GREY Rep #: [id number] : 1990 Provider: NICOLAS osuna Age/Sex: 34/F Location: [facility] Status: Signed Intake Vital Signs 05/01/24 10:52 05/22/24 13:11 06/18/24 14:19 Height 5 ft 6 in 5 ft 6 in 5 ft 6 in Weight: 229 lb 4 oz BMI 37.0 BP 128/81 H Intake Visit Reasons: 12wk OB Nail Machine Operator Required: No Is patient in pain?: No Allergies No Known Allergies Allergy (Verified 06/18/24 14:17) Medications ???Medication ???Instructions ???Recorded ???Confirmed ???Type PNV 153-FA 400 mcg-om3 35 mg-dha 1 tab PO DAILY 05/12/24 06/18/24 History 25 mg-epa 5 mg-fish oil chew tablet Last Menstrual Period: 03/22/24 Zika: Zika virus screening: Negative : No PFSH PFSH Medical History Seasonal allergies Amenorrhea (spontaneous vaginal delivery) Family history of hearing loss at age younger than 7 years Infertility Rh negative state in antepartum period History of infertility Abnormal genetic test during Missed Surgical History [place] teeth extracted s/p tongue clipped S/P arthroscopy of knee Family History Father Diabetes Grandmother Breast cancer, Onset Age: 60 Paternal Macular degeneration Paternal Sister Stillborn, normal Social History adopted: No household members: spouse and children number of children: 1 current occupational status: employed 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 [employer] pets and animals: Yes (two) pets and animals: dog(s) history of recent travel: Yes (December) out of state: Yes out of country: No sexually active: Yes Smoking Status: Never smoker alcohol intake: current details: occasionally/not while substance use type: does not use well-balanced diet: daily or most days caffeine: Yes Type: coffee Number of servings: 1 eating out: rarely or never during the past year weight has: increased > 10 lbs what type of physical activity do you participate in: none kelly/anabaptism: None seatbelt use: always do you feel safe at home: Yes additional social history: -Riky History 3 Elective abortions Hx Para 1 Spontaneous abortions 1 Hx # Term Pregnancies Ectopic pregnancies Hx # Pregnancies Multiple births # of living children 1 Past Pregnancies Del. Date Name GA/Weeks Outcome Route Bth Weight Gen Labor Lgth Anesthesia Del Locatn Provider FOB Unknown Sep 2020:SAB. no intervention. 09/23/22 Rachel 39 live - full term 7lbs 7oz Female epidural [facility] D jorge Bety Lan Delivery Date: 09/23/22 Last Updated by: Marjorie Ferrara Pt with 2 +genes and FOB 3 +genes none are same. [facility] records scanned. No further testing needed. Infertility, however, this was spontaneous . COVID. HPI 12wk OB Details: MARIANELA GREY is a 34 year old who presents for routine OB visit. OB Visit ALECIA Calculator Estimated Delivery Date Method Current WG Current Estimate 12/20/24 Ultrasound #1 13w 4d Other Estimates 12/27/24 LMP (Certain) 12w 4d 12/21/24 Ultrasound #2 13w 3d Expected Delivery Route/Plan Labor Preferences- CB/BF classes: [] labor support person: [] labor intervention preferences: [] pain management options preferred: [] cut cord/dad catch: [] : [] PP control planned: [] discussed possible routes of delivery and associated risks: [] special requests: [] Specific Issue/Plans Covid status: [] Flu vaccine: [] Tdap vaccine: [] Rhogam: [] LARC form signed: [] Problem list reviewed and updated with the most current plan of care details and appropriate orders placed. Relevant counseling for the gestational age provided. Continue routine care and follow up unless otherwise noted in visit notes/problem list details Initial Weight: Not Recorded Date -???-???-???-???-???-?? ?-???-???-???-???-???-? ??- EGA Weight BP Urine Prot -???-???-???-???-???-?? ?-???-???-???-???-???-? ??- Glucose FHR FuHt Pres Dilation -???-???-???-???-???-?? ?-???-???-???-???-???-? ??- Effaced St Visit Note 05/22/24 -???-???-???-???-???-?? ?-???-???-???-???-???-? ??- 9w 5d 226 lb 123/77 -???-???-???-???-???-?? ?-???-???-???-???-???-? ??- 195 -???-???-???-???-???-?? ?-???-???-???-???-???-? ??- KW- CRL cons with dates. accepts NIPT 06/18/24 -???-???-???-???-???-?? ?-???-???-???-???-???-? ??- 13w (more content not included)... Normal [facility] [id number] 05-27-2024 ANTIBODY ID D Normal [facility] Comment on above: Order Comment: PN Performed By: #### M [id number] #### [facility] [address] [place], [address] CBC W/Diff, Automatedon 10-0 Absolute Lymph 1.96 X10 3/uL Normal 0.83-4.51 [facility] Comment on above: Performed By: #### L 509.4005, L100.0100, L900.0098, L501.9985, L509.8000, L3890.6005, L3890.6100, [id number], BTS, L3890.6300 #### [facility] [address] [place], [address] Absolute Neut 7.6 X10 3/uL Normal 2.0-7.7 [facility] Comment on above: Performed By: #### L 509.4005, L100.0100, L900.0098, L501.9985, L509.8000, L3890.6005, L3890.6100, [id number], BTS, L3890.6300 #### [facility] [address] [facility] [place], [address] Basophils/100 WBC (Bld) 0.4 % Normal 0-[address] [facility] Comment on above: Performed By: #### L 509.4005, L100.0100, L900.0098, L501.9985, L509.8000, L3890.6005, L3890.6100, [id number], BTS, L3890.6300 #### [facility] [address] [place], [address] Eosinophils/100 WBC (Bld) 1.4 % Normal 0-5 [facility] Comment on above: Performed By: #### L 509.4005, L100.0100, L900.0098, L501.9985, L509.8000, L3890.6005, L3890.6100, [id number], BTS, L3890.6300 #### [facility] [address] [place], [address] Erythrocyte distribution width (RBC) [Ratio] 12.4 % Normal 11.6-14.6 [facility] Comment on above: Performed By: #### L 509.4005, L100.0100, L900.0098, L501.9985, L509.8000, L3890.6005, L3890.6100, [id number], BTS, L3890.6300 #### [facility] [address] [place], [address] Hematocrit (Bld) [Volume fraction] 40.7 % Normal 37-47 [facility] Comment on above: Performed By: #### L 509.4005, L100.0100, L900.0098, L501.9985, L509.8000, L3890.6005, L3890.6100, [id number], BTS, L3890.6300 #### [facility] [address] [facility] [place], [address] Hemoglobin (Bld) [Mass/Vol] 13.0 g/dL Normal 12.0-15.0 [facility] Comment on above: Performed By: #### L 509.4005, L100.0100, L900.0098, L501.9985, L509.8000, L3890.6005, L3890.6100, [id number], BTS, L3890.6300 #### [facility] [address] [facility] [place], [address] IG% 0.400 Normal 0.0-0.9 [facility] Comment on above: Result Comment: IG% - Immature Granulocytes (promyelocytes, myelocytes and metamyelocytes) > 1% indicates that a LEFT SHIFT is Present. Performed By: #### L 509.4005, L100.0100, L900.0098, L501.9985, L509.8000, L3890.6005, L3890.6100, [id number], BTS, L3890.6300 #### [facility] [address] [place], [address] Lymphocytes/100 WBC (Bld) 19.0 % Normal 19-41 [facility] Comment on above: Performed By: #### L 509.4005, L100.0100, L900.0098, L501.9985, L509.8000, L3890.6005, L3890.6100, [id number], BTS, L3890.6300 #### [facility] [address] [place], [address] MCH (RBC) [Entitic mass] 27.8 pg Normal 27.0-32.0 [facility] Comment on above: Performed By: #### L 509.4005, L100.0100, L900.0098, L501.9985, L509.8000, L3890.6005, L3890.6100, [id number], BTS, L3890.6300 #### [facility] [address] [facility] [place], [address] MCHC (RBC) [Mass/Vol] 31.9 g/dL Low 32-36 [facility] Comment on above: Performed By: #### L 509.4005, L100.0100, L900.0098, L501.9985, L509.8000, L3890.6005, L3890.6100, [id number], BTS, L3890.6300 #### [facility] [address] [facility] [place], [address] MCV (RBC) [Entitic vol] 87.0 fL Normal 81-[address] [facility] Comment on above: Performed By: #### L 509.4005, L100.0100, L900.0098, L501.9985, L509.8000, L3890.6005, L3890.6100, [id number], BTS, L3890.6300 #### [facility] [address] [facility] [place], [address] Monocytes/100 WBC (Bld) 5.2 % Normal 0-[address] [facility] Comment on above: Performed By: #### L 509.4005, L100.0100, L900.0098, L501.9985, L509.8000, L3890.6005, L3890.6100, [id number], BTS, L3890.6300 #### [facility] [address] [facility] [place], [address] Neutrophils/100 WBC (Bld) 73.6 % High 47-70 [facility] Comment on above: Performed By: #### L 509.4005, L100.0100, L900.0098, L501.9985, L509.8000, L3890.6005, L3890.6100, [id number], BTS, L3890.6300 #### [facility] [address] [facility] [place], [address] Nucleated RBC (Bld) [#/Vol] 0 10*3/uL Normal 0-5 [facility] Comment on above: Performed By: #### L 509.4005, L100.0100, L900.0098, L501.9985, L509.8000, L3890.6005, L3890.6100, [id number], BTS, L3890.6300 #### [facility] [address] [place], [address] Platelet mean volume (Bld) [Entitic vol] 9.6 fL Normal 6.2-12.0 [facility] Comment on above: Performed By: #### L 509.4005, L100.0100, L900.0098, L501.9985, L509.8000, L3890.6005, L3890.6100, [id number], BTS, L3890.6300 #### [facility] [address] [facility] [place], [address] Platelets (Bld) [#/Vol] 221 10*3/uL Normal 150-450 [facility] Comment on above: Performed By: #### L 509.4005, L100.0100, L900.0098, L501.9985, L509.8000, L3890.6005, L3890.6100, [id number], BTS, L3890.6300 #### [facility] [address] [place], [address] RBC (Bld) [#/Vol] 4.68 10*6/uL Normal 4.2-5.4 [facility] Comment on above: Performed By: #### L 509.4005, L100.0100, L900.0098, L501.9985, L509.8000, L3890.6005, L3890.6100, [id number], BTS, L3890.6300 #### [facility] [address] [facility] [place], [address] RDW SD 39.1 fl Normal 35.1-43.9 [facility] Comment on above: Performed By: #### L 509.4005, L100.0100, L900.0098, L501.9985, L509.8000, L3890.6005, L3890.6100, [id number], BTS, L3890.6300 #### [facility] [address] [facility] [place], [address] WBC (Bld) [#/Vol] 10.3 10*3/uL Normal 4.4-11.0 [facility] Comment on above: Performed By: #### L 509.4005, L100.0100, L900.0098, L501.9985, L509.8000, L3890.6005, L3890.6100, [id number], BTS, L3890.6300 #### [facility] [address] [facility] [place], [address] HIV - WCHon 05-27-2024 HIV Non-Reactive Normal Nonreactive [facility] Comment on above: Order Comment: Reaso n for Exam: Performed By: #### M 100.3400 #### [facility] [address] [place], [address] Hemoglobin A1con 05-27-2024 HbA1c (Bld) [Mass fraction] 5.1 % Normal 3.8-5.6 [facility] Comment on above: Result Comment: Norm al < 5.7 % Prediabetic 5.7 - 6.4 % Diabetic >or= 6.5 % Please note range changes. Performed By: #### M 100.3400 #### [facility] [address] [place], [address] Hepatitis B Surface Antigeno n 05-27-2024 HEP B Surf Ag Non-Reactive Normal Nonreactive [facility] Comment on above: Order Comment: Reaso n for Exam: Performed By: #### M 100.3400 #### [facility] [address] [place], [address] Hepatitis C Antibodyon 05-27 Hepatitis C AB Non-Reactive Normal Nonreactive [facility] Comment on above: Order Comment: Reaso n for Exam: Result Comment: Non Reactive: < 0.8 Equivocal: >/= 0.8 to < 1.0 Reactive: >/= 1.0 The CDC requires that a reactive/equivocal HCV antibody result be sent out for confirmation. HCV Quant by PCR testing. Performed By: #### M 100.3400 #### [facility] [address] [place], [address] L509.8000on 05-27-2024 Syphilis Abs Non-Reactive Normal [facility] Comment on above: Order Comment: Reaso n for Exam: Performed By: #### L 509.4005, L100.0100, L900.0098, L501.9985, L509.8000, L3890.6005, L3890.6100, [id number], BTS, L3890.6300 #### [facility] [address] [place], [address] NATERAon 05-27-2024 NATURA SEE SCANNED REPORT Normal [facility] Comment on above: Performed By: #### L 509.4005, L100.0100, L900.0098, L501.9985, L509.8000, L3890.6005, L3890.6100, [id number], BTS, L3890.6300 #### [facility] [address] [place], [address] Rubella IgGon 05-27-2024 Rubella IgG Reactive Normal Nonreactive [facility] Comment on above: Order Comment: Reaso n for Exam: Result Comment: Anti body Results Interpretation of Immune Status Non Reactive Presumed Non-Immune Equivocal Equivocal Reactive Presumed Immune Performed By: #### L 509.4005, L100.0100, L900.0098, L501.9985, L509.8000, L3890.6005, L3890.6100, [id number], BTS, L3890.6300 #### [facility] [address] [place], [address] Type AND Screenon 05-27-2024 Ab SCREEN GEL Positive Abnormal [facility] Comment on above: Order Comment: PN Performed By: #### M 100.3400 #### [facility] [address] [place], [address] Chlamydia/GC WILLIAM aptimaon CHLAMY,NUC ACID Negative Normal Negative [facility] Comment on above: Performed By: #### L .1000 #### [facility] [address] [place], [address] GC BY NUC ACID Negative Normal Negative [facility] Comment on above: Result Comment: Perf ormed at: =G - [facility] [address] [place] [id number] Clean Out Driller: Joana Herrera MD, Phone: [phone] Performed By: #### L .1000 #### [facility] [address] [place], [place], [address] Urine Cultureon 05-23-2024 URC Culture exhibits no growth. Normal [facility] Comment on above: Performed By: #### L 205.1000 #### [facility] [address] [place], [address] Fruit Harvester Machine Operator Office Visit Reporton 05-22-2024 Fruit Harvester Machine Operator Office Visit Report [facility] [address], [address] [place] [address] OFFICE VISIT Date of Service: 05/22/24 MR#: [id number] Acct: [id number] Name: MARIANELA GREY Rep #: [id number] : 1990 Provider: YELENA Fuentes ams Age/Sex: 34/F Location: [facility] Status: Signed Intake Vital Signs 01/23/24 10:33 05/01/24 10:52 05/22/24 13:05 05/22/24 13:11 Height 5 ft 6 in 5 ft 6 in 5 ft 6 in 5 ft 6 in Weight: 226 lb BMI 36.4 BP 123/77 H Intake Visit Reasons: NOB LMP 03/22 Nail Machine Operator Required: No Is patient in pain?: No Allergies No Known Allergies Allergy (Verified 05/22/24 13:09) Medications ???Medication ???Instructions ???Recorded ???Confirmed ???Type PNV 153-FA 400 mcg-om3 35 mg-dha 1 tab PO DAILY 05/12/24 05/22/24 History 25 mg-epa 5 mg-fish oil chew tablet Last Menstrual Period: 03/22/24 Zika: Zika virus screening: Negative : No Have you fallen in the past year?: No PFSH PFSH Medical History Seasonal allergies Amenorrhea (spontaneous vaginal delivery) Family history of hearing loss at age younger than 7 years Infertility Rh negative state in antepartum period History of infertility Abnormal genetic test during Missed Surgical History [place] teeth extracted s/p tongue clipped S/P arthroscopy of knee Family History Father Diabetes Grandmother Breast cancer, Onset Age: 60 Paternal Macular degeneration Paternal Sister Stillborn, normal Social History adopted: No household members: spouse and children number of children: 1 current occupational status: employed 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 pets and animals: Yes (two) pets and animals: dog(s) history of recent travel: Yes (December) out of state: Yes out of country: No sexually active: Yes Smoking Status: Never smoker alcohol intake: current details: occasionally/not while substance use type: does not use well-balanced diet: daily or most days caffeine: Yes Type: coffee Number of servings: 1 eating out: rarely or never during the past year weight has: increased > 10 lbs what type of physical activity do you participate in: none kelly/anabaptism: None seatbelt use: always do you feel safe at home: Yes additional social history: -Riky History 3 Elective abortions Hx Para 1 Spontaneous abortions 1 Hx # Term Pregnancies Ectopic pregnancies Hx # Pregnancies Multiple births # of living children 1 Past Pregnancies Del. Date Name GA/Weeks Outcome Route Bth Weight Infant Gen Labor Lgth Anesthesia Del Locatn Provider FOB Unknown Sep 2020:SAB. no intervention. 09/23/22 Rachel 39 live - full term 7lbs 7oz Female epidural [facility] Echo patel Bety Lan Delivery Date: 09/23/22 Last Updated by: Marjorie Ferrara Pt with 2 +genes and FOB 3 +genes none are same. [facility] records scanned. No further testing needed. Infertility, however, this was spontaneous . COVID. HPI NOB LMP 03/22 Details: MARIANELA GREY is a 34 year old who presents for New OB visit. Doing well and no concerns OB Visit ALECIA Calculator Estimated Delivery Date Method Current WG Current Estimate 12/20/24 Ultrasound #1 9w 5d Other Estimates 12/27/24 LMP (Certain) 8w 5d 12/21/24 Ultrasound #2 9w 4d Comments: HIV: Urine Culture: Sequential Screen: NIPT Screen: Estimated Due Date: 12/20/24 Expected Delivery Route/Plan Labor Preferences- CB/BF classes: [] labor support person: [] labor intervention preferences: [] pain management options preferred: [] cut cord/dad catch: [] : [] PP control planned: [] discussed possible routes of delivery and associated risks: [] special requests: [] Specific Issue/Plans Covid status: [] Flu vaccine: [] Tdap vaccine: [] Rhogam: [] LARC form signed: [] Problem list reviewed and updated with the most current plan of care details and appropriate orders placed. Relevant counseling for the gestational age provided. Continue routine care and follow up unless otherwise noted in visit notes/problem list details Initial Weight: Not Recorded Date -???-???-???-???-???-?? ?-???-???-???-???-???-? ??- EGA Weight BP Urine Prot -???-???-???-???-???-?? ?-???-???-???-???-???-? ??- Glucose FHR FuHt Pres Dilation -???-???-???-???-???-?? ?-???-???-???-???-???-? ??- Effaced St Visit Note 05/22/24 -???-???-???-???-???-?? ?-???-???-???-???-???-? ??- 9w 5d 226 lb 123/77 -???-???-???-???-???-?? ?-???-?? (more content not included)... Normal [facility] Transvaginal w/Preg USon Transvaginal w/Preg [facility] [address] [place] [place], [place] [id number] Transvaginal w/Preg MR#: [id number] Acct: [id number] Name: MARIANELA GREY Rep #: [id number] : 1990 F 34 From: Ambrosio martinez MD PCP: Dr. Ramesh Parker MD Status: REG CLI Study: Transvaginal w/Preg US Date of Exam: 05/06/24 Exam# [id number] Ordering Dr: Eliza Negro CNM [id number] INDICATION: dating EXAMINATION: Ultrasound US OB Transvaginal TECHNIQUE: Transvaginal (for optimal evaluation of the adnexa) pelvic ultrasound was performed. Grayscale, spectral waveform, and color flow Doppler evaluation of the adnexa. COMPARISON: No relevant prior comparison study available LMP: [03/22/2024 Beta-hCG: Unknown FINDINGS: UTERUS: 9 x 7.2 x 4.4 cm. The cervix is closed. RIGHT OVARY: 3 x 2.2 x 2.4 cm. No adnexal mass. LEFT OVARY: 2.5 x 2.5 x 1.4 cm. No adnexal mass. FREE FLUID: None. INTRAUTERINE GESTATIONAL SAC(s) (size/shape): Single. 2.60 cm mean sac diameter. YOLK SAC: Identified POLE: Identified CRL 1.05 cm. ESTIMATED GESTATION AGE: 7 weeks 3 days. HEART MOTION: 142 bpm. PLACENTA: Not visualized due to age. SUBCHORIONIC HEMORRHAGE: None. AMNIOTIC FLUID: Qualitatively normal. US/Transvaginal w/Preg US IMPRESSION: Single live intrauterine . Estimated gestational age is 7 weeks 3 days. Estimated date of delivery of 12/20/2024. Electronically Signed: Ambrosio Shaver MD at 16:03 EDT , CC: YELENA Negro; Dr. Ramesh Parker MD Right Of Way Worker: Signed 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 Office Visit Reporton 05-01-2024 Fruit Harvester Machine Operator Office Visit Report [facility] [address], [address] [place] [address] OFFICE VISIT Date of Service: 05/01/24 MR#: [id number] Acct: [id number] Name: MARIANELA GREY Rep #: [id number] : 1990 Provider: YELENA klein Age/Sex: 34/F Location: [facility] Status: Signed Intake Vital Signs 01/23/24 10:33 05/01/24 10:50 05/01/24 10:52 Height 5 ft 6 in 5 ft 6 in 5 ft 6 in Weight: 227 lb BMI 36.6 BP 109/75 Intake Visit Reasons: Rhogam inj Nail Machine Operator Required: No Is patient in pain?: No Allergies No Known Allergies Allergy (Verified 05/01/24 10:51) PFSH Medical History (spontaneous vaginal delivery) Family history of hearing loss at age younger than 7 years Infertility Rh negative state in antepartum period History of infertility Abnormal genetic test during Missed Surgical History s/p tongue clipped S/P arthroscopy of knee Family History Father Diabetes Social History adopted: No household members: spouse current occupational status: employed 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 History 2 Elective abortions Hx Para 1 Spontaneous abortions 1 Hx # Term Pregnancies Ectopic pregnancies Hx # Pregnancies Multiple births # of living children 1 Past Pregnancies Del. Date Name GA/Weeks Outcome Route Bth Weight Infant Gen Labor Lgth Anesthesia Del Locatn Provider FOB Unknown Sep 2020:SAB. no intervention. 09/23/22 Rachel 39 live - full term 7lbs 7oz Female [facility] Dr. Thao Delivery Date: 09/23/22 Last Updated by: Marjorie Ferrara Pt with 2 +genes and FOB 3 +genes none are same. [facility] records scanned. No further testing needed. Infertility, however, this was spontaneous . COVID. Office Procedures Injections Is this a patient provided medication?: No Office Meds RhoGAM Ultra-Filtered PLUS 1,500 unit (300 mcg) intramuscular syringe Performing Provider: Radha Shaw CNM Performing Location: [facility] Administered by: Danii Cool on 05/01/24 10:52 Dose Route Admin Location Dispensed Lot Number Expiration Date NDC Man ufacturer 1,500 unit IM Right Glut 1 ea [id number] 12/04/26 94441-820-14 [facility] Coding Level of Care Code Attention Tipple Mechanic Diagnoses Spotting affecting O26.859 Comment nurse visit for rhogam injection. Assessment and Plan Assessment and Plan (1) Spotting affecting : Status: Acute Comment: HCGx2, Type Screen, Rhogam Orders: Orders Rhogam Injection Today O26.899 - Other specified related conditions, unspecified trimester, Z67.91 - Unspecified blood type, Rh negative 05/01/24 1649 Date Radha Shaw CNM Cosigner Signature: Date (if applicable) CC: [place] Type AND Screenon 05-01-2024 ABO and Rh group Nom (Bld) Blood group B Rh(D) negative [place] Comment on above: Order Comment: PN Performed By: #### L 205.1000 #### [facility] [address] [place], [place], [address] hCG Titer Quant., Serumon HCG QUANT. 64167 mIU/mL [address] Comment on above: Result Comment: hCG levels with Gestational Age Gestational Age hCG mIU/mL (IU/L) 0.2 - 1 week 5 - 50 1-2 weeks 50 - 500 2-3 weeks 100 - 5000 3-4 weeks 500 - 26214 4-5 weeks 1000 - 12446 5-6 weeks 31030 - 100,000 6-8 weeks 94796 - 200,000 2-3 months 93146 - 100,000 Performed By: #### L 205.1000 #### [facility] [address] [place], [place], [address] hCG Titer Quant., Serumon HCG QUANT. 3731 mIU/mL [address] Comment on above: Result Comment: hCG levels with Gestational Age Gestational Age hCG mIU/mL (IU/L) 0.2 - 1 week 5 - 50 1-2 weeks 50 - 500 2-3 weeks 100 - 5000 3-4 weeks 500 - 65340 4-5 weeks 1000 - 89188 5-6 weeks 39234 - 100,000 6-8 weeks 68952 - 200,000 2-3 months 41038 - 100,000 Performed By: #### L 205.1000 #### [facility] [address] [place], [place], [address] hCG Titer Quant., Serumon HCG QUANT. 2218 mIU/mL [address] Comment on above: Result Comment: hCG levels with Gestational Age Gestational Age hCG mIU/mL (IU/L) 0.2 - 1 week 5 - 50 1-2 weeks 50 - 500 2-3 weeks 100 - 5000 3-4 weeks 500 - 98834 4-5 weeks 1000 - 03606 5-6 weeks 62106 - 100,000 6-8 weeks 33472 - 200,000 2-3 months 81668 - 100,000 Performed By: #### M 100.3400 #### [facility] [address] [place], [address] Absolute lymphocyte countOrd ered By: Dr. Parker on 12-15-2022 Lymphocytes Auto (Unsp spec) [#/Vol] 2.00 10*3/uL 0.83-4.51 [facility] Basophil percentageOrdered B y: Dr. Parker on 12-15-2022 Basophils/100 WBC (Bld) 0.5 % 0-[address] [facility] Bilirubin [Mass/Vol] 0.40 mg/dL 0.20-1.00 [facility] Comment on above: For patients on eltr ombopag therapy, use of Dimension [place] TBIL is not recommended. Chloride [Moles/Vol] 107 mmol/L 98-107 [facility] Cholesterol [Mass/Vol] 162 mg/dL <200 [facility] Comment on above: <200 mg/dL Desirable 200-240 mg/dL Borderline >240 mg/dL High Risk Eosinophils/100 WBC (Bld) 4.9 % 0-5 [facility] Glucose [Mass/Vol] 89 mg/dL 74-106 [facility] Neutrophils (Bld) [#/Vol] 4.4 10*3/uL 2.0-7.7 [facility] Neutrophils/100 WBC (Bld) 59.6 % 47-70 [facility] Potassium [Moles/Vol] 4.0 mmol/L 3.5-5.1 [facility] Protein [Mass/Vol] 6.9 g/dL 6.4-8.2 [facility] Sodium [Moles/Vol] 137 mmol/L 136-145 [facility] Triglyceride [Mass/Vol] 65 mg/dL <[address] [facility] Comment on above: The drugs N-Acetylcy steine and Metamizole may falsely depress this assay.Serum Triglycerides Reference Interval Normal <150 mg/dL Borderline high 150 - 199 mg/dL High 200 - 499 mg/dL Very High > or = 500 mg/dL WBC (Bld) [#/Vol] 7.4 10*3/uL 4.4-11.0 [facility] Blood erythrocytes count (nu mber/volume)Ordered By: Dr. Parker on 12-15-2022 RBC (Bld) [#/Vol] 4.93 10*6/uL 4.2-5.4 [facility] Blood hemoglobin measurement (mass/volume)Ordered By: Dr. Parker on 12-15-2022 Hemoglobin (Bld) [Mass/Vol] 13.7 g/dL 12.0-15.0 [facility] Blood lymphocytes/100 leukoc ytesOrdered By: Dr. Parker on 12-15-2022 Lymphocytes/100 WBC (Bld) 27.0 % 19-41 [facility] Blood monocytes/100 leukocyt esOrdered By: Dr. Parker on 12-15-2022 Monocytes/100 WBC (Bld) 7.7 % 0-[address] [facility] Blood platelet mean volumeOr dered By: Dr. Parker on 12-15-2022 Platelet mean volume (Bld) [Entitic vol] 8.9 fL 6.2-12.0 [facility] Determination of erythrocyte mean corpuscular volume (MCV)Ordered By: Dr. Parker on 12-15-2022 MCV (RBC) [Entitic vol] 84.8 fL 81-[address] [facility] Hematocrit Auto (Bld) [Volum e fraction]Ordered By: Dr. Parker on 12-15-2022 Hematocrit (Bld) [Volume fraction] 41.8 % 37-47 [facility] - Chemistry and C hemistry - challengeOrdered By: Dr. Parker on 12-15-2022 ALP [Catalytic activity/Vol] 76 U/L 45-117 [facility] ALT [Catalytic activity/Vol] 39 U/L 13-56 [facility] CO2 [Moles/Vol] 27.0 mmol/L 21.0-32.0 [facility] Globulin (S) [Mass/Vol] 3.2 g/dL 2.2-4.[address] [facility] Urea nitrogen/Creatinine [Mass ratio] 17.6 mg/mg 10-20 [facility] - Hematology and Cell countsOrdered By: Dr. Parker on 12-15-2022 Erythrocyte distribution width (RBC) [Entitic vol] 42.8 fL 35.1-43.9 [facility] Erythrocyte distribution width (RBC) [Ratio] 13.8 % 11.6-14.6 [facility] Immature granulocytes/100 WBC (Bld) 0.300 % 0.0-0.9 [facility] Comment on above: IG% - Immature Granu locytes (promyelocytes, myelocytes and metamyelocytes) > 1% indicates that a LEFT SHIFT is Present. MCH (RBC) [Entitic mass] 27.8 pg 27.0-32.0 [facility] Nucleated RBC/100 WBC (Bld) [Ratio] 0 % 0-5 [facility] MCHC Auto (RBC) [Mass/Vol]Or dered By: Dr. Parker on 12-15-2022 MCHC (RBC) [Mass/Vol] 32.8 g/dL 32-36 [facility] No Panel InformationOrdered By: Dr. Parker on 12-15-2022 Estimated GFR (MDRD) Amer 144 mL/min >60 [facility] Comment on above: GFR Calc Estimated GFR (MDRD) Non-Af Amer 119 mL/min >60 [facility] Comment on above: Non- GFR Calc Thyroid Stimulating Hormone (TSH) 1.89 uIU/mL 0.358-3.74 [facility] Vitamin D 25-Hydroxy 30.4 ng/mL [facility] Comment on above: Vitamin D 25(OH) Sta tus Range Deficiency <20 ng/mL (50nmol/L) Insufficiency 20 - 30 ng/mL (50 - 75 nmol/L) Sufficiency 30 - 100 ng/mL (75 - 250 nmol/L) Toxicity >100 ng/mL (>250 nmol/L) Platelets bldOrdered By: Dr. Parker on 12-15-2022 Platelets (Bld) [#/Vol] 236 10*3/uL 150-450 [facility] Serum or plasma albumin lakisha urement (mass/volume)Ordered By: Dr. Parker on 12-15-2022 Albumin [Mass/Vol] 3.7 g/dL 3.2-5.0 [facility] Serum or plasma albumin/glob ulin mass ratioOrdered By: Dr. Parker on 12-15-2022 Albumin/Globulin [Mass ratio] 1.2 {ratio} 0.9-2.4 [facility] Serum or plasma calcium lakisha urement (mass/volume)Ordered By: Dr. Parker on 12-15-2022 Calcium [Mass/Vol] 8.6 mg/dL 8.5-10.1 [facility] Serum or plasma cholesterol in HDL measurement (mass/volume)Ordered By: Dr. Parker on 12-15-2022 Cholesterol in HDL [Mass/Vol] 68 mg/dL >40 [facility] Comment on above: The drugs N-Acetylcy steine and Metamizole may falsely depress this assay. Reference Range HDL <40 mg/dL Low HDL Cholesterol HDL >or= 60 mg/dL High HDL Cholesterol Serum or plasma cholesterol in VLDL measurement (mass/volume)Ordered By: Dr. Parker on 12-15-2022 Cholesterol in VLDL [Mass/Vol] 13 mg/dL 5-40 [facility] Serum or plasma creatinine m easurement (mass/volume)Ordered By: Dr. Parker on 12-15-2022 Creatinine [Mass/Vol] 0.62 mg/dL 0.55-1.02 [facility] Comment on above: The validity of the calculated GFR & GFRAA in patients over 70 years has not been determined. Clinical correlation is essential. Serum or plasma low density lipoprotein (LDL) cholesterol measurement (mass/volume)Ordered By: Dr. Parker on 12-15-2022 Cholesterol in LDL [Mass/Vol] 81 mg/dL 0-130 [facility] Serum or plasma urea nitroge n measurement (mass/volume)Ordered By: Dr. Parker on 12-15-2022 Urea nitrogen [Mass/Vol] 11 mg/dL 7-18 [facility] Thin prep Papanicolaou smear with manual screeningOrdered By: Dr. Parker on 12-15-2022 Thin prep Papanicolaou smear with manual screening 16 U/L 15-37 [facility] Thin prep Papanicolaou smear with manual screening 3 5-15 [facility] Absolute lymphocyte countOrd ered By: Dr. Castro on 09-23-2022 Lymphocytes Auto (Unsp spec) [#/Vol] 2.03 10*3/uL 0.83-4.51 [facility] Basophil percentageOrdered B y: Dr. Castro on 09-23-2022 Basophils/100 WBC (Bld) 0.2 % 0-[address] [facility] Eosinophils/100 WBC (Bld) 0.7 % 0-5 [facility] Neutrophils (Bld) [#/Vol] 10.6 10*3/uL 2.0-7.7 [facility] Neutrophils/100 WBC (Bld) 77.7 % 47-70 [facility] WBC (Bld) [#/Vol] 13.6 10*3/uL 4.4-11.0 [facility] Blood erythrocytes count (nu mber/volume)Ordered By: Dr. Castro on 09-23-2022 RBC (Bld) [#/Vol] 4.53 10*6/uL 4.2-5.4 [facility] Blood hemoglobin measurement (mass/volume)Ordered By: Dr. Castro on 09-23-2022 Hemoglobin (Bld) [Mass/Vol] 12.6 g/dL 12.0-15.0 [facility] Blood lymphocytes/100 leukoc ytesOrdered By: Dr. Castro on 09-23-2022 Lymphocytes/100 WBC (Bld) 15.0 % 19-41 [facility] Blood monocytes/100 leukocyt esOrdered By: Dr. Castro on 09-23-2022 Monocytes/100 WBC (Bld) 5.8 % 0-10 [facility] Blood platelet mean volumeOr dered By: Dr. Castro on 09-23-2022 Platelet mean volume (Bld) [Entitic vol] 10.7 fL 6.2-12.0 [facility] Determination of erythrocyte mean corpuscular volume (MCV)Ordered By: Dr. Castro on 09-23-2022 MCV (RBC) [Entitic vol] 87.0 fL 81-99 [facility] Hematocrit Auto (Bld) [Volum e fraction]Ordered By: Dr. Castro on 09-23-2022 Hematocrit (Bld) [Volume fraction] 39.4 % 37-47 [facility] - Hematology and Cell countsOrdered By: Dr. Castro on 09-23-2022 Erythrocyte distribution width (RBC) [Entitic vol] 39.8 fL 35.1-43.9 [facility] Erythrocyte distribution width (RBC) [Ratio] 12.7 % 11.6-14.6 [facility] Immature granulocytes/100 WBC (Bld) 0.600 % 0.0-0.9 [facility] Comment on above: IG% - Immature Granu locytes (promyelocytes, myelocytes and metamyelocytes) > 1% indicates that a LEFT SHIFT is Present. MCH (RBC) [Entitic mass] 27.8 pg 27.0-32.0 [facility] Nucleated RBC/100 WBC (Bld) [Ratio] 0 % 0-5 [facility] MCHC Auto (RBC) [Mass/Vol]Or dered By: Dr. Castro on 09-23-2022 MCHC (RBC) [Mass/Vol] 32.0 g/dL 32-36 [facility] No Panel InformationOrdered By: Dr. Castro on 09-23-2022 Vaginal Amniotic Fluid Detection Positive Negative [facility] Comment on above: Amniotic fluid prese nt indicates rupture of Membranes. RESULTS CALLED TO Cora KUO RN WP 09/23/22 0352 [place]ingo White.REPORT READ BACK BY SAME. Platelets bldOrdered By: Dr. Castro on 09-23-2022 Platelets (Bld) [#/Vol] 179 10*3/uL 150-450 [facility] - Chemistry and C hemistry - challengeon 09-20-2022 Glucose Ql (U) Negative [facility] - Urinalysison Protein Ql (U) Negative [facility] - Chemistry and C hemistry - challengeon 09-19-2022 Glucose Ql (U) Negative [facility] - Urinalysison Protein Ql (U) Negative [facility] - Chemistry and C hemistry - challengeon 09-14-2022 Glucose Ql (U) Negative [facility] - Urinalysison Protein Ql (U) Negative [facility] - Chemistry and C hemistry - challengeon 09-07-2022 Glucose Ql (U) Negative [facility] - Urinalysison Protein Ql (U) Negative [facility] No Panel InformationOrdered By: Dr. Mojica on 09-01-2022 Group B Streptococcus Culture Group B Beta Streptococcus is not isolated. [facility] - Chemistry and C hemistry - challengeon 08-30-2022 Glucose Ql (U) Negative [facility] - Urinalysison Protein Ql (U) Negative [facility] - Chemistry and C hemistry - challengeon 08-15-2022 Glucose Ql (U) Negative [facility] - Urinalysison Protein Ql (U) Negative [facility] - Chemistry and C hemistry - challengeon 08-03-2022 Glucose Ql (U) Negative [facility] - Urinalysison Protein Ql (U) Negative [facility] - Chemistry and C hemistry - challengeon 07-18-2022 Glucose Ql (U) Negative [facility] - Urinalysison Protein Ql (U) Negative [facility] Absolute lymphocyte countOrd ered By: Radha Shaw on 07-03-2022 Lymphocytes Auto (Unsp spec) [#/Vol] 1.46 10*3/uL 0.83-4.51 [facility] Basophil percentageOrdered B y: Radha Shaw on 07-03-2022 Basophils/100 WBC (Bld) 0.3 % 0-[address] [facility] Eosinophils/100 WBC (Bld) 0.7 % 0-5 [facility] Neutrophils (Bld) [#/Vol] 9.4 10*3/uL 2.0-7.7 [facility] Neutrophils/100 WBC (Bld) 81.0 % 47-70 [facility] WBC (Bld) [#/Vol] 11.6 10*3/uL 4.4-11.0 [facility] Blood erythrocytes count (nu mber/volume)Ordered By: Radha Shaw on 07-03-2022 RBC (Bld) [#/Vol] 4.34 10*6/uL 4.2-5.4 [facility] Blood hemoglobin measurement (mass/volume)Ordered By: Radha Shaw on 07-03-2022 Hemoglobin (Bld) [Mass/Vol] 12.8 g/dL 12.0-15.0 [facility] Blood lymphocytes/100 leukoc ytesOrdered By: Radha Shaw on 07-03-2022 Lymphocytes/100 WBC (Bld) 12.6 % 19-41 [facility] Blood monocytes/100 leukocyt esOrdered By: Radha Shaw on 07-03-2022 Monocytes/100 WBC (Bld) 4.5 % 0-[address] [facility] Blood platelet mean volumeOr dered By: Radha Shaw on 07-03-2022 Platelet mean volume (Bld) [Entitic vol] 9.4 fL 6.2-12.0 [facility] Determination of erythrocyte mean corpuscular volume (MCV)Ordered By: Radha Shaw on 07-03-2022 MCV (RBC) [Entitic vol] 89.6 fL 81-[address] [facility] Gestational diabetes screen 1-hour screen with 50g oral glucose loadOrdered By: Radha Shaw on 07-03-2022 Glucose 1 Hr post 50 g glucose PO [Mass/Vol] 89 mg/dL 70-140 [facility] Hematocrit Auto (Bld) [Volum e fraction]Ordered By: Radha Shaw on 07-03-2022 Hematocrit (Bld) [Volume fraction] 38.9 % 37-47 [facility] - Chemistry and C hemistry - challengeon 07-03-2022 Glucose Ql (U) Negative [facility] - Hematology and Cell countsOrdered By: Radha Shaw on 07-03-2022 Erythrocyte distribution width (RBC) [Entitic vol] 40.7 fL 35.1-43.9 [facility] Erythrocyte distribution width (RBC) [Ratio] 12.4 % 11.6-14.6 [facility] Immature granulocytes/100 WBC (Bld) 0.900 % 0.0-0.9 [facility] Comment on above: IG% - Immature Granu locytes (promyelocytes, myelocytes and metamyelocytes) > 1% indicates that a LEFT SHIFT is Present. MCH (RBC) [Entitic mass] 29.5 pg 27.0-32.0 [facility] Nucleated RBC/100 WBC (Bld) [Ratio] 0 % 0-5 [facility] - Urinalysison Protein Ql (U) Negative [facility] MCHC Auto (RBC) [Mass/Vol]Or dered By: Radha Shaw on 07-03-2022 MCHC (RBC) [Mass/Vol] 32.9 g/dL 32-36 [facility] Platelets bldOrdered By: Blanca Shaw on 07-03-2022 Platelets (Bld) [#/Vol] 186 10*3/uL 150-450 [facility] Serum Treponema species anti body detectionOrdered By: Radha Shaw on 07-03-2022 Treponema sp Ab Ql (S) Non-Reactive [facility] - Chemistry and C hemistry - challengeon 06-05-2022 Glucose Ql (U) Negative [facility] - Urinalysison Protein Ql (U) Negative [facility] - Chemistry and C hemistry - challengeon 05-23-2022 Glucose Ql (U) Negative [facility] - Urinalysison Protein Ql (U) Negative [facility] - Chemistry and C hemistry - challengeon 05-09-2022 Glucose Ql (U) Negative [facility] Work Phone: Laboratory - Urinalysison Protein Ql (U) Negative [facility] Work Phone: No Panel Informationon 05-09 Miscellaneous Test See comment [facility] Work Phone: Comment on above: TEST RESULT LIMITSAF P, Serum, Open Spina BifidaResults ReportTest Results: *Screen Negative*Gest. Age on Collection Date 20.1 weeksGestat. Age Based On LMPRecalculations are not recommended when gestational dating by LMP and ultrasound are within 10 days.Maternal Age [age]CIA 32.4 yrRace CaucasianWeight 227 lbsInsulin Dep Diabetes NoMultiple Gestation NoAFP Value 56.2 ng/mLAFP MoM 1.20OSBR Risk 1 [place] 6499InterpretationInterpretation: Screen NegativeThis result is screen negative for OSB. The AFP MoM calculated is based on the gestational age provided. MS-AFP can identify up to 80% of open neural tube defects. Closed neural tube defects and some open defects may not be detected by this test. This test does not screen for Down Syndrome or Trisomy 18. If screening for Down Syndrome or Trisomy 18 is desired, contact [employer] to discuss available options. The [employer] recommends amniocentesis be offered to women age 35 and older.Comment: Maxine Pollock, Ph.D., DABCCDirectorReferences: Available Upon Request.Multiples Of Median Cutoffs For AFP ElevationsSingleton 2.5 Black 2.8IDD 2.0 Twins 4.5 Abbreviation DefinitionsIDD - Insulin Dep DiabetesOSBR - Open Spina Bifida RiskFor further inquiries contact [employer] at [phone].This test was developed and its performance characteristicsdetermined by [employer]. It has not been cleared or approvedby the Food and Drug Administration. TESTING PERFORMED AT [facility]. ORIGINAL REPORT ON FILE IN LAB CONTAINS ADDITIONAL TEST SITE INFORMATION. Laboratory - Chemistry and C hemistry - challengeon 04-11-2022 Glucose Ql (U) Negative [facility] Work Phone: [phone] Laboratory - Urinalysison Protein Ql (U) Negative [facility] Work Phone: Absolute lymphocyte counton 02-27-2022 Lymphocytes Auto (Unsp spec) [#/Vol] 1.41 10*3/uL 0.83-4.51 [facility] Work Phone: Basophil percentageon 2021 Basophils/100 WBC (Bld) 0.3 % 0-1 [facility] Work Phone: Eosinophils/100 WBC (Bld) 1.0 % 0-5 [facility] Work Phone: Neutrophils (Bld) [#/Vol] 6.8 10*3/uL 2.0-7.7 [facility] Work Phone: Neutrophils/100 WBC (Bld) 77.2 % 47-70 [facility] Work Phone: WBC (Bld) [#/Vol] 8.8 10*3/uL 4.4-11.0 [facility] Work Phone: Blood erythrocytes count (nu mber/volume)on 02-27-2022 RBC (Bld) [#/Vol] 4.68 10*6/uL 4.2-5.4 [facility] Work Phone: Blood hemoglobin measurement (mass/volume)on 02-27-2022 Hemoglobin (Bld) [Mass/Vol] 13.7 g/dL 12.0-15.0 [facility] Work Phone: Blood lymphocytes/100 leukoc yteson 02-27-2022 Lymphocytes/100 WBC (Bld) 16.0 % 19-41 [facility] Work Phone: Blood monocytes/100 leukocyt eson 02-27-2022 Monocytes/100 WBC (Bld) 5.2 % 0-[address] [facility] Work Phone: Blood platelet mean volumeon 02-27-2022 Platelet mean volume (Bld) [Entitic vol] 8.9 fL 6.2-12.0 [facility] Work Phone: Determination of erythrocyte mean corpuscular volume (MCV)on 02-27-2022 MCV (RBC) [Entitic vol] 87.8 fL 81-[address] [facility] Work Phone: Gestational diabetes screen 1-hour screen with 50g oral glucose loadon 02-27-2022 Glucose 1 Hr post 50 g glucose PO [Mass/Vol] 95 mg/dL 70-140 [facility] Work Phone: HIV 1 and HIV-2 antibody ass ay with HIV-1 p24 antigen detectionon 02-27-2022 HIV 1+2 Ab+HIV1 p24 Ag IA Ql Non-Reactive Nonreactive [facility] Work Phone: Hematocrit Auto (Bld) [Volum e fraction]on 02-27-2022 Hematocrit (Bld) [Volume fraction] 41.1 % 37-47 [facility] Work Phone: Laboratory - Hematology and Cell countson 02-27-2022 Erythrocyte distribution width (RBC) [Entitic vol] 40.8 fL 35.1-43.9 [facility] Work Phone: Erythrocyte distribution width (RBC) [Ratio] 12.7 % 11.6-14.6 [facility] Work Phone: Immature granulocytes/100 WBC (Bld) 0.300 % 0.0-0.9 [facility] Work Phone: Comment on above: IG% - Immature Granu locytes (promyelocytes, myelocytes and metamyelocytes) > 1% indicates that a LEFT SHIFT is Present. MCH (RBC) [Entitic mass] 29.3 pg 27.0-32.0 [facility] Work Phone: Nucleated RBC/100 WBC (Bld) [Ratio] 0 % 0-5 [facility] Work Phone: MCHC Auto (RBC) [Mass/Vol]on 02-27-2022 MCHC (RBC) [Mass/Vol] 33.3 g/dL 32-36 [facility] Work Phone: No Panel Informationon 02-27 Miscellaneous Test Comment MAILED SPECIMEN [facility] Work Phone: Hepatitis B Surface Antigen Non-Reactive Nonreactive [facility] Work Phone: Hepatitis C Antibody Non-Reactive Nonreactive [facility] Work Phone: Comment on above: Non Reactive: < 0.8 Equivocal: >/= 0.8 to < 1.0 Reactive: >/= 1.0The CDC recommends that a reactive/equivocal HCV antibody result be followed up by the HCV Nucleic Acid Amplificationtest (238549) Rubella IgG Antibody Reactive Nonreactive [facility] Work Phone: Comment on above: Antibody Results Int erpretation of Immune Status Non Reactive Presumed Non-Immune Equivocal Equivocal Reactive Presumed Immune Platelets bldon 02-27-2022 Platelets (Bld) [#/Vol] 226 10*3/uL 150-450 [facility] Work Phone: Serum Treponema species anti body detectionon 02-27-2022 Treponema sp Ab Ql (S) Non-Reactive [facility] Work Phone: Cervical or vagninal specime n microscopic examination by cytology stain (reported ason 02-14-2022 Cytology report Cyto stain Doc (Cvx/Vag) Comment . [facility] Work Phone: Comment on above: The Pap smear is a s creening test designed to aid in thedetection of premalignant and malignant conditions of theuterine cervix. It is not a diagnostic procedure andshould not be used as the sole means of detecting cervicalcancer. Both false-positive and false-negative reports dooccur. Chlamydia trachomatis rRNA d etection by probe and target amplification methodon 02-14-2022 C. trachomatis rRNA WILLIAM+probe Ql (Unsp spec) Negative Negative [facility] Work Phone: Laboratory - Cytologyon 01-25 [employer] Cyto stain Nom (Cvx/Vag) [ID] Comment . [facility] Work Phone: Comment on above: Stephanie Boogie, Cytot echnologist (ASC) Laboratory - Drug toxicology on 02-14-2022 Amphetamines Ql (U) Negative <1000 ng/mL [facility] Work Phone: Benzodiazepines Ql (U) Negative < 200 ng/mL [facility] Work Phone: Cannabinoids Screen Ql (U) Negative < 50 ng/mL [facility] Work Phone: Cocaine Ql (U) Negative < 300 ng/mL [facility] Work Phone: Opiates Ql (U) Negative < 300 ng/mL [facility] Work Phone: Laboratory - Microbiology an d Antimicrobial susceptibilityon 02-14-2022 N. gonorrhoeae DNA WILLIAM+probe Ql (Unsp spec) Negative Negative [facility] Work Phone: Comment on above: Performed at: =G - [facility] [address] [id number] Director: Joana Herrera MD, Phone: [phone] Laboratory - Miscellaneous t estson 02-14-2022 Service comment (Unsp spec) [Interp] Comment . [facility] Work Phone: Comment on above: This liquid based Th inPrep(R) pap test was screened withthe use of an image guided system. Service comment (Unsp spec) [Interp] . . [facility] Work Phone: No Panel Informationon 02-14 Human Papillomavirus Screen Comment . [facility] Work Phone: Comment on above: The HPV DNA reflex c riteria were not met with this specimenresult therefore, no HPV testing was performed.Performed at: [facility] - [facility] [address] [id number] Director: Joana Herrera MD, Phone: [phone] MDMA (Ecstasy) Screen Negative < 500 ng/mL [facility] Work Phone: Pathology report final diagnosis Narrative Comment . [facility] Work Phone: Comment on above: NEGATIVE FOR INTRAEP ITHELIAL LESION OR MALIGNANCY. Urine Barbiturates Screen Negative < 200 ng/mL [facility] Work Phone: Urine Drug Screen Comment [facility] Work Phone: Comment on above: CONFIRMATORY TESTING FOR ALL POSITIVE URINE DRUG SCREENRESULTS WILL ONLY BE SENT OUT UPON PHYSICIAN ORDER. VISTA Urine Drug Screen methods provide only preliminaryanalytical test results. A more specific alternate chemicalmethod must be used in order to obtain a confirmedanalytical result. Gas chromatography/mass spectrometery(GC/MS) is the preferred confirmatory method. Clinicalconsideration and professional judgement should be appliedto any drug of abuse test result, particularly whenpreliminary positive results are used. URINE TCA TESTING MUST BE ORDERED SEPARATELY. USE TESTMNEMONIC: [facility] Urine Methadone Screen Negative < 300 ng/mL [facility] Work Phone: Urine phencyclidine (PCP) de tectionon 02-14-2022 Phencyclidine Ql (U) Negative < 25 ng/mL [facility] Work Phone: Serum or plasma choriogonado tropin detectionon 01-27-2022 HCG ( test) Ql 5708 mIU/mL <4 [facility] Work Phone: Comment on above: hCG levels with Gest ational AgeGestational Age hCG mIU/mL (IU/L)0.2 - 1 week 5 - 501-2 weeks 50 - 5002-3 weeks 100 - 81291-8 weeks 500 - 188367-4 weeks 1000 - 751306-3 weeks 61376 - 100,0006-8 weeks 54531 - 200,0002-3 months 13923 - 100,000 Serum or plasma choriogonado tropin detectionon 01-17-2022 HCG ( test) Ql 375 mIU/mL <4 [facility] Work Phone: Comment on above: hCG levels with Gest ational AgeGestational Age hCG mIU/mL (IU/L)0.2 - 1 week 5 - 501-2 weeks 50 - 5002-3 weeks 100 - 19035-4 weeks 500 - 524738-3 weeks 1000 - 803970-2 weeks 06687 - 100,0006-8 weeks 56524 - 200,0002-3 months 13826 - 100,000 [facility] Hysterosalpingography S/I on 09-27-2021 RF Hysterosalpingography S/I Patient Name: MARIANELA GREY Fluoroscopy ACCESSION EXAM DATE/TIME PROCEDURE ORDERING PROVIDER [id number] 09/27/2021 12:44 EST RF Hysterosalpingography SEMAJ STAFFORD S/I CPT code 52092 Reason For Exam (RF Hysterosalpingography S/I) dysmenorrhea Report HYSTEROSALPINGOGRAM CLINICAL INDICATION: Infertility. COMPARISON: None. FLUOROSCOPY TIME:0.5 minutes FLUOROSCOPIC SPOT IMAGES:3 TECHNIQUE: The procedure was performed by Dr. Stafford. Fluoroscopic assistance was provided. Spot images were obtained during fluoroscopy. FINDINGS: The fallopian tubes are normal in appearance. There is bilateral peritoneal spilling of contrast. There is limited visualization of the uterine cavity due to inflated catheter balloon. The visualized uterine cavity appears unremarkable. IMPRESSION: Bilateral tubal patency. Limited visualization of the uterine cavity which appears unremarkable. Report Dictated on Final Dictated: 09/27/2021 2:38 pm Dictating Physician: MD CATES JONATHAN R Signed Date and Time: 09/27/2021 3:28 pm Signed by: MD CATES JONATHAN R Transcribed Date and Time: 09/27/2021 2:41 Normal [facility] Culture, urine Bacteria identified Cx Nom (U) Enterococcus faecalis [facility] Work Phone: Bacteria identified Cx Nom (U) Positive [facility] Work Phone: Vital Signs Date Time Vital Sign Value Performing Clinician Faci lity 01-25-2025 13:32-0400 Body height 167.[address] Ramesh Parker MD Work Phone: [facility] 01-25-2025 13:32-0400 Body mass index (BMI) [Ratio] 40 kg/m2 Dr. Ramesh Parker MD Work Phone: [facility] 01-25-2025 13:32-0400 Body temperature 97.8 [degF] Dr. Ramesh Parker MD Work Phone: [facility] 01-25-2025 13:32-0400 Body weight 112.[address] Ramesh Parker MD Work Phone: [facility] 01-25-2025 13:32-0400 Diastolic blood pressure 69 mm[Hg] Dr. Ramesh Parker MD Work Phone: [facility] 01-25-2025 13:32-0400 Heart rate 81 /min Dr. Ramesh Parker MD Work Phone: [facility] 01-25-2025 13:32-0400 Respiratory rate 16 /min Dr. Ramesh Parker MD Work Phone: [facility] 01-25-2025 13:32-0400 SaO2% (BldA) [Mass fraction] 95 % Dr. Ramesh Parker MD Work Phone: [facility] 01-25-2025 13:32-0400 Systolic blood pressure 100 mm[Hg] Dr. Ramesh Parker MD Work Phone: [facility] 12-19-2024 08:20-0400 Body temperature 97.3 [degF] Dr. Ramesh Parker MD Work Phone: [facility] 12-19-2024 08:20-0400 Diastolic blood pressure 79 mm[Hg] Dr. Ramesh Parker MD Work Phone: [facility] 12-19-2024 08:20-0400 Heart rate 86 /min Dr. Ramesh Parker MD Work Phone: [facility] 12-19-2024 08:20-0400 Respiratory rate 18 /min Dr. Ramesh Parker MD Work Phone: [facility] 12-19-2024 08:20-0400 SaO2% (BldA) [Mass fraction] 96 % Dr. Ramesh Parker MD Work Phone: [facility] 12-19-2024 08:20-0400 Systolic blood pressure 118 mm[Hg] Dr. Ramesh Parker MD Work Phone: [facility] 12-17-2024 15:46-0400 Body mass index (BMI) [Ratio] 43 kg/m2 Dr. Ramesh Parker MD Work Phone: [facility] 12-17-2024 15:46-0400 Body weight 120.[address] Ramesh Parker MD Work Phone: [facility] 12-15-2024 12:18-0400 Body height 167.[address] Ramesh Parker MD Work Phone: [facility] 12-15-2024 12:18-0400 Body mass index (BMI) [Ratio] 42.9 kg/m2 Dr. Ramesh Parker MD Work Phone: [facility] 12-15-2024 12:18-0400 Body weight 120.[address] Ramesh Parker MD Work Phone: [facility] 12-15-2024 12:11-0400 Body temperature 98.4 [degF] Dr. Ramesh Parker MD Work Phone: [facility] 12-15-2024 12:11-0400 Diastolic blood pressure 71 mm[Hg] Dr. Ramesh Parker MD Work Phone: [facility] 12-15-2024 12:11-0400 Heart rate 91 /min Dr. Ramesh Parker MD Work Phone: [facility] 12-15-2024 12:11-0400 Respiratory rate 16 /min Dr. Ramesh Parker MD Work Phone: [facility] 12-15-2024 12:11-0400 SaO2% (BldA) [Mass fraction] 98 % Dr. Ramesh Parker MD Work Phone: [facility] 12-15-2024 12:11-0400 Systolic blood pressure 126 mm[Hg] Dr. Ramesh Parker MD Work Phone: [facility] 12-15-2024 11:22-0400 Body mass index (BMI) [Ratio] 43 kg/m2 Dr. Ramesh Parker MD Work Phone: [facility] 12-15-2024 11:22-0400 Body weight 120.[address] Ramesh Parker MD Work Phone: [facility] 12-15-2024 11:22-0400 Diastolic blood pressure 91 mm[Hg] Dr. Ramesh Parker MD Work Phone: [facility] 12-15-2024 11:22-0400 Systolic blood pressure 137 mm[Hg] Dr. Ramesh Parker MD Work Phone: [facility] 12-09-2024 12:52-0400 Body height 167.[address] Ramesh Parker MD Work Phone: [facility] 12-09-2024 12:52-0400 Body mass index (BMI) [Ratio] 42.6 kg/m2 Dr. Ramesh Parker MD Work Phone: [facility] 12-09-2024 12:52-0400 Body weight 119.[address] Ramesh Parker MD Work Phone: [facility] 12-09-2024 12:52-0400 Diastolic blood pressure 71 mm[Hg] Dr. Ramehs Parker MD Work Phone: [facility] 12-09-2024 12:52-0400 Systolic blood pressure 108 mm[Hg] Dr. Ramesh Parker MD Work Phone: [facility] 12-01-2024 09:50-0400 Body height 167.[address] Ramesh Parker MD Work Phone: [facility] 12-01-2024 09:47-0400 Body mass index (BMI) [Ratio] 42.2 kg/m2 Dr. Ramesh Parker MD Work Phone: [facility] 12-01-2024 09:47-0400 Body weight 118.[address] Ramesh Parker MD Work Phone: [facility] 12-01-2024 09:47-0400 Diastolic blood pressure 87 mm[Hg] Dr. Ramesh Parker MD Work Phone: [facility] 12-01-2024 09:47-0400 Systolic blood pressure 120 mm[Hg] Dr. Ramesh Parker MD Work Phone: [facility] 11-24-2024 10:06-0400 Body height 167.[address] Ramesh Parker MD Work Phone: [facility] 11-24-2024 10:05-0400 Body mass index (BMI) [Ratio] 42.2 kg/m2 Dr. Ramesh Parker MD Work Phone: [facility] 11-24-2024 10:05-0400 Body weight 118.[address] Ramesh Parker MD Work Phone: [facility] 11-24-2024 10:05-0400 Diastolic blood pressure 76 mm[Hg] Dr. Ramesh Parker MD Work Phone: [facility] 11-24-2024 10:05-0400 Systolic blood pressure 114 mm[Hg] Dr. Ramesh Parker MD Work Phone: [facility] 11-09-2024 09:45-0400 Body height 167.[address] Ramesh Parker MD Work Phone: [facility] 11-09-2024 09:45-0400 Body mass index (BMI) [Ratio] 41.2 kg/m2 Dr. Ramesh Parker MD Work Phone: [facility] 11-09-2024 09:45-0400 Body weight 115.[address] Ramesh Parker MD Work Phone: [facility] 11-09-2024 09:45-0400 Diastolic blood pressure 76 mm[Hg] Dr. Ramesh Parker MD Work Phone: [facility] 11-09-2024 09:45-0400 Systolic blood pressure 122 mm[Hg] Dr. Ramesh Parker MD Work Phone: [facility] 10-27-2024 10:06-0500 Body mass index (BMI) [Ratio] 41.3 kg/m2 Dr. Ramesh Parker MD Work Phone: [facility] 10-27-2024 10:06-0500 Body weight 116.[address] Ramesh Parker MD Work Phone: [facility] 10-27-2024 10:06-0500 Diastolic blood pressure 77 mm[Hg] Dr. Ramesh Parker MD Work Phone: [facility] 10-27-2024 10:06-0500 Systolic blood pressure 122 mm[Hg] Dr. Ramesh Parker MD Work Phone: [facility] 10-15-2024 14:55-0500 Body mass index (BMI) [Ratio] 40.8 kg/m2 Dr. Ramesh Parker MD Work Phone: [facility] 10-15-2024 14:55-0500 Body weight 114.[address] Ramesh Parker MD Work Phone: [facility] 10-15-2024 14:55-0500 Diastolic blood pressure 77 mm[Hg] Dr. Ramesh Parker MD Work Phone: [facility] 10-15-2024 14:55-0500 Systolic blood pressure 117 mm[Hg] Dr. Ramesh Parker MD Work Phone: [facility] 09-29-2024 13:15-0500 Body mass index (BMI) [Ratio] 39.9 kg/m2 Dr. Ramesh Parker MD Work Phone: [facility] 09-29-2024 13:15-0500 Body weight 112.[address] Ramesh Parker MD Work Phone: [facility] 09-29-2024 13:15-0500 Diastolic blood pressure 82 mm[Hg] Dr. Ramesh Parker MD Work Phone: [facility] 09-29-2024 13:15-0500 Systolic blood pressure 122 mm[Hg] Dr. Ramesh Parker MD Work Phone: [facility] 09-08-2024 13:37-0500 Body mass index (BMI) [Ratio] 39.9 kg/m2 Dr. Ramesh Parker MD Work Phone: [facility] 09-08-2024 13:37-0500 Body weight 112.[address] Ramesh Parker MD Work Phone: [facility] 09-08-2024 13:37-0500 Diastolic blood pressure 70 mm[Hg] Dr. Ramesh Parker MD Work Phone: [facility] 09-08-2024 13:37-0500 Systolic blood pressure 114 mm[Hg] Dr. Ramesh Parker MD Work Phone: [facility] 08-28-2024 10:34-0500 Body temperature 98.1 [degF] Jacobo Phan MD Work Phone: [facility] 08-28-2024 10:34-0500 Body weight 110.7 kg Jacobo Phan MD Work Phone: [facility] 08-28-2024 10:34-0500 Diastolic blood pressure 71 mm[Hg] Jacobo Phan MD Work Phone: [facility] 08-28-2024 10:34-0500 Heart rate 103 /min Jacobo Phan MD Work Phone: [facility] 08-28-2024 10:34-0500 Respiratory rate 16 /min Jacobo Phan MD Work Phone: [facility] 08-28-2024 10:34-0500 SaO2% (BldA) [Mass fraction] 98 % Jacobo Phan MD Work Phone: [facility] 08-28-2024 10:34-0500 Systolic blood pressure 109 mm[Hg] Jacobo Phan MD Work Phone: [facility] 08-17-2024 09:39-0500 Body temperature 97.2 [degF] Vikram Hanson APRN.[employer] Work Phone: [facility] 08-17-2024 09:39-0500 Body weight 109.5 kg Vikram Hanson APRN.[employer] Work Phone: [facility] 08-17-2024 09:39-0500 Diastolic blood pressure 78 mm[Hg] Vikram Hanson APRN.[employer] Work Phone: [facility] 08-17-2024 09:39-0500 Heart rate 111 /min Vikram Hanson APRN.[employer] Work Phone: [facility] 08-17-2024 09:39-0500 Respiratory rate 18 /min Vikram Hanson APRN.[employer] Work Phone: [facility] 08-17-2024 09:39-0500 SaO2% (BldA) [Mass fraction] 96 % Vikram Hanson APRN.[employer] Work Phone: [facility] 08-17-2024 09:39-0500 Systolic blood pressure 110 mm[Hg] Vikram Hanson APRN.[employer] Work Phone: [facility] 08-12-2024 10:26-0500 Body mass index (BMI) [Ratio] 39 kg/m2 Dr. Ramesh Parker MD Work Phone: [facility] 08-12-2024 10:26-0500 Body weight 109.[address] Ramesh Parker MD Work Phone: [facility] 08-12-2024 10:26-0500 Diastolic blood pressure 81 mm[Hg] Dr. Ramesh Parker MD Work Phone: [facility] 08-12-2024 10:26-0500 Systolic blood pressure 137 mm[Hg] Dr. Ramesh Parker MD Work Phone: [facility] 07-14-2024 14:44-0500 Body mass index (BMI) [Ratio] 38.1 kg/m2 Dr. Ramesh Parker MD Work Phone: [facility] 07-14-2024 14:44-0500 Body weight 107.[address] Ramesh Parker MD Work Phone: [facility] 07-14-2024 14:44-0500 Diastolic blood pressure 66 mm[Hg] Dr. Ramesh Parker MD Work Phone: [facility] 07-14-2024 14:44-0500 Systolic blood pressure 123 mm[Hg] Dr. Ramesh Parker MD Work Phone: [facility] 12-13-2022 13:09-0400 Body temperature 97.8 [degF] Dr. Ramesh Parker Work Phone: [facility] 12-13-2022 13:09-0400 Body weight 106.[address] Ramesh Parker Work Phone: [facility] 12-13-2022 13:09-0400 Diastolic blood pressure 77 mm[Hg] Dr. Ramesh Parker Work Phone: [facility] 12-13-2022 13:09-0400 Heart rate 79 /min Dr. Ramesh Parker Work Phone: [facility] 12-13-2022 13:09-0400 Respiratory rate 16 /min Dr. Ramesh Parker Work Phone: [facility] 12-13-2022 13:09-0400 SaO2% (BldA) [Mass fraction] 95 % Dr. Ramesh Parker Work Phone: [facility] 12-13-2022 13:09-0400 Systolic blood pressure 106 mm[Hg] Dr. Ramesh Parker Work Phone: [facility] 12-11-2022 10:32-0400 Body height 167.[address] Ramesh Parker Work Phone: [facility] 11-27-2022 14:04-0400 Body mass index (BMI) [Ratio] 38 kg/m2 Dr. Ramesh Parker Work Phone: [facility] 11-27-2022 14:04-0400 Body weight 107.[address] Ramesh Parker Work Phone: [facility] 11-27-2022 14:04-0400 Diastolic blood pressure 68 mm[Hg] Dr. Ramesh Parker Work Phone: [facility] 11-27-2022 14:04-0400 Systolic blood pressure 112 mm[Hg] Dr. Ramesh Parker Work Phone: [facility] 11-06-2022 13:03-0400 Body mass index (BMI) [Ratio] 37.9 kg/m2 Dr. Ramesh Parker Work Phone: [facility] 11-06-2022 13:03-0400 Diastolic blood pressure 80 mm[Hg] Dr. Ramesh Parker Work Phone: [facility] 11-06-2022 13:03-0400 Systolic blood pressure 131 mm[Hg] Dr. Ramesh Parker Work Phone: [facility] 11-05-2022 09:47-0400 Body weight 106.[address] Ramesh Parker Work Phone: [facility] 09-25-2022 09:30-0500 Body temperature 97.3 [degF] Dr. Ramesh Parker Work Phone: [facility] 09-25-2022 09:30-0500 Diastolic blood pressure 85 mm[Hg] Dr. Ramesh Parker Work Phone: [facility] 09-25-2022 09:30-0500 Heart rate 90 /min Dr. Ramesh Parker Work Phone: [facility] 09-25-2022 09:30-0500 Respiratory rate 14 /min Dr. Ramesh Parker Work Phone: [facility] 09-25-2022 09:30-0500 SaO2% (BldA) [Mass fraction] 98 % Dr. Ramesh Parker Work Phone: [facility] 09-25-2022 09:30-0500 Systolic blood pressure 120 mm[Hg] Dr. Ramesh Parker Work Phone: [facility] 09-23-2022 03:48-0500 Body height 167.[address] Ramesh Parker Work Phone: [facility] 09-23-2022 03:48-0500 Body mass index (BMI) [Ratio] 40.6 kg/m2 Dr. Ramesh Parker Work Phone: [facility] 09-23-2022 03:48-0500 Body weight 114.[address] Ramesh Parker Work Phone: [facility] 09-20-2022 11:40-0500 Body mass index (BMI) [Ratio] 40.6 kg/m2 Dr. Ramesh Parker Work Phone: [facility] 09-20-2022 11:40-0500 Body weight 114.[address] Ramesh Parker Work Phone: [facility] 09-20-2022 11:40-0500 Diastolic blood pressure 80 mm[Hg] Dr. Ramesh Parker Work Phone: [facility] 09-20-2022 11:40-0500 Systolic blood pressure 127 mm[Hg] Dr. Ramesh Parker Work Phone: [facility] 09-19-2022 08:33-0500 Body mass index (BMI) [Ratio] 41.2 kg/m2 Dr. Ramesh Parker Work Phone: [facility] 09-19-2022 08:33-0500 Body weight 115.[address] Ramesh Parker Work Phone: [facility] 09-19-2022 08:33-0500 Diastolic blood pressure 87 mm[Hg] Dr. Ramesh Parker Work Phone: [facility] 09-19-2022 08:33-0500 Systolic blood pressure 119 mm[Hg] Dr. Ramesh Parker Work Phone: [facility] 09-14-2022 08:31-0500 Body height 167.[address] Ramesh Parker Work Phone: [facility] 09-14-2022 08:29-0500 Body mass index (BMI) [Ratio] 40.7 kg/m2 Dr. Ramesh Parker Work Phone: [facility] 09-14-2022 08:29-0500 Body weight 114.[address] Ramesh Parker Work Phone: [facility] 09-14-2022 08:29-0500 Diastolic blood pressure 79 mm[Hg] Dr. Ramesh Parker Work Phone: [facility] 09-14-2022 08:29-0500 Systolic blood pressure 127 mm[Hg] Dr. Ramesh Parker Work Phone: [facility] 09-07-2022 11:31-0500 Body mass index (BMI) [Ratio] 40.6 kg/m2 Dr. Ramesh Parker Work Phone: [facility] 09-07-2022 11:31-0500 Body weight 114.[address] Ramesh Parker Work Phone: [facility] 09-07-2022 11:31-0500 Diastolic blood pressure 80 mm[Hg] Dr. Ramesh Parker Work Phone: [facility] 09-07-2022 11:31-0500 Systolic blood pressure 126 mm[Hg] Dr. Ramesh Parker Work Phone: [facility] 08-30-2022 10:05-0500 Body mass index (BMI) [Ratio] 40.5 kg/m2 Dr. Ramesh Parker Work Phone: [facility] 08-30-2022 10:05-0500 Body weight 113.[address] Ramesh Parker Work Phone: [facility] 08-30-2022 10:05-0500 Diastolic blood pressure 80 mm[Hg] Dr. Ramesh Parker Work Phone: [facility] 08-30-2022 10:05-0500 Systolic blood pressure 120 mm[Hg] Dr. Ramesh Parker Work Phone: [facility] 08-15-2022 08:44-0500 Body mass index (BMI) [Ratio] 40 kg/m2 Dr. Ramesh Parker Work Phone: [facility] 08-15-2022 08:44-0500 Body weight 112.[address] Ramesh Parker Work Phone: [facility] 08-15-2022 08:44-0500 Diastolic blood pressure 75 mm[Hg] Dr. Ramesh Parker Work Phone: [facility] 08-15-2022 08:44-0500 Systolic blood pressure 106 mm[Hg] Dr. Ramesh Parker Work Phone: [facility] 08-03-2022 08:40-0500 Body height 167.[address] Ramesh Parker Work Phone: [facility] Work Phone: 08-03-2022 08:39-0500 Body mass index (BMI) [Ratio] 39.9 kg/m2 Dr. Ramesh Parker Work Phone: [facility] 08-03-2022 08:39-0500 Body weight 112.[address] Ramesh Parker Work Phone: [facility] 08-03-2022 08:39-0500 Diastolic blood pressure 80 mm[Hg] Dr. Ramesh Parker Work Phone: [facility] 08-03-2022 08:39-0500 Systolic blood pressure 118 mm[Hg] Dr. Ramesh Parker Work Phone: [facility] 07-18-2022 08:14-0500 Body mass index (BMI) [Ratio] 38.8 kg/m2 Dr. Ramesh Parker Work Phone: [facility] 07-18-2022 08:14-0500 Body weight 109.[address] Ramesh Parker Work Phone: [facility] 07-18-2022 08:14-0500 Diastolic blood pressure 82 mm[Hg] Dr. Ramesh Parker Work Phone: [facility] 07-18-2022 08:14-0500 Systolic blood pressure 135 mm[Hg] Dr. Ramesh Parker Work Phone: [facility] 07-03-2022 09:36-0500 Body height 167.[address] Ramesh Parker Work Phone: [facility] Work Phone: 07-03-2022 09:36-0500 Body mass index (BMI) [Ratio] 38.1 kg/m2 Dr. Ramesh Parker Work Phone: [facility] 07-03-2022 09:36-0500 Body weight 107.[address] Ramesh Parker Work Phone: [facility] 07-03-2022 09:36-0500 Diastolic blood pressure 74 mm[Hg] Dr. Ramesh Parker Work Phone: [facility] 07-03-2022 09:36-0500 Systolic blood pressure 118 mm[Hg] Dr. Ramesh Parker Work Phone: [facility] 06-05-2022 08:26-0400 Body mass index (BMI) [Ratio] 37.3 kg/m2 Dr. Ramesh Parker Work Phone: [facility] 06-05-2022 08:26-0400 Body weight 104.[address] Ramesh Parker Work Phone: [facility] 06-05-2022 08:26-0400 Diastolic blood pressure 62 mm[Hg] Dr. Ramesh Parker Work Phone: [facility] 06-05-2022 08:26-0400 Systolic blood pressure 116 mm[Hg] Dr. Ramesh Parker Work Phone: [facility] 05-23-2022 08:49-0400 Body mass index (BMI) [Ratio] 37.3 kg/m2 Dr. Ramesh Parker Work Phone: [facility] 05-23-2022 08:49-0400 Body weight 104.[address] Ramesh Parker Work Phone: [facility] 05-23-2022 08:49-0400 Diastolic blood pressure 67 mm[Hg] Dr. Ramesh Parker Work Phone: [facility] 05-23-2022 08:49-0400 Systolic blood pressure 118 mm[Hg] Dr. Ramesh Parker Work Phone: [facility] 05-09-2022 08:04-0400 Body height 167.[address] Ramesh Parker Work Phone: [facility] Work Phone: 05-09-2022 08:04-0400 Body mass index (BMI) [Ratio] 36.6 kg/m2 Dr. Ramesh Parker Work Phone: [facility] Work Phone: 05-09-2022 08:04-0400 Body weight 102.[address] Ramesh Parker Work Phone: [facility] Work Phone: 05-09-2022 08:04-0400 Diastolic blood pressure 83 mm[Hg] Dr. Ramesh Parker Work Phone: [facility] Work Phone: 05-09-2022 08:04-0400 Systolic blood pressure 125 mm[Hg] Dr. Ramesh Parker Work Phone: [facility] Work Phone: 04-11-2022 11:11-0400 Body height 167.[address] Ramesh Parker Work Phone: [facility] Work Phone: 04-11-2022 11:11-0400 Body mass index (BMI) [Ratio] 36.1 kg/m2 Dr. Ramesh Parker Work Phone: [facility] Work Phone: 04-11-2022 11:11-0400 Body weight 101.[address] Ramesh Parker Work Phone: [facility] Work Phone: 04-11-2022 11:11-0400 Diastolic blood pressure 66 mm[Hg] Dr. Ramesh Parker Work Phone: [facility] Work Phone: 04-11-2022 11:11-0400 Systolic blood pressure 118 mm[Hg] Dr. Ramesh Parker Work Phone: [facility] Work Phone: 03-14-2022 10:50-0400 Body mass index (BMI) [Ratio] 35.6 kg/m2 Dr. Ramesh Parker Work Phone: [facility] Work Phone: 03-14-2022 10:50-0400 Body weight 100.[address] Ramesh Parker Work Phone: [facility] Work Phone: 03-14-2022 10:50-0400 Diastolic blood pressure 64 mm[Hg] Dr. Ramesh Parker Work Phone: [facility] Work Phone: 03-14-2022 10:50-0400 Systolic blood pressure 100 mm[Hg] Dr. Ramesh Parker Work Phone: [facility] Work Phone: 02-14-2022 09:18-0400 Body height 167.[address] Ramesh Parker Work Phone: [facility] Work Phone: 02-14-2022 09:18-0400 Body mass index (BMI) [Ratio] 36.1 kg/m2 Dr. Ramesh Parker Work Phone: [facility] Work Phone: 02-14-2022 09:18-0400 Body weight 101.[address] Ramesh Parker Work Phone: [facility] Work Phone: 02-14-2022 09:18-0400 Diastolic blood pressure 82 mm[Hg] Dr. Ramesh Parker Work Phone: [facility] Work Phone: 02-14-2022 09:18-0400 Systolic blood pressure 142 mm[Hg] Dr. Ramesh Parker Work Phone: [facility] Work Phone: 11-27-2021 08:14-0400 Body mass index (BMI) [Ratio] 35.8 kg/m2 Dr. Ramesh Parker Work Phone: [facility] Work Phone: 11-27-2021 08:14-0400 Body temperature 97.2 [degF] Dr. Ramesh Parker Work Phone: [facility] Work Phone: 11-27-2021 08:14-0400 Body weight 100.[address] Ramesh Parekr Work Phone: [facility] Work Phone: 11-27-2021 08:14-0400 Diastolic blood pressure 60 mm[Hg] Dr. Ramesh Parker Work Phone: [facility] Work Phone: 11-27-2021 08:14-0400 Heart rate 98 /min Dr. Ramesh Parker Work Phone: [facility] Work Phone: 11-27-2021 08:14-0400 Respiratory rate 16 /min Dr. Ramesh Parker Work Phone: [facility] Work Phone: 11-27-2021 08:14-0400 SaO2% (BldA) [Mass fraction] 97 % Dr. Ramesh Parker Work Phone: [facility] Work Phone: 11-27-2021 08:14-0400 Systolic blood pressure 98 mm[Hg] Dr. Ramesh Parker Work Phone: [facility] Work Phone: 11-27-2021 08:14-0400 Body height 167.[address] Ramesh Parkre Work Phone: [facility] Work Phone: 11-27-2021 08:14-0400 Body mass index (BMI) [Ratio] 35.8 kg/m2 Dr. Ramesh Parker Work Phone: [facility] Work Phone: 11-27-2021 08:14-0400 Body temperature 97.2 [degF] Dr. Ramesh Parker Work Phone: [facility] Work Phone: 11-27-2021 08:14-0400 Body weight 100.[address] Ramesh Parker Work Phone: [facility] Work Phone: 11-27-2021 08:14-0400 Diastolic blood pressure 60 mm[Hg] Dr. Ramesh Parker Work Phone: [facility] Work Phone: 11-27-2021 08:14-0400 Heart rate 98 /min Dr. Ramesh Parker Work Phone: [facility] Work Phone: 11-27-2021 08:14-0400 Respiratory rate 16 /min Dr. Ramesh Parker Work Phone: [facility] Work Phone: 11-27-2021 08:14-0400 SaO2% (BldA) [Mass fraction] 97 % Dr. Ramesh Parker Work Phone: [facility] Work Phone: 11-27-2021 08:14-0400 Systolic blood pressure 98 mm[Hg] Dr. Ramesh Parker Work Phone: [facility] Work Phone: Encounters Encounter Date Encounter Type Care Provider Facility Start: 01-26-2025 ambulatory Uli Gameztingjohnnie [facility] Fac[facility] ity:[facility] Start: 01-25-2025 Encounter for genera l adult medical examination without abnormal findings Ramesh Parker [facility] Start: 01-25-[address] Ramesh Parker MD Work Phone: [facility] Start: 01-25-2025 End: 01-25-[address] Ramesh Parker MD -[facility] Work Phone: Start: 01-25-2025 End: 01-25-[address] Ramesh Parker MD Work Phone: [facility] Work Phone: Start: 12-21-2024 ambulatory Munira Suarez cility:[facility] Start: 12-19-2024 Non-patient / Non-visit Radha Colin [facility] Start: 12-18-2024 Non-patient / Non-visit Radha Shaw [facility] Start: 12-17-2024 ambulatory Radha Shaw Facilit y:[facility] Start: 12-17-2024 End: 12-19-2024 Evaluation and management of inpatient Dr. Tamie Mojica MD -[facility] Work Phone: Start: 12-17-2024 ambulatory Ramesh Parker Facility :[facility] Start: 12-17-2024 Non-patient / Non-visit Dr. Tamie Mojica MD -[facility] Start: 12-15-2024 End: 12-15-[address] Tamie Mojica MD -[facility] Work Phone: Start: 12-15-2024 End: 12-15-[address] Ramesh Parker MD Work Phone: [facility] Work Phone: Start: 12-09-2024 End: 12-09-[address] Tamie Mojica MD -[facility] Work Phone: Start: 12-09-2024 End: 12-09-2024 ambulatory [facility] Facility:[facility] Start: 12-09-2024 End: 12-09-[address] Ramesh Parker MD Work Phone: [facility] Work Phone: Start: 12-09-2024 End: 12-09-[address] Tamie Mojica MD -Ultrasound, [facility] Work Phone: Start: 12-09-2024 End: 12-09-[address] [facility] Start: 12-01-2024 End: 12-01-[address] Tamie Mojica MD -[facility] Work Phone: Start: 12-01-2024 End: 12-01-2024 ambulatory Rameshofelia Parker Facility:[facility] Start: 11-30-2024 End: 11-30-[address] Ramesh Parker MD Work Phone: [facility] Work Phone: Start: 11-30-2024 End: 11-30-[address] Tamie Mojica MD -Ultrasound, [facility] Work Phone: Start: 11-30-2024 End: 11-30-2024 ambulatory [facility] Facility:[facility] Start: 11-24-2024 End: 11-24-[address] Ramesh Parker MD Work Phone: [facility] Work Phone: Start: 11-24-2024 End: 11-24-[address] Munira Sandoval DO -Laboratory, Specimen Work Phone: Start: 11-24-2024 End: 11-24-[address] Munira Sandoval DO -[facility] Work Phone: Start: 11-24-2024 End: 11-24-2024 ambulatory Munira Sandoval Facility:[facility] Start: 11-24-2024 End: 11-24-2024 ambulatory Munira Sandoval Facility:[facility] Start: 11-09-2024 End: 11-09-2024 Patient encounter procedure Eliza JHA -[facility] Work Phone: Start: 11-09-2024 End: 11-09-2024 ambulatory Eliza Negro Facility:[facility] Start: 10-29-2024 End: 10-29-[address] Ramesh Parker MD Work Phone: [facility] Work Phone: Start: 10-29-2024 End: 10-29-[address] Tamie Mojica MD -Ultrasound, [facility] Work Phone: Start: 10-29-2024 End: 10-29-2024 ambulatory Tamie Mojica Facility:[facility] Start: 10-27-2024 End: 10-27-[address] Munira Sandoval DO -[facility] Work Phone: Start: 10-27-2024 End: 10-27-2024 ambulatory Munira Sandoval Facility:[facility] Start: 10-15-2024 End: 10-15-[address] Tamie Mojica MD -[facility] Work Phone: Start: 10-15-2024 End: 10-15-2024 ambulatory Ramesh Parker Facility:[facility] Start: 09-29-2024 End: 09-29-2024 Patient encounter procedure Uli VALENZUELA -[facility] Work Phone: Start: 09-29-2024 End: 09-29-2024 ambulatory RAMESH PARKER [facility] Start: 09-29-2024 End: 09-29-2024 ambulatory Munira Sandoval Facility:[facility] Start: 09-08-2024 End: 09-08-2024 Patient encounter procedure Uli VALENZUELA -[facility] Work Phone: Start: 09-08-2024 End: 09-08-2024 ambulatory Ramesh Parker Facility:[facility] Start: 08-28-2024 End: 08-28-2024 ambulatory RAMESH PARKER Facility:[facility] Start: 08-28-2024 End: 08-28-2024 Office outpatient visit 15 minutes Jacobo Phan MD Work Phone: [facility] Comment on above: Otalgia, left (Prima ry Dx) Start: 08-17-2024 End: 08-17-2024 Patient encounter procedure Vikram Hanson APRN.CNP Work Phone: [facility] Comment on above: Acute cough (Primary Dx); Acute otitis media, left Start: 08-17-2024 End: 08-17-2024 ambulatory VIKRAM HANSON Facility:[facility] Start: 08-17-2024 End: 08-17-2024 Subsequent hospital visit by physician Xr [facility] Work Phone: Radiology Comment on above: Acute cough [R05.1] Start: 08-12-2024 End: 08-12-[address] Tamie Mojica MD -[facility] Work Phone: Start: 08-12-2024 End: 08-12-2024 ambulatory Ramesh Parker Facility:[facility] Start: 07-28-2024 End: 07-28-2024 ambulatory RAMESH PARKER [facility] Start: 07-14-2024 End: 07-14-[address] Munira Sandoval DO -[facility] Work Phone: Start: 07-14-2024 End: 07-14-2024 ambulatory Munira Sandoval Facility:[facility] Start: 06-18-2024 End: 06-18-2024 ambulatory Ramesh Parker Facility:[facility] Start: 05-27-2024 End: 05-27-2024 ambulatory Eliza Negro Facility:[facility] Start: 05-22-2024 End: 05-22-2024 ambulatory Ramesh Parker Facility:[facility] Start: 05-22-2024 End: 05-22-2024 ambulatory Eliza Negro Facility:[facility] Start: 05-06-2024 End: 05-06-2024 ambulatory Eliza Marky Facility:[facility] Start: 05-01-2024 End: 05-01-2024 ambulatory Radha Shaw Facility:[facility] Start: 05-01-2024 End: 05-01-2024 ambulatory Radhaganesh Shaw Facility:[facility] Start: 2024 End: 2024 ambulatory Eliza Marky Facility:[facility] Start: 04-22-2024 End: 04-22-2024 ambulatory Eliza Marky Facility:[facility] Start: 12-15-2022 End: 12-15-[address] Ramesh Parker Work Phone: [facility] Work Phone: Start: 12-15-2022 End: 12-15-[address] Ramesh Parker Work Phone: [facility] Start: 12-13-[address] Ramesh Parker Work Phone: [facility] Start: 12-13-2022 End: 12-13-2022 Encounter for general adult medical examination without abnormal findings Dr. Ramesh Parker Work Phone: [facility] Start: 12-13-2022 End: 12-13-[address] Ramesh Parker Work Phone: [facility] Start: 12-11-2022 End: 12-11-[address] Ramesh Parker Work Phone: [facility] Start: 11-27-2022 End: 11-27-[address] Ramesh Parker Work Phone: [facility] Start: 11-06-2022 End: 11-06-[address] Ramesh Parker Work Phone: [facility] Start: 11-04-2022 End: 11-04-[address] Ramesh Parker Work Phone: [facility] Start: 09-26-2022 End: 09-26-[address] Ramesh Parker Work Phone: [facility] Start: 09-25-2022 Non-patient / Non-visit Dr. Ramesh Parker Work Phone: [facility] Start: 09-24-2022 Non-patient / Non-visit Dr. Ramesh Parker Work Phone: [facility] Start: 09-23-2022 Non-patient / Non-visit Dr. Ramesh Parker Work Phone: [facility] Start: 09-23-2022 End: 09-25-2022 Evaluation and management of inpatient Dr. Ramesh Parker Work Phone: [facility] Start: 09-20-2022 End: 09-20-[address] Ramesh Parker Work Phone: [facility] Start: 09-19-2022 End: 09-19-[address] Ramesh Parker Work Phone: [facility] Start: 09-14-2022 End: 09-14-[address] Ramesh Parker Work Phone: [facility] Start: 09-07-2022 End: 09-07-[address] Ramesh Parker Work Phone: [facility] Start: 09-03-2022 End: 09-03-[address] Ramesh Parker Work Phone: [facility] Work Phone: Start: 09-03-2022 End: 09-03-[address] Ramesh Parker Work Phone: [facility], [facility] Start: 08-30-2022 End: 08-30-[address] Ramesh Parker Work Phone: [facility], Specimen Start: 08-30-2022 End: 08-30-[address] Ramesh Parker Work Phone: [facility] Start: 08-15-2022 End: 08-15-[address] Ramesh Parker Work Phone: [facility] Start: 08-03-2022 End: 08-03-[address] Ramesh Parker Work Phone: [facility] Start: 07-31-2022 End: 07-31-[address] Ramesh Parker Work Phone: [facility] Work Phone: Start: 07-31-2022 End: 07-31-[address] [facility] Start: 07-18-2022 End: 07-18-[address] Ramesh Parker Work Phone: [facility] Start: 07-03-2022 End: 07-03-[address] Ramesh Parker Work Phone: [facility] Work Phone: Start: 07-03-2022 End: 07-03-[address] Ramesh Parker Work Phone: [facility] Start: 06-05-2022 End: 06-05-[address] Ramesh Parker Work Phone: [facility] Start: 05-23-2022 End: 05-23-[address] Ramesh Parker Work Phone: [facility] Start: 05-09-2022 End: 05-09-[address] Ramesh Parker Work Phone: [facility] Work Phone: Start: 05-09-2022 End: 05-09-[address] Ramesh Parker Work Phone: [facility] Start: 04-11-2022 End: 04-11-[address] Ramesh Parker [facility] Start: 04-11-2022 End: 04-11-[address] Ramesh Parker Work Phone: [facility] Start: 03-14-2022 End: 03-14-[address] Ramesh Parker Work Phone: [facility] Start: 02-27-2022 End: 02-27-[address] [facility]amesh Parker [facility] Start: 02-14-2022 End: 02-14-[address] Ramesh Parker [facility] Start: 02-14-2022 End: 02-14-[address] Ramesh Parker Work Phone: [facility] Start: 02-12-2022 Non-patient / Non-visit Dr. Ramesh Parker Work Phone: [facility] Start: 01-27-2022 End: 01-27-[address] Ramesh Parker Work Phone: [facility] Start: 01-17-2022 End: 01-17-[address] Ramesh Parker [facility] Start: 11-27-2021 End: 11-27-[address] Ramesh Parker Work Phone: [facility] Start: 09-08-2018 Emergency department patient visit UNKNOWN PROVIDER [facility] Procedures Date Procedure Procedure Detail Performing Clinician Start: 12-17-2024 Serologic test for syphilis Dr. Ramesh Parker MD Work Phone: Start: 12-17-2024 Measurement of pH in vaginal fluid specimen using nitrazine yellow for detection of rupture of amniotic membrane Dr. Ramesh Parker MD Work Phone: Comment on above: Amniotic fluid prese nt indicates rupture of Membranes. RESULTS CALLED TO BETTIE KUO 12/17/24 1601 Alison Simmons.REPORT READ BACK BY SAME. Start: 12-15-2024 Measurement of pH in vaginal fluid specimen using nitrazine yellow for detection of rupture of amniotic membrane Dr. Ramesh Parker MD Work Phone: Comment on above: Amniotic fluid not p resent indicates No Rupture of FetalMembranes at time of specimen collection. Start: 12-09-2024 Ultrasonography for antepartum monitoring of fetus Dr. Ramesh Parker MD Work Phone: Start: 11-30-2024 Ultrasound scan for growth Dr. Ramesh Parker MD Work Phone: Start: 11-24-2024 Beta-hemolytic Strep tococcus culture Dr. Ramesh Parker MD Work Phone: Start: 10-29-2024 Ultrasound scan for growth Dr. Ramesh Parker MD Work Phone: Start: 08-17-2024 Radiologic exam ches t 2 views Vikram Valentin [employer] Work Phone: Start: 09-03-2022 Ultrasound scan for growth Dr. Ramesh Parker Work Phone: Start: 07-31-2022 Ultrasound scan for growth Dr. Ramesh Parker Work Phone: Group B Streptococcu s Culture Dr. Ramesh Parkre Work Phone: Urine culture Dr. Ramesh Chester hner Work Phone: Plan of Treatment Date Care Activity Detail Author Start: 07-18-2032 Urine microalbumin profile DTaP,Tdap,Td Vaccine (2 - Td or Tdap) [facility] Start: 12-19-2024 Patient discharge [facility] Start: 12-17-2024 Administration of medication [facility] Start: 12-17-2024 Application of ice collar, cap or bag [facility] Start: 12-17-[address] [facility] Start: 12-17-2024 Introduction of urinary catheter [facility] Start: 12-17-2024 Measuring intake and output [facility] Start: 12-17-2024 Notification of physician [facility] Start: 12-17-2024 Procedure discontinued [facility] Start: 12-17-2024 Provision of activity privileges [facility] Start: 12-17-2024 Vital signs measurements [facility] Start: 12-17-2024 End: 12-17-2024 [facility] Start: 12-17-[address] [facility] Start: 12-17-2024 Admission procedure [facility] Start: 12-15-2024 Nonstress test [facility] Start: 12-15-2024 Obstetric monitoring [facility] Start: 12-15-2024 Vital signs measurements [facility] Start: 12-15-2024 [facility] Start: 12-15-2024 Patient discharge [facility] Start: 04-26-2024 Covid-19 Vaccine ( season) Covid-19 Vaccine ( season) [facility] Start: 04-26-2024 Influenza vaccination Influenza Vaccine (#1) [facility] Start: 09-25-2022 Patient discharge [facility] Start: 09-23-2022 Administration of medication [facility] Start: 09-23-2022 Application of ice collar, cap or bag [facility] Start: 09-23-[address] [facility] Start: 09-23-2022 Introduction of urinary catheter [facility] Start: 09-23-2022 Measuring intake and output [facility] Start: 09-23-2022 Notification of physician [facility] Start: 09-23-2022 Procedure discontinued [facility] Start: 09-23-2022 Provision of activity privileges [facility] Start: 09-23-2022 Vital signs measurements [facility] Start: 09-23-2022 [facility] Start: 09-23-2022 Admission procedure [facility] Start: 09-23-2022 Verification routine [facility] Start: 2013 Screening for malignant neoplasm of cervix Cervical Cancer Screening [facility] Start: 2011 Hepatitis B Vaccine (1 of 3 - 19+ 3-dose series) Hepatitis B Vaccine (1 of 3 - 19+ 3-dose series) [facility] Start: 2010 Anxiety Screening Anxiety Screening [facility] Start: 2010 Depression Screening Depression Screening [facility] Start: 2010 Hepatitis C screening Hepatitis C Screening [facility] Start: 2010 HIV screening HIV Screening [facility] ABO and Rh group [Ty pe] in Blood [facility] Work Phone: ABO and Rh group [Ty pe] in Blood [facility] CBC W Auto Different ial panel - Blood [facility] Work Phone: CBC W Auto Different ial panel - [facility] Comprehensive metabo lic 2000 panel - Serum or Plasma [facility] Glucose [Mass/volume ] in Serum or Plasma --1 hour post 50 g glucose PO [facility] Work Phone: Hepatitis B surface antigen measurement [facility] Work Phone: Hepatitis C antibody measurement [facility] Work Phone: HIV 1+2 Ab+HIV1 p24 Ag [Presence] in Serum or Plasma by Immunoassay [facility] Work Phone: Lipid 1996 panel - S macarena or Plasma [facility] Patient Education [facility] Work Phone: Patient referral [facility] Work Phone: Rubella IgG measurement [facility] Work Phone: Treponema sp Ab [Pre sence] in Serum [facility] Work Phone: Ultrasonography for antepartum monitoring of fetus [facility] Ultrasound scan for growth [facility] Work Phone: Ultrasound scan for growth [facility] Vitamin D, 25-hydrox y measurement [facility] Work Phone: Vitamin D, 25-hydrox y measurement [facility] Immunizations Immunization Date Immunization Notes Care Provider Jadyn fuller 09-29-2024 tetanus toxoid, redu augusto diphtheria toxoid, and acellular pertussis vaccine, adsorbed Dr. Ramesh Parker MD Work Phone: [facility] 07-18-2022 tetanus toxoid, redu augusto diphtheria toxoid, and acellular pertussis vaccine, adsorbed Dr. Ramesh Parker Work Phone: [facility] 05-10-2019 influenza virus vaccine, unspecified formulation Vikram Hanson APRN.CNP Work Phone: [facility] Payers Date Payer Category Payer Unknown MMO MMO [employer] PPO [id number] 2024-Present [phone] [address] [place] [address] PPO [id number] 2024 Unknown [id number] 2024 Self-pay [id number] 2024 Private Health Insurance [id number] 2022 Private Health Insurance AETNA A ETNA POS [id number] 2022-Present [phone] [address] [place] [address] POS [id number] 2021 Private Health Insurance [id number] 1990 Unknown [id number] .0.1.910384.3.579.2. 668 1992 Unknown [id number] .0.1.586119.3.579.2. 479 1992 Unknown [id number] 2.840.1.157301.3.579.2. 479 Private Health Insurance [id number] Private Health Insurance [id number] Unknown [id number] Unknown [id number] Unknown [id number] Unknown [id number] 840.1.752135.3.579.2. 462 Unknown [id number] 10.11.830.1.900628.3.579.2. 462 Unknown [id number] 2.16.840.1.516580.3.579.2. 462 Unknown [id number] 2.16.840.1.478759.3.579.2. 462 Unknown [id number] 2.16.840.1.608780.3.579.2. 462 Unknown [id number] 2.16.840.1.462685.3.579.2. 462 Unknown [id number] 2.16.840.1.740164.3.579.2. 462 Unknown [id number] 2.16.840.1.057133.3.579.2. 462 Unknown [id number] 2.840.1.102773.3.579.2. 462 Unknown [id number] 2.16840.1.510343.3.579.2. 462 Unknown [id number] 2.840.1.242105.3.579.2. 462 Unknown [id number] 2.16840.1.106821.3.579.2. 462 Unknown [id number] 2.16.840.1.490124.3.579.2. 462 Unknown [id number] 2.16.840.1.300156.3.579.2. 462 Unknown [id number] 2.16840.1.833642.3.579.2. 462 Unknown [id number] 2.840.1.906301.3.579.2. 462 Unknown [id number] 2.16.840.1.157643.3.579.2. 462 Unknown [id number] 2.16.840.1.317383.3.579.2. 462 Unknown [id number] 2.16.840.1.377928.3.579.2. 462 Unknown [id number] 2.16.840.1.536835.3.579.2. 462 Unknown [id number] 2.16840.1.573794.3.579.2. 462 Unknown [id number] 2.16.840.1.871600.3.579.2. 462 Unknown [id number] 2.16.840.1.357264.3.579.2. 462 Unknown [id number] 2.16.840.1.719973.3.579.2. 462 Unknown [id number] 2.16.840.1.509849.3.579.2. 462 Unknown [id number] 2.16.840.1.445606.3.579.2. 462 Unknown [id number] 2.16.840.1.497818.3.579.2. 462 Unknown [id number] 2.16.840.1.310479.3.579.2. 462 Unknown [id number] 2.16.840.1.084808.3.579.2. 462 Unknown [id number] 2.16840.1.116793.3.579.2. 462 Unknown [id number] 2.16840.1.229401.3.579.2. 462 Unknown [id number] 2.16840.1.699320.3.579.2. 462 Unknown [id number] 2.16840.1.310701.3.579.2. 462 Worker's Compensation Social History Date Type Detail Facility Start: 11-27-2021 End: 12-13-2022 Tobacco smoking status WYIS Unknown if ever smoked [facility] Start: 1990 Sex Assigned At Female W [facility] Start: 08-17-2024 End: 12-17-2024 Tobacco smoking status NHIS Never smoked tobacco [facility] Start: 08-17-2024 End: 08-28-2024 History of Social function [facility] Start: 08-17-2024 End: 08-28-2024 Tobacco use panel [facility] Start: 1990 Sex assigned at Not on file [facility] Start: 11-11-2024 End: 12-15-2024 Sex Female (finding) [facility] Goals Date Patient Goal Desired Activity /State Functional Status Date Assessment Result Facility 12-17-2024 Functional status Activity Ability Rommel cuello [facility] Work Phone: Clinical Notes 02-14-2022 to 12-19-2024 Note Date & Type Note Facility 12-19-2024 Note [facility] Medical Records Department [address] [place] [address] Discharge Summary 12/19/24 0940 MR#: [id number] Acct: [id number] Name: MARIANELA GREY Rep #: [id number] : 1990 34 From: Radha Shaw CNM PCP: Dr. Ramesh Parker MD Status:ADM IN Location: [id number] Providers Date of Admission: 12/17/24 Primary Care Physician: Dr. Ramesh Parker MD Reason For Visit: VAGINAL DELIVERY PER JOSE IN Diagnosis Discharge Diagnosis (1) Vaginal delivery: Status: Acute Code(s): O80 - Encounter for full-term uncomplicated delivery Plan: s/p PPD # 2 1. routine post delivery care 2. breast feeding- support given 3. rh positive 4. rubella immune 5. d/c home today Medications at Discharge Home Medications PNV 153-FA 400 mcg-om3 35 mg-dha 25 mg-epa 5 mg-fish oil chew tablet 1 tab PO DAILY 05/12/24 Hospital Course Operations None Procedures None Summary of Care Provided Minutes Spent on Discharge: 15 Hospital Course: presented with SROM that resulted in at term. uncomplicated pp course. Physical Exam Chest inspection of chest normal and inspection of breasts normal GI normal to inspection, nondistended, normoactive bowel sounds Uterus Palpation: uterus fundus firm (below u) Back/Spine no CVA tenderness Extremity normal to inspection, full ROM and no calf tenderness Skin no rashes or lesions noted Psych mental status grossly normal Weight / BMI Weight Weight: 266 lb 9.6 oz Body Mass Index (BMI) 43.0 ABG / Lab / Microbiology Data 12/17/24 16:45 D/C Instructions Discharge Diet: No restrictions May resume sexual activity in: 4-6 weeks Call your doctor if your incision/area has: Continuous Slow Oozing, Sudden Increased Bleeding, Increased Pain/ Swelling, Increased Redness and Foul Smelling Discharge DC O2, CPAP, BIPAP Needs Home O2 Discharge instructions: No Please Follow Up With: Tamie Mojica MD When: Call [phone] to make an appointment with your doctor in 6 weeks. If you had elevated blood pressure or 4th degree laceration, you will need to be seen in 2 weeks. Meaningful Use Info Meaningful Use Meaningful Use Diagnoses (Choose all that apply): None applicable Ischemic Stroke Statin Dosing Therapy Reference: STATIN DOSE THERAPY REFERENCE: * Patients > 75 years receive moderate or high dose statin therapy. * Patients 75 years or YOUNGER should receive HIGH intensity statin dose unless contraindicated. You will be required to document reason for non-treatment if statin daily dose does not meet guidelines. HIGH DOSE STATIN THERAPY DAILY Atorvastatin > than or = to 40 mg Rosuvastatin > than or = to 20 mg Amlodipine + Atorvastatin > than or = to 2.5/40 mg Ezetimibe + Simvastatin 10/80 mg Simvastatin 80mg Discharge Plan Admission Admit Date/Time: 12/17/24 16:10 Attending Provider: Tamie Mojica Primary Care Provider: Ramesh Parker Discharge Orders/Prescriptions Prescriptions: No Action PNV no.233-OE-ga1-lfp-wac-obsu 400 mcg-35 mg- 25 mg-5 mg tablet,chewable 1 tab PO DAILY Referrals / Follow Up: Ramesh Parker MD [Primary Care Provider] - Disposition Disposition (needs filled in before D/C Order can be placed): Home, Self Care 12/19/24 0947 Cosigner Signature (if applicable): CC: YELENA Shaw; Dr. Ramesh Parker MD Signed [facility] 12-09-2024 Radiology Diagnostic study note [facility] Imaging Services [address] [place] [address] OB Limited (No Biometrics) MR#: [id number] Acct: [id number] Name: MARIANELA GREY Rep #: [id number] : 1990 F 34 From: Jaz Gotti MD PCP: Dr. Ramesh Parker MD Status: REG CLI Study:OB Limited (No Biometrics) Date of Exam : 12/09/24 Exam# [id number] Ordering Dr: Tamie Albarran MD EXAM: OB LIMITED (NO BIOMETRICS) (USOBL) 12/09/2024 CLINICAL HISTORY: RANDI RECHECK. Reportedly 38 weeks and 3 days with ALECIA 12/20/2024 by previously established dates. COMPARISON: 11/30/2024 TECHNIQUE: A limited transabdominal obstetrical ultrasound was performed. FINDINGS: Gravid uterus with a single fetus. Amniotic Fluid Index: 9.7 (normal 5-25), deepest vertical pocket 3.5 (normal 2-8). presentation: Cephalic. heart rate: Present, 152 bpm. Placenta: Posterior. Calcifications noted. Maternal anatomy: Cervix: Unremarkable, cervical length 3.5 cm. Right ovary: Not well seen due to the gravid uterus. Left ovary: Not well seen due to the gravid uterus. US/OB Limited (No Biometrics) IMPRESSION: 1. Amniotic fluid index and deepest vertical pocket within normal limits. 2. Additional description as above. Reading Location: [id number] CC: Dr. Ramesh Parker MD; Dr. Tamie Mojica MD ~ Right Of [address] Worker: Signed [facility] 11-30-2024 Radiology Diagnostic study note [facility] Imaging Services [address] [place], [place] [id number] OB Limited With Biometrics MR#: [id number] Acct: [id number] Name: MARIANELA GREY Rep #: [id number] : 1990 F 34 From: Modesto Campos MD PCP: Dr. Ramesh Parker MD Status: REG CLI Study:OB Limited With Biometrics Date of Exam : 11/30/24 Exam# [id number] Ordering Dr: Tamie Albarran MD PROCEDURE: OB LIMITED WITH BIOMETRICS 11/30/2024 REASON FOR EXAM: GROWTH TECHNIQUE: High resolution obstetric ultrasound performed using a 2D transducer. Standard views obtained, including biometry, anatomy survey, and Doppler studies. COMPARISON: 10/29/2024 FINDINGS Number: 1 Position: Cephalic Placental Position: Posterior Placental Abnormalities: None DIMENSIONS: Biparietal Diameter: 8.5 cm/34 weeks 2 days Head Circumference: 32.2 cm/36 weeks 2 days Abdominal Circumference: 33.9 cm/37 weeks 5 days Femur Length: 6.7 cm/34 weeks 4 days ESTIMATED WEIGHT: 2938 ESTIMATED WEIGHT PERCENTILE (24+ weeks): 38 ESTIMATED GESTATIONAL AGE: Baseline: 37 weeks 1 day By Ultrasound: 35 weeks 6 days ESTIMATED DATE OF DELIVERY: Baseline: 12/20/2024 By Ultrasound: 12/29/2024 BIOPHYSICAL ASSESSMENT: Amniotic Fluid Volume: 3.9 cm Amniotic Fluid Index: 8.8 cm (8-24 cm normal range) Cardiac Motion: 147 beats per minute (average) Trunk and Limb Motion: Present. MATERNAL ANATOMY: Adnexa: Neither maternal ovary is successfully identified. Cervical Length (if measured): Not visualized US/OB Limited With Biometrics IMPRESSION: Living intrauterine of 35 weeks 6 days as described above. Reading Location: [id number] CC: Dr. Ramesh Parker MD; Dr. Tamie Mojica MD ~ Right Of Way Worker: Signed [facility] 10-30-2024 Radiology Diagnostic study note [facility] Imaging Services [address] [place] [address] [id number] OB Limited With Biometrics MR#: [id number] Acct: [id number] Name: MARIAENLA GREY Rep #: [id number] : 1990 F 34 From: Alan Reagan MD PCP: Dr. Ramesh Parker MD Status: REG CL Study:OB Limited With Biometrics Date of Exam : 10/29/24 Exam# [id number] Ordering Dr: Tamie Albarran MD PROCEDURE: OB LIMITED WITH BIOMETRICS REASON FOR EXAM: 32 week gestation. COMPARISON: None. FINDINGS Number: 1 Position: Vertex Placental Position: Anterior. Placental Abnormalities: None. DIMENSIONS: Biparietal Diameter: 8 cm: 31 weeks and 5 days: 18 percentile/ Head Circumference: 30 cm: 32 weeks and 5 days: 17 percentile/ Abdominal Circumference: 29 cm: 32 weeks and 6 days: 57 percentile/ Femur Length: 6.2 cm: 32 weeks and 1 day: 25th percentile/ ESTIMATED WEIGHT: 1989 g plus/-298 g ESTIMATED WEIGHT PERCENTILE (24+ weeks): 38 ESTIMATED GESTATIONAL AGE: Baseline: 32 weeks and 4 days By Ultrasound: 32 weeks and 2 days ESTIMATED DATE OF DELIVERY: Baseline: December 20, 2024 By Ultrasound: December 22, 2024 BIOPHYSICAL ASSESSMENT: Amniotic Fluid Volume: Subjectively normal. Amniotic Fluid Index: 13.5 (8-24 cm normal range) Cardiac Motion: 130 beats per minute (average) Trunk and Limb Motion: Present. MATERNAL ANATOMY: Adnexa: Neither maternal ovary is successfully identified. Cervical Length (if measured): 4 cm US/OB Limited With Biometrics IMPRESSION: Single live intrauterine gestation with a mean gestational age of 32 weeks and 2days. Reading Location: [id number] CC: Dr. Ramesh Parker MD; Dr. Tamie Mojica MD ~ Right Of Way Worker: Signed [facility] 09-29-2024 Evaluation note Diagnosis Onset Date Resolution Anxiety acute September 29, 2024 12:48pm Obesity affecting acute September 29 12:48pm acute September 29, 2024 12:48pm Rh negative state in antepartum period acute September 29, 2024 12:48pm Supervision of high risk , antepartum acute September 29 12:48pm History of miscarriage, currently resolved September 29, 2024 12:48pm Low-lying placenta resolved 2024 12:48pm Anxiety acute October 15, 2024 2:45pm Obesity affecting acute October 15, 2 025 2:45pm acute October 15, 2024 2:45pm Rh negative state in antepartum period acute October 15, 2024 2:45pm Supervision of high risk , antepartum acute October 15, 2 025 2:45pm Anxiety acute October 27 9:58am Obesity affecting acute October 27, 2024 9:58am acute October 27 9:58am Rh negative state in antepartum period acute October 27 9:58am Supervision of high risk , antepartum acute October 27, 2024 9:58am Anxiety acute November 09 9:42am Obesity affecting acute November 09, 2024 9:42am acute November 09 9:42am Rh negative state in antepartum period acute November 09 9:42am Supervision of high risk , antepartum acute November 09, 2024 9:42am Anxiety acute November 24 9:59am Obesity affecting acute November 24, 2024 9:59am acute November 24 9:59am Rh negative state in antepartum period acute November 24 9:59am Supervision of high risk , antepartum acute November 24, 2024 9:59am RANDI (amniotic fluid index) borderline low acute December 01, 2024 9:44am Anxiety acute December 01 9:44am Obesity affecting acute December 01, 2024 9:44am acute December 01 9:44am Rh negative state in antepartum period acute December 01 9:44am Supervision of high risk , antepartum acute December 01, 2024 9:44am RANDI (amniotic fluid index) borderline low acute November 12:32pm Anxiety acute December 09 12:32pm Obesity affecting acute December 09, 2024 12:32pm acute December 09 12:32pm Rh negative state in antepartum period acute December 09 12:32pm Supervision of high risk , antepartum acute December 09, 2024 12:32pm RANDI (amniotic fluid index) borderline low acute November 11:17am Anxiety acute December 15 11:17am Obesity affecting acute December 15, 2024 11:17am acute December 15 11:17am Rh negative state in antepartum period acute December 15 11:17am Supervision of high risk , antepartum acute December 15, 2024 11:17am RANDI (amniotic fluid index) borderline low acute November 4:10pm Anxiety acute December 17 4:10pm Obesity affecting acute December 17, 2024 4:10pm acute December 17 4:10pm Rh negative state in antepartum period acute December 17 4:10pm SROM (spontaneous rupture of membranes) acute November 4:10pm Supervision of high risk , antepartum acute December 17, 2024 4:10pm Vaginal delivery acute December 172024 4:10pm [facility] Work Phone: 1(475) 885-271001-14-2025 Evaluation note* Diagnosis Onset Date Resolution Status Admit Date Anxiety acute September 08, 2024 1:33pm Obesity affecting acute September 08, 2024 1:33pm acute September 08, 2024 1:33pm Rh negative state in antepartum period acute September 08, 2024 1:33pm Supervision of high risk , antepartum acute September 082024 1:33pm FH: breast cancer resolved September 08, 2024 1:33pm History of miscarriage, currently resolved September 08, 2024 1:33pm Low-lying placenta resolved 2024 1:33pm Anxiety acute September 29, 2024 12:48pm Obesity affecting acute September 29, 2024 12:48pm acute September 29, 2024 12:48pm Rh negative state in antepartum period acute September 29, 2024 12:48pm Supervision of high risk , antepartum acute September 292024 12:48pm History of miscarriage, currently resolved September 29, 2024 12:48pm Low-lying placenta resolved 2024 12:48pm Anxiety acute October 15, 2024 2:45pm Obesity affecting acute October 15, 2024 2:45pm acute October 15, 2024 2:45pm Rh negative state in antepartum period acute October 15, 2024 2:45pm Supervision of high risk , antepartum acute September 272024 2:45pm Anxiety acute October 27 9:58am Obesity affecting acute October 27, 2024 9:58am acute October 27 9:58am Rh negative state in antepartum period acute October 27 9:58am Supervision of high risk , antepartum acute October 27, 2024 9:58am Anxiety acute November 09 9:42am Obesity affecting acute November 09, 2024 9:42am acute November 09 9:42am Rh negative state in antepartum period acute November 09 9:42am Supervision of high risk , antepartum acute October 9:42am Anxiety acute November 24 9:59am Obesity affecting acute November 24, 2024 9:59am acute November 24 9:59am Rh negative state in antepartum period acute November 24 9:59am Supervision of high risk , antepartum acute November 24, 2024 9:59am RANDI (amniotic fluid index) borderline low acute December 01, 2024 9:44am Anxiety acute December 01 9:44am Obesity affecting acute December 01, 2024 9:44am acute December 01 9:44am Rh negative state in antepartum period acute December 01 9:44am Supervision of high risk , antepartum acute December 01, 2024 9:44am RANDI (amniotic fluid index) borderline low acute December 09, 2024 12:32pm Anxiety acute December 09 12:32pm Obesity affecting acute December 09, 2024 12:32pm acute December 09 12:32pm Rh negative state in antepartum period acute December 09 12:32pm Supervision of high risk , antepartum acute November 12:32pm [facility] Work Phone: 1(845) 758-443101-14-2025 Evaluation note* Diagnosis Onset Date Resolution Status Admit Date Anxiety acute September 08, 2024 1:33pm Obesity affecting acute September 08, 2024 1:33pm acute September 08, 2024 1:33pm Rh negative state in antepartum period acute September 08, 2024 1:33pm Supervision of high risk , antepartum acute September 082024 1:33pm FH: breast cancer resolved September 08, 2024 1:33pm History of miscarriage, currently resolved September 08, 2024 1:33pm Low-lying placenta resolved 2024 1:33pm Anxiety acute September 29, 2024 12:48pm Obesity affecting acute September 29, 2024 12:48pm acute September 29, 2024 12:48pm Rh negative state in antepartum period acute September 29, 2024 12:48pm Supervision of high risk , antepartum acute September 292024 12:48pm History of miscarriage, currently resolved September 29, 2024 12:48pm Low-lying placenta resolved 2024 12:48pm Anxiety acute October 15, 2024 2:45pm Obesity affecting acute October 15, 2024 2:45pm acute October 15, 2024 2:45pm Rh negative state in antepartum period acute October 15, 2024 2:45pm Supervision of high risk , antepartum acute September 272024 2:45pm Anxiety acute October 27 9:58am Obesity affecting acute October 27, 2024 9:58am acute October 27 9:58am Rh negative state in antepartum period acute October 27 9:58am Supervision of high risk , antepartum acute October 27, 2024 9:58am Anxiety acute November 09 9:42am Obesity affecting acute November 09, 2024 9:42am acute November 09 9:42am Rh negative state in antepartum period acute November 09 9:42am Supervision of high risk , antepartum acute October 9:42am Anxiety acute November 24 9:59am Obesity affecting acute November 24, 2024 9:59am acute November 24 9:59am Rh negative state in antepartum period acute November 24 9:59am Supervision of high risk , antepartum acute November 24, 2024 9:59am RANDI (amniotic fluid index) borderline low acute December 01, 2024 9:44am Anxiety acute December 01 9:44am Obesity affecting acute December 01, 2024 9:44am acute December 01 9:44am Rh negative state in antepartum period acute December 01 9:44am Supervision of high risk , antepartum acute December 01, 2024 9:44am RANDI (amniotic fluid index) borderline low acute December 09, 2024 12:32pm Anxiety acute December 09 12:32pm Obesity affecting acute December 09, 2024 12:32pm acute December 09 12:32pm Rh negative state in antepartum period acute December 09 12:32pm Supervision of high risk , antepartum acute November 12:32pm RANDI (amniotic fluid index) borderline low acute December 15, 2024 11:17am Anxiety acute December 15 11:17am Obesity affecting acute December 15, 2024 11:17am acute December 15 11:17am Rh negative state in antepartum period acute December 15 11:17am Supervision of high risk , antepartum acute November 11:17am [facility] Work Phone: 1(974) 847-817401-03-2025 NoteHNO ID: [id number] Author: JACOBO PHAN MD Service: ? Author Type: Physician Type: Progress Notes Filed: 08/28/2024 10:45 Note Text: Patient presents with: Ear Pain: LEFT ear x1 week HPI: Feeling left ear pain for 1 1/2 weeks. Treated for left otitis media with amoxicillin here 08/17/24. The pain has decreased but she continues to feel pressure in the ear. Positive symptoms: Earache, decreased hearing, improving Cough, Nasal Congestion, Negative symptoms: Fever, otorrhea, OTC: Robitussin. Currently 22 weeks . MEDICATIONS: Current Outpatient Medications Medication Sig vit no.124/iron/folic ( VITAMIN ORAL) Take by mouth. albuterol HFA (PROVENTIL HFA, VENTOLIN HFA) 90 mcg/actuation inhaler Inhale 2 Puffs as instructed every 6 hours as needed for wheezing/shortness of breath. No current facility-administered medications for this visit. ALLERGIES: ALLERGIES No Known Allergies VITALS: BP 109/71 Pulse 103 Temp 36.7 ?C (98.1 ?F) (Right Tympanic) Resp 16 Wt 110.7 kg (244 lb 0.8 oz) LMP 03/11/2017 SpO2 98% PHYSICAL EXAM: GEN: Pleasant, in no acute distress. HEENT: PERRL, EOMI, conjunctiva clear Ears: canals clear. TMs without erythema, bulge, or effusion. TMJs non-tender. Sinuses: non-tender frontal sinus, non-tender maxillary sinuses Throat: moist mucous membranes, no erythema, no exudate Neck: supple, no thyromegaly, no lymphadenopathy HEART: regular rate, regular rhythm, no murmurs LUNGS: clear to auscultation, no wheezes or crackles, no increased WOB ASSESSMENT/PLAN: 1. Otalgia, left - ICD9: 388.70, ICD10: H92.02 Reassured by normal ear exam. Suspect eustachian tube dysfunction associated with recent illness. Continue supportive care with safe medications. She may add nasal steroid spray. Jacobo Phan, [facility]01-03-2025 History of Present illness Narrative* Jacobo Phan MD - 08/28/2024 10:36 AM EST Patient presents with: Ear Pain: LEFT ear x1 week HPI: Feeling left ear pain for 1 1/2 weeks. Treated for left otitis media with amoxicillin here 08/17/24. The pain has decreased but she continues to feel pressure in the ear. Positive symptoms: Earache, decreased hearing, improving Cough, Nasal Congestion, Negative symptoms: Fever, otorrhea, OTC: Robitussin. Currently 22 weeks . MEDICATIONS: Current Outpatient Medications Medication Sig vit no.124/iron/folic ( VITAMIN ORAL) Take by mouth. albuterol HFA (PROVENTIL HFA, VENTOLIN HFA) 90 mcg/actuation inhaler Inhale 2 Puffs as instructed every 6 hours as needed for wheezing/shortness of breath. No current facility-administered medications for this visit. ALLERGIES: ALLERGIES No Known Allergies VITALS: BP 109/71 Pulse 103 Temp 36.7 C (98.1 F) (Right Tympanic) Resp 16 Wt 110.7 kg (244 lb 0.8 oz) LMP 03/11/2017 SpO2 98% PHYSICAL EXAM: GEN: Pleasant, in no acute distress. HEENT: PERRL, EOMI, conjunctiva clear Ears: canals clear. TMs without erythema, bulge, or effusion. TMJs non-tender. Sinuses: non-tender frontal sinus, non-tender maxillary sinuses Throat: moist mucous membranes, no erythema, no exudate Neck: supple, no thyromegaly, no lymphadenopathy HEART: regular rate, regular rhythm, no murmurs LUNGS: clear to auscultation, no wheezes or crackles, no increased WOB ASSESSMENT/PLAN: 1. Otalgia, left - ICD9: 388.70, ICD10: H92.02 Reassured by normal ear exam. Suspect eustachian tube dysfunction associated with recent illness. Continue supportive care with safe medications. She may add nasal steroid spray. Jacobo Phan MD [facility] History of Present illness Narrative* Holley Stuart RT(R) - 08/17/2024 10:00 AM EST Radiology Service Progress Note PATIENT NAME: Marianela Grey DATE OF SERVICE: August 17, 2024 TIME: 9:54 AM PATIENT IDENTITY VERIFICATION COMPLETED USING TWO (2) IDENTIFIERS: Name and Date of confirmedby patient verbally. FALL SCREENING: Has the patient had 2 falls in the last year or 1 fall with injury or currently using an Ambulatory Assistive Device (Walker, Cane, Wheelchair, Crutches, etc.)? No PATIENT GENDER DATA: Female. status: : Yes. Internal Quality Check OK. Urinalysis hCG results are as follows: Positive Reference Range: Negative status: NO. PATIENT RELEVANT IMPLANT DATA REVIEWED: Not Applicable PATIENT PRESENTS WITH AN IMPLANTABLE OR ATTACHED BUSINESS ASSISTANT: No RADIOLOGY DEPARTMENT: General X-ray: Exam(s) Completed: Chest X-Ray PERIPHERAL IV DATA: Not applicable SIGNED BY: RT Yuri(R) August 17, 2024 9:54 AM documented [facility]12-[facility]-2024 NoteHNO ID: [id number] Author: HOLLEY STUART RT(Vipin) Service: ? Author Type: Technologist Type: Progress Notes Filed: 08/17/2024 10:00 Note Text: Radiology Service Progress Note PATIENT NAME: Marianela Grey DATE OF SERVICE: August 17, 2024 TIME: 9:54 AM PATIENT IDENTITY VERIFICATION COMPLETED USING TWO (2) IDENTIFIERS: Name and Date of confirmed by patient verbally. FALL SCREENING: Has the patient had 2 falls in the last year or 1 fall with injury or currently using an Ambulatory Assistive Device (Walker, Cane, Wheelchair, Crutches, etc.)? No PATIENT GENDER DATA: Female. status: : Yes. Internal Quality Check OK. Urinalysis hCG results are as follows: Positive Reference Range: Negative status: NO. PATIENT RELEVANT IMPLANT DATA REVIEWED: Not Applicable PATIENT PRESENTS WITH AN IMPLANTABLE OR ATTACHED BUSINESS ASSISTANT: No RADIOLOGY DEPARTMENT: General X-ray: Exam(s) Completed: Chest X-Ray PERIPHERAL IV DATA: Not applicable SIGNED BY: Holley Stuart RT(R) August 17, 2024 9:54 [facility]12-23-2024 NoteHNO ID: [id number] Author: VIKRAM HANSON APRN.[employer]ST[employer] Service: ? Author Type: Nurse Practitioner Type: Progress Notes Filed: 08/17/2024 10:32 Note Text: CC: Patient presents with: Cough: Cough x 5 days and left ear pain x 1 day HPI: Marianela Grey is a 34 year old female who presents to the office with complaint of head congestion and cough, nonproductive for 5 days. Symptoms are staying the same. Associated symptoms includes shortness of breath ear pain. Denies nausea, vomiting , and diarrhea. Treatments tried include nothing so far. with no relief of symptoms. Sick contacts: unknown. History of asthma, frequent episodes of bronchitis, chronic bronchitis, bronchiectasis or COPD: No Smoker: No Seasonal/environmental allergies: No The ROS is otherwise negative. The patient's pmh, medications, allergies, and past visits are reviewed. PHYSICAL EXAM: BP 110/78 Pulse 111 Temp 36.2 ?C (97.2 ?F) (Tympanic) Resp 18 Wt 109.5 kg (241 lb 6.5 oz) LMP 03/11/2017 SpO2 96% General appearance: alert, cooperative, pleasant, in no acute distress Head: Normocephalic Eyes: EOM's intact, conjunctiva pink and moist, no icterus, sclera white, non-injected Ears: Right ear: External ear/canal- Normal, TM - clear with good landmarks. Left ear: External ear/canal- Normal, TM - erythematous, bulging Oropharynx:moist without lesions, No erythema, exudates or tonsillar hypertrophy. Heart: Negative. RRR without obvious murmur, gallop, or rubs. No ectopy. Lungs: clear to auscultation, without rales or wheeze, good air exchange History reviewed. No pertinent past medical history. No past surgical history on file. ALLERGIES Patient has no known allergies. MEDICATIONS vit no.124/iron/folic ( VITAMIN ORAL) Take by mouth. No family history on file. Social History Tobacco Use Smoking status: Never ASSESSMENT/PLAN: 1. Acute cough - ICD9: 786.2, ICD10: R05.1 (primary diagnosis) - XR CHEST 2V FRONTAL/LAT * * * * Physician Interpretation * * * * EXAMINATION: CHEST RADIOGRAPH (2 VIEW FRONTAL AND LATERAL) CLINICAL HISTORY: Acute cough MQ: XC2_6 EXAM DATE/TIME: 08/17/2024 9:59 AM COMPARISON: No relevant prior studies available. RESULT: Lines, tubes, and devices: None. Lungs and pleura: No consolidation. No lung mass. No pleural effusion. No pneumothorax. Cardiomediastinal silhouette: Normal cardiomediastinal silhouette. Bones and soft tissues: Unremarkable. IMPRESSION IMPRESSION: No acute radiographic abnormality. Right Of Way Worker: GEOVANNY Transcribe Date/Time: Aug 17 2024 10:26A Dictated by : VALENTIN CARRERO MD 2. Acute otitis media, left - ICD9: 382.9, ICD10: H66.92 - AMOXICILLIN 875 MG TABLET Albuterol prn Prescription instructions reviewed with patient as applicable. Potential red flag symptoms discussed with the patient. Reviewed appropriate action plan to take if red flag symptoms occur. Patient agreeable to treatment plan. Vikram Hanson APRN.[facility]12-23-2024 History of Present illness Narrative* Vikram Hanson APRN.[facility] - 08/17/2024 9:46 AM EST CC: Patient presents with: Cough: Cough x 5 days and left ear pain x 1 day HPI: Marianela Grey is a 34 year old female who presents to the office with complaint of head congestion and cough, nonproductive for 5 days. Symptoms are staying the same. Associated symptoms includes shortness of breath ear pain. Denies nausea, vomiting , and diarrhea. Treatments tried include nothing so far. with no relief of symptoms. Sick contacts: unknown. History of asthma, frequent episodes of bronchitis, chronic bronchitis, bronchiectasis or COPD: No Smoker: No Seasonal/environmental allergies: No The ROS is otherwise negative. The patient's pmh, medications, allergies, and past visits are reviewed. PHYSICAL EXAM: BP 110/78 Pulse 111 Temp 36.2 C (97.2 F) (Tympanic) Resp 18 Wt 109.5 kg (241 lb 6.5 oz) LMP 03/11/2017 SpO2 96% General appearance: alert, cooperative, pleasant, in no acute distress Head: Normocephalic Eyes: EOM's intact, conjunctiva pink and moist, no icterus, sclera white, non-injected Ears: Right ear: External ear/canal- Normal, TM - clear with good landmarks. Left ear: External ear/canal- Normal, TM - erythematous, bulging Oropharynx:moist without lesions, No erythema, exudates or tonsillar hypertrophy. Heart: Negative. RRR without obvious murmur, gallop, or rubs. No ectopy. Lungs: clear to auscultation, without rales or wheeze, good air exchange History reviewed. No pertinent past medical history. No past surgical history on file. ALLERGIES Patient has no known allergies. MEDICATIONS vit no.124/iron/folic ( VITAMIN ORAL) Take by mouth. No family history on file. Social History Tobacco Use Smoking status: Never ASSESSMENT/PLAN: 1. Acute cough - ICD9: 786.2, ICD10: R05.1 (primary diagnosis) - XR CHEST 2V FRONTAL/LAT * * * * Physician Interpretation * * * * EXAMINATION: CHEST RADIOGRAPH (2 VIEW FRONTAL & LATERAL) CLINICAL HISTORY: Acute cough MQ: XC2_6 EXAM DATE/TIME: 08/17/2024 9:59 AM COMPARISON: No relevant prior studies available. RESULT: Lines, tubes, and devices: None. Lungs and pleura: No consolidation. No lung mass. No pleural effusion. No pneumothorax. Cardiomediastinal silhouette: Normal cardiomediastinal silhouette. Bones and soft tissues: Unremarkable. IMPRESSION IMPRESSION: No acute radiographic abnormality. Right Of Way Worker: GEOVANNY Transcribe Date/Time: Aug 17 2024 10:26A Dictated by : VALENTIN CARRERO MD 2. Acute otitis media, left - ICD9: 382.9, ICD10: H66.92 - AMOXICILLIN 875 MG TABLET Albuterol prn Prescription instructions reviewed with patient as applicable. Potential red flag symptoms discussed with the patient. Reviewed appropriate action plan to take if red flag symptoms occur. Patient agreeable to treatment plan. Vikram Hanson APRN.[employer] [facility]12-[facility] Evaluation note* Diagnosis Onset Date Resolution Status Admit Date Anxiety acute August 12, 2024 10:24am Obesity affecting acute August 12, 2024 10:24am acute August 12, 2024 10:24am Rh negative state in antepartum period acute August 12, 2024 10:24am Supervision of high risk , antepartum acute July 262023 10:24am FH: breast cancer resolved Decembe r 2023 10:24am History of miscarriage, currently resolved July 10:24am Low-lying placenta resolved Decemb er 2023 10:24am Spotting affecting resolve d August 12, 2024 10:24am Vitamin D deficiency resolved Dece mber 2023 10:24am Anxiety acute September 08, 2024 1:33pm Obesity affecting acute September 08, 2024 1:33pm acute September 08, 2024 1:33pm Rh negative state in antepartum period acute September 08, 2024 1:33pm Supervision of high risk , antepartum acute September 082024 1:33pm FH: breast cancer resolved September 08, 2024 1:33pm History of miscarriage, currently resolved September 08, 2024 1:33pm Low-lying placenta resolved Januar y 2024 1:33pm Anxiety acute September 29, 2024 12:48pm Obesity affecting acute September 29, 2024 12:48pm acute September 29, 2024 12:48pm Rh negative state in antepartum period acute September 29, 2024 12:48pm Supervision of high risk , antepartum acute September 292024 12:48pm History of miscarriage, currently resolved September 29, 2024 12:48pm Low-lying placenta resolved Februa 2024 12:48pm Anxiety acute October 15, 2024 2:45pm Obesity affecting acute October 15, 2024 2:45pm acute October 15, 2024 2:45pm Rh negative state in antepartum period acute October 15, 2024 2:45pm Supervision of high risk , antepartum acute September 272024 2:45pm Anxiety acute October 27 9:58am Obesity affecting acute October 27, 2024 9:58am acute October 27 9:58am Rh negative state in antepartum period acute October 27 9:58am Supervision of high risk , antepartum acute October 27, 2024 9:58am Anxiety acute November 09 9:42am Obesity affecting acute November 09, 2024 9:42am acute November 09 9:42am Rh negative state in antepartum period acute November 09 9:42am Supervision of high risk , antepartum acute October 9:42am Anxiety acute November 24 9:59am Obesity affecting acute November 24, 2024 9:59am acute November 24 9:59am Rh negative state in antepartum period acute November 24 9:59am Supervision of high risk , antepartum acute November 24, 2024 9:59am [facility] Work Phone: 1(292) 254-533912-18-2024 Evaluation note* Diagnosis Onset Date Resolution Status Admit Date Anxiety acute August 12, 2024 10:24am Obesity affecting acute August 12, 2024 10:24am acute August 12, 2024 10:24am Rh negative state in antepartum period acute August 12, 2024 10:24am Supervision of high risk , antepartum acute July 262023 10:24am FH: breast cancer resolved Decembe r 2023 10:24am History of miscarriage, currently resolved July 10:24am Low-lying placenta resolved Decemb er 2023 10:24am Spotting affecting resolve d August 12, 2024 10:24am Vitamin D deficiency resolved Dece mber 2023 10:24am Anxiety acute September 08, 2024 1:33pm Obesity affecting acute September 08, 2024 1:33pm acute September 08, 2024 1:33pm Rh negative state in antepartum period acute September 08, 2024 1:33pm Supervision of high risk , antepartum acute September 082024 1:33pm FH: breast cancer resolved September 08, 2024 1:33pm History of miscarriage, currently resolved September 08, 2024 1:33pm Low-lying placenta resolved Januar y 2024 1:33pm Anxiety acute September 29, 2024 12:48pm Obesity affecting acute September 29, 2024 12:48pm acute September 29, 2024 12:48pm Rh negative state in antepartum period acute September 29, 2024 12:48pm Supervision of high risk , antepartum acute September 292024 12:48pm History of miscarriage, currently resolved September 29, 2024 12:48pm Low-lying placenta resolved 2024 12:48pm Anxiety acute October 15, 2024 2:45pm Obesity affecting acute October 15, 2024 2:45pm acute October 15, 2024 2:45pm Rh negative state in antepartum period acute October 15, 2024 2:45pm Supervision of high risk , antepartum acute September 272024 2:45pm Anxiety acute October 27 9:58am Obesity affecting acute October 27, 2024 9:58am acute October 27 9:58am Rh negative state in antepartum period acute October 27 9:58am Supervision of high risk , antepartum acute October 27, 2024 9:58am Anxiety acute November 09 9:42am Obesity affecting acute November 09, 2024 9:42am acute November 09 9:42am Rh negative state in antepartum period acute November 09 9:42am Supervision of high risk , antepartum acute October 9:42am Anxiety acute November 24 9:59am Obesity affecting acute November 24, 2024 9:59am acute November 24 9:59am Rh negative state in antepartum period acute November 24 9:59am Supervision of high risk , antepartum acute November 24, 2024 9:59am RANDI (amniotic fluid index) borderline low acute December 01, 2024 9:44am Anxiety acute December 01 9:44am Obesity affecting acute December 01, 2024 9:44am acute December 01 9:44am Rh negative state in antepartum period acute December 01 9:44am Supervision of high risk , antepartum acute December 01, 2024 9:44am [facility] Work Phone: 1(558) 313-460711-19-2024 Evaluation note* Diagnosis Onset Date Resolution Status Admit Date Anxiety acute July 14, 2024 2:44pm Obesity affecting acute July 14, 2024 2:44pm acute July 14, 2024 2:44pm Rh negative state in antepartum period acute July 14, 2024 2:44pm Supervision of high risk , antepartum acute June 262023 2:44pm FH: breast cancer resolved Novembe r 2023 2:44pm History of miscarriage, currently resolved June 2:44pm Spotting affecting resolve d July 14, 2024 2:44pm Vitamin D deficiency resolved Nove mber 2023 2:44pm Anxiety acute August 12, 2024 10:24am Obesity affecting acute August 12, 2024 10:24am acute August 12, 2024 10:24am Rh negative state in antepartum period acute August 12, 2024 10:24am Supervision of high risk , antepartum acute July 262023 10:24am FH: breast cancer resolved Decembe r 2023 10:24am History of miscarriage, currently resolved July 10:24am Low-lying placenta resolved Decemb er 2023 10:24am Spotting affecting resolve d August 12, 2024 10:24am Vitamin D deficiency resolved Dece mber 2023 10:24am Anxiety acute September 08, 2024 1:33pm Obesity affecting acute September 08, 2024 1:33pm acute September 08, 2024 1:33pm Rh negative state in antepartum period acute September 08, 2024 1:33pm Supervision of high risk , antepartum acute September 082024 1:33pm FH: breast cancer resolved September 08, 2024 1:33pm History of miscarriage, currently resolved September 08, 2024 1:33pm Low-lying placenta resolved 2024 1:33pm Anxiety acute September 29, 2024 12:48pm Obesity affecting acute September 29, 2024 12:48pm acute September 29, 2024 12:48pm Rh negative state in antepartum period acute September 29, 2024 12:48pm Supervision of high risk , antepartum acute September 292024 12:48pm History of miscarriage, currently resolved September 29, 2024 12:48pm Low-lying placenta resolved 2024 12:48pm Anxiety acute October 15, 2024 2:45pm Obesity affecting acute October 15, 2024 2:45pm acute October 15, 2024 2:45pm Rh negative state in antepartum period acute October 15, 2024 2:45pm Supervision of high risk , antepartum acute September 272024 2:45pm Anxiety acute October 27 9:58am Obesity affecting acute October 27, 2024 9:58am acute October 27 9:58am Rh negative state in antepartum period acute October 27 9:58am Supervision of high risk , antepartum acute October 27, 2024 9:58am Anxiety acute November 09 9:42am Obesity affecting acute November 09, 2024 9:42am acute November 09 9:42am Rh negative state in antepartum period acute November 09 9:42am Supervision of high risk , antepartum acute October 9:42am [facility] Work Phone: 1(734) 569-687801-31-2023 Progress note Author Uli Angelo [facility] September 25, 2022 9:11am Note Date/Time September 25, 2022 9 :11am [facility] Medical Records Department [address] [place] [id number] Progress Note - OBGYN 09/25/2208 MR#: [id number] Acct: [id number] Name: MARIANELA GREY Rep #:[id number] : 1990 32 From: Uli Angelo NP BUSINESS PROCESS EXPERT-C PCP: Dr. Ramesh Parker MD Status:ADM IN Location: [id number] Subjective Subjective Patient doing well without complaints. Tolerating PO. Ambulating and voiding without difficulty. Feeding well. Denies chest pain, shortness of breath, calf pain/swelling, fevers, chills, lightheadedness. Baby with sacral dimple and neuro consult planned Objective Data Objective Data Vital Signs: Vital Signs Temp Pulse Resp BP Pulse Ox O2 Del Method 97.2 F L 85 18 120/85 H 99 Room Air 09/25/22 01:32 09/25/22 09:06 09/25/22 01:32 09/25/22 09:06 09/25/22 09:05 09/25/22 01:32 Oxygen Delivery Method Room Air Weight: 251 lb 6.4 oz Body Mass Index (BMI) 40.6 Intake & Output: Intake and Output for Last 24 Hours 09/23/22 09/24/22 09/25/22 23:59 23:59 23:59 Intake Total 1075.00 / 1075.00 99.17 / 99.17 Output Total 550 / 550 900 / 900 Balance 525.00 / 525.00 -800.83 / -800.83 Lab / Micro Data Result Diagrams: 09/23/22 04:25 Physical Exam Const alert and oriented x3 HEENT normocephalic Eyes PERRL Neck full ROM Resp normal respiratory effort GI soft to palpation GI Narrative: FF below U Assessment & Plan (1) (spontaneous vaginal delivery): COMMENT: at term IAL. Rachel. girl. JV with sacral dimple. [facility] following. emotional support provided (2) Rh negative state in antepartum period: COMMENT: rhogam 28 wk, pp and prn bleeding (given 07/03) PLAN: Plan s/p PPD # 2 1. routine post delivery care 2. breast feeding- support given 3. rh negative 4. rubella immune 5. home today 09/25/22 0911 <Electronically signed by Uli Angelo NP BUSINESS PROCESS EXPERT-C> Cosigner Signature (if applicable): CC: ~ Signed [facility] Work Phone: 1(426) 844-590001-30-2023 Progress note Author Radha Shaw [facility] September 24, 2022 10:07am Note Date/Time September 24, 2022 8 :50am [facility] Medical Records Department [address] [place] [address] Progress Note - OBGYN 09/24/22 0848 MR#: [id number] Acct: [id number] Name: MARIANELA GREY Rep #:[id number] : 1990 32 From: Radha Shaw CNM PCP: Dr. Ramesh Parker MD Status:ADM IN Location: [id number] Subjective Subjective Patient doing well without complaints. Tolerating PO. Ambulating and voiding without difficulty. Feeding well. Denies chest pain, shortness of breath, calf pain/swelling, fevers, chills, lightheadedness. Objective Data Objective Data Vital Signs: Vital Signs Temp Pulse Resp BP Pulse Ox O2 Del Method 97.4 F L 80 14 113/59 L 97 Room Air 09/24/22 07:54 09/24/22 08:11 09/24/22 07:54 09/24/22 08:11 09/24/22 08:10 09/24/22 07:54 Oxygen Delivery Method Room Air Weight: 251 lb 6.4 oz Body Mass Index (BMI) 40.6 Intake & Output: Intake and Output for Last 24 Hours 09/22/22 09/23/22 09/24/22 23:59 23:59 23:59 Intake Total 1075.00 / 1075.00 99.17 / 99.17 Output Total 550 / 550 900 / 900 Balance 525.00 / 525.00 -800.83 / -800.83 Lab / Micro Data Result Diagrams: 09/23/22 04:25 Physical Exam Const alert, oriented x3 and no apparent distress Eyes PERRL Chest Nipple/Areola: nipples/areola normal Resp normal respiratory effort and normal air movement Cardio regular rate and regular rhythm GI GI Narrative: fundus firm at U. no clots.lochia rubra. Assessment & Plan (1) (spontaneous vaginal delivery): COMMENT: at term IAL. Rachel. girl. JV with sacral dimple. [facility] following. emotional support provided PLAN: s/p PPD # 1 1. routine post delivery care 2. breast feeding- support given 3. rh positive 4. rubella immune 5. anticipate d/c home tomorrow evening 09/24/22 1007 <Electronically signed by Radha Shaw CNM> Cosigner Signature (if applicable): CC: ~ Signed [facility] Work Phone: 1(983) 453-282401-29-[address] Vazquez [facility] September 23, 2022 5:50pm Note Date/Time September 23, 2022 5 :49pm [facility] Medical Records Department [address] [place] [address] Instructions for Home/Discharge Instructions 09/23/22 1748 MR#: [id number] Acct: [id number] Name: MARIANELA GREY Rep #:[id number] : 1990 32 From: Munira Sandoval DO PCP: Dr. Ramesh Parker MD Status:ADM IN Discharge Instructions Diet Discharge Diet: No restrictions Activity Discharge Activity: Return to Normal Activity, May Not Drive (while taking narcotic pain medications.) and May Shower May resume sexual activity in: 4-6 weeks Dressing / Incision Call your doctor if your incision/area has: Continuous Slow Oozing, Sudden Increased Bleeding, Increased Pain/ Swelling, Increased Redness and Foul Smelling Discharge Follow Up Care Please Follow Up With: Munira Sandoval DO When: Call [phone] to make an appointment with your doctor in 6 weeks. If you had elevated blood pressure or 4th degree laceration, you will need to be seen in 2 weeks. Test Results: Test results from this visit will be discussed in further detail at your follow- up appointment, if applicable. Discharge Plan Admission Admit Date/Time: 09/23/22 04:00 Primary Reason for Your Visit: vaginal delivery Attending Provider: Munira Sandoval Primary Care Provider: Ramesh Parker Discharge Orders/Prescriptions Prescriptions: New naproxen 500 mg tablet 500 mg PO BID PRN (Reason: pain) Qty: 30 0RF Continued prenat.vits,gomez,dfv-qmiz-fbuun Tablet 1 tab PO DAILY Discontinued aspirin [Adult Low Dose Aspirin] 81 mg tablet,delayed release (DR/EC) 81 mg PO DAILY Referrals / Follow Up: Ramesh Parker MD [Primary Care Provider] - Disposition Disposition (needs filled in before D/C Order can be placed): Home, Self Care 09/23/22 1750<Electronically signed by Munira Sandoval DO>Munira Sandoval DO CC: Dr. Ramesh Parker MD ~ Signed [facility] Work Phone: 1(876) 729-218001-29-2023 Procedure [facility] 09-23-[address] Vazquez [facility] September 23, 2022 3:57pm Note Date/Time September 23, 2022 3 :57pm [facility] Medical Records Department [address] [place] [address] Progress Note 09/23/22 1556 MR#: [id number] Acct: [id number] Name: MRAIANELA GREY Rep #:[id number] : 1990 32 From: Munira Sandoval DO PCP: Dr. Ramesh Parker MD Status:ADM IN Location[id number] Progress Note patient is now comfortable with epidural. her last pelvic exam she was 4 cm. current tracing: FHT: Moderate variability reactive no decelerations category I tracing Port Protection: q2-4 min Contractions cx: anterior lip only present. +1 station. reviewed tracing abnormalities since last note: no change A/P: 39 weeks, srom with epidural jensen cath to be placed now and will recheck in 30 min to start pushing 09/23/22 1557 <Electronically signed by Munira Sandoval DO> Munira Sandoval DO [facility] Signature (if applicable): CC: ~ Signed [facility] Work Phone: [phone] Vazquez [facility] September 23, 2022 10:05am Note Date/Time September 23, 2022 1 0:05am [facility] Medical Records Department [address] [place] [address] Progress Note 09/23/22 1004 MR#: [id number] Acct: [id number] Name: MARIANELA GREY Rep #:[id number] : 1990 32 From: Munira Sandoval DO PCP: Dr. Ramesh Parker MD Status:ADM IN Location: [id number] Progress Note pt is sitting up at the side of the bed breathing. her last cervical check at 7 am she was 1-2 cm dilated and ruptured membranes at around 2 am. current tracing: FHT: Moderate variability reactive no decelerations category I tracing Port Protection: q3-5 min Contractions cx: 4/90/0 A/P: 39 weeks 5 days srom pt is progressing. pit and epidural prn. 09/23/22 1005 <Electronically signed by Munira Sandoval DO> Munira Sandoval DO Cosigner Signature (if applicable): CC: ~ Signed [facility] Work Phone: 1(196) 869-603601-29-2023 History and physical note Author Dr. Castro [facility] September 23, 2022 9:03am Note Date/Time September 23, 2022 8 :40am [facility] Medical Records Department [address] [place] [id number] H&P Exam - IT ADMINISTRATOR 09/23/22 0832 MR#: [id number] Acct: [id number] Name: MARIANELA GREY Rep #:[id number] : 1990 32 From: Valentin Castro MD PCP: Dr. Ramesh Parker MD Status:ADM IN Location: [place] [address] History and Physical Date of Admission: 09/23/22 Chief complaint: Leakage of fluid History present illness: 32-year-old G2, P0 at 39 weeks and 5 days with ALECIA 09/25/2022 arrives with leakage of clear fluid. Denies headache, vision changes, chest pain, shortness of breath, nausea vomit, right upper quadrant pain. Patient states good movement. is complicated by Rh- Obstetric history: G1: SAB G2: Current Past medical history: None Medications: vitamin Allergies: No known drug allergies Past surgical history: Tongue clipping, arthroscopic knee surgery Family history: Denies history DVT or PE Social history: Denies smoking, alcohol, drug use Review of systems: Besides above pertinent positives a full review of systems was performed and found to be negative Physical exam: Vitals: Blood pressure 121/76 pulse 86 General: Normal-appearing no acute distress HEENT: Normocephalic/atraumatic Cardiac/respiratory: No use accessory muscles, nonlabored breathing Abdomen: Soft, nontender, gravid Extremities: No peripheral edema Psych: Normal affect normal demeanor nonpressured speech Labs: White blood cell count 13.6 hemoglobin 12.6 macro 13.9% platelets 179. Blood type B- antibody negative. ROM positive Assessment plan: 32-year-old G2, P0 at 39 weeks and 5 days with spontaneous rupture of membranes. Called by nursing with leakage of fluid and positive ROM test. Given admissionorders. Instructed to recheck and if needed will augment with Pitocin. Patientseen and examined. We will continue current management. GBS negative Rh-: We will evaluate for RhoGAM 09/23/22 0903 <Electronically signed by Valentin Castro MD> Cosigner Signature (if applicable): CC: Dr. Valentin Castro MD; Dr. Ramesh Parker MD~ Signed [facility] Work Phone: 1(165) 954-576306-22-2022 NotePap Smear Specimen AdequacyJun2021 11:36amComment.Satisfactory for evaluation. No endocervical component is identified.LABReocar INTERFACED A#[id number] Hospital Work Phone: Comment on above:Satisfactory for evaluation. No endocervical component is identified.02-14-2022 NotePap Smear Specimen Adequacy February 14, 2022 11:36amComment.Satisfactory for evaluation. No endocervical component is identified.LABReocar INTERFACED A#[id number] Hospital Work Phone: Comment on above:Satisfactory for evaluation. No endocervical component is identified.02-14-2022 NotePap Smear Specimen Adequacy February 14, 2022 11:36amComment.Satisfactory for evaluation. No endocervical component is identified.LABReocar INTERFACED A#[id number] Hospital Work Phone: Comment on above:Satisfactory for evaluation. No endocervical component is identified.02-14-2022 NotePap Smear Specimen Adequacy February 14, 2022 11:36amComment.Satisfactory for evaluation. No endocervical component is identified.[facility] INTERFACED A#[id number] Work Phone: Comment on above:Satisfactory for evaluation. No endocervical component is identified.Evaluation noteNo assessment information availableWMercy Health St. [facility] Work Phone: Evaluation note* Diagnosis Onset Date Resolution Status Abnormal genetic test during acute COVID-19 affecting in first trimester acute History of infertility acute Obesity affecting acute acute Supervision of normal first acute Vitamin D deficiency acute [facility] Work Phone: Evaluation note* Diagnosis Onset Date Resolution Status Abnormal genetic test during acute COVID-19 affecting in first trimester acute History of infertility acute Obesity affecting acute acute Supervision of normal first acute Vitamin D deficiency acute Abnormal genetic test during acute COVID-19 affecting in first trimester acute History of infertility acute Obesity affecting acute acute Rh negative state in antepartum period acute Supervision of normal first acute Vitamin D deficiency acute Abnormal genetic test during acute History of infertility acute Obesity affecting acute acute Rh negative state in antepartum period acute Supervision of normal first acute UTI in acute [facility] Work Phone: Evaluation note* Diagnosis Onset Date Resolution Status Abnormal genetic test during acute COVID-19 affecting in first trimester acute History of infertility acute Obesity affecting acute acute Supervision of normal first acute Vitamin D deficiency acute Abnormal genetic test during acute COVID-19 affecting in first trimester acute History of infertility acute Obesity affecting acute acute Rh negative state in antepartum period acute Supervision of normal first acute Vitamin D deficiency acute Abnormal genetic test during acute History of infertility acute Obesity affecting acute acute Rh negative state in antepartum period acute Supervision of normal first acute UTI in acute Abnormal genetic test during acute COVID-19 affecting in first trimester acute History of infertility acute Obesity affecting acute acute Rh negative state in antepartum period acute Supervision of normal first acute UTI in acute Vitamin D deficiency acute [facility] Work Phone: Evaluation note* Diagnosis Onset Date Resolution Status Abnormal genetic test during acute COVID-19 affecting in first trimester acute History of infertility acute Obesity affecting acute acute Rh negative state in antepartum period acute Supervision of normal first acute Vitamin D deficiency acute Abnormal genetic test during acute History of infertility acute Obesity affecting acute acute Rh negative state in antepartum period acute Supervision of normal first acute UTI in resolved Abnormal genetic test during acute COVID-19 affecting in first trimester acute History of infertility acute Obesity affecting acute acute Rh negative state in antepartum period acute Supervision of normal first acute Vitamin D deficiency acute UTI in resolved Abnormal genetic test during acute COVID-19 affecting in first trimester acute History of infertility acute Obesity affecting acute acute Rh negative state in antepartum period acute Supervision of normal first acute Vitamin D deficiency acute UTI in resolved Abnormal genetic test during acute History of infertility acute Obesity affecting acute acute Rh negative state in antepartum period acute Supervision of normal first acute UTI in resolved Abnormal genetic test during acute COVID-19 affecting in first trimester acute History of infertility acute Obesity affecting acute acute Rh negative state in antepartum period acute Supervision of normal first acute [facility] Work Phone: Evaluation note* Diagnosis Onset Date Resolution Status Abnormal genetic test during acute History of infertility acute Obesity affecting acute acute Rh negative state in antepartum period acute Supervision of normal first acute UTI in resolved Abnormal genetic test during acute COVID-19 affecting in first trimester acute History of infertility acute Obesity affecting acute acute Rh negative state in antepartum period acute Supervision of normal first acute Vitamin D deficiency acute UTI in resolved Abnormal genetic test during acute COVID-19 affecting in first trimester acute History of infertility acute Obesity affecting acute acute Rh negative state in antepartum period acute Supervision of normal first acute Vitamin D deficiency acute UTI in resolved Abnormal genetic test during acute History of infertility acute Obesity affecting acute acute Rh negative state in antepartum period acute Supervision of normal first acute UTI in resolved Abnormal genetic test during acute COVID-19 affecting in first trimester acute History of infertility acute Obesity affecting acute acute Rh negative state in antepartum period acute Supervision of normal first acute Abnormal genetic test during acute COVID-19 affecting in first trimester acute History of infertility acute Obesity affecting acute acute Rh negative state in antepartum period acute Supervision of normal first acute Vitamin D deficiency acute UTI in resolved Abnormal genetic test during acute COVID-19 affecting in first trimester acute History of infertility acute Obesity affecting acute acute Rh negative state in antepartum period acute Supervision of normal first acute Vitamin D deficiency acute UTI in resolved [facility] Work Phone: Evaluation note* Diagnosis Onset Date Resolution Status Abnormal genetic test during acute COVID-19 affecting in first trimester acute History of infertility acute Obesity affecting acute acute Rh negative state in antepartum period acute Supervision of normal first acute Vitamin D deficiency acute UTI in resolved Abnormal genetic test during acute History of infertility acute Obesity affecting acute acute Rh negative state in antepartum period acute Supervision of normal first acute UTI in resolved Abnormal genetic test during acute COVID-19 affecting in first trimester acute History of infertility acute Obesity affecting acute acute Rh negative state in antepartum period acute Supervision of normal first acute Abnormal genetic test during acute COVID-19 affecting in first trimester acute History of infertility acute Obesity affecting acute acute Rh negative state in antepartum period acute Supervision of normal first acute Vitamin D deficiency acute UTI in resolved Abnormal genetic test during acute COVID-19 affecting in first trimester acute History of infertility acute Obesity affecting acute acute Rh negative state in antepartum period acute Supervision of normal first acute Vitamin D deficiency acute UTI in resolved Abnormal genetic test during acute COVID-19 affecting in first trimester acute History of infertility acute Obesity affecting acute acute Rh negative state in antepartum period acute Supervision of normal first acute Vitamin D deficiency acute UTI in resolved Abnormal genetic test during acute COVID-19 affecting in first trimester acute History of infertility acute Obesity affecting acute acute Rh negative state in antepartum period acute Supervision of normal first acute Vitamin D deficiency acute UTI in resolved Abnormal genetic test during acute COVID-19 affecting in first trimester acute History of infertility acute Obesity affecting acute acute Rh negative state in antepartum period acute Supervision of normal first acute Vitamin D deficiency acute UTI in resolved Abnormal genetic test during acute COVID-19 affecting in first trimester acute History of infertility acute Obesity affecting acute acute Rh negative state in antepartum period acute Supervision of normal first acute Vitamin D deficiency acute UTI in resolved [facility] Work Phone: Evaluation note* Diagnosis Onset Date Resolution Status Rh negative state in antepartum period acute Supervision of normal first resolved UTI in resolved Rh negative state in antepartum period acute Supervision of normal first resolved Rh negative state in antepartum period acute Vitamin D deficiency acute Supervision of normal first resolved UTI in resolved Rh negative state in antepartum period acute Vitamin D deficiency acute Supervision of normal first resolved UTI in resolved Rh negative state in antepartum period acute Vitamin D deficiency acute Supervision of normal first resolved UTI in resolved Rh negative state in antepartum period acute Vitamin D deficiency acute Supervision of normal first resolved UTI in resolved Rh negative state in antepartum period acute Vitamin D deficiency acute Supervision of normal first resolved UTI in resolved Rh negative state in antepartum period acute Vitamin D deficiency acute Supervision of normal first resolved UTI in resolved Rh negative state in antepartum period acute Vitamin D deficiency acute Supervision of normal first resolved UTI in resolved Rh negative state in antepartum period acute Vitamin D deficiency acute Supervision of normal first resolved UTI in resolved Decreased movement non eactive Rh negative state in antepartum period acute (spontaneous vaginal delivery) acute Vitamin D deficiency acute Supervision of normal first resolved UTI in resolved [facility] Work Phone: Evaluation note* Diagnosis Onset Date Resolution Status Vitamin D deficiency acute Supervision of normal first resolved UTI in resolved Vitamin D deficiency acute Supervision of normal first resolved UTI in resolved Vitamin D deficiency acute Supervision of normal first resolved UTI in resolved Vitamin D deficiency acute Supervision of normal first resolved UTI in resolved Vitamin D deficiency acute Supervision of normal first resolved UTI in resolved Decreased movement non eactive Vitamin D deficiency acute Supervision of normal first resolved UTI in resolved Care and examination of lactating mother noneactive nipple pain nonea ctive Care and examination of lactating mother noneactive Rectocele noneactive nipple pain nonea ctive Care and examination of lactating mother noneactive Other disorders of noneactive Encounter for wellness examination in adult acute Vitamin D deficiency acute [facility] Work Phone: Evaluation note* Diagnosis Acute cough- Primary Acute otitis media, left Unspecified otitis media [facility], [facility]- [facility] ([facility]arrative)No reason for referral information availableWMercy [facility] Work Phone: Summary Purpose Family History No Family History Records Found Relationship Condition Age at Onset Recorded Date/T edna father Diabetes mellitus Unknown Relationship Condition Age at Onset Recorded Date/T edna father Diabetes mellitus Unknown grandmother Malignant neoplasm of breast 60 Macular degeneration Unknown sister Normal stillborn Unknown Advance Directives No Advanced Directives Records Found Advance Directive Response Recorded Date/ Time Living Will No September 12 7:44pm Power of Bumper Operator No September 12, 2018 7:44pm Advance Directive Response Recorded Date/ Time Living Will No September 12 6:44pm Power of Bumper Operator No September 12, 2018 6:44pm Advance Directive Response Recorded Date/ Time Living Will No September 23 4:17am Power of Bumper Operator No September 23, 2022 4:17am Advance Directive Response Recorded Date/ Time Living Will No November 22, 2022 2:57pm Power of Bumper Operator No November 22 2:57pm Advance Directive Response Recorded Date/ Time Living Will No November 22, 2022 2:57pm Do you have a Healthcare Power of Bumper Operator? No November 22, 2022 2:57pm Advance Directive Response Recorded Date/ Time Do you have a Healthcare Power of Bumper Operator? No December 17, 2024 4:55pm Chief Complaint and Reason for Visit Chief Complaint 6 m f/u LAB WORK Chief Complaint 6 m f/u LAB WORK Amb Documentation NOB LMP 12/19 Reason for Visit Abnormal genetic leonila t during COVID-19 affecting in first trimester History of infertility Obesity affecting Supervision of normal first Vitamin D deficiency Chief Complaint 6 m f/u LAB WORK Amb Documentation NOB LMP 12/19 E ORDER Reason for Visit Abnormal genetic leonila t during COVID-19 affecting in first trimester History of infertility Obesity affecting Supervision of normal first Vitamin D deficiency Chief Complaint LAB WORK Amb Documentation NOB LMP 12/19 E ORDER 12 WK OB 16 WK OB Reason for Visit Abnormal genetic leonila t during COVID-19 affecting in first trimester History of infertility Obesity affecting Supervision of normal first Vitamin D deficiency Abnormal genetic test during COVID-19 affecting in first trimester History of infertility Obesity affecting Rh negative state in antepartum period Supervision of normal first Vitamin D deficiency Abnormal genetic test during History of infertility Obesity affecting Rh negative state in antepartum period Supervision of normal first UTI in Chief Complaint LAB WORK Amb Documentation NOB LMP 12/19 E ORDER 12 WK OB 16 WK OB 20 WK OB Reason for Visit Abnormal genetic leonila t during COVID-19 affecting in first trimester History of infertility Obesity affecting Supervision of normal first Vitamin D deficiency Abnormal genetic test during COVID-19 affecting in first trimester History of infertility Obesity affecting Rh negative state in antepartum period Supervision of normal first Vitamin D deficiency Abnormal genetic test during History of infertility Obesity affecting Rh negative state in antepartum period Supervision of normal first UTI in Abnormal genetic test during COVID-19 affecting in first trimester History of infertility Obesity affecting Rh negative state in antepartum period Supervision of normal first UTI in Vitamin D deficiency Chief Complaint 12 WK OB 16 WK OB 20 WK OB 22WK OB 24wk ob 1 HOUR GLUCOSE 28WK OB / GLUCOSE Reason for Visit Abnormal genetic leonila t during COVID-19 affecting in first trimester History of infertility Obesity affecting Rh negative state in antepartum period Supervision of normal first Vitamin D deficiency Abnormal genetic test during History of infertility Obesity affecting Rh negative state in antepartum period Supervision of normal first UTI in Abnormal genetic test during COVID-19 affecting in first trimester History of infertility Obesity affecting Rh negative state in antepartum period Supervision of normal first Vitamin D deficiency UTI in Abnormal genetic test during COVID-19 affecting in first trimester History of infertility Obesity affecting Rh negative state in antepartum period Supervision of normal first Vitamin D deficiency UTI in Abnormal genetic test during History of infertility Obesity affecting Rh negative state in antepartum period Supervision of normal first UTI in Abnormal genetic test during COVID-19 affecting in first trimester History of infertility Obesity affecting Rh negative state in antepartum period Supervision of normal first Chief Complaint 16 WK OB 20 WK OB 22WK OB 24wk ob 1 HOUR GLUCOSE 28WK OB / GLUCOSE 30 WK OB 36 WEEKS GROWTH 32 WK OB Reason for Visit Abnormal genetic leonila t during History of infertility Obesity affecting Rh negative state in antepartum period Supervision of normal first UTI in Abnormal genetic test during COVID-19 affecting in first trimester History of infertility Obesity affecting Rh negative state in antepartum period Supervision of normal first Vitamin D deficiency UTI in Abnormal genetic test during COVID-19 affecting in first trimester History of infertility Obesity affecting Rh negative state in antepartum period Supervision of normal first Vitamin D deficiency UTI in Abnormal genetic test during History of infertility Obesity affecting Rh negative state in antepartum period Supervision of normal first UTI in Abnormal genetic test during COVID-19 affecting in first trimester History of infertility Obesity affecting Rh negative state in antepartum period Supervision of normal first Abnormal genetic test during COVID-19 affecting in first trimester History of infertility Obesity affecting Rh negative state in antepartum period Supervision of normal first Vitamin D deficiency UTI in Abnormal genetic test during COVID-19 affecting in first trimester History of infertility Obesity affecting Rh negative state in antepartum period Supervision of normal first Vitamin D deficiency UTI in Chief Complaint 22WK OB 24wk ob 1 HOUR GLUCOSE 28WK OB / GLUCOSE 30 WK OB 36 WEEKS GROWTH 32 WK OB 34 WK OB 36 WK OB 32 WEEKS GROWTH 37 WK OB 38 WK OB Reason for Visit Abnormal genetic leonila t during COVID-19 affecting in first trimester History of infertility Obesity affecting Rh negative state in antepartum period Supervision of normal first Vitamin D deficiency UTI in Abnormal genetic test during History of infertility Obesity affecting Rh negative state in antepartum period Supervision of normal first UTI in Abnormal genetic test during COVID-19 affecting in first trimester History of infertility Obesity affecting Rh negative state in antepartum period Supervision of normal first Abnormal genetic test during COVID-19 affecting in first trimester History of infertility Obesity affecting Rh negative state in antepartum period Supervision of normal first Vitamin D deficiency UTI in Abnormal genetic test during COVID-19 affecting in first trimester History of infertility Obesity affecting Rh negative state in antepartum period Supervision of normal first Vitamin D deficiency UTI in Abnormal genetic test during COVID-19 affecting in first trimester History of infertility Obesity affecting Rh negative state in antepartum period Supervision of normal first Vitamin D deficiency UTI in Abnormal genetic test during COVID-19 affecting in first trimester History of infertility Obesity affecting Rh negative state in antepartum period Supervision of normal first Vitamin D deficiency UTI in Abnormal genetic test during COVID-19 affecting in first trimester History of infertility Obesity affecting Rh negative state in antepartum period Supervision of normal first Vitamin D deficiency UTI in Abnormal genetic test during COVID-19 affecting in first trimester History of infertility Obesity affecting Rh negative state in antepartum period Supervision of normal first Vitamin D deficiency UTI in Chief Complaint 24wk ob 1 HOUR GLUCOSE 28WK OB / GLUCOSE 30 WK OB 36 WEEKS GROWTH 32 WK OB 34 WK OB 36 WK OB 32 WEEKS GROWTH 37 WK OB 38 WK OB 39 WK OB decreased movement 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 VAGINAL DELILVERY VAGINAL DELILVERY Reason for Visit Rh negative state in antepartum period Supervision of normal first UTI in Rh negative state in antepartum period Supervision of normal first Rh negative state in antepartum period Vitamin D deficiency Supervision of normal first UTI in Rh negative state in antepartum period Vitamin D deficiency Supervision of normal first UTI in Rh negative state in antepartum period Vitamin D deficiency Supervision of normal first UTI in Rh negative state in antepartum period Vitamin D deficiency Supervision of normal first UTI in Rh negative state in antepartum period Vitamin D deficiency Supervision of normal first UTI in Rh negative state in antepartum period Vitamin D deficiency Supervision of normal first UTI in Rh negative state in antepartum period Vitamin D deficiency Supervision of normal first UTI in Rh negative state in antepartum period Vitamin D deficiency Supervision of normal first UTI in Decreased movement Rh negative state in antepartum period (spontaneous vaginal delivery) Vitamin D deficiency Supervision of normal first UTI in Chief Complaint 36 WK OB 32 WEEKS GROWTH 37 WK OB 38 WK OB 39 WK OB decreased movement 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 VAGINAL DELILVERY VAGINAL DELILVERY assessment R/O Thrush 6 WK PP, declined IUD possible prolapse mastitis concerns ANNUAL E ORDER Reason for Visit Vitamin D deficiency Supervision of normal first UTI in Vitamin D deficiency Supervision of normal first UTI in Vitamin D deficiency Supervision of normal first UTI in Vitamin D deficiency Supervision of normal first UTI in Vitamin D deficiency Supervision of normal first UTI in Decreased movement Vitamin D deficiency Supervision of normal first UTI in Care and examination of lactating mother nipple pain Care and examination of lactating mother Rectocele nipple pain Care and examination of lactating mother Other disorders of Encounter for wellness examination in adult Vitamin D deficiency Chief Complaint Admit Date 17 WK OB July 14, 2024 2:44pm 21 WK OB August 12, 2024 10:24am 25 wk ob September 08, 2024 1 :33pm 28 wk ob/glucose September 29, 2024 1 2:48pm 30 wk ob October 15, 2024 2:45pm 32 wk ob October 27, 2024 9:58 am GROWTH October 29, 2024 3:31 pm 34 wk ob November 09, 2024 9:4 2am Reason for Visit Admit Date Anxiety July 14, 2024 2:44pm Obesity affecting June 2:44pm July 14, 2024 2:44pm Rh negative state in antepartum period N ovember 2023 2:44pm Supervision of high risk , ante July 14, 2024 2:44pm FH: breast cancer July 14, 2024 2:44pm History of miscarriage, currently pregna nt July 14, 2024 2:44pm Spotting affecting July 142023 2:44pm Vitamin D deficiency July 14, 2024 2:44pm Anxiety August 12, 2024 10:24am Obesity affecting July 10:24am August 12, 2024 10:24am Rh negative state in antepartum period D ecember 2023 10:24am Supervision of high risk , ante August 12, 2024 10:24am FH: breast cancer August 12, 2024 10:24am History of miscarriage, currently pregna nt August 12, 2024 10:24am Low-lying placenta August 12, 2024 10:24am Spotting affecting August 122023 10:24am Vitamin D deficiency August 12, 2024 10:24am Anxiety September 08, 2024 1 :33pm Obesity affecting August 1:33pm September 08, 2024 1 :33pm Rh negative state in antepartum period J anuary 2024 1:33pm Supervision of high risk , ante September 08, 2024 1:33pm FH: breast cancer September 08, 2024 1 :33pm History of miscarriage, currently pregna nt September 08, 2024 1:33pm Low-lying placenta September 08, 2024 1 :33pm Anxiety September 29, 2024 1 2:48pm Obesity affecting September 12:48pm September 29, 2024 1 2:48pm Rh negative state in antepartum period F [facility] 2024 12:48pm Supervision of high risk , ante September 29, 2024 12:48pm History of miscarriage, currently pregna nt September 29, 2024 12:48pm Low-lying placenta September 29, 2024 1 2:48pm Anxiety October 15, 2024 2:45pm Obesity affecting September 2:45pm October 15, 2024 2:45pm Rh negative state in antepartum period F [facility] 2024 2:45pm Supervision of high risk , ante October 15, 2024 2:45pm Anxiety October 27, 2024 9:58 am Obesity affecting October 27, 025 9:58am October 27, 2024 9:58 am Rh negative state in antepartum period [facility] 2024 9:58am Supervision of high risk , ante October 27, 2024 9:58am Anxiety November 09, 2024 9:4 2am Obesity affecting November 09, 2024 9:42am November 09, 2024 9:4 2am Rh negative state in antepartum period [facility] 2024 9:42am Supervision of high risk , ante November 09, 2024 9:42am Chief Complaint Admit Date 21 WK OB August 12, 2024 10:24am 25 wk ob September 08, 2024 1 :33pm 28 wk ob/glucose September 29, 2024 1 2:48pm 30 wk ob October 15, 2024 2:45pm 32 wk ob October 27, 2024 9:58 am GROWTH October 29, 2024 3:31 pm 34 wk ob November 09, 2024 9:4 2am 36 wk ob/nst November 24, 2024 9:59 am Reason for Visit Admit Date Anxiety August 12, 2024 10:24am Obesity affecting July 10:24am August 12, 2024 10:24am Rh negative state in antepartum period D ecember 2023 10:24am Supervision of high risk , ante August 12, 2024 10:24am FH: breast cancer August 12, 2024 10:24am History of miscarriage, currently pregna nt August 12, 2024 10:24am Low-lying placenta August 12, 2024 10:24am Spotting affecting August 122023 10:24am Vitamin D deficiency August 12, 2024 10:24am Anxiety September 08, 2024 1 :33pm Obesity affecting August 1:33pm September 08, 2024 1 :33pm Rh negative state in antepartum period J anuary 2024 1:33pm Supervision of high risk , ante September 08, 2024 1:33pm FH: breast cancer September 08, 2024 1 :33pm History of miscarriage, currently pregna nt September 08, 2024 1:33pm Low-lying placenta September 08, 2024 1 :33pm Anxiety September 29, 2024 1 2:48pm Obesity affecting September 12:48pm September 29, 2024 1 2:48pm Rh negative state in antepartum period F [facility] 2024 12:48pm Supervision of high risk , ante September 29, 2024 12:48pm History of miscarriage, currently pregna nt September 29, 2024 12:48pm Low-lying placenta September 29, 2024 1 2:48pm Anxiety October 15, 2024 2:45pm Obesity affecting September 2:45pm October 15, 2024 2:45pm Rh negative state in antepartum period [facility] 2024 2:45pm Supervision of high risk , ante October 15, 2024 2:45pm Anxiety October 27, 2024 9:58 am Obesity affecting October 27, 2 025 9:58am October 27, 2024 9:58 am Rh negative state in antepartum period [facility] 2024 9:58am Supervision of high risk , ante October 27, 2024 9:58am Anxiety November 09, 2024 9:4 2am Obesity affecting November 09, 2024 9:42am November 09, 2024 9:4 2am Rh negative state in antepartum period M [facility] 2024 9:42am Supervision of high risk , ante November 09, 2024 9:42am Anxiety November 24, 2024 9:59 am Obesity affecting November 24, 9:59am November 24, 2024 9:59 am Rh negative state in antepartum period A pril 2024 9:59am Supervision of high risk , ante November 24, 2024 9:59am Chief Complaint Admit Date 21 WK OB August 12, 2024 10:24am 25 wk ob September 08, 2024 1 :33pm 28 wk ob/glucose September 29, 2024 1 2:48pm 30 wk ob October 15, 2024 2:45pm 32 wk ob October 27, 2024 9:58 am GROWTH October 29, 2024 3:31 pm 34 wk ob November 09, 2024 9:4 2am 36 wk ob/nst November 24, 2024 9:59 am GROWTH November 30, 2024 3:30 pm 37 wk ob December 01, 2024 9:44 am Reason for Visit Admit Date Anxiety August 12, 2024 10:24am Obesity affecting July 10:24am August 12, 2024 10:24am Rh negative state in antepartum period D ecember 2023 10:24am Supervision of high risk , ante August 12, 2024 10:24am FH: breast cancer August 12, 2024 10:24am History of miscarriage, currently pregna nt August 12, 2024 10:24am Low-lying placenta August 12, 2024 10:24am Spotting affecting August 122023 10:24am Vitamin D deficiency August 12, 2024 10:24am Anxiety September 08, 2024 1 :33pm Obesity affecting August 1:33pm September 08, 2024 1 :33pm Rh negative state in antepartum period J anuary 2024 1:33pm Supervision of high risk , ante September 08, 2024 1:33pm FH: breast cancer September 08, 2024 1 :33pm History of miscarriage, currently pregna nt September 08, 2024 1:33pm Low-lying placenta September 08, 2024 1 :33pm Anxiety September 29, 2024 1 2:48pm Obesity affecting September 12:48pm September 29, 2024 1 2:48pm Rh negative state in antepartum period [facility] 2024 12:48pm Supervision of high risk , ante September 29, 2024 12:48pm History of miscarriage, currently pregna nt September 29, 2024 12:48pm Low-lying placenta September 29, 2024 1 2:48pm Anxiety October 15, 2024 2:45pm Obesity affecting September 2:45pm October 15, 2024 2:45pm Rh negative state in antepartum period [facility] 2024 2:45pm Supervision of high risk , ante October 15, 2024 2:45pm Anxiety October 27, 2024 9:58 am Obesity affecting October 27 025 9:58am October 27, 2024 9:58 am Rh negative state in antepartum period [facility] 2024 9:58am Supervision of high risk , ante October 27, 2024 9:58am Anxiety November 09, 2024 9:4 2am Obesity affecting November 09, 2024 9:42am November 09, 2024 9:4 2am Rh negative state in antepartum period [facility] 2024 9:42am Supervision of high risk , ante November 09, 2024 9:42am Anxiety November 24, 2024 9:59 am Obesity affecting November 24, 025 9:59am November 24, 2024 9:59 am Rh negative state in antepartum period A 2024 9:59am Supervision of high risk , ante November 24, 2024 9:59am RANDI (amniotic fluid index) borderline lo w December 01, 2024 9:44am Anxiety December 01, 2024 9:44 am Obesity affecting December 01, 2 025 9:44am December 01, 2024 9:44 am Rh negative state in antepartum period A pri2024 9:44am Supervision of high risk , ante December 01, 2024 9:44am Chief Complaint Admit Date 25 wk ob September 08, 2024 1 :33pm 28 wk ob/glucose September 29, 2024 1 2:48pm 30 wk ob October 15, 2024 2:45pm 32 wk ob October 27, 2024 9:58 am GROWTH October 29, 2024 3:31 pm 34 wk ob November 09, 2024 9:4 2am 36 wk ob/nst November 24, 2024 9:59 am GROWTH November 30, 2024 3:30 pm 37 wk ob December 01, 2024 9:44 am RANDI RECHECK December 09, 2024 11: 23am 38 wk ob/NST December 09, 2024 12: 32pm Reason for Visit Admit Date Anxiety September 08, 2024 1 :33pm Obesity affecting August 1:33pm September 08, 2024 1 :33pm Rh negative state in antepartum period J anuary 2024 1:33pm Supervision of high risk , ante September 08, 2024 1:33pm FH: breast cancer September 08, 2024 1 :33pm History of miscarriage, currently pregna nt September 08, 2024 1:33pm Low-lying placenta September 08, 2024 1 :33pm Anxiety September 29, 2024 1 2:48pm Obesity affecting September 12:48pm September 29, 2024 1 2:48pm Rh negative state in antepartum period 2024 12:48pm Supervision of high risk , ante September 29, 2024 12:48pm History of miscarriage, currently pregna nt September 29, 2024 12:48pm Low-lying placenta September 29, 2024 1 2:48pm Anxiety October 15, 2024 2:45pm Obesity affecting September 2:45pm October 15, 2024 2:45pm Rh negative state in antepartum period [facility] 2024 2:45pm Supervision of high risk , ante October 15, 2024 2:45pm Anxiety October 27, 2024 9:58 am Obesity affecting October 27, 025 9:58am October 27, 2024 9:58 am Rh negative state in antepartum period M arch 2024 9:58am Supervision of high risk , ante October 27, 2024 9:58am Anxiety November 09, 2024 9:4 2am Obesity affecting November 09, 2024 9:42am November 09, 2024 9:4 2am Rh negative state in antepartum period M arch 2024 9:42am Supervision of high risk , ante November 09, 2024 9:42am Anxiety November 24, 2024 9:59 am Obesity affecting November 24 9:59am November 24, 2024 9:59 am Rh negative state in antepartum period A pri2024 9:59am Supervision of high risk , ante November 24, 2024 9:59am RANDI (amniotic fluid index) borderline lo w December 01, 2024 9:44am Anxiety December 01, 2024 9:44 am Obesity affecting December 01 9:44am December 01, 2024 9:44 am Rh negative state in antepartum period A pri2024 9:44am Supervision of high risk , ante December 01, 2024 9:44am RANDI (amniotic fluid index) borderline lo w December 09, 2024 12:32pm Anxiety December 09, 2024 12: 32pm Obesity affecting December 09, 2024 12:32pm December 09, 2024 12: 32pm Rh negative state in antepartum period A pril 2024 12:32pm Supervision of high risk , ante December 09, 2024 12:32pm Chief Complaint Admit Date 25 wk ob September 08, 2024 1 :33pm 28 wk ob/glucose September 29, 2024 1 2:48pm 30 wk ob October 15, 2024 2:45pm 32 wk ob October 27, 2024 9:58 am GROWTH October 29, 2024 3:31 pm 34 wk ob November 09, 2024 9:4 2am 36 wk ob/nst November 24, 2024 9:59 am GROWTH November 30, 2024 3:30 pm 37 wk ob December 01, 2024 9:44 am RANDI RECHECK December 09, 2024 11: 23am 38 wk ob/NST December 09, 2024 12: 32pm 39 wk ob/NST December 15, 2024 11: 17am R/O LABOR December 15, 2024 11: 43am Reason for Visit Admit Date Anxiety September 08, 2024 1 :33pm Obesity affecting August 1:33pm September 08, 2024 1 :33pm Rh negative state in antepartum period J anuary 2024 1:33pm Supervision of high risk , ante September 08, 2024 1:33pm FH: breast cancer September 08, 2024 1 :33pm History of miscarriage, currently pregna nt September 08, 2024 1:33pm Low-lying placenta September 08, 2024 1 :33pm Anxiety September 29, 2024 1 2:48pm Obesity affecting September 12:48pm September 29, 2024 1 2:48pm Rh negative state in antepartum period [facility] 2024 12:48pm Supervision of high risk , ante September 29, 2024 12:48pm History of miscarriage, currently pregna nt September 29, 2024 12:48pm Low-lying placenta September 29, 2024 1 2:48pm Anxiety October 15, 2024 2:45pm Obesity affecting September 2:45pm October 15, 2024 2:45pm Rh negative state in antepartum period [facility] 2024 2:45pm Supervision of high risk , ante October 15, 2024 2:45pm Anxiety October 27, 2024 9:58 am Obesity affecting October 27, 2 025 9:58am October 27, 2024 9:58 am Rh negative state in antepartum period [facility] 2024 9:58am Supervision of high risk , ante October 27, 2024 9:58am Anxiety November 09, 2024 9:4 2am Obesity affecting November 09, 2024 9:42am November 09, 2024 9:4 2am Rh negative state in antepartum period [facility] 2024 9:42am Supervision of high risk , ante November 09, 2024 9:42am Anxiety November 24, 2024 9:59 am Obesity affecting November 24, 2 025 9:59am November 24, 2024 9:59 am Rh negative state in antepartum period A pri2024 9:59am Supervision of high risk , ante November 24, 2024 9:59am RANDI (amniotic fluid index) borderline lo w December 01, 2024 9:44am Anxiety December 01, 2024 9:44 am Obesity affecting December 01 025 9:44am December 01, 2024 9:44 am Rh negative state in antepartum period A pri2024 9:44am Supervision of high risk , ante December 01, 2024 9:44am RANDI (amniotic fluid index) borderline lo w December 09, 2024 12:32pm Anxiety December 09, 2024 12: 32pm Obesity affecting December 09, 2024 12:32pm December 09, 2024 12: 32pm Rh negative state in antepartum period A pril 2024 12:32pm Supervision of high risk , ante December 09, 2024 12:32pm RANDI (amniotic fluid index) borderline lo w December 15, 2024 11:17am Anxiety December 15, 2024 11: 17am Obesity affecting December 15, 2024 11:17am December 15, 2024 11: 17am Rh negative state in antepartum period A pril 2024 11:17am Supervision of high risk , ante December 15, 2024 11:17am Chief Complaint Admit Date 28 wk ob/glucose September 29, 2024 1 2:48pm 30 wk ob October 15, 2024 2:45pm 32 wk ob October 27, 2024 9:58 am GROWTH October 29, 2024 3:31 pm 34 wk ob November 09, 2024 9:4 2am 36 wk ob/nst November 24, 2024 9:59 am GROWTH November 30, 2024 3:30 pm 37 wk ob December 01, 2024 9:44 am RANDI RECHECK December 09, 2024 11: 23am 38 wk ob/NST December 09, 2024 12: 32pm 39 wk ob/NST December 15, 2024 11: 17am R/O LABOR December 15, 2024 11: 43am R/O LABOR December 17, 2024 8:0 3am VAGINAL DELIVERY PER JOSE IN December 17, 2024 4:10pm VAGINAL DELIVERY PER JOSE IN December 18, 2024 8:11am VAGINAL DELIVERY PER JOSE IN December 19, 2024 9:39am Annual/Physical January 25, 2025 1:23p m Reason for Visit Admit Date Anxiety September 29, 2024 1 2:48pm Obesity affecting September 12:48pm September 29, 2024 1 2:48pm Rh negative state in antepartum period [facility] 2024 12:48pm Supervision of high risk , ante September 29, 2024 12:48pm History of miscarriage, currently pregna nt September 29, 2024 12:48pm Low-lying placenta September 29, 2024 1 2:48pm Anxiety October 15, 2024 2:45pm Obesity affecting September 2:45pm October 15, 2024 2:45pm Rh negative state in antepartum period [facility] 2024 2:45pm Supervision of high risk , ante October 15, 2024 2:45pm Anxiety October 27, 2024 9:58 am Obesity affecting October 27 025 9:58am October 27, 2024 9:58 am Rh negative state in antepartum period [facility] 2024 9:58am Supervision of high risk , ante October 27, 2024 9:58am Anxiety November 09, 2024 9:4 2am Obesity affecting November 09, 2024 9:42am November 09, 2024 9:4 2am Rh negative state in antepartum period [facility] 2024 9:42am Supervision of high risk , ante November 09, 2024 9:42am Anxiety November 24, 2024 9:59 am Obesity affecting November 24 025 9:59am November 24, 2024 9:59 am Rh negative state in antepartum period A pri 2024 9:59am Supervision of high risk , ante November 24, 2024 9:59am RANDI (amniotic fluid index) borderline lo w December 01, 2024 9:44am Anxiety December 01, 2024 9:44 am Obesity affecting December 01, 2 025 9:44am December 01, 2024 9:44 am Rh negative state in antepartum period A pri2024 9:44am Supervision of high risk , ante December 01, 2024 9:44am RANDI (amniotic fluid index) borderline lo w December 09, 2024 12:32pm Anxiety December 09, 2024 12: 32pm Obesity affecting December 09, 2024 12:32pm December 09, 2024 12: 32pm Rh negative state in antepartum period A pril 2024 12:32pm Supervision of high risk , ante December 09, 2024 12:32pm RANDI (amniotic fluid index) borderline lo w December 15, 2024 11:17am Anxiety December 15, 2024 11: 17am Obesity affecting December 15, 2024 11:17am December 15, 2024 11: 17am Rh negative state in antepartum period A pril 2024 11:17am Supervision of high risk , ante December 15, 2024 11:17am RANDI (amniotic fluid index) borderline lo w December 17, 2024 4:10pm Anxiety December 17, 2024 4:1 0pm Obesity affecting December 17, 2024 4:10pm December 17, 2024 4:1 0pm Rh negative state in antepartum period A pril 2024 4:10pm SROM (spontaneous rupture of membranes) December 17, 2024 4:10pm Supervision of high risk , ante December 17, 2024 4:10pm Vaginal delivery December 17, 2024 4:1 0pm Additional Source Comments INFORMATION SOURCE (unrecogn ized section and content) DATE CREATED AUTHOR 10/14/2018 [facility] [employer] DATE CREATED AUTHOR AUTHOR'S ORGANIZ ATION 10/17/2021 [facility] [employer] [facility] [employer] DATE CREATED AUTHOR AUTHOR'S ORGANIZ ATION 09/04/2024 [facility] DATE CREATED AUTHOR AUTHOR'S ORGANIZ ATION 10/01/2024 [facility] DATE CREATED AUTHOR AUTHOR'S ORGANIZ ATION 01/26/2025 [facility] Goals (unrecognized section and content) Goals may be documented in a n alternate sectionGoals may be documented in an alternate sectionGoals may be documented in an alternate sectionGoals may be documented in an alternate sectionGoals may be documented in an alternate sectionGoals may be documented in an alternate sectionGoals may be documented in an alternate sectionGoals may be documented in an alternate sectionGoals may be documented in an alternate sectionGoals may be documented in an alternate sectionGoals may be documented in an alternate sectionGoals may be documented in an alternate sectionGoals may be documented in an alternate sectionGoals may be documented in an alternate section Care Teams (unrecognized sec tion and content) Team Status: Active Member Role Status Dates No Primary Care Physician Family Provider Active Dr. Ramesh Parker MD Primary Care Provider Active Team Status: Inactive Member Role Status Dates Dr. Ramesh Parker MD Primary Care Provider, Referri ng Provider Active Radha Shaw CNM Attending Provider Active Team Status: Inactive Member Role Status Dates Dr. Ramesh Parker MD Primary Care Provider, Referri ng Provider Active Uli Angelo BUSINESS PROCESS EXPERT, BUSINESS PROCESS EXPERT-C Attending Provider Active Team Status: Inactive Member Role Status Dates Dr. Ramesh Parker MD Primary Care Provider, Referri ng Provider Active Dr. Munira Sandoval DO Attending Provider Activ e Team Status: Inactive Member Role Status Dates Dr. Ramesh Parker MD Primary Care Provider, Referri ng Provider Active Dr. Tamie Mojica MD Attending Provider Active Team Status: Inactive Member Role Status Dates Dr. Ramesh Parker MD Primary Care Provider Active Dr. Munira Sandoval DO Attending Provider Activ e Team Status: Inactive Member Role Status Dates Dr. Ramesh Parker MD Primary Care Provider Active Uli Angelo BUSINESS PROCESS EXPERT, BUSINESS PROCESS EXPERT-C Attending Provider Active Team Status: Inactive Member Role Status Dates Dr. Ramesh Parker MD Primary Care Provider Active Uli Angelo BUSINESS PROCESS EXPERT, BUSINESS PROCESS EXPERT-C Attending Provider, Referring Provider Active Team Status: Inactive Member Role Status Dates Dr. Ramesh Parker MD Primary Care Provider Active Dr. Tamie Mojica MD Attending Provider, Referr ing Provider Active Team Status: Active Member Role Status Dates Dr. Ramesh Parker MD Primary Care Provider Active Dr. Munira Sandoval DO Admit Prov ider, Attending Provider, Other Provider Active Team Status: Active Member Role Status Dates Dr. Ramesh Parker MD Primary Care Provider Active Dr. Munira Sandoval DO Admit Provider, Other Pr ovider Active Radha Shaw CNM Attending Provider Active Team Status: Active Member Role Status Dates Dr. Ramesh Parker MD Primary Care Provider Active Dr. Munira Sandoval DO Admit Provider, Other Pr ovider Active Uli Angelo BUSINESS PROCESS EXPERT, BUSINESS PROCESS EXPERT-C Attending Provider Active Team Status: Inactive Member Role Status Dates Dr. Ramesh Parker MD Primary Care Provider Active Dr. Munira Sandoval DO Admit Provider, Attendin g Provider Active Team Status: Inactive Member Role Status Dates Dr. Ramesh Parker MD Primary Care Provider, Referri ng Provider Active Yamileth White BUSINESS PROCESS EXPERT, BUSINESS PROCESS EXPERT-C Attending Provider Active Team Status: Inactive Member Role Status Dates Dr. Ramesh Parker MD Primary Care Provider, Attendi ng Provider Active [employer] Relationship Specialty Start Date End Date Ramesh Parker MD [id number] [id number] PCP - General Internal Medicine 08/28/24 Team Status: Active Member Role Status Dates Dr. Ramesh Parker MD Primary Care Provider Active Team Status: Inactive Member Role Status Dates Dr. Ramesh Parker MD Primary Care Provider Active Start: July 14, 2024 End: July 14, 2024 Dr. Ramesh Parker MD Referring Provider Active Start: July 14, 2024 End: July 14, 2024 Dr. Munira Sandoval DO Attending Provider Activ e Start: July 14, 2024 End: July 14, 2024 Team Status: Inactive Member Role Status Dates Dr. Ramesh Parker MD Primary Care Provider Active Start: August 12, 2024 End: August 12, 2024 Dr. Ramesh Parker MD Referring Provider Active Start: August 12, 2024 End: August 12, 2024 Dr. Tamie Mojica MD Attending Provider Active Start: August 12, 2024 End: August 12, 2024 Team Status: Inactive Member Role Status Dates Dr. Ramesh Parker MD Primary Care Provider Active Start: September 08, 2024 End: September 08, 2024 Dr. Ramesh Parker MD Referring Provider Active Start: September 08, 2024 End: September 08, 2024 Uli Angelo BUSINESS PROCESS EXPERT, BUSINESS PROCESS EXPERT-C Attending Provider Active Start: September 08, 2024 End: September 08, 2024 Team Status: Inactive Member Role Status Dates Dr. Ramesh Parker MD Primary Care Provider Active Start: September 29, 2024 End: September 29, 2024 Dr. Raemsh Parker MD Referring Provider Active Start: September 29, 2024 End: September 29, 2024 Uli Angelo BUSINESS PROCESS EXPERT, BUSINESS PROCESS EXPERT-C Attending Provider Active Start: September 29, 2024 End: September 29, 2024 Team Status: Inactive Member Role Status Dates Dr. Ramesh Parker MD Primary Care Provider Active Start: September 29, 2024 End: September 29, 2024 Dr. Munira Sandoval DO Attending Provider Activ e Start: September 29, 2024 End: September 29, 2024 Dr. Munira Sandoval DO Referring Provider Activ e Start: September 29, 2024 End: September 29, 2024 Team Status: Inactive Member Role Status Dates Dr. Ramesh Parker MD Primary Care Provider Active Start: October 15, 2024 End: October 15, 2024 Dr. Ramesh Parker MD Referring Provider Active Start: October 15, 2024 End: October 15, 2024 Dr. Tamie Mojica MD Attending Provider Active Start: October 15, 2024 End: October 15, 2024 Team Status: Inactive Member Role Status Dates Dr. Ramesh Parker MD Primary Care Provider Active Start: October 27, 2024 End: October 27, 2024 Dr. Ramesh Parker MD Referring Provider Active Start: October 27, 2024 End: October 27, 2024 Dr. Munira Sandoval DO Attending Provider Activ e Start: October 27, 2024 End: October 27, 2024 Team Status: Inactive Member Role Status Dates Dr. Ramesh Parker MD Primary Care Provider Active Start: October 29, 2024 End: October 29, 2024 Dr. Tamie Mojica MD Attending Provider Active Start: October 29, 2024 End: October 29, 2024 Dr. Tamie Mojica MD Referring Provider Active Start: October 29, 2024 End: October 29, 2024 Team Status: Inactive Member Role Status Dates Dr. Ramesh Parker MD Primary Care Provider Active Start: November 09, 2024 End: November 09, 2024 Dr. Ramesh Parker MD Referring Provider Active Start: November 09, 2024 End: November 09, 2024 Eliza Negro CNM Attending Provider Active S tart: November 09, 2024 End: November 09, 2024 Team Status: Inactive Member Role Status Dates Dr. Ramesh Parker MD Primary Care Provider Active Start: November 24, 2024 End: November 24, 2024 Dr. Ramesh Parker MD Referring Provider Active Start: November 24, 2024 End: November 24, 2024 Dr. Munira Sandoval DO Attending Provider Activ e Start: November 24, 2024 End: November 24, 2024 Team Status: Inactive Member Role Status Dates Dr. Ramesh Parker MD Primary Care Provider Active Start: November 24, 2024 End: November 24, 2024 Dr. Munira Sandoval DO Attending Provider Activ e Start: November 24, 2024 End: November 24, 2024 Dr. Munira Sandoval DO Referring Provider Activ e Start: November 24, 2024 End: November 24, 2024 Team Status: Inactive Member Role Status Dates Dr. Ramesh Parker MD Primary Care Provider Active Start: November 30, 2024 End: November 30, 2024 Dr. Tamie Mojica MD Attending Provider Active Start: November 30, 2024 End: November 30, 2024 Dr. Tamie Mojica MD Referring Provider Active Start: November 30, 2024 End: November 30, 2024 Team Status: Inactive Member Role Status Dates Dr. Ramesh Parker MD Primary Care Provider Active Start: December 01, 2024 End: December 01, 2024 Dr. Ramesh Parker MD Referring Provider Active Start: December 01, 2024 End: December 01, 2024 Dr. Tamie Mojica MD Attending Provider Active Start: December 01, 2024 End: December 01, 2024 Team Status: Inactive Member Role Status Dates Dr. Ramesh Parker MD Primary Care Provider Active Start: December 09, 2024 End: December 09, 2024 Dr. Tamie Mojica MD Attending Provider Active Start: December 09, 2024 End: December 09, 2024 Dr. Tamie Mojica MD Referring Provider Active Start: December 09, 2024 End: December 09, 2024 Team Status: Inactive Member Role Status Dates Dr. Ramesh Parker MD Primary Care Provider Active Start: December 09, 2024 End: December 09, 2024 Dr. Ramesh Parker MD Referring Provider Active Start: December 09, 2024 End: December 09, 2024 Dr. Tamie Mojica MD Attending Provider Active Start: December 09, 2024 End: December 09, 2024 Team Status: Inactive Member Role Status Dates Dr. Ramesh Parker MD Primary Care Provider Active Start: December 15, 2024 End: December 15, 2024 Dr. Ramesh Parker MD Referring Provider Active Start: December 15, 2024 End: December 15, 2024 Dr. Tamie Mojica MD Attending Provider Active Start: December 15, 2024 End: December 15, 2024 Team Status: Inactive Member Role Status Dates Dr. Ramesh Parker MD Primary Care Provider Active Start: December 15, 2024 End: December 15, 2024 Dr. Tamie Mojica MD Attending Provider Active Start: December 15, 2024 End: December 15, 2024 Dr. Tamie Mojica MD Referring Provider Active Start: December 15, 2024 End: December 15, 2024 Team Status: Active Member Role Status Dates Dr. Ramesh Parker MD Primary Care Provider Active Start: December 17, 2024 Dr. Tamie Mojica MD Attending Provider Active Start: December 17, 2024 Dr. Tamie Mojica MD Referring Provider Active Start: December 17, 2024 Dr. Tamie Mojica MD Other Provider Active Start: December 17, 2024 Team Status: Inactive Member Role Status Dates Dr. Ramesh Parker MD Primary Care Provider Active Start: December 17, 2024 End: December 19, 2024 Dr. Tamie Mojica MD Admit Provider Active Start: December 17, 2024 End: December 19, 2024 Dr. Tamie Mojica MD Attending Provider Active Start: December 17, 2024 End: December 19, 2024 Dr. Tamie Mojica MD Referring Provider Active Start: December 17, 2024 End: December 19, 2024 Team Status: Active Member Role Status Dates Dr. Ramesh Parker MD Primary Care Provider Active Start: December 18, 2024 Dr. Tamie Mojica MD Admit Provider Active Start: December 18, 2024 Dr. Tamie Mojica MD Referring Provider Active Start: December 18, 2024 Dr. Tamie Mojica MD Other Provider Active Start: December 18, 2024 Radha Shaw CNM Attending Provider Active Start: December 18, 2024 Team Status: Active Member Role Status Dates Dr. Ramesh Parker MD Primary Care Provider Active Start: December 19, 2024 Dr. Tamie Mojica MD Admit Provider Active Start: December 19, 2024 Dr. Tamie Mojica MD Referring Provider Active Start: December 19, 2024 Dr. Tamie Mojica MD Other Provider Active Start: December 19, 2024 Radha Shaw CNM Attending Provider Active Start: December 19, 2024 Team Status: Inactive Member Role Status Dates Dr. Ramesh Parker MD Primary Care Provider Active Start: January 25, 2025 End: January 25, 2025 Dr. Ramesh Parker MD Attending Provider Active Start: January 25, 2025 End: January 25, 2025 Source Comments (unrecognize d section and content) In the event this informatio n is protected by the Federal Confidentiality of Alcohol and Drug Abuse Patient Records regulations: The Federal rules restrict any use of the information to criminally investigate or prosecute any alcohol or drug abuse patient.[facility] the event this information is protected by the Federal Confidentiality of Alcohol and Drug Abuse Patient Records regulations: The Federal rules restrict any use of the information to criminally investigate or prosecute any alcohol or drug abuse patient.[facility] the event this information is protected by the Federal Confidentiality of Alcohol and Drug Abuse Patient Records regulations: The Federal rules restrict any use of the information to criminally investigate or prosecute any alcohol or drug abuse patient.[facility] Reason for Visit (unrecogniz ed section and content) Reason Comments Cough Cough x 5 days and l eft ear pain x 1 day Reason Comments Ear Pain LEFT ear x1 week FOR RECORDS PERTAINING TO PATIENTS WHO ARE OR HAVE BEEN ENROLLED IN A CHEMICAL DEPENDENCY/SUBSTANCEABUSE PROGRAM, SOME INFORMATION MAY BE OMITTED. This clinical summary was aggregated from multiple sources. Caution should be exercised in using it in the provision of clinical care. This summary normalizes information from multiple sources, and as a consequence, information in this document may materially change the coding, format and clinical context of patient data. In addition, data may be omitted in some cases. CLINICAL DECISIONS SHOULD BE BASED ON THE PRIMARY CLINICAL RECORDS. [facility]. provides no warranty or guarantee of the accuracy or completeness of information in this document.
[2025-01-26 11:15] LABS: Hemoglobin A1c 5.4 % (<=5.6)
[2025-01-26 11:21] LABS: Cholesterol 182 mg/dL (<=200); High Density Lipoprotein 72 mg/dL; Low Density Lipoprotein Calc. 98 mg/dL; Triglycerides 61 mg/dL; Very Low Density Lipoprotein 12 mg/dL (5-40); Vitamin D,25 Hydroxy 18.8 ng/mL (30-100); cholesterol:hdl ratio screen 2.54
[2025-01-26 11:36] LABS: AST(SGOT) 30 U/L (<=31); Alanine Aminotransfer ALT/SGPT 37 U/L (<=34); Albumin, Serum 4.6 g/dL (3.5-5.0); Alkaline Phosphatase 72 U/L (35-104); Anion Gap 11 (5-15); BUN 12 mg/dL (4-19); Carbon Dioxide 25.2 mmol/L (21.0-32.0); Chloride 103 mmol/L (98-108); Creatinine, Serum 0.72 mg/dL (0.70-1.20); EST Glomerular Filtration Rate 114 (>60); Globulin 2.3 g/dL (2.2-4.2); Glucose 85 mg/dL (70-99); Potassium 3.8 mmol/L (3.3-5.1); Protein, Total 6.9 g/dL (5.9-8.4); Sodium Level 139 mmol/L (133-145); Total Bilirubin 0.67 mg/dL (0.00-1.30)
[2025-01-29 12:08] LABS: HPV APTIMA, High Risk Negative (Negative)
== END | disposition home or self-care (01) ==
LOC: LAB 08:59
PROVIDERS: Nurse Practitioner Women's Health; PCP Internal Medicine; Referring Provider Internal Medicine; Visit Provider Internal Medicine
DX: Z00.00 Encounter for general adult medical examination without abnormal findings (principal); R73.9 Hyperglycemia, unspecified; E55.9 Vitamin D deficiency, unspecified; Z13.220 Encounter for screening for lipoid disorders; Z12.4 Encounter for screening for malignant neoplasm of cervix
CPT/HCPCS: 36415; 80053; 80061; 82306; 83036; 85025; 87624; 88175; G0145